=== PATIENT | male | born 1965 | race Caucasian/White ===

== ENCOUNTER 2017-01-19 19:03 | Inpatient (IN) | payer OTHER ==
[2017-01-19] MEDS ORDERED: DUONEB 0.5-3 MG/3 ml Neb IH ONE ×2 (19:40→19:48)
[2017-01-19] MEDS ORDERED: MOTRIN 600 MG PO ONE (19:40)
--- NOTE | 2017-01-19 19:40 | ERPHSYRPT ---
- History of Present Illness Time Seen by Provider: 01/19/17 19:27 Source: patient Exam Limitations: no limitations Physician History: 51 y/o male with history of MIs in the past comes to the ER with complaints of right sided chest pain, productive cough and fever for the past 4 days. Pt has been taking motrin and tylenol with no relief of fever. Pt says it feels as if he has pneumonia. Pt describes the pain as sharp, constant, 6/10, worse with inspiration and pt has not taken any pain meds. Pt arrives with a fever of 101.7. Pt denies any palpitations, dizziness, substernal chest pain or leg edema. 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 Associated Symptoms: cough Allergies/Adverse Reactions: No Known Drug Allergies Allergy (Unverified 01/19/17 19:46) Home Medications: No Reportable Medications [No Reported Medications] 01/19/17 [History] - Review of Systems Constitutional: Fever, Chills, Weakness Eyes: No Symptoms Ears, Nose, & Throat: No Symptoms Respiratory: Cough, Dyspnea, Dyspnea on Exertion (CASANOVA), Wheezing Cardiac: No Chest Pain, No Edema, No Syncope Abdominal/Gastrointestinal: No Abdominal Pain, No Nausea, No Vomiting, No Diarrhea Genitourinary Symptoms: No Dysuria Musculoskeletal: No Back Pain, No Neck Pain Skin: No Rash Neurological: No Dizziness, No Focal Weakness, No Sensory Changes Psychological: No Symptoms Endocrine: No Symptoms All Other Systems: Reviewed and Negative - Nursing Vital Signs Nursing Vital Signs: Initial Vital Signs Temperature 101.7 F 01/19/17 19:34 Pulse Rate 98 H 01/19/17 19:34 Respiratory Rate 24 01/19/17 19:34 Blood Pressure 133/97 01/19/17 19:34 O2 Sat by Pulse Oximetry 95 01/19/17 19:34 Pain Scale Pain Intensity 7 - Physical Exam General Appearance: no apparent distress, alert Eye Exam: PERRL/EOMI ENT Exam: normal ENT inspection, No pharyngeal erythema, No tonsillar exudate Neck Exam: normal inspection, non-tender, supple, full range of motion, No meningismus Respiratory Exam: normal breath sounds, lungs clear, no respiratory distress Cardiovascular/Chest Exam: normal heart sounds, regular rate/rhythm, No murmur, No edema Gastrointestinal/Abdominal Exam: soft, non tender, no distention Extremity Exam: non-tender, normal range of motion, normal inspection, normal capillary refill Neurologic Exam: alert, oriented x 3, cooperative, lace mender II-XII nml as tested, normal mood/affect, sensation nml, No motor deficits Skin Exam: normal color, warm, dry, No rash - Course Nursing assessment & vital signs reviewed: Yes EKG Interpreted by Me: RATE (hr 94), NORMAL AXIS, NORMAL INTERVALS, NORMAL QRS, NORMAL ST-T Ordered Tests: Active Orders 24 hr Category Date Time Status EKG-ER Only STAT Care 01/19/17 19:32 Active IV Insertion STAT Care 01/19/17 19:32 Active CHEST 2 VIEWS (PA AND LAT) Stat Exams 01/19/17 19:33 Taken CHEST WITH CONTRAST [CT] Stat Exams 01/19/17 20:44 Taken BLOOD CULTURE Stat Lab 01/19/17 19:50 Received BNP [NT PRO BNP] Stat Lab 01/19/17 19:45 Completed CBC W DIFF Stat Lab 01/19/17 19:45 Completed CMP Stat Lab 01/19/17 19:45 Completed CULTURE,URINE Stat Lab 01/19/17 21:14 Received D-DIMER QUANTITATION Stat Lab 01/19/17 19:45 Completed Lactic Acid Stat Lab 01/19/17 19:50 Completed Lactic Acid Stat Lab 01/19/17 22:45 Results Manual Differential NC Stat Lab 01/19/17 19:45 Completed TROPONIN Q3H Lab 01/19/17 19:45 Completed TROPONIN Q3H Lab 01/19/17 22:45 Received UA W/ MICROSCOPIC Stat Lab 01/19/17 21:14 Completed Respiratory Nebulizer STAT RT 01/19/17 19:40 Active Medication Summary Discontinued Medications Generic Name Dose Route Start Last Admin Trade Name Freq PRN Reason Stop Dose Admin Albuterol/Ipratropium 3 ml 01/19/17 19:40 01/19/17 20:05 Duoneb 0.5-3 Mg/3 Ml Neb IH 01/19/17 19:41 3 ml STAT ONE Administration Albuterol/Ipratropium Confirm 01/19/17 19:48 Duoneb 0.5-3 Mg/3 Ml Neb Administered 01/19/17 19:49 Dose 3 ml IH .STK-MED ONE Sodium Chloride 1,000 mls @ 999 mls/hr 01/19/17 20:19 01/19/17 20:42 Sodium Chloride 0.9% 1000 Ml IV 01/19/17 21:19 999 mls/hr .Q1H1M STA Administration Sodium Chloride Confirm 01/19/17 20:36 Sodium Chloride 0.9% 1000 Ml Administered 01/19/17 20:37 Dose 1,000 mls @ ud .ROUTE .STK-MED ONE Sodium Chloride Confirm 01/19/17 20:43 Sodium Chloride 0.9% 1000 Ml Administered 01/19/17 20:44 Dose 1,000 mls @ ud .ROUTE .STK-MED ONE Levofloxacin/Dextrose 750 mg in 150 mls @ 100 mls/hr 01/19/17 20:46 01/19/17 21:01 Levofloxacin 750mg/150ml D5w IV 01/19/17 22:15 100 mls/hr STAT ONE Administration Levofloxacin/Dextrose Confirm 01/19/17 20:55 Levofloxacin 750mg/150ml D5w Administered 01/19/17 20:56 Dose 750 mg in 150 mls @ ud IV .STK-MED ONE Ibuprofen 600 mg 01/19/17 19:40 01/19/17 19:56 Motrin 600 Mg PO 01/19/17 19:41 600 mg STAT ONE Administration Ibuprofen Confirm 01/19/17 19:55 Motrin 600 Mg Administered 01/19/17 19:56 Dose 600 mg .ROUTE .STK-MED ONE Morphine Sulfate 4 mg 01/19/17 22:27 01/19/17 22:33 Morphine Sulfate 4 Mg Inj IV 01/19/17 22:28 4 mg STAT ONE Administration Morphine Sulfate Confirm 01/19/17 22:29 Morphine Sulfate 4 Mg Inj Administered 01/19/17 22:30 Dose 4 mg .ROUTE .STK-MED ONE Lab/Rad Data: Laboratory Result Diagrams 01/19/17 19:45 01/19/17 19:45 Laboratory Results 01/19/17 01/19/17 01/19/17 Range/Units 22:45 21:14 20:35 WBC (4.0-10.5) K/mm3 RBC (4.1-5.6) M/mm3 Hgb (12.5-18.0) gm/dl Hct (42-50) % MCV (78-100) fl MCH (26-32) pg MCHC (32-36) g/dl RDW (11.5-14.0) % Plt Count (150-450) K/mm3 MPV (6-9.5) fl Segmented Neutrophils (36.-66.) % Band Neutrophils (0.0-2.0) % Lymphocytes (Manual) (24-44) % Monocytes (Manual) (0.0-12.0) % Differential Comment Platelet Estimate (NORMAL) Anisocytosis D-Dimer (0-500) ng/mL Sodium (136-145) mEq/L Potassium (3.5-5.1) mEq/L Chloride (98-107) mEq/L Carbon Dioxide (21-32) mEq/L Anion Gap (5-15) MEQ/L BUN (9-20) mg/dL Creatinine (0.55-1.30) mg/dl Estimated GFR ML/MIN Glucose (70-110) MG/DL Lactic Acid 2.0 (0.4-2.0) Calcium (8.5-10.1) mg/dL Total Bilirubin (0.2-1.0) mg/dL AST (15-37) U/L ALT (12-78) U/L Alkaline Phosphatase (46-116) U/L Troponin I (0.000-0.056) ng/ml NT-Pro-B Natriuret Pep (0-125) pg/ml Serum Total Protein (6.4-8.2) gm/dL Albumin (3.4-5.0) g/dL Ur Collection Type VOID Urine Color YELLOW (YELLOW) Urine Appearance CLEAR (CLEAR) Urine pH 6.0 (5-6) Ur Specific Harrison 1.010 (1.005-1.025) Urine Protein TRACE (Negative) Urine Ketones NEGATIVE (NEGATIVE) Urine Blood 50 (0-5) Junito/ul Urine Nitrite NEGATIVE (NEGATIVE) Urine Bilirubin NEGATIVE (NEGATIVE) Urine Urobilinogen NORMAL (0-1) mg/dL Ur Leukocyte Esterase NEGATIVE (NEGATIVE) Urine Microscopic RBC 0-2 (0-2) /HPF Urine Microscopic WBC 0-2 (0-5) /HPF Ur Epithelial Cells RARE (FEW) /HPF Urine Bacteria FEW (NEGATIVE) /HPF Urine Culture Reflexed YES (NO) Urine Glucose 1000 (NEGATIVE) mg/dL Influenza Type A Ag NEGATIVE (NEGATIVE) Influenza Type B Ag NEGATIVE (NEGATIVE) RSV (PCR) NEGATIVE (Negative) Specimen Received 01/19/170 01/19/17 01/19/17 01/19/17 Range/Units 19:50 19:45 19:45 WBC (4.0-10.5) K/mm3 RBC (4.1-5.6) M/mm3 Hgb (12.5-18.0) gm/dl Hct (42-50) % MCV (78-100) fl MCH (26-32) pg MCHC (32-36) g/dl RDW (11.5-14.0) % Plt Count (150-450) K/mm3 MPV (6-9.5) fl Segmented Neutrophils (36.-66.) % Band Neutrophils (0.0-2.0) % Lymphocytes (Manual) (24-44) % Monocytes (Manual) (0.0-12.0) % Differential Comment Platelet Estimate (NORMAL) Anisocytosis D-Dimer 1178 H* (0-500) ng/mL Sodium (136-145) mEq/L Potassium (3.5-5.1) mEq/L Chloride (98-107) mEq/L Carbon Dioxide (21-32) mEq/L Anion Gap (5-15) MEQ/L BUN (9-20) mg/dL Creatinine (0.55-1.30) mg/dl Estimated GFR ML/MIN Glucose (70-110) MG/DL Lactic Acid 2.3 H (0.4-2.0) Calcium (8.5-10.1) mg/dL Total Bilirubin (0.2-1.0) mg/dL AST (15-37) U/L ALT (12-78) U/L Alkaline Phosphatase (46-116) U/L Troponin I (0.000-0.056) ng/ml NT-Pro-B Natriuret Pep 586 H (0-125) pg/ml Serum Total Protein (6.4-8.2) gm/dL Albumin (3.4-5.0) g/dL Ur Collection Type Urine Color (YELLOW) Urine Appearance (CLEAR) Urine pH (5-6) Ur Specific Harrison (1.005-1.025) Urine Protein (Negative) Urine Ketones (NEGATIVE) Urine Blood (0-5) Junito/ul Urine Nitrite (NEGATIVE) Urine Bilirubin (NEGATIVE) Urine Urobilinogen (0-1) mg/dL Ur Leukocyte Esterase (NEGATIVE) Urine Microscopic RBC (0-2) /HPF Urine Microscopic WBC (0-5) /HPF Ur Epithelial Cells (FEW) /HPF Urine Bacteria (NEGATIVE) /HPF Urine Culture Reflexed (NO) Urine Glucose (NEGATIVE) mg/dL Influenza Type A Ag (NEGATIVE) Influenza Type B Ag (NEGATIVE) RSV (PCR) (Negative) Specimen Received 01/19/17 01/19/17 01/19/17 Range/Units 19:45 19:45 19:45 WBC 14.1 H (4.0-10.5) K/mm3 RBC 4.50 (4.1-5.6) M/mm3 Hgb 14.6 (12.5-18.0) gm/dl Hct 41.6 L (42-50) % MCV 92.4 (78-100) fl MCH 32.4 H (26-32) pg MCHC 35.1 (32-36) g/dl RDW 13.2 (11.5-14.0) % Plt Count 160 (150-450) K/mm3 MPV 11.0 H (6-9.5) fl Segmented Neutrophils 71 H (36.-66.) % Band Neutrophils 7 H (0.0-2.0) % Lymphocytes (Manual) 11 L (24-44) % Monocytes (Manual) 11 (0.0-12.0) % Differential Comment ABNORMAL Platelet Estimate NORMAL (NORMAL) Anisocytosis 1+ D-Dimer (0-500) ng/mL Sodium 125 L (136-145) mEq/L Potassium 3.4 L (3.5-5.1) mEq/L Chloride 92 L (98-107) mEq/L Carbon Dioxide 22.1 (21-32) mEq/L Anion Gap 14.7 (5-15) MEQ/L BUN 8 L (9-20) mg/dL Creatinine 1.02 (0.55-1.30) mg/dl Estimated GFR > 60 ML/MIN Glucose 325 H (70-110) MG/DL Lactic Acid (0.4-2.0) Calcium 8.8 (8.5-10.1) mg/dL Total Bilirubin 0.70 (0.2-1.0) mg/dL AST 31 (15-37) U/L ALT 57 (12-78) U/L Alkaline Phosphatase 154 H (46-116) U/L Troponin I < 0.017 (0.000-0.056) ng/ml NT-Pro-B Natriuret Pep (0-125) pg/ml Serum Total Protein 7.6 (6.4-8.2) gm/dL Albumin 2.6 L (3.4-5.0) g/dL Ur Collection Type Urine Color (YELLOW) Urine Appearance (CLEAR) Urine pH (5-6) Ur Specific Harrison (1.005-1.025) Urine Protein (Negative) Urine Ketones (NEGATIVE) Urine Blood (0-5) Junito/ul Urine Nitrite (NEGATIVE) Urine Bilirubin (NEGATIVE) Urine Urobilinogen (0-1) mg/dL Ur Leukocyte Esterase (NEGATIVE) Urine Microscopic RBC (0-2) /HPF Urine Microscopic WBC (0-5) /HPF Ur Epithelial Cells (FEW) /HPF Urine Bacteria (NEGATIVE) /HPF Urine Culture Reflexed (NO) Urine Glucose (NEGATIVE) mg/dL Influenza Type A Ag (NEGATIVE) Influenza Type B Ag (NEGATIVE) RSV (PCR) (Negative) Specimen Received - Progress Progress: improved Progress Note: 01/19/17 22:52 D-dimer was over 1000 and the patient requires a CTA chest. The CXR and CTA chest shows a right upper lobe and right perihilar consolidation. Pt has a leukocytosis with a left shift. Pt was given a dose of levaquin. Pt also has a slight elevation of lactic acid and was given a liter of fluids. 01/19/17 23:02 Pt has been admitted to Dr Kurtz for community acquired pneumonia. - Departure Time of Disposition: 23:03 Departure Disposition: In-patient Admission Clinical Impression: Pneumonia Qualifiers: Pneumonia type: due to unspecified organism Laterality: right Lung location: upper lobe of lung Qualified Code(s): J18.1 - Lobar pneumonia, unspecified organism Condition: Stable Critical Care Time: Yes Critical Care Time(excluding separately billable procedures): 75-104 minutes Referrals: DOCTOR,NO FAMILY [Primary Care Provider] -
[2017-01-19 19:55] LABS: Lactic Acid 2.3 (0.4-2.0)
[2017-01-19] MEDS ORDERED: MOTRIN 600 MG ONE (19:55)
[2017-01-19 20:00] LABS: Mean Cell Volume 92.4 fl (78-100); Mean Corpuscular Hemoglobin 32.4 pg (26-32); Platelet Count 160 K/mm3 (150-450); Red Cell Distribution Width 13.2 % (11.5-14.0); White Blood Count 14.1 K/mm3 (4.0-10.5)
[2017-01-19] MEDS ORDERED: Sodium Chloride 0.9% 1000 ML 1,000 ML IV STA (20:19)
[2017-01-19 20:21] LABS: ALBUMIN 2.6 g/dL (3.4-5.0); ALKALINE PHOSPHATASE 154 U/L (46-116); ANION GAP 14.7 MEQ/L (5-15); BLOOD UREA NITROGEN 8 mg/dL (9-20); CHLORIDE 92 mEq/L (98-107); Carbon Dioxide 22.1 mEq/L (21-32); Glucose 325 MG/DL (70-110); Potassium 3.4 mEq/L (3.5-5.1); SGOT/AST 31 U/L (15-37); SGPT/ALT 57 U/L (12-78); SODIUM 125 mEq/L (136-145); Total Protein 7.6 gm/dL (6.4-8.2)
[2017-01-19] MEDS ORDERED: Sodium Chloride 0.9% 1000 ML 1,000 ML ONE (20:36)
[2017-01-19] MEDS ORDERED: Sodium Chloride 0.9% 1000 ML 0 ML ONE (20:43)
[2017-01-19] MEDS ORDERED: LEVOFLOXACIN 750MG/150ML D5W 750 MG/150 ML BAG IV ONE ×2 (20:46→20:55)
[2017-01-19 21:00] LABS: BAND 7 % (0.0-2.0); Total Cells Counted 100
[2017-01-19 21:01] LABS: ANISOCYTOSIS 1+; Platelet Estimate NORMAL (NORMAL)
[2017-01-19 21:27] LABS: Collection Type VOID; Glucose 1000 mg/dL (NEGATIVE); Leukocyte Esterase NEGATIVE (NEGATIVE)
[2017-01-19 21:28] LABS: Bilirubin NEGATIVE (NEGATIVE); Blood 50 Ery/ul (0-5); COMPLETE URINE MICROSCOPIC? YES; WBC 0-2 /HPF (0-5)
[2017-01-19 21:29] LABS: Bacteria FEW /HPF (NEGATIVE); Epithelial Cells RARE /HPF (FEW)
[2017-01-19 21:30] LABS: ADD URINE CULTURE? YES (NO)
[2017-01-19] MEDS ORDERED: MORPHINE SULFATE 4 MG INJ IV ONE (22:27)
[2017-01-19] MEDS ORDERED: MORPHINE SULFATE 4 MG INJ ONE (22:29)
[2017-01-19] MEDS ORDERED: Phenergan 25 MG INJ IV PRN (23:07)
[2017-01-20] MEDS: MORPHINE SULFATE 4 MG INJ IV PRN ×5 (02:36→20:10)
[2017-01-20 05:44] LABS: Mean Cell Volume 94.7 fl (78-100); Mean Platelet Volume 10.6 fl (6-9.5); Platelet Count 123 K/mm3 (150-450); Red Blood Count 3.97 M/mm3 (4.1-5.6); Red Cell Distribution Width 13.1 % (11.5-14.0); White Blood Count 12.7 K/mm3 (4.0-10.5)
[2017-01-20 06:13] LABS: BLOOD UREA NITROGEN 9 mg/dL (9-20); CHLORIDE 93 mEq/L (98-107); Glucose 351 MG/DL (70-110); Mean Corpuscular Hemoglobin 31.9 pg (26-32); Potassium 3.6 mEq/L (3.5-5.1); SODIUM 126 mEq/L (136-145)
[2017-01-20 06:16] LABS: BAND 3 % (0.0-2.0); Nucleated Red Blood Cell 1 %; Total Cells Counted 100
[2017-01-20 06:18] LABS: ANISOCYTOSIS 1+; Dohle Bodies 1+; Poikilocytosis 1+; Toxic Granulation 1+
[2017-01-20 06:19] LABS: Platelet Estimate NORMAL (NORMAL)
--- NOTE | 2017-01-20 08:27 | PCM.HP ---
History of Present Illness - Chief Complaint Chief Complaint: pneumonia History of Present Illness: is a 51 year old male with no local physician who reported to the ER with a 6-7 day history of cough, fever and sputum production. He reports he has had some bloody sputum. He is a 40+ pack-year history smoker, his is battling lung cancer. He has no known history of hyponatremia. - Review of Systems Constitutional: Fever Respiratory: Cough, Short Of Breath Cardiac: Chest Pain Abdominal/Gastrointestinal: No Abdominal Pain, No Nausea, No Vomiting, No Diarrhea Skin: No Rash All Other Systems: Reviewed and Negative Medications & Allergies Home Medications: Home Medication List No Reportable Medications [No Reported Medications] 01/19/17 [History Confirmed 01/19/17] Allergies/Adverse Reactions: Allergies Allergy/AdvReac Type Severity Reaction Status Date / Time No Known Drug Allergies Allergy Verified 01/20/17 01:46 - Past Medical History Past Medical History: Yes Neurological History: No Pertinent History ENT History: No Pertinent History Cardiac History: Myocardial Infarction ([place]) Respiratory History: CHF, COPD, Pneumonia Endocrine Medical History: Diabetes Type II Musculoskelatal History: No Pertinent History GI Medical History: Other History: No Pertinent History Pyscho-Social History: Depression Male Reproductive Disorders: No Pertinent History Comment: 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 on antibiotics - Past Surgical History Past Surgical History: Yes Neuro Surgical History: No Pertinent History Cardiac History: Angioplasty Respiratory Surgery: No Pertinent History GI Surgical History: No Pertinent History Genitourinary Surgical Hx: No Pertinent History Musculskeletal Surgical Hx: No Pertinent History Male Surgical History: No Pertinent History - Social History Smoking Status: Current every day smoker How long have you smoked: 40years Alcohol: Weekly Drug Use: marijuana - Physical Exam Vital Signs: Vital Signs - 24 hr Temp Pulse Resp BP Pulse Ox 01/20/17 07:28 98.2 F 81 20 117/72 96 01/20/17 04:00 98.8 F 85 20 108/69 96 01/20/17 01:39 96 H 20 95 01/20/17 00:22 98.2 F 80 22 108/70 95 01/19/17 23:22 99.4 F 83 20 114/75 96 01/19/17 21:05 94 H 26 H 123/76 95 01/19/17 20:43 98 H 22 129/77 93 L 10/25/17 19:40 97 H 24 94 L 01/19/17 19:34 101.7 F 98 H 24 133/97 95 General Appearance: no apparent distress, alert Neurologic Exam: alert, oriented x 3, cooperative, normal mood/affect, nml cerebellar function, nml station & gait, sensation nml, No motor deficits Respiratory Exam: prolonged expirations, rhonchi Cardiovascular Exam: regular rate/rhythm, normal heart sounds, normal peripheral pulses Gastrointestinal/Abdomen Exam: soft, normal bowel sounds, No tenderness, No mass Extremity Exam: normal inspection, normal range of motion, pelvis stable Skin Exam: normal color, warm, dry, No rash Results - Labs Lab/Micro Results: Lab Results-Last 24 Hours 01/20/17 01/20/17 Range/Units 05:28 05:28 WBC 12.7 H (4.0-10.5) K/mm3 RBC 3.97 L (4.1-5.6) M/mm3 Hgb 12.7 (12.5-18.0) gm/dl Hct 37.6 L (42-50) % MCV 94.7 (78-100) fl MCH 31.9 (26-32) pg MCHC 33.8 (32-36) g/dl RDW 13.1 (11.5-14.0) % Plt Count 123 L (150-450) K/mm3 MPV 10.6 H (6-9.5) fl Segmented Neutrophils 86 H (36.-66.) % Band Neutrophils 3 H (0.0-2.0) % Lymphocytes (Manual) 8 L (24-44) % Monocytes (Manual) 3 (0.0-12.0) % Nucleated RBCs 1 % Differential Comment ABNORMAL Toxic Granulation 1+ Dohle Bodies 1+ Platelet Estimate NORMAL (NORMAL) Poikilocytosis 1+ Anisocytosis 1+ Sodium 126 L (136-145) mEq/L Potassium 3.6 (3.5-5.1) mEq/L Chloride 93 L (98-107) mEq/L Carbon Dioxide 22.0 (21-32) mEq/L Anion Gap 15.0 (5-15) MEQ/L BUN 9 (9-20) mg/dL Creatinine 1.08 (0.55-1.30) mg/dl Estimated GFR > 60 ML/MIN Glucose 351 H (70-110) MG/DL Calcium 8.2 L (8.5-10.1) mg/dL - Other Procedures and Tests Respiratory Therapy 01/20/17 00:49 Smoking Cessation Education ONCE Assessment/Plan (1) Pneumonia Current Visit: Yes Status: Acute Qualifiers: Pneumonia type: due to unspecified organism Laterality: right Lung location: upper lobe of lung Qualified Code(s): J18.1 - Lobar pneumonia, unspecified organism Assessment & Plan: continue levaquin, fluids and nebs. concern with CT not able to exclude underlying mass. will definitely need followed to resolution in light of heavy tobacco use and with concurrent hyponatremia. I discussed with patient need for followup today. Code(s): J18.9 - PNEUMONIA, UNSPECIFIED ORGANISM (2) Hyponatremia Current Visit: Yes Status: Acute Assessment & Plan: will monitor Code(s): E87.1 - HYPO-OSMOLALITY AND HYPONATREMIA
[2017-01-20] MEDS: Sodium Chloride 0.9% W/ 20 mEq KCl/LITER 1,000 ML IV SCH (09:03)
[2017-01-20] MEDS ORDERED: FLUCELVAX QUAD 2017-2018 SYR IM ONE (10:00)
[2017-01-20] MEDS: DUONEB 0.5-3 MG/3 ml Neb IH PRN ×2 (10:58→19:17)
[2017-01-20] MEDS: NovoLOG Insulin SQ PRN (11:25)
[2017-01-20] MEDS: LEVOFLOXACIN 750MG/150ML D5W 750 MG/150 ML BAG IV SCH (23:19)
[2017-01-21] MEDS: MORPHINE SULFATE 4 MG INJ IV PRN ×6 (00:34→22:57)
[2017-01-21] MEDS: Sodium Chloride 0.9% W/ 20 mEq KCl/LITER 1,000 ML IV SCH ×2 (02:02→12:44)
[2017-01-21 05:25] LABS: Mean Cell Volume 95.8 fl (78-100); Mean Platelet Volume 10.6 fl (6-9.5); Platelet Count 162 K/mm3 (150-450); Red Blood Count 3.79 M/mm3 (4.1-5.6); Red Cell Distribution Width 13.2 % (11.5-14.0)
[2017-01-21 05:28] LABS: Mean Corpuscular Hemoglobin 32.1 pg (26-32)
[2017-01-21 05:35] LABS: ALBUMIN 1.9 g/dL (3.4-5.0); ALKALINE PHOSPHATASE 122 U/L (46-116); ANION GAP 9.6 MEQ/L (5-15); BLOOD UREA NITROGEN 13 mg/dL (9-20); CHLORIDE 99 mEq/L (98-107); Carbon Dioxide 27.8 mEq/L (21-32); Glucose 171 MG/DL (70-110); Potassium 3.8 mEq/L (3.5-5.1); SGOT/AST 34 U/L (15-37); SGPT/ALT 39 U/L (12-78); SODIUM 133 mEq/L (136-145); Total Protein 6.1 gm/dL (6.4-8.2)
[2017-01-21 07:35] LABS: BAND 3 % (0.0-2.0); Eosinophil 3 % (0.00-3.0); Total Cells Counted 100
[2017-01-21 07:36] LABS: Platelet Estimate NORMAL (NORMAL)
[2017-01-21 07:37] LABS: Basophilic Stippling 1+; Toxic Granulation 2+
[2017-01-21] MEDS: DUONEB 0.5-3 MG/3 ml Neb IH PRN (07:50)
--- NOTE | 2017-01-21 08:05 | PCM.NOTE ---
Date and Time: 01/21/17 0804 Subjective Assessment: patient still has pink sputum production, no fever or oxygen required Objective Exam General Appearance: no apparent distress, alert Respiratory Exam: rhonchi Cardiovascular Exam: regular rate/rhythm, normal heart sounds Gastrointestinal/Abdomen Exam: soft, No tenderness, No mass Extremity Exam: normal inspection, normal range of motion OBJECTIVE DATA Vital Signs: Vital Signs - 24 hr Temp Pulse Resp BP Pulse Ox 01/21/17 07:52 69 18 96 01/21/17 07:29 98.7 F 67 18 113/75 93 L 01/21/17 04:00 97.6 F 64 26 H 123/78 91 L 01/21/17 00:00 98.9 F 78 26 H 113/73 92 L 01/20/17 20:00 98.8 F 82 16 114/69 92 L 01/20/17 19:20 84 20 94 L 01/20/17 16:00 20 01/20/17 15:56 100.6 F 78 20 117/74 94 L 01/20/17 15:22 93 L 01/20/17 12:00 20 01/20/17 11:39 100.4 F 84 20 114/73 92 L 01/20/17 11:12 84 20 92 L Pain Assessment - Last Documented Pain Intensity 0 Pain Scale Used 0-10 Pain Scale Intake and Output: Intake & Output 01/18/17 01/19/17 01/20/17 01/21/17 11:59 11:59 11:59 11:59 Intake Total 1800 2832 Output Total 1475 2700 Balance 325 132 Weight 61.944 kg Lab Results: Accuchecks Date 01/21/17 Date 01/21/17 Time 07:37 Time 22:00 Accucheck Value: 187 Accucheck Value: 216 Lab Results-Last 24 Hours 01/20/17 01/21/17 01/21/17 Range/Units 05:00 05:13 05:13 WBC 7.0 (4.0-10.5) K/mm3 RBC 3.79 L (4.1-5.6) M/mm3 Hgb 12.2 L (12.5-18.0) gm/dl Hct 36.3 L (42-50) % MCV 95.8 (78-100) fl MCH 32.1 H (26-32) pg MCHC 33.6 (32-36) g/dl RDW 13.2 (11.5-14.0) % Plt Count 162 (150-450) K/mm3 MPV 10.6 H (6-9.5) fl Segmented Neutrophils 66 (36.-66.) % Band Neutrophils 3 H (0.0-2.0) % Lymphocytes (Manual) 16 L (24-44) % Monocytes (Manual) 12 (0.0-12.0) % Eosinophils (Manual) 3 (0.00-3.0) % Differential Comment ABNORMAL Toxic Granulation 2+ Platelet Estimate NORMAL (NORMAL) Basophilic Stippling 1+ Sodium 133 L (136-145) mEq/L Potassium 3.8 (3.5-5.1) mEq/L Chloride 99 (98-107) mEq/L Carbon Dioxide 27.8 (21-32) mEq/L Anion Gap 9.6 (5-15) MEQ/L BUN 13 (9-20) mg/dL Creatinine 0.90 (0.55-1.30) mg/dl Estimated GFR > 60 ML/MIN Glucose 171 H (70-110) MG/DL Hemoglobin A1c 6.9 H (4.5-6.2) Calcium 8.1 L (8.5-10.1) mg/dL Total Bilirubin 0.40 (0.2-1.0) mg/dL AST 34 (15-37) U/L ALT 39 (12-78) U/L Alkaline Phosphatase 122 H (46-116) U/L Serum Total Protein 6.1 L (6.4-8.2) gm/dL Albumin 1.9 L (3.4-5.0) g/dL Assessment/Plan (1) Pneumonia Current Visit: Yes Status: Acute Qualifiers: Pneumonia type: due to unspecified organism Laterality: right Lung location: upper lobe of lung Qualified Code(s): J18.1 - Lobar pneumonia, unspecified organism Assessment & Plan: continue levaquin, nebs at this time Code(s): J18.9 - PNEUMONIA, UNSPECIFIED ORGANISM (2) Hyponatremia Current Visit: Yes Status: Acute Code(s): E87.1 - HYPO-OSMOLALITY AND HYPONATREMIA
--- NOTE | 2017-01-21 08:55 | XRAY ---
Exam: AP upright and lateral chest films sitting on a stool from 01/19/2017. Comparison: Two-view chest from 11/14/2006. Indication: Shortness of breath, fever, cough, weakness, congestion 1 week, smoker 40 years. Findings: Extensive new infiltrate is seen within the right upper lung field, predominantly posteriorly. This extends to the right suprahilar projection. This is suggestive of pneumonia and represents an unfavorable change. There is also some right paratracheal thickening suggesting abnormal lymphadenopathy or mass. Consider further evaluation with a CT of the chest with IV contrast. The transverse heart size is normal. There is moderate tortuosity of the proximal descending thoracic aorta. No vascular congestion or pleural fluid is seen. No pneumothorax is seen. The remainder of the lungs appears clear. There appears to be moderate anterior wedging of a lower mid thoracic vertebral body at approximately T9. This is not seen on the prior exam from 11/14/2006. Mild dorsal kyphosis is seen at T8-T9. Correlate with history. Impression: 1. Extensive airspace infiltrate is seen overlying the right hilum and right upper lung field, predominantly posteriorly. This is suggestive of pneumonia. 2. There is also new abnormal widening of the right paratracheal stripe suggesting abnormal lymphadenopathy and/or mass. Consider further evaluation with a CT of the chest. 3. No other active lung disease is seen. 4. New approximately 50% anterior wedge fracture deformity of approximately the T9 vertebral body as compared to 11/14/2006. However, this fracture deformity is probably old. Resulting kyphotic deformity is seen at T8-T9. Correlate clinically.
[2017-01-21] MEDS: NovoLOG Insulin SQ PRN (11:09)
[2017-01-21] MEDS: Tussionex Pennkinetic Susp PO PRN (11:44)
--- NOTE | 2017-01-21 13:44 | XRAY ---
Exam: CT of the chest with IV contrast from 01/19/2017. CTDI: 17.57 Comparison: Two-view chest from 01/19/2017. Indication: Elevated d-dimer of 1178, rule out PE, 51-year-old male with shortness of breath, fever, cough, weakness, congestion 1 week. Technique: Post-IV contrast axial images were obtained through the chest using 80 cc of Isovue [address] PE protocol. Reconstructed coronal and sagittal images were created and reviewed. Findings: The pulmonary vessels enhance well. I see no filling defects to suggest clot/pulmonary emboli. The thoracic aorta appears of normal diameter. No thoracic aortic dissection is seen. The transverse heart size is normal. Minimal vascular calcification is seen within the proximal left anterior descending coronary artery on axial image #93 of series #201. The thyroid gland appears grossly unremarkable. There appear to be some mildly enlarged, multifocal right paratracheal, right hilar, and subcarinal lymph nodes which likely represent reactive lymphadenopathy. One lymph node within the distal right paratracheal projection measures a maximum of 1.4 cm in short axis on axial image #82. There is extensive right upper lobe and right suprahilar infiltrate. I do not see a central obstructing right perihilar mass. The visualized bronchi appear open. This is most suggestive of extensive right upper lobe and right perihilar pneumonia. There is a calcified granuloma at the lateral right upper lobe. The right lower lung field is remarkable for minimal pleural fluid/reaction within the right posterior lung sulcus. The left lung appears appear. The left hilum appears unremarkable. No adrenal mass is seen within the upper abdomen. The gallbladder is mostly contracted. No other gross abnormality is seen within the visualized upper abdomen. On the sagittal images, I note multifocal degenerative disc disease from T7T8 through T11-T12. Moderate chronic appearing anterior wedge fracture deformity of T9 with at least 50% loss of the anterior vertebral body height and resulting dorsal kyphosis are seen. There is also slight chronic-appearing compression of the anterior aspect of T7 and slight generalized compression of T10, both likely chronic. No other evidence of acute fracture or aggressive bone lesion is seen. Impression: 1. I see no evidence of pulmonary embolism. Furthermore, no thoracic aortic aneurysm or thoracic aortic dissection is seen. 2. Extensive right upper lobe and right perihilar infiltrate, likely due to pneumonia. I believe there is reactive lymphadenopathy within the distal right paratracheal projection, right hilum, and subcarinal region. There is also a minimal amount of posterior right basilar pleural fluid/reaction. These findings should be followed until complete resolution to exclude the possibility of underlying malignancy, although no definite central right perihilar mass or obstruction of the central branching bronchi is seen at this time. 3. No other active cardiopulmonary disease is seen. 4. Skeletal findings as discussed above.
[2017-01-21] MEDS: LEVOFLOXACIN 750MG/150ML D5W 750 MG/150 ML BAG IV SCH (22:57)
[2017-01-22] MEDS: Tussionex Pennkinetic Susp PO PRN (00:11)
[2017-01-22] MEDS: MORPHINE SULFATE 4 MG INJ IV PRN (04:44)
[2017-01-22 05:44] LABS: Mean Cell Volume 94.4 fl (78-100); Mean Platelet Volume 10.8 fl (6-9.5); Platelet Count 203 K/mm3 (150-450); Red Blood Count 4.12 M/mm3 (4.1-5.6); Red Cell Distribution Width 12.9 % (11.5-14.0); White Blood Count 6.8 K/mm3 (4.0-10.5)
[2017-01-22 06:10] LABS: ANION GAP 14.9 MEQ/L (5-15); BLOOD UREA NITROGEN 13 mg/dL (9-20); CHLORIDE 99 mEq/L (98-107); Carbon Dioxide 23.1 mEq/L (21-32); Glucose 161 MG/DL (70-110); Potassium 4.3 mEq/L (3.5-5.1); SODIUM 133 mEq/L (136-145)
[2017-01-22 07:15] VITALS: BP 127/70; PULSE 86; O2SAT 97
--- NOTE | 2017-01-22 08:13 | PCM.DS ---
Discharge Summary Date of Admission: 01/20/17 00:02 Admitting Physician: KALEB NAVARRO Primary Care Provider: KALEB NAVARRO Allergies Allergies No Known Drug Allergies Allergy (Verified 01/20/17 01:46) Hospital Summary - Hospital Course Hospital Course: patient was admitted with pneumonia, he is a service patient with no local doctor. has progressed well, treated with levaquin, nebs and is afebrile, has normal wbc count and sats are good on room air. - Vitals & Intake/Output Vital Signs: Vital Signs Temperature 97.8 F 01/22/17 07:14 Pulse Rate 86 01/22/17 07:14 Respiratory Rate 20 01/22/17 07:14 Blood Pressure 127/70 01/22/17 07:14 O2 Sat by Pulse Oximetry 97 01/22/17 07:14 Intake & Output: Intake & Output 01/19/17 01/20/17 01/21/17 01/22/17 11:59 11:59 11:59 11:59 Intake Total 1800 3312 2442 Output Total 1475 2700 1640 Balance 325 612 802 Weight 61.944 kg - Lab Result Diagrams: 01/22/17 05:15 01/22/17 05:15 Lab Results-Last 24 Hrs: Accuchecks Date 01/22/17 Date 01/21/17 Date 01/21/17 Date 01/21/17 Time 08:07 Time 22:00 Time 16:30 Time 11:11 Accucheck Value: 146 Accucheck Value: 186 Accucheck Value: 153 Accucheck Value: 313 Lab Results-Last 24 Hours 01/22/17 01/22/17 Range/Units 05:15 05:15 WBC 6.8 (4.0-10.5) K/mm3 RBC 4.12 (4.1-5.6) M/mm3 Hgb 13.2 (12.5-18.0) gm/dl Hct 38.9 L (42-50) % MCV 94.4 (78-100) fl MCH 32.0 (26-32) pg MCHC 33.9 (32-36) g/dl RDW 12.9 (11.5-14.0) % Plt Count 203 (150-450) K/mm3 MPV 10.8 H (6-9.5) fl Sodium 133 L (136-145) mEq/L Potassium 4.3 (3.5-5.1) mEq/L Chloride 99 (98-107) mEq/L Carbon Dioxide 23.1 (21-32) mEq/L Anion Gap 14.9 (5-15) MEQ/L BUN 13 (9-20) mg/dL Creatinine 0.86 (0.55-1.30) mg/dl Estimated GFR > 60 ML/MIN Glucose 161 H (70-110) MG/DL Calcium 8.5 (8.5-10.1) mg/dL Micro Results-Entire Visit: Accuchecks Date 01/22/17 Date 01/21/17 Date 01/21/17 Date 01/21/17 Time 08:07 Time 22:00 Time 16:30 Time 11:11 Accucheck Value: 146 Accucheck Value: 186 Accucheck Value: 153 Accucheck Value: 313 - Procedures and Test Procedures and Tests throughout Hospitalization: Therapy Orders & Screens 01/20/17 00:49 RT Screen per Nursing Assess ONCE Comment: Protocol Order Physician Instructions: Greater than 3 points order RT Admission Screen Reason For Exam: Triggered on Admission Diagnosis: pneumonia Diagnosis: pneumonia Pneumonia: Yes Home O2: No Asthma: No CHF: Yes Home CPAP/BIPAP: No Home Nebs/MDI: No Total Points: 6 Smoking Cessation Education ONCE Comment: Diagnosis: pneumonia Smoking Status: Current every day smoker How long have you smoked: 40years Have you smoked in the past 12 months: Yes Approximately how many cigarettes per day: 1 pk/day Do you dip or chew tobacco: No 01/20/17 11:12 Respiratory Nebulizer UD Comment: GEOVANNI Q4PRN Diagnosis: pneumonia Discharge Exam General Appearance: no apparent distress, alert Respiratory Exam: normal breath sounds, lungs clear, No respiratory distress Cardiovascular Exam: regular rate/rhythm, normal heart sounds Gastrointestinal/Abdomen Exam: soft, No tenderness, No mass Extremity Exam: normal inspection, normal range of motion Final Diagnosis/Problem List - Final Discharge Diagnosis/Problem (1) Pneumonia Current Visit: Yes Status: Acute (2) Hyponatremia Current Visit: Yes Status: Acute (3) Diabetes mellitus type 2 in nonobese Current Visit: Yes Status: Acute Assessment & Plan: continue metformin, a1c 6.9% - Discharge Disposition: Home, Self-Care Condition: Stable Prescriptions: New Metformin HCl 500 mg [Glucophage 500 MG] 500 mg PO BIDWM #60 tablet Levofloxacin [Levaquin] 750 mg PO DAILY #3 tablet Hydrocod Psx/Chlor-Watson [Tussionex Pennkinetic Susp] 5 ml PO Q12H PRN PRN #120 ml PRN Reason: Cough Albuterol Sulfate [Ventolin Hfa] 2 puffs IH Q4-6HPRN PRN #1 inh PRN Reason: Cough Follow up with: KALEB NAVARRO MD [Primary Care Provider] - 1 Week
[2017-01-22 09:13] LABS: ATYPICAL LYMPHS 1 %; BAND 2 % (0.0-2.0); Eosinophil 1 % (0.00-3.0); Total Cells Counted 100
[2017-01-22 09:14] LABS: Platelet Estimate NORMAL (NORMAL); Toxic Granulation 2+
== END 2017-01-22 09:30 | disposition home or self-care (01) | DRG 194 ==
LOC: ED 19:03 → MED SURG 01-20 00:02
PROVIDERS: ADMIT Family Medicine; ATTEND Family Medicine
DX: J18.9 Pneumonia, unspecified organism (principal); E87.1 Hypo-osmolality and hyponatremia; E11.9 Type 2 diabetes mellitus without complications; Z79.01 Long term (current) use of anticoagulants; I25.2 Old myocardial infarction; F32.9 Major depressive disorder, single episode, unspecified; Z98.61 Coronary angioplasty status; Z72.0 Tobacco use; F12.90 Cannabis use, unspecified, uncomplicated; Z79.899 Other long term (current) drug therapy
CPT/HCPCS: 36000; 36415; 71020; 71260; 80048; 80053; 81000; 82962; 83036; 83605; 83880; 84484; 85025; 85379; 87040; 87070; 87086; 87631; 93005; 93041; 94640; 94760; 96360; 96365; 96374; 99285; G0008; J1956; J2270; 90682; A9270-GY

== ENCOUNTER 2017-03-07 15:31 | Emergency (ER) | payer OTHER ==
[2017-03-07] MEDS ORDERED: BENADRYL 50 MG/ML IV ONE (15:47)
[2017-03-07] MEDS ORDERED: Hydromorphone 1 mg/ml Ampule IV ONE (15:47)
[2017-03-07] MEDS ORDERED: BENADRYL 50 MG/ML ONE (15:51)
[2017-03-07] MEDS ORDERED: Hydromorphone 1 mg/ml Ampule ONE (15:52)
--- NOTE | 2017-03-07 15:52 | ERPHSYRPT ---
- History of Present Illness Time Seen by Provider: 03/07/17 15:38 Source: patient Patient Subjective Stated Complaint: PT states "I broke my left hip about 5 years ago and didnt to anything about it and I fell yesterday and hurt it again. The pain is just awful." Triage Nursing Assessment: Pt alert and oriented X 3, skin pwd. Pt ambulates with a limp, able to speak in clear full setences. CSM X 4 Physician History: CC: left hip pain Hx: 51 y/o patient of Dr Navarro has repeated left hip injuries. Fell on RV a few days ago. Pain in the left hip since, not better, worse with movement, moderately severe, sharp in nature. He his out of his BP and DM medications. No neck or back injury. No LOC. Hx hep C. Hip Pain Location: hip (L) Severity of Pain-Max: moderate Severity of Pain-Current: moderate Allergies/Adverse Reactions: No Known Drug Allergies Allergy (Verified 01/20/17 01:46) Home Medications: Lisinopril 20 mg [Zestril 20 MG] 20 mg PO BID 03/07/17 [History] Hx Tetanus, Diphtheria Vaccination/Date Given: Yes Hx Influenza Vaccination/Date Given: Yes Immunizations Up to Date: Yes - Review of Systems Constitutional: No Fever, No Chills Eyes: No Symptoms Ears, Nose, & Throat: No Symptoms Respiratory: No Dyspnea Cardiac: No Chest Pain Abdominal/Gastrointestinal: No Abdominal Pain Genitourinary Symptoms: No Dysuria, No Hematuria Musculoskeletal: Fall, Joint Pain (left hip), No Back Pain, No Neck Pain Skin: No Rash Neurological: No Focal Weakness, No Parasthesia All Other Systems: Reviewed and Negative - Past Medical History Pertinent Past Medical History: Yes Neurological History: No Pertinent History ENT History: No Pertinent History Cardiac History: Myocardial Infarction ([place]) Respiratory History: CHF, COPD, Pneumonia Endocrine Medical History: Diabetes Type II Musculoskeletal History: No Pertinent History GI Medical History: Other History: No Pertinent History Psycho-Social History: Depression Male Reproductive Disorders: No Pertinent History Other Medical History: gangrene - Past Surgical History Past Surgical History: Yes Neuro Surgical History: No Pertinent History Cardiac: Angioplasty Respiratory: No Pertinent History Gastrointestinal: No Pertinent History Genitourinary: No Pertinent History Musculoskeletal: No Pertinent History Male Surgical History: No Pertinent History - Social History Smoking Status: Current every day smoker How long have you smoked: 40 years Exposure to second hand smoke: Yes Drug Use: marijuana Patient Lives Alone: No - Nursing Vital Signs Nursing Vital Signs: Initial Vital Signs Temperature 97.7 F 03/07/17 15:35 Pulse Rate 76 03/07/17 15:35 Respiratory Rate 18 03/07/17 15:35 Blood Pressure 179/118 03/07/17 15:35 O2 Sat by Pulse Oximetry 100 03/07/17 15:35 Pain Scale Pain Intensity [Left Hip] 7 Pain Intensity 7 - Physical Exam General Appearance: alert Eye Exam: PERRL/EOMI Ears, Nose, Throat Exam: normal ENT inspection, moist mucous membranes Neck Exam: normal inspection, non-tender, supple, No midline tenderness Respiratory Exam: normal breath sounds, lungs clear Cardiovascular Exam: regular rate/rhythm Gastrointestinal Exam: soft, No tenderness, No distention Male Genetalia Exam: normal genitalia Back Exam: normal inspection, No vertebral tenderness Extremity Exam: normal inspection, tenderness (left hip with some decreased ROM due to pain) Neurologic Exam: alert, oriented x 3, cooperative, 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 nml as tested, sensation nml, No motor deficits Skin Exam: warm, dry, No rash SpO2 Interpretation: normal SpO2: 100 Oxygen Delivery: Room Air - Course Nursing assessment & vital signs reviewed: Yes Ordered Tests: Active Orders 24 hr Category Date Time Status IV Insertion STAT Care 03/07/17 15:47 Inactive HIP UNI (2V) INCL PEL IF DONE Stat Exams 03/07/17 15:47 Completed PELVIS WITHOUT CONTRAST [CT] Routine Exams 03/07/17 Completed CBC W DIFF Stat Lab 03/07/17 15:47 Stop Req CMP Stat Lab 03/07/17 15:47 Stop Req Medication Summary Discontinued Medications Generic Name Dose Route Start Last Admin Trade Name Freq PRN Reason Stop Dose Admin Hydrocodone Bitart/Acetaminophen 1 tab 03/07/17 16:41 [place] 5/325 Mg PO 03/07/17 16:42 STAT ONE Diphenhydramine HCl 25 mg 03/07/17 15:47 Benadryl 50 Mg/Ml IV 03/07/17 15:48 STAT ONE Diphenhydramine HCl Confirm 03/07/17 15:51 Benadryl 50 Mg/Ml Administered 03/07/17 15:52 Dose 50 mg .ROUTE .STK-MED ONE Hydromorphone HCl 1 mg 03/07/17 15:47 Hydromorphone 1 Mg/Ml Ampule IV 03/07/17 15:48 STAT ONE Hydromorphone HCl Confirm 03/07/17 15:52 Hydromorphone 1 Mg/Ml Ampule Administered 03/07/17 15:53 Dose 1 mg .ROUTE .STK-MED ONE Lisinopril 20 mg 03/07/17 16:42 Zestril 20 Mg PO 03/07/17 16:43 STAT ONE - Progress Progress Note: 03/07/17 16:43 Pelvis/hip with CT show absorption of the left femoral head. He denies any prior surgery and he has no scars. He is out of home meds. He has appt this week with Dr Navarro. This appears to be chronic left hip problem with recent fall. Will release to follow up with Dr Navarro. He reports recent labs so these were canceled. Counseled pt/family regarding: diagnosis, need for follow-up, rad results - Departure Time of Disposition: 16:45 Departure Disposition: Home Clinical Impression: Degenerative joint disease of left hip, Hypertension Condition: Stable Critical Care Time: No Referrals: KALEB NAVARRO MD [Primary Care Provider] - Instructions: High Blood Pressure, Osteoarthritis Additional Instructions: Rx lisinopril Rx metformin Rx norco- no driving See Dr Navarro this week for recheck and to get your blood pressure rechecked. Prescriptions: Hydrocodone Bit/Acetaminophen [[place] 5-325 Tablet] 1 each PO Q6H PRN PRN #10 tablet MDD 4 PRN Reason: Pain Lisinopril 20 mg [Zestril 20 MG] 20 mg PO BID #14 tablet Metformin HCl 500 mg [Glucophage 500 MG] 500 mg PO BIDWM #14 tablet
--- NOTE | 2017-03-07 16:29 | XRAY ---
Indication: Chronic pain 4 years. Comparison: October 30, 2010. Single AP pelvis and 2 views of the left hip demonstrates interval resection of the left femur head/neck with small heterotopic ossification. Remaining femur slightly more superior than normal. Mild degenerative changes of the right hip and lower lumbar spine. Faint vascular calcifications. No other bony, articular, or soft tissue abnormalities.
--- NOTE | 2017-03-07 16:35 | XRAY ---
Indication: Chronic pain. Multiple contiguous axial images obtained through the pelvis with special attention to the osseous structures. Sagittal and coronal reformatted images obtained. Comparison: None There is been remote resection of the left femur head/neck with tiny heterotopic ossifications in the remnant hip joint. Remaining left femur is more superior than normal. Mild degenerative changes of the right hip and visualized lower lumbar spine. No acute fracture, suspicious bony lesions, or osseous destructive process. Visualized noncontrasted soft tissues unremarkable other than mild scattered aortoiliac calcifications. Impression: Left hip remote postsurgical changes as detailed. Lower lumbar and right hip degenerative changes. Remaining CT pelvis is negative. CTDI 18.10
[2017-03-07] MEDS ORDERED: NORCO 5/325 MG PO ONE (16:41)
[2017-03-07] MEDS ORDERED: Zestril 20 MG PO ONE (16:42)
[2017-03-07 16:52] VITALS: O2SAT 98
[2017-03-07] MEDS ORDERED: NORCO 5/325 MG ONE (16:56)
[2017-03-07 17:12] VITALS: BP 186/117; PULSE 72
== END 2017-03-07 17:11 | disposition home or self-care (01) ==
LOC: ED 15:31
DX: M16.12 Unilateral primary osteoarthritis, left hip (principal); I10 Essential (primary) hypertension; I25.2 Old myocardial infarction; J44.9 Chronic obstructive pulmonary disease, unspecified; E11.9 Type 2 diabetes mellitus without complications
CPT/HCPCS: 72192; 73502; 99283; J1170; J1200; A9270-GY

== ENCOUNTER 2017-09-02 04:13 | Emergency (ER) | payer OTHER ==
--- NOTE | 2017-09-02 04:54 | ERPHSYRPT ---
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 Triage Nursing Assessment: pt a&o x3; skin p, w, & m; appears tense and labored upon arrival; transported to er per ems. Physician History: Patient is a 52-year-old male brought in by ambulance for shortness of breath that began after he smoked some "weed". He states he has COPD and after smoking the weed he started to feel short of breath. He was given a DuoNeb treatment in the ambulance and is now feeling better. He denies chest pain. He also states his eyesight is different. He says he has poor eyesight but this is different. He denies headache. His past medical history significant for COPD, CHF, and hypertension. Timing/Duration: today Activities at Onset: none Severity of Dyspnea-Max: moderate Severity of Dyspnea-Current: mild Possible Cause: occasional episodes, smoke exposure Modifying Factors: Improves With: albuterol nebulizer Associated Symptoms: wheezing Allergies/Adverse Reactions: No Known Drug Allergies Allergy (Verified 09/02/17 04:32) Home Medications: Citalopram Hydrobromide [Celexa] 09/02/17 [History] Insulin Glargine [Lantus Insulin] 09/02/17 [History] Insulin Lispro [Humalog] 09/02/17 [History] Metoprolol Tartrate 09/02/17 [History] Hx Tetanus, Diphtheria Vaccination/Date Given: No Hx Influenza Vaccination/Date Given: Yes Hx Pneumococcal Vaccination/Date Given: Yes Immunizations Up to Date: Yes - Review of Systems Constitutional: No Fever, No Chills Eyes: No Symptoms Ears, Nose, & Throat: No Symptoms Respiratory: Dyspnea, Wheezing Cardiac: No Chest Pain, No Edema, No Syncope Abdominal/Gastrointestinal: No Abdominal Pain, No Nausea, No Vomiting, No Diarrhea Genitourinary Symptoms: No Dysuria Musculoskeletal: No Back Pain, No Neck Pain Skin: No Rash Neurological: No Dizziness, No Focal Weakness, No Sensory Changes Psychological: No Symptoms Endocrine: No Symptoms Hematologic/Lymphatic: No Symptoms Immunological/Allergic: No Symptoms All Other Systems: Reviewed and Negative - Past Medical History Pertinent Past Medical History: Yes Neurological History: No Pertinent History ENT History: No Pertinent History Cardiac History: Myocardial Infarction ([place]) Respiratory History: CHF, COPD, Pneumonia Endocrine Medical History: Diabetes Type II Musculoskeletal History: No Pertinent History GI Medical History: Other History: No Pertinent History Psycho-Social History: Depression Male Reproductive Disorders: No Pertinent History Other Medical History: gangrene - Past Surgical History Past Surgical History: Yes Neuro Surgical History: No Pertinent History Cardiac: Angioplasty Respiratory: No Pertinent History Gastrointestinal: No Pertinent History Genitourinary: No Pertinent History Musculoskeletal: No Pertinent History Male Surgical History: No Pertinent History - Social History Smoking Status: Current every day smoker How long have you smoked: 42 years Exposure to second hand smoke: Yes Drug Use: marijuana Patient Lives Alone: No - Nursing Vital Signs Nursing Vital Signs: Initial Vital Signs Temperature 99.3 F 09/02/17 04:19 Pulse Rate 126 H 09/02/17 04:19 Respiratory Rate 24 09/02/17 04:19 Blood Pressure 206/120 09/02/17 04:19 O2 Sat by Pulse Oximetry 100 09/02/17 04:19 Pain Scale Pain Intensity 0 - Physical Exam General Appearance: mild distress, anxiety Eye Exam: PERRL/EOMI Ears, Nose, Throat Exam: hearing grossly normal Neck Exam: normal inspection, supple Respiratory Exam: normal breath sounds Cardiovascular/Chest Exam: normal heart sounds, tachycardia Abdominal/Gastrointestinal Exam: soft, No tenderness, No distention, No mass Rectal Exam: not done Extremity Exam: non-tender, normal range of motion, normal inspection, no calf tenderness, no pedal edema Neurologic Exam: alert, oriented x 3, cooperative, 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 nml as tested, sensation nml, No motor deficits Skin Exam: normal color, warm, No dry SpO2 Interpretation: normal SpO2: 100 Oxygen Delivery: Aerosol Mask - Course EKG Interpreted by Me: RATE, Sinus Tach, NORMAL AXIS, NORMAL INTERVALS, NORMAL QRS, Other (No change compared to EKG on .) - Radiology Exams Chest X-ray Interpretation: Interpreted by me, Negative, Other (interval clearing of RUL pneumonia from 01/19/17.) Ordered Tests: Active Orders 24 hr Category Date Time Status Bridge Builder STAT Care 09/02/17 04:58 Active EKG-ER Only STAT Care 09/02/17 04:57 Active IV Insertion STAT Care 09/02/17 04:57 Active Pulse Oximetry (ED) STAT Care 09/02/17 04:57 Active CHEST 2 VIEWS (PA AND LAT) Stat Exams 09/02/17 04:58 Ordered CBC W DIFF Stat Lab 09/02/17 04:57 Completed CMP Stat Lab 09/02/17 05:15 Completed NT PRO BNP Stat Lab 09/02/17 05:15 Completed TROPONIN Q3H Lab 09/02/17 05:15 Completed TROPONIN Q3H Lab 09/02/17 08:00 Ordered TROPONIN Q3H Lab 09/02/17 11:00 Ordered TROPONIN Q3H Lab 09/02/17 14:00 Ordered TROPONIN Q3H Lab 09/02/17 17:00 Ordered Respiratory Nebulizer STAT RT 09/02/17 04:59 Completed Medication Summary Discontinued Medications Generic Name Dose Route Start Last Admin Trade Name Freq PRN Reason Stop Dose Admin Albuterol Sulfate 2.5 mg 09/02/17 04:57 09/02/17 05:06 Proventil 2.5 Mg/3 Ml Neb IH 09/02/17 04:58 2.5 mg STAT ONE Administration Albuterol Sulfate Confirm 09/02/17 05:05 Proventil 2.5 Mg/3 Ml Neb Administered 09/02/17 05:06 Dose 2.5 mg IH .STK-MED ONE Methylprednisolone Sodium Succinate 125 mg 09/02/17 04:57 09/02/17 05:07 Solu-Medrol 125 Mg IV 09/02/17 04:58 125 mg STAT ONE Administration Methylprednisolone Sodium Succinate Confirm 09/02/17 05:07 Solu-Medrol 125 Mg Administered 09/02/17 05:08 Dose 125 mg .ROUTE .STK-MED ONE Potassium Chloride 20 meq 09/02/17 05:59 Klor Con 10 Meq PO 09/02/17 06:00 STAT ONE Lab/Rad Data: Laboratory Result Diagrams 09/02/17 04:57 09/02/17 05:15 Laboratory Results 09/02/17 09/02/17 09/02/17 Range/Units 05:15 05:15 04:57 WBC 12.3 H (4.0-10.5) K/mm3 RBC 5.17 (4.1-5.6) M/mm3 Hgb 16.7 (12.5-18.0) gm/dl Hct 47.8 (42-50) % MCV 92.5 (78-100) fl MCH 32.3 H (26-32) pg MCHC 34.9 (32-36) g/dl RDW 13.4 (11.5-14.0) % Plt Count 140 L (150-450) K/mm3 MPV 10.6 H (6-9.5) fl Gran % 77.8 H (36.0-66.0) % Eos # (Auto) 0.02 (0-0.5) Absolute Lymphs (auto) 1.67 (1.0-4.6) Absolute Monos (auto) 1.00 (0.0-1.3) Lymphocytes % 13.6 L (24.0-44.0) % Monocytes % 8.2 (0.0-12.0) % Eosinophils % 0.2 (0.00-5.0) % Basophils % 0.2 (0.0-0.4) % Absolute Granulocytes 9.53 H (1.4-6.9) Basophils # 0.03 (0-0.4) Sodium 140 (137-145) mmol/L Potassium 3.2 L (3.5-5.1) mmol/L Chloride 103 (98-107) mmol/L Carbon Dioxide 23 (22-30) mmol/L Anion Gap 16.7 H (5-15) MEQ/L BUN 17 (9-20) mg/dL Creatinine 0.69 (0.66-1.25) mg/dL Estimated GFR > 60.0 ML/MIN Glucose 244 H (74-106) mg/dL Calcium 10.0 (8.4-10.2) mg/dL Total Bilirubin 2.50 H (0.2-1.3) mg/dL AST 113 H (17-59) U/L ALT 191 H (0-50) U/L Alkaline Phosphatase 186 H (38-126) U/L Troponin I 0.012 (0.000-0.034) ng/mL NT-Pro-B Natriuret Pep 713 (0-900) pg/mL Serum Total Protein 8.1 (6.3-8.2) g/dL Albumin 4.4 (3.5-5.0) g/dL - Progress Progress: improved Air Movement: good Blood Culture(s) Obtained: No Antibiotics given: No Counseled pt/family regarding: lab results, diagnosis, need for follow-up, rad results - Departure Time of Disposition: 06:03 Departure Disposition: Home Clinical Impression: Hypokalemia, Dyspnea, unspecified Condition: Stable Critical Care Time: No Referrals: KALEB NAVARRO MD [Primary Care Provider] - Additional Instructions: You had a brief episode of shortness of breath. He also have low serum potassium. You were given a DuoNeb treatment and albuterol neb treatment. You were also given Solu-Medrol 125 mg IV in the ER. You were given potassium 20 mEq orally. Follow-up tomorrow with your primary medical doctor.
[2017-09-02] MEDS ORDERED: PROVENTIL 2.5 MG/3 ML NEB IH ONE ×2 (04:57→05:05)
[2017-09-02] MEDS ORDERED: solu-MEDROL 125 MG IV ONE (04:57)
[2017-09-02] MEDS ORDERED: solu-MEDROL 125 MG ONE (05:07)
[2017-09-02 05:21] LABS: BASOPHIL % 0.2 % (0.0-0.4); Basophil (Absolute #) 0.03 (0-0.4); Eosinophil % 0.2 % (0.00-5.0); Eosinophil (Absolute #) 0.02 (0-0.5); Granulocyte Absolute (ANC) 9.53 (1.4-6.9); Granulocytes % 77.8 % (36.0-66.0); Hematocrit 47.8 % (42-50); Hemoglobin 16.7 gm/dl (12.5-18.0); Lymphocyte (Absolute #) 1.67 (1.0-4.6); Lymphocytes % 13.6 % (24.0-44.0); Mean Cell Volume 92.5 fl (78-100); Mean Corpuscular Hemoglobin 32.3 pg (26-32); Mean Corpuscular Hgb Concent. 34.9 g/dl (32-36); Mean Platelet Volume 10.6 fl (6-9.5); Monocytes % 8.2 % (0.0-12.0); Platelet Count 140 K/mm3 (150-450); Red Blood Count 5.17 M/mm3 (4.1-5.6); Red Cell Distribution Width 13.4 % (11.5-14.0); White Blood Count 12.3 K/mm3 (4.0-10.5)
[2017-09-02 05:36] LABS: ALBUMIN 4.4 g/dL (3.5-5.0); ALKALINE PHOSPHATASE 186 U/L (38-126); ANION GAP 16.7 MEQ/L (5-15); BLOOD UREA NITROGEN 17 mg/dL (9-20); CHLORIDE 103 mmol/L (98-107); Carbon Dioxide 23 mmol/L (22-30); Creatinine 1 0.69 mg/dL (0.66-1.25); Glucose 244 mg/dL (74-106); Potassium 3.2 mmol/L (3.5-5.1); SGOT/AST 113 U/L (17-59); SGPT/ALT 191 U/L (0-50); SODIUM 140 mmol/L (137-145); Total Protein 8.1 g/dL (6.3-8.2)
[2017-09-02 05:45] LABS: NT PRO BNP 713 pg/mL (0-900)
[2017-09-02] MEDS ORDERED: Klor Con 10 MEQ PO ONE ×3 (05:59→06:09)
[2017-09-02 06:13] VITALS: BP 223/119; PULSE 113; O2SAT 98
--- NOTE | 2017-09-02 08:37 | XRAY ---
Indication: Short of breath, fever, weakness, cough, congestion. Comparison: January 19, 2017. PA/lateral chest again hyperinflated. No focal infiltrate, consolidation, or large effusion. Heart is not enlarged. Descending aorta remains slightly tortuous. Bony thorax intact again with mild osteopenia and remote-appearing mid thoracic compression deformities. Impression: Nonacute chest with chronic features.
== END 2017-09-02 06:20 | disposition home or self-care (01) ==
LOC: ED 04:13
DX: E87.6 Hypokalemia (principal); R06.00 Dyspnea, unspecified; E11.9 Type 2 diabetes mellitus without complications; Z79.4 Long term (current) use of insulin; Z79.899 Other long term (current) drug therapy
CPT/HCPCS: 36000; 36415; 71046; 80053; 83880; 84484; 85025; 93005; 93041; 94640; 96374; 99284; J7609; J2930; A9270-GY

== ENCOUNTER 2019-02-03 14:49 | Observation (INO) | payer MEDICAID, OTHER ==
[2019-02-03] MEDS ORDERED: Sodium Chloride 0.9% 1000 ML 1,000 ML IV STA (15:14)
[2019-02-03] MEDS ORDERED: Sodium Chloride 0.9% 1000 ML 1,000 ML IV SCH (15:15)
[2019-02-03] MEDS ORDERED: Sodium Chloride 0.9% 1000 ML 1,000 ML ONE ×2 (15:26→16:31)
[2019-02-03 15:37] LABS: Absolute Neutrophil Ct (ANC) 3.49 (1.4-6.9); BASOPHIL % 0.5 % (0.0-0.4); Basophil (Absolute #) 0.03 (0-0.4); Eosinophil % 1.2 % (0.00-5.0); Eosinophil (Absolute #) 0.07 (0-0.5); Hematocrit 44.7 % (42-50); Hemoglobin 15.2 gm/dl (12.5-18.0); Lymphocyte (Absolute #) 1.76 (1.0-4.6); Lymphocytes % 29.8 % (24.0-44.0); Mean Cell Volume 95.1 fl (78-100); Mean Corpuscular Hemoglobin 32.3 pg (26-32); Mean Platelet Volume 10.5 fl (6-9.5); Monocyte (Absolute #) 0.56 (0.0-1.3); Monocytes % 9.5 % (0.0-12.0); Platelet Count 198 K/mm3 (150-450); Red Cell Distribution Width 12.8 % (11.5-14.0); White Blood Count 5.9 K/mm3 (4.0-10.5)
--- NOTE | 2019-02-03 15:37 | ERPHSYRPT ---
- History of Present Illness Time Seen by Provider: 02/03/19 15:35 Source: patient Exam Limitations: no limitations Patient Subjective Stated Complaint: has been having thoughts of suicide for the past two days due to having pain in his hip and lots of medical issues and his recently. states he was going to try to figure out a way to get to one of his sons guns. states he has tried to commit suicide in the past. Triage Nursing Assessment: ambulated to room per self. skin w/d, color normal, resp nonlabored. has dry cough. Physician History: has been having thoughts of suicide for the past two days due to having pain in his hip and lots of medical issues and his recently. states he was going to try to figure out a way to get to one of his sons guns. states he has tried to commit suicide in the past. Feeling very down and depressed. Timing/Duration: day(s) Severity of Symptoms-Max: moderate Severity of Symptoms-Current: severe Context related to: recent Suicidal thoughts: gesture, specific plan Associated Symptoms: depressed, frustrated Previous symptoms: same symptoms as today Allergies/Adverse Reactions: No Known Drug Allergies Allergy (Verified 02/03/19 15:05) Home Medications: Citalopram Hydrobromide [Celexa] 40 mg PO DAILY 09/02/17 [History] Insulin Glargine [Lantus Insulin] 1 unit SQ UD 09/02/17 [History] Insulin Lispro [Humalog] 1 unit SQ UD 09/02/17 [History] Metoprolol Tartrate 50 mg PO DAILY 09/02/17 [History] Gabapentin 300 mg PO BID 02/03/19 [History] Hx Tetanus, Diphtheria Vaccination/Date Given: No Hx Influenza Vaccination/Date Given: No Hx Pneumococcal Vaccination/Date Given: Yes - Past Medical History Pertinent Past Medical History: Yes Neurological History: No Pertinent History ENT History: No Pertinent History Cardiac History: Myocardial Infarction ([place]) Respiratory History: CHF, COPD, Pneumonia Endocrine Medical History: Diabetes Type II Musculoskeletal History: No Pertinent History GI Medical History: Other History: No Pertinent History Psycho-Social History: Depression Male Reproductive Disorders: No Pertinent History Other Medical History: gangrene - Past Surgical History Past Surgical History: Yes Neuro Surgical History: No Pertinent History Cardiac: Angioplasty Respiratory: No Pertinent History Gastrointestinal: No Pertinent History Genitourinary: No Pertinent History Musculoskeletal: No Pertinent History Male Surgical History: No Pertinent History - Social History Smoking Status: Current every day smoker How long have you smoked: 40 Exposure to second hand smoke: Yes Drug Use: marijuana Patient Lives Alone: No - Review of Systems Constitutional: No Fever, No Chills Eyes: No Symptoms Ears, Nose, & Throat: No Symptoms Respiratory: No Cough, No Dyspnea Cardiac: No Chest Pain, No Edema, No Syncope Abdominal/Gastrointestinal: No Abdominal Pain, No Nausea, No Vomiting, No Diarrhea Genitourinary Symptoms: No Dysuria Musculoskeletal: No Back Pain, No Neck Pain Skin: No Rash Neurological: No Dizziness, No Focal Weakness, No Sensory Changes Psychological: Depression, Suicidal Ideations, Emotional Lability Endocrine: No Symptoms All Other Systems: Reviewed and Negative - Nursing Vital Signs Nursing Vital Signs: Initial Vital Signs Temperature 97.5 F 02/03/19 14:57 Pulse Rate 80 02/03/19 14:57 Respiratory Rate 18 02/03/19 14:57 Blood Pressure 192/119 02/03/19 14:57 O2 Sat by Pulse Oximetry 98 02/03/19 14:57 Pain Scale Pain Intensity 7 - Physical Exam General Appearance: no apparent distress Eyes, Ears, Nose, Throat Exam: normal ENT inspection, moist mucous membranes Neck Exam: normal inspection, non-tender, supple Respiratory Exam: normal breath sounds, lungs clear, No respiratory distress Cardiovascular Exam: regular rate/rhythm, No edema Gastrointestinal/Abdominal Exam: soft, No tenderness, No distention Extremities Exam: normal inspection, normal range of motion, No evidence of injury, No edema Current Suicidality: denies suicide plan Neurological 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, 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 as tested, oriented x 3 Appearance: appropriate appearance Behavior/Eye Contact/Speech: alert & cooperative Thoughts/Hallucinations: no apparent hallucination Skin Exam: normal color, warm, dry, No rash SpO2: 98 - Course Nursing assessment & vital signs reviewed: Yes Ordered Tests: Active Orders 24 hr Category Date Time Status EKG-ER Only STAT Care 02/03/19 15:10 Active Tele-Health Consult ROUTINE Cons 02/03/19 15:10 Active 1800 Calorie ADA Diet 02/04/19 Breakfast Active CHEST 1 VIEW (PORTABLE) Stat Exams 02/03/19 15:12 Taken ACETAMINOPHEN Stat Lab 02/03/19 15:10 Completed CBC W DIFF Stat Lab 02/03/19 15:10 Completed CMP Stat Lab 02/03/19 15:10 Completed ETHYL ALCOHOL Stat Lab 02/03/19 15:10 Completed UA W/RFX UR CULTURE Stat Lab 02/03/19 15:14 Completed Urine Triage Profile Stat Lab 02/03/19 15:14 Completed Medication Summary Generic Name Dose Route Start Last Admin Trade Name Freq PRN Reason Stop Dose Admin Sodium Chloride 1,000 mls @ 100 mls/hr 02/03/19 15:15 02/03/19 16:32 Sodium Chloride 0.9% 1000 Ml IV 03/05/19 15:14 100 mls/hr .Q10H ELVI Administration Discontinued Medications Generic Name Dose Route Start Last Admin Trade Name Freq PRN Reason Stop Dose Admin Guaifenesin/Codeine Phosphate 10 ml 02/03/19 16:16 02/03/19 16:27 Robitussin Ac Syrup Unit Dose Cup PO 02/03/19 16:17 10 ml QIDP STA Administration Guaifenesin/Codeine Phosphate Confirm 02/03/19 16:26 Robitussin Ac Syrup Unit Dose Cup Administered 02/03/19 16:27 Dose 10 ml .ROUTE .STK-MED ONE Sodium Chloride 1,000 mls @ 999 mls/hr 02/03/19 15:14 02/03/19 16:34 Sodium Chloride 0.9% 1000 Ml IV 02/03/19 16:14 Infused .Q1H1M STA Infusion Insulin Human Regular 20 unit 02/03/19 16:19 02/03/19 16:27 Novolin R IV 02/03/19 16:20 20 unit STAT ONE Administration Insulin Human Regular Confirm 02/03/19 16:25 Novolin R Administered 02/03/19 16:26 Dose 20 unit .ROUTE .STK-MED ONE Labetalol HCl 20 mg 02/03/19 16:40 02/03/19 17:13 Trandate 20 Mg/5 Ml Syringe IV 02/03/19 16:41 20 mg STAT ONE Administration Lab/Rad Data: Laboratory Result Diagrams 02/03/19 15:10 02/03/19 15:10 Laboratory Results 02/03/19 02/03/19 02/03/19 Range/Units 15:14 15:14 15:10 WBC (4.0-10.5) K/mm3 RBC (4.1-5.6) M/mm3 Hgb (12.5-18.0) gm/dl Hct (42-50) % MCV (78-100) fl MCH (26-32) pg MCHC (32-36) g/dl RDW (11.5-14.0) % Plt Count (150-450) K/mm3 MPV (6-9.5) fl Gran % (36.0-66.0) % Eos # (Auto) (0-0.5) Absolute Lymphs (auto) (1.0-4.6) Absolute Monos (auto) (0.0-1.3) Lymphocytes % (24.0-44.0) % Monocytes % (0.0-12.0) % Eosinophils % (0.00-5.0) % Basophils % (0.0-0.4) % Absolute Granulocytes (1.4-6.9) Basophils # (0-0.4) Sodium 135 L (137-145) mmol/L Potassium 3.9 (3.5-5.1) mmol/L Chloride 96 L (98-107) mmol/L Carbon Dioxide 29 (22-30) mmol/L Anion Gap 14.3 (5-15) MEQ/L BUN 9 (9-20) mg/dL Creatinine 0.94 (0.66-1.25) mg/dL Estimated GFR > 60.0 ML/MIN Glucose 527 H* (74-106) mg/dL Calcium 9.2 (8.4-10.2) mg/dL Total Bilirubin 0.60 (0.2-1.3) mg/dL AST 46 (17-59) U/L ALT 42 (0-50) U/L Alkaline Phosphatase 115 (38-126) U/L Serum Total Protein 7.1 (6.3-8.2) g/dL Albumin 3.6 (3.5-5.0) g/dL Urine Color YELLOW (YELLOW) Urine Appearance SLIGHTLY CLOUDY (CLEAR) Urine pH 7.0 (5-6) Ur Specific [place] 1.023 (1.005-1.025) Urine Protein NEGATIVE (Negative) Urine Ketones NEGATIVE (NEGATIVE) Urine Blood NEGATIVE (0-5) Junito/ul Urine Nitrite NEGATIVE (NEGATIVE) Urine Bilirubin NEGATIVE (NEGATIVE) Urine Urobilinogen NEGATIVE (0-1) mg/dL Ur Leukocyte Esterase NEGATIVE (NEGATIVE) Urine WBC (Auto) 0-2 (0-5) /HPF Urine RBC (Auto) 0-2 (0-2) /HPF U Hyaline Cast (Auto) 3-5 (0-2) /LPF U Epithel Cells (Auto) NONE (FEW) /HPF Urine Bacteria (Auto) NONE (NEGATIVE) /HPF Urine Mucus (Auto) SLIGHT (NEGATIVE) /HPF Urine Culture Reflexed NO (NO) Urine Glucose >=500 (NEGATIVE) mg/dL Urine Opiates Level NEGATIVE (NEGATIVE) Ur Methadone NEGATIVE (NEGATIVE) Acetaminophen < 10 L (10-30) ug/ml Urine Barbiturates NEGATIVE (NEGATIVE) Ur Phencyclidine (PCP) NEGATIVE (NEGATIVE) Urine Amphetamine NEGATIVE (NEGATIVE) U Benzodiazepine Level NEGATIVE (NEGATIVE) Urine Cocaine NEGATIVE (NEGATIVE) Urine Marijuana (THC) POSITIVE (NEGATIVE) Ethyl Alcohol < 10 (0-10) mg/dL 02/03/19 Range/Units 15:10 WBC 5.9 (4.0-10.5) K/mm3 RBC 4.70 (4.1-5.6) M/mm3 Hgb 15.2 (12.5-18.0) gm/dl Hct 44.7 (42-50) % MCV 95.1 (78-100) fl MCH 32.3 H (26-32) pg MCHC 34.0 (32-36) g/dl RDW 12.8 (11.5-14.0) % Plt Count 198 (150-450) K/mm3 MPV 10.5 H (6-9.5) fl Gran % 59.0 (36.0-66.0) % Eos # (Auto) 0.07 (0-0.5) Absolute Lymphs (auto) 1.76 (1.0-4.6) Absolute Monos (auto) 0.56 (0.0-1.3) Lymphocytes % 29.8 (24.0-44.0) % Monocytes % 9.5 (0.0-12.0) % Eosinophils % 1.2 (0.00-5.0) % Basophils % 0.5 (0.0-0.4) % Absolute Granulocytes 3.49 (1.4-6.9) Basophils # 0.03 (0-0.4) Sodium (137-145) mmol/L Potassium (3.5-5.1) mmol/L Chloride (98-107) mmol/L Carbon Dioxide (22-30) mmol/L Anion Gap (5-15) MEQ/L BUN (9-20) mg/dL Creatinine (0.66-1.25) mg/dL Estimated GFR ML/MIN Glucose (74-106) mg/dL Calcium (8.4-10.2) mg/dL Total Bilirubin (0.2-1.3) mg/dL AST (17-59) U/L ALT (0-50) U/L Alkaline Phosphatase (38-126) U/L Serum Total Protein (6.3-8.2) g/dL Albumin (3.5-5.0) g/dL Urine Color (YELLOW) Urine Appearance (CLEAR) Urine pH (5-6) Ur Specific [place] (1.005-1.025) Urine Protein (Negative) Urine Ketones (NEGATIVE) Urine Blood (0-5) Junito/ul Urine Nitrite (NEGATIVE) Urine Bilirubin (NEGATIVE) Urine Urobilinogen (0-1) mg/dL Ur Leukocyte Esterase (NEGATIVE) Urine WBC (Auto) (0-5) /HPF Urine RBC (Auto) (0-2) /HPF U Hyaline Cast (Auto) (0-2) /LPF U Epithel Cells (Auto) (FEW) /HPF Urine Bacteria (Auto) (NEGATIVE) /HPF Urine Mucus (Auto) (NEGATIVE) /HPF Urine Culture Reflexed (NO) Urine Glucose (NEGATIVE) mg/dL Urine Opiates Level (NEGATIVE) Ur Methadone (NEGATIVE) Acetaminophen (10-30) ug/ml Urine Barbiturates (NEGATIVE) Ur Phencyclidine (PCP) (NEGATIVE) Urine Amphetamine (NEGATIVE) U Benzodiazepine Level (NEGATIVE) Urine Cocaine (NEGATIVE) Urine Marijuana (THC) (NEGATIVE) Ethyl Alcohol (0-10) mg/dL - Progress Progress: improved Discussed with : Marcela Will see patient in: hospital (observation) Counseled pt/family regarding: diagnosis, need for follow-up - Departure Departure Disposition: Observation Clinical Impression: Diabetes mellitus type 2 in nonobese Suicidal behavior Qualifiers: Attempted self-injury: without attempted self-injury Qualified Code(s): R46.89 - Other symptoms and signs involving appearance and behavior Hypertension Qualifiers: Hypertension type: essential hypertension Qualified Code(s): I10 - Essential ( primary) hypertension Condition: Fair Critical Care Time: Yes Critical Care Time(excluding separately billable procedures): Critical 30-74 mins Referrals: KALEB NAVARRO MD [Primary Care Provider] -
[2019-02-03 15:45] LABS: Appearance SLIGHTLY CLOUDY (CLEAR); Bilirubin NEGATIVE (NEGATIVE); Blood NEGATIVE Ery/ul (0-5); Glucose >=500 mg/dL (NEGATIVE); Ketones NEGATIVE (NEGATIVE); Leukocyte Esterase NEGATIVE (NEGATIVE); Mucus SLIGHT /HPF (NEGATIVE); Nitrite NEGATIVE (NEGATIVE); Protein,Urine Dip NEGATIVE (Negative); RBC 0-2 /HPF (0-2); Specific Gravity 1.023 (1.005-1.025); Urobilinogen NEGATIVE mg/dL (0-1); WBC 0-2 /HPF (0-5)
[2019-02-03 15:47] LABS: ALBUMIN 3.6 g/dL (3.5-5.0); ALKALINE PHOSPHATASE 115 U/L (38-126); ANION GAP 14.3 MEQ/L (5-15); BLOOD UREA NITROGEN 9 mg/dL (9-20); CHLORIDE 96 mmol/L (98-107); Calcium 9.2 mg/dL (8.4-10.2); Carbon Dioxide 29 mmol/L (22-30); Creatinine 1 0.94 mg/dL (0.66-1.25); Potassium 3.9 mmol/L (3.5-5.1); SGOT/AST 46 U/L (17-59); SGPT/ALT 42 U/L (0-50); SODIUM 135 mmol/L (137-145); Total Protein 7.1 g/dL (6.3-8.2)
[2019-02-03 15:53] LABS: ACETAMINOPHEN < 10 ug/ml (10-30); ETHYL ALCOHOL < 10 mg/dL (0-10); Glucose 527 mg/dL (74-106)
[2019-02-03 15:56] LABS: Amphetamine,Urine NEGATIVE (NEGATIVE); Barbiturate,Urine NEGATIVE (NEGATIVE); Benzodiazepine,Urine NEGATIVE (NEGATIVE); Cocaine,Urine NEGATIVE (NEGATIVE); Methadone,Urine NEGATIVE (NEGATIVE); Opiate,Urine NEGATIVE (NEGATIVE); PCP,Urine NEGATIVE (NEGATIVE); THC,Urine POSITIVE (NEGATIVE)
[2019-02-03] MEDS ORDERED: Robitussin AC Syrup Unit Dose Cup PO STA (16:16)
[2019-02-03] MEDS ORDERED: NovoLIN R IV ONE (16:19)
[2019-02-03] MEDS ORDERED: NovoLIN R ONE (16:25)
[2019-02-03] MEDS ORDERED: Robitussin AC Syrup Unit Dose Cup ONE (16:26)
[2019-02-03] MEDS ORDERED: TRANDATE 20 MG/5 ML SYRINGE IV ONE (16:40)
[2019-02-03] MEDS ORDERED: Zestril 20 MG PO ONE (17:46)
[2019-02-03] MEDS ORDERED: NovoLOG Insulin SQ PRN (17:46)
[2019-02-03] MEDS ORDERED: Ativan 2 MG/1 ML VIAL IV ONE (19:09)
--- NOTE | 2019-02-03 19:51 | XRAY ---
Indication: Chest pain. Comparison: September 02, 2017. Portable apical lordotic chest remains clear again with a few tiny calcified granulomas. Heart is not enlarged again with tortuous descending aorta. Bony thorax intact. Impression: Stable nonacute chest with chronic features.
[2019-02-03] MEDS: Sodium Chloride 0.9% W/ 20 mEq KCl/LITER 1,000 ML IV SCH (20:12)
[2019-02-03] MEDS: Zestril 20 MG PO SCH (21:30)
[2019-02-03] MEDS ORDERED: Lopressor 50 MG PO SCH (22:00)
[2019-02-04 04:42] LABS: Absolute Neutrophil Ct (ANC) 2.97 (1.4-6.9); BASOPHIL % 0.3 % (0.0-0.4); Basophil (Absolute #) 0.02 (0-0.4); Eosinophil % 1.5 % (0.00-5.0); Hematocrit 39.2 % (42-50); Hemoglobin 13.2 gm/dl (12.5-18.0); Lymphocyte (Absolute #) 2.76 (1.0-4.6); Lymphocytes % 42.7 % (24.0-44.0); Mean Cell Volume 95.4 fl (78-100); Mean Corpuscular Hemoglobin 32.1 pg (26-32); Mean Corpuscular Hgb Concent. 33.7 g/dl (32-36); Mean Platelet Volume 11.1 fl (6-9.5); Monocyte (Absolute #) 0.62 (0.0-1.3); Monocytes % 9.6 % (0.0-12.0); Neutrophil % 45.9 % (36.0-66.0); Platelet Count 182 K/mm3 (150-450); Red Blood Count 4.11 M/mm3 (4.1-5.6); Red Cell Distribution Width 12.7 % (11.5-14.0); White Blood Count 6.5 K/mm3 (4.0-10.5)
[2019-02-04 04:51] LABS: ANION GAP 8.5 MEQ/L (5-15); BLOOD UREA NITROGEN 10 mg/dL (9-20); CHLORIDE 104 mmol/L (98-107); Calcium 8.3 mg/dL (8.4-10.2); Carbon Dioxide 27 mmol/L (22-30); Creatinine 1 0.73 mg/dL (0.66-1.25); Glucose 272 mg/dL (74-106); Potassium 3.6 mmol/L (3.5-5.1); SODIUM 136 mmol/L (137-145)
[2019-02-04] MEDS: Sodium Chloride 0.9% W/ 20 mEq KCl/LITER 1,000 ML IV SCH (06:02)
--- NOTE | 2019-02-04 09:40 | PCM.HP ---
History of Present Illness - Chief Complaint Chief Complaint: DM, SI Date: 02/04/19 History of Present Illness: is a 53 year old male, presented to ER last night with suicidal thoughts and depression related to chronic hip pain and loss of his , he has a prior history of suicidal thoughts and reported attempt in the past. - Review of Systems Constitutional: No Fever, No Chills Eyes: No Symptoms Ears, Nose, & Throat: No Symptoms Respiratory: No Cough, No Short Of Breath Cardiac: No Chest Pain, No Edema, No Syncope Abdominal/Gastrointestinal: No Abdominal Pain, No Nausea, No Vomiting, No Diarrhea Genitourinary Symptoms: No Dysuria Musculoskeletal: Arthralgias, Joint Pain Skin: No Rash Neurological: No Dizziness, No Focal Weakness, No Sensory Changes Psychological: Depression, Suicidal Ideations Endocrine: No Symptoms Medications & Allergies Home Medications: Home Medication List Albuterol Sulfate [Ventolin Hfa] 2 puffs IH Q4-6HPRN PRN #1 inh 01/22/17 [Rx Confirmed 02/03/19] Citalopram Hydrobromide [Celexa] 40 mg PO DAILY 09/02/17 [History Confirmed 12/14] Insulin Glargine [Lantus Insulin] 18 unit SQ DAILY 09/02/17 [History Confirmed 02/03/19] Insulin Lispro [Humalog] 1 unit SQ UD 09/02/17 [History Confirmed 02/03/19] Metoprolol Tartrate 50 mg PO DAILY 09/02/17 [History Confirmed 02/03/19] Gabapentin 300 mg PO TID 02/03/19 [History Confirmed 02/03/19] Allergies/Adverse Reactions: Allergies Allergy/AdvReac Type Severity Reaction Status Date / Time No Known Drug Allergies Allergy Verified 02/03/19 15:05 - Past Medical History Past Medical History: Yes Neurological History: No Pertinent History ENT History: No Pertinent History Cardiac History: Myocardial Infarction ([place]) Respiratory History: CHF, COPD, Pneumonia Endocrine Medical History: Diabetes Type II Musculoskelatal History: No Pertinent History GI Medical History: Other History: No Pertinent History Pyscho-Social History: Depression Male Reproductive Disorders: No Pertinent History Comment: gangrene - Past Surgical History Past Surgical History: Yes Neuro Surgical History: No Pertinent History Cardiac History: Angioplasty Respiratory Surgery: No Pertinent History GI Surgical History: No Pertinent History Genitourinary Surgical Hx: No Pertinent History Musculskeletal Surgical Hx: No Pertinent History Male Surgical History: No Pertinent History - Social History Smoking Status: Current every day smoker How long have you smoked: 40 yrs Exposure to second hand smoke: Yes Alcohol: Daily Drug Use: marijuana - Physical Exam Vital Signs: Vital Signs - 24 hr Temp Pulse Resp BP Pulse Ox 02/04/19 06:53 97.8 F 79 16 117/56 94 L 02/04/19 04:14 98.0 F 57 L 20 120/76 95 02/04/19 04:00 55 L 02/04/19 00:01 68 02/03/19 23:28 98.2 F 68 21 117/62 97 02/03/19 19:37 98.7 F 72 20 130/83 96 02/03/19 18:13 71 16 109/76 98 02/03/19 17:50 71 16 115/67 98 02/03/19 17:45 98 02/03/19 17:40 70 16 106/68 99 02/03/19 16:50 99 H 18 162/109 98 02/03/19 16:36 80 18 177/104 100 02/03/19 15:40 84 16 166/113 100 02/03/19 14:57 97.5 F 80 18 192/119 98 General Appearance: no apparent distress, alert Neurologic Exam: alert, oriented x 3, cooperative, normal mood/affect, sensation nml, No motor deficits Ears, Nose, Throat Exam: normal ENT inspection, TMs normal, pharynx normal, moist mucous membranes Neck Exam: normal inspection, non-tender, supple, full range of motion Respiratory Exam: normal breath sounds, lungs clear, No respiratory distress Cardiovascular Exam: regular rate/rhythm, normal heart sounds, normal peripheral pulses Gastrointestinal/Abdomen Exam: soft, normal bowel sounds, No tenderness, No mass Extremity Exam: normal inspection, normal range of motion, pelvis stable Skin Exam: normal color, warm, dry, No rash Results - Labs Lab/Micro Results: Accuchecks Accucheck Value: 177 Accucheck Value: 188 Accucheck Value: 127 Accucheck Value: 157 Accucheck Value: 470 Lab Results-Last 24 Hours 02/03/19 02/03/19 02/03/19 Range/Units 15:10 15:10 15:14 WBC 5.9 (4.0-10.5) K/mm3 RBC 4.70 (4.1-5.6) M/mm3 Hgb 15.2 (12.5-18.0) gm/dl Hct 44.7 (42-50) % MCV 95.1 (78-100) fl MCH 32.3 H (26-32) pg MCHC 34.0 (32-36) g/dl RDW 12.8 (11.5-14.0) % Plt Count 198 (150-450) K/mm3 MPV 10.5 H (6-9.5) fl Gran % 59.0 (36.0-66.0) % Eos # (Auto) 0.07 (0-0.5) Absolute Lymphs (auto) 1.76 (1.0-4.6) Absolute Monos (auto) 0.56 (0.0-1.3) Lymphocytes % 29.8 (24.0-44.0) % Monocytes % 9.5 (0.0-12.0) % Eosinophils % 1.2 (0.00-5.0) % Basophils % 0.5 (0.0-0.4) % Absolute Granulocytes 3.49 (1.4-6.9) Basophils # 0.03 (0-0.4) Sodium 135 L (137-145) mmol/L Potassium 3.9 (3.5-5.1) mmol/L Chloride 96 L (98-107) mmol/L Carbon Dioxide 29 (22-30) mmol/L Anion Gap 14.3 (5-15) MEQ/L BUN 9 (9-20) mg/dL Creatinine 0.94 (0.66-1.25) mg/dL Estimated GFR > 60.0 ML/MIN Glucose 527 H* (74-106) mg/dL Calcium 9.2 (8.4-10.2) mg/dL Total Bilirubin 0.60 (0.2-1.3) mg/dL AST 46 (17-59) U/L ALT 42 (0-50) U/L Alkaline Phosphatase 115 (38-126) U/L Serum Total Protein 7.1 (6.3-8.2) g/dL Albumin 3.6 (3.5-5.0) g/dL Urine Color YELLOW (YELLOW) Urine Appearance SLIGHTLY CLOUDY (CLEAR) Urine pH 7.0 (5-6) Ur Specific [place] 1.023 (1.005-1.025) Urine Protein NEGATIVE (Negative) Urine Ketones NEGATIVE (NEGATIVE) Urine Blood NEGATIVE (0-5) Junito/ul Urine Nitrite NEGATIVE (NEGATIVE) Urine Bilirubin NEGATIVE (NEGATIVE) Urine Urobilinogen NEGATIVE (0-1) mg/dL Ur Leukocyte Esterase NEGATIVE (NEGATIVE) Urine WBC (Auto) 0-2 (0-5) /HPF Urine RBC (Auto) 0-2 (0-2) /HPF U Hyaline Cast (Auto) 3-5 (0-2) /LPF U Epithel Cells (Auto) NONE (FEW) /HPF Urine Bacteria (Auto) NONE (NEGATIVE) /HPF Urine Mucus (Auto) SLIGHT (NEGATIVE) /HPF Urine Culture Reflexed NO (NO) Urine Glucose >=500 (NEGATIVE) mg/dL Urine Opiates Level (NEGATIVE) Ur Methadone (NEGATIVE) Acetaminophen < 10 L (10-30) ug/ml Urine Barbiturates (NEGATIVE) Ur Phencyclidine (PCP) (NEGATIVE) Urine Amphetamine (NEGATIVE) U Benzodiazepine Level (NEGATIVE) Urine Cocaine (NEGATIVE) Urine Marijuana (THC) (NEGATIVE) Ethyl Alcohol < 10 (0-10) mg/dL 02/03/19 02/04/19 02/04/19 Range/Units 15:14 04:41 04:41 WBC 6.5 (4.0-10.5) K/mm3 RBC 4.11 (4.1-5.6) M/mm3 Hgb 13.2 (12.5-18.0) gm/dl Hct 39.2 L (42-50) % MCV 95.4 (78-100) fl MCH 32.1 H (26-32) pg MCHC 33.7 (32-36) g/dl RDW 12.7 (11.5-14.0) % Plt Count 182 (150-450) K/mm3 MPV 11.1 H (6-9.5) fl Gran % 45.9 (36.0-66.0) % Eos # (Auto) 0.10 (0-0.5) Absolute Lymphs (auto) 2.76 (1.0-4.6) Absolute Monos (auto) 0.62 (0.0-1.3) Lymphocytes % 42.7 (24.0-44.0) % Monocytes % 9.6 (0.0-12.0) % Eosinophils % 1.5 (0.00-5.0) % Basophils % 0.3 (0.0-0.4) % Absolute Granulocytes 2.97 (1.4-6.9) Basophils # 0.02 (0-0.4) Sodium 136 L (137-145) mmol/L Potassium 3.6 (3.5-5.1) mmol/L Chloride 104 (98-107) mmol/L Carbon Dioxide 27 (22-30) mmol/L Anion Gap 8.5 (5-15) MEQ/L BUN 10 (9-20) mg/dL Creatinine 0.73 (0.66-1.25) mg/dL Estimated GFR > 60.0 ML/MIN Glucose 272 H (74-106) mg/dL Calcium 8.3 L (8.4-10.2) mg/dL Total Bilirubin (0.2-1.3) mg/dL AST (17-59) U/L ALT (0-50) U/L Alkaline Phosphatase (38-126) U/L Serum Total Protein (6.3-8.2) g/dL Albumin (3.5-5.0) g/dL Urine Color (YELLOW) Urine Appearance (CLEAR) Urine pH (5-6) Ur Specific [place] (1.005-1.025) Urine Protein (Negative) Urine Ketones (NEGATIVE) Urine Blood (0-5) Junito/ul Urine Nitrite (NEGATIVE) Urine Bilirubin (NEGATIVE) Urine Urobilinogen (0-1) mg/dL Ur Leukocyte Esterase (NEGATIVE) Urine WBC (Auto) (0-5) /HPF Urine RBC (Auto) (0-2) /HPF U Hyaline Cast (Auto) (0-2) /LPF U Epithel Cells (Auto) (FEW) /HPF Urine Bacteria (Auto) (NEGATIVE) /HPF Urine Mucus (Auto) (NEGATIVE) /HPF Urine Culture Reflexed (NO) Urine Glucose (NEGATIVE) mg/dL Urine Opiates Level NEGATIVE (NEGATIVE) Ur Methadone NEGATIVE (NEGATIVE) Acetaminophen (10-30) ug/ml Urine Barbiturates NEGATIVE (NEGATIVE) Ur Phencyclidine (PCP) NEGATIVE (NEGATIVE) Urine Amphetamine NEGATIVE (NEGATIVE) U Benzodiazepine Level NEGATIVE (NEGATIVE) Urine Cocaine NEGATIVE (NEGATIVE) Urine Marijuana (THC) POSITIVE (NEGATIVE) Ethyl Alcohol (0-10) mg/dL Accuchecks Accucheck Value: 177 Accucheck Value: 188 Accucheck Value: 127 Accucheck Value: 157 Accucheck Value: 470 - Radiology Impressions Radiology Exams & Impressions: Radiology Procedures Category Date Time Status CHEST 1 VIEW (PORTABLE) Stat Exams 02/03/19 15:12 Completed - Other Procedures and Tests Respiratory Therapy 02/03/19 17:46 Oxygen Nasal Cannula 2 lpm Assessment/Plan (1) Depression Current Visit: Yes Status: Acute Qualifiers: Depression Type: major depressive disorder Major depression recurrence: recurrent Active/Remission status: currently active Major depression episode severity: moderate Qualified Code(s): F33.1 - Major depressive disorder, recurrent, moderate Assessment & Plan: consult tele-psychiatric medicine Code(s): F32.9 - MAJOR DEPRESSIVE DISORDER, SINGLE EPISODE, UNSPECIFIED (2) Diabetes mellitus type 2 in nonobese Current Visit: Yes Status: Acute Assessment & Plan: moniter diet and blood sugar Code(s): E11.9 - TYPE 2 DIABETES MELLITUS WITHOUT COMPLICATIONS (3) Hypertension Current Visit: Yes Status: Acute Qualifiers: Hypertension type: essential hypertension Qualified Code(s): I10 - Essential (primary) hypertension Assessment & Plan: moniter and treat as needed Code(s): I10 - ESSENTIAL (PRIMARY) HYPERTENSION (4) Suicidal behavior Current Visit: Yes Status: Acute Qualifiers: Attempted self-injury: without attempted self-injury Qualified Code(s): R46.89 - Other symptoms and signs involving appearance and behavior Assessment & Plan: tele-psych consult Code(s): R46.89 - OTHER SYMPTOMS AND SIGNS INVOLVING APPEARANCE AND BEHAVIOR
[2019-02-04] MEDS: Zestril 20 MG PO SCH (09:58)
[2019-02-04] MEDS ORDERED: Ventolin Hfa MDI IH PRN (10:27)
[2019-02-04] MEDS ORDERED: PROVENTIL COMMON CANISTER IH PRN (10:32)
[2019-02-04] MEDS ORDERED: Lantus Insulin SQ SCH (11:00)
[2019-02-04] MEDS ORDERED: ceLEXa 20 MG PO SCH (11:00)
[2019-02-04] MEDS: NEURONTIN 300 MG PO SCH ×2 (11:54→15:10)
[2019-02-04 16:29] VITALS: BP 126/79; O2SAT 97
[2019-02-04 16:56] VITALS: PULSE 65
== END 2019-02-04 16:30 | disposition short-term general hospital (02) ==
LOC: ED 14:49 → UNDOADMOB 19:22 → ICU 19:22 → UNDODISOB 02-04 16:30
PROVIDERS: ADMIT Family Medicine; ATTEND Family Medicine
DX: F32.9 Major depressive disorder, single episode, unspecified (principal); R45.851 Suicidal ideations; E11.9 Type 2 diabetes mellitus without complications; I10 Essential (primary) hypertension; J44.9 Chronic obstructive pulmonary disease, unspecified; Z79.4 Long term (current) use of insulin; Z79.899 Other long term (current) drug therapy
CPT/HCPCS: 36000; 36415; 71045; 80048; 80053; 80307; 81001; 82962; 85025; 90791; 93005; 93268; 96360; 96374; 96375; 99285; 99291; G0378; G0481; Q3014; J2060; A9270-GY; G0480

== ENCOUNTER 2019-05-14 16:38 | Emergency (ER) | payer MEDICAID ==
[2019-05-14 16:50] VITALS: O2SAT 98
--- NOTE | 2019-05-14 16:51 | ERPHSYRPT ---
- History of Present Illness Time Seen by Provider: 05/14/19 16:50 Historian: patient Exam Limitations: no limitations Patient Subjective Stated Complaint: Pt states "I have been fighting a upper respiratory infection and now I have something wrong with my inner ears, everything spins, and this morning I woke up with chest pain." Triage Nursing Assessment: Pt presented alert and oriented X 3, skin pwd pt ambulates with a slow gait, able to speak in clear full sentenecs pt tachypneic. No audible adventitous breath sounds heard. Physician History: This is a 54-year-old gentleman with a history of hypertension on lisinopril and metoprolol as well as an insulin-dependent diabetic who presents with left anterior chest pain. Patient states he has no cardiac stents and no history of coronary artery bypass grafts. However, he does have a history of 2 heart attacks in the past. Patient has been off all his medication for a few days. He does not have a primary care physician. Patient states that his left anterior chest pain, which is described as sharp and nonradiating, occurred this morning and woke him up out of his sleep. It has been present all day but is not worsening. Patient recently was treated for an upper respiratory infection and wonders if this is the persistence of the infection but was unsure so he came to the emergency room. Patient did not take any aspirin or nitroglycerin today. Timing/Duration: today Activities at Onset: none Quality: sharpness Location: other (Left anterior chest) Chest Pain Radiation: no radiation Severity of Pain-Max: mild Severity of Pain-Current: mild Modifying Factors: Improves With: nothing Associated Symptoms: denies symptoms Prior Chest Pain/Cardiac Workup: heart attack Nitro Today/Relief: no nitro taken today Aspirin Treatment Today: no aspirin today Allergies/Adverse Reactions: No Known Drug Allergies Allergy (Verified 05/14/19 17:32) Home Medications: Citalopram Hydrobromide [Celexa] 40 mg PO DAILY 09/02/17 [History] Insulin Glargine [Lantus Insulin] 18 unit SQ DAILY 09/02/17 [History] Insulin Lispro [Humalog] 1 unit SQ UD 09/02/17 [History] Metoprolol Tartrate 50 mg PO DAILY 09/02/17 [History] Gabapentin 300 mg PO TID 02/03/19 [History] Metformin HCl 500 mg [Glucophage 500 MG] 500 mg PO BIDWM 05/14/19 [History ] lisinopriL [Lisinopril] 20 mg PO DAILY 05/14/19 [History] Hx Tetanus, Diphtheria Vaccination/Date Given: Yes Hx Influenza Vaccination/Date Given: Yes Hx Pneumococcal Vaccination/Date Given: No Immunizations Up to Date: Yes - Review of Systems Constitutional: No Symptoms Eyes: No Symptoms Ears, Nose, & Throat: No Symptoms Respiratory: No Symptoms Cardiac: Chest Pain Abdominal/Gastrointestinal: No Symptoms Genitourinary Symptoms: No Symptoms Musculoskeletal: No Symptoms Skin: No Symptoms Neurological: No Symptoms Psychological: No Symptoms Endocrine: No Symptoms Hematologic/Lymphatic: No Symptoms Immunological/Allergic: No Symptoms All Other Systems: Reviewed and Negative - Past Medical History Pertinent Past Medical History: Yes Neurological History: No Pertinent History ENT History: No Pertinent History Cardiac History: Myocardial Infarction ([place]) Respiratory History: CHF, COPD, Pneumonia Endocrine Medical History: Diabetes Type II Musculoskeletal History: No Pertinent History GI Medical History: Other History: No Pertinent History Psycho-Social History: Depression Male Reproductive Disorders: No Pertinent History Other Medical History: gangrene - Past Surgical History Past Surgical History: Yes Neuro Surgical History: No Pertinent History Cardiac: Angioplasty Respiratory: No Pertinent History Gastrointestinal: No Pertinent History Genitourinary: No Pertinent History Musculoskeletal: No Pertinent History Male Surgical History: No Pertinent History - Social History Smoking Status: Current every day smoker How long have you smoked: years Exposure to second hand smoke: Yes Drug Use: marijuana Patient Lives Alone: No - Nursing Vital Signs Nursing Vital Signs: Initial Vital Signs Temperature 97.6 F 05/14/19 16:39 Pulse Rate 91 H 05/14/19 16:39 Respiratory Rate 24 05/14/19 16:39 Blood Pressure 184/120 05/14/19 16:39 O2 Sat by Pulse Oximetry 98 05/14/19 16:39 Pain Scale Pain Intensity 6 - Physical Exam General Appearance: no apparent distress, alert, anxiety Eye Exam: PERRL/EOMI, eyes nml inspection Ears, Nose, Throat Exam: normal ENT inspection, moist mucous membranes Neck Exam: normal inspection, non-tender, supple, full range of motion Respiratory Exam: normal breath sounds, chest tenderness, lungs clear, airway intact, No respiratory distress Cardiovascular Exam: regular rate/rhythm, normal heart sounds, normal peripheral pulses Gastrointestinal/Abdomen Exam: soft, normal bowel sounds, No tenderness Rectal Exam: not done Back Exam: normal inspection, normal range of motion, No CVA tenderness, No vertebral tenderness Extremity Exam: normal inspection, normal range of motion, pelvis stable Neurologic Exam: alert, oriented x 3, cooperative, 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 as tested, normal mood/affect, nml cerebellar function, nml station & gait Skin Exam: normal color, warm, dry Lymphatic Exam: No adenopathy SpO2 Interpretation: normal SpO2: 98 O2 Delivery: Room Air - Course Nursing assessment & vital signs reviewed: Yes EKG Interpreted by Me: RATE (91), Sinus Rhythm, NORMAL AXIS, NORMAL INTERVALS, NORMAL QRS, Other (no change from comparison EKG dated February 03, 2019) Ordered Tests: Active Orders 24 hr Category Date Time Status EKG-ER Only STAT Care 05/14/19 17:07 Active IV Insertion STAT Care 05/14/19 17:07 Active CHEST 1 VIEW (PORTABLE) Stat Exams 05/14/19 17:08 Taken CBC W DIFF Stat Lab 05/14/19 16:45 Completed CMP Stat Lab 05/14/19 16:45 Completed D-DIMER QUANTITATIVE Stat Lab 05/14/19 16:45 Completed NT PRO BNP Stat Lab 05/14/19 16:45 Completed PROTIME WITH INR Stat Lab 05/14/19 16:45 Completed TROPONIN Q3H Lab 05/14/19 16:45 Completed TROPONIN Q3H Lab 05/14/19 20:02 Received TROPONIN Q3H Lab 05/14/19 23:15 Ordered TROPONIN Q3H Lab 05/15/19 02:15 Ordered TROPONIN Q3H Lab 05/15/19 05:15 Ordered Medication Summary Discontinued Medications Generic Name Dose Route Start Last Admin Trade Name Freq PRN Reason Stop Dose Admin Aspirin 324 mg 05/14/19 17:07 05/14/19 17:19 Baby Aspirin 81 Mg Chew PO 05/14/19 17:08 324 mg STAT ONE Administration Aspirin Confirm 05/14/19 17:17 Baby Aspirin 81 Mg Chew Administered 05/14/19 17:18 Dose 324 mg .ROUTE .STK-MED ONE Enalaprilat 0.625 mg 05/14/19 17:32 05/14/19 17:40 Vasotec I.V. 2.5 Mg IV 05/14/19 17:33 0.625 mg STAT ONE Administration Enalaprilat Confirm 05/14/19 17:39 Vasotec I.V. 2.5 Mg Administered 05/14/19 17:40 Dose 2.5 mg IV .STK-MED ONE Insulin Human Regular 15 unit 05/14/19 17:55 05/14/19 18:04 Humulin R IV 05/14/19 17:56 15 unit STAT STA Administration Insulin Human Regular Confirm 05/14/19 18:00 Humulin R Administered 05/14/19 18:01 Dose 15 unit .ROUTE .STK-MED ONE Morphine Sulfate 2 mg 05/14/19 17:07 05/14/19 17:25 Morphine Sulfate 2 Mg Inj IV 05/14/19 17:08 2 mg STAT ONE Administration Morphine Sulfate Confirm 05/14/19 17:24 Morphine Sulfate 2 Mg Inj Administered 05/14/19 17:25 Dose 2 mg .ROUTE .STK-MED ONE Nitroglycerin 0.4 mg 05/14/19 17:07 05/14/19 17:19 Nitrostat 0.4 Mg (Ed) SL 05/14/19 17:08 0.4 mg STAT ONE Administration Nitroglycerin Confirm 05/14/19 17:17 Nitrostat 0.4 Mg (Ed) Administered 05/14/19 17:18 Dose 0.4 mg SL .STK-MED ONE Lab/Rad Data: Laboratory Result Diagrams 05/14/19 16:45 05/14/19 16:45 Laboratory Results 05/14/19 05/14/19 05/14/19 Range/Units 16:45 16:45 16:45 WBC (4.0-10.5) K/mm3 RBC (4.1-5.6) M/mm3 Hgb (12.5-18.0) gm/dl Hct (42-50) % MCV (78-100) fl MCH (26-32) pg MCHC (32-36) g/dl RDW (11.5-14.0) % Plt Count (150-450) K/mm3 MPV (7.5-11.0) fl Gran % (36.0-66.0) % Eos # (Auto) (0-0.5) Absolute Lymphs (auto) (1.0-4.6) Absolute Monos (auto) (0.0-1.3) Lymphocytes % (24.0-44.0) % Monocytes % (0.0-12.0) % Eosinophils % (0.00-5.0) % Basophils % (0.0-0.4) % Absolute Granulocytes (1.4-6.9) Basophils # (0-0.4) PT 10.7 (8.83-12.87) SECONDS INR 0.95 (0.8-3.0) D-Dimer 414 (215-500) ng/mL Sodium 132 L (137-145) mmol/L Potassium 3.8 (3.5-5.1) mmol/L Chloride 99 (98-107) mmol/L Carbon Dioxide 23 (22-30) mmol/L Anion Gap 14.0 (5-15) MEQ/L BUN 14 (9-20) mg/dL Creatinine 0.79 (0.66-1.25) mg/dL Estimated GFR > 60.0 ML/MIN Glucose 475 H (74-106) mg/dL Calcium 9.0 (8.4-10.2) mg/dL Total Bilirubin 0.80 (0.2-1.3) mg/dL AST 51 (17-59) U/L ALT 61 H (0-50) U/L Alkaline Phosphatase 346 H (38-126) U/L Troponin I < 0.012 (0.000-0.034) ng/mL NT-Pro-B Natriuret Pep 125 (0-900) pg/mL Serum Total Protein 7.7 (6.3-8.2) g/dL Albumin 4.1 (3.5-5.0) g/dL 05/14/19 Range/Units 16:45 WBC 7.4 (4.0-10.5) K/mm3 RBC 4.79 (4.1-5.6) M/mm3 Hgb 15.3 (12.5-18.0) gm/dl Hct 42.4 (42-50) % MCV 88.5 (78-100) fl MCH 31.9 (26-32) pg MCHC 36.1 H (32-36) g/dl RDW 12.0 (11.5-14.0) % Plt Count 190 (150-450) K/mm3 MPV 12.2 H (7.5-11.0) fl Gran % 56.7 (36.0-66.0) % Eos # (Auto) 0.09 (0-0.5) Absolute Lymphs (auto) 2.45 (1.0-4.6) Absolute Monos (auto) 0.63 (0.0-1.3) Lymphocytes % 33.1 (24.0-44.0) % Monocytes % 8.5 (0.0-12.0) % Eosinophils % 1.2 (0.00-5.0) % Basophils % 0.5 (0.0-0.4) % Absolute Granulocytes 4.19 (1.4-6.9) Basophils # 0.04 (0-0.4) PT (8.83-12.87) SECONDS INR (0.8-3.0) D-Dimer (215-500) ng/mL Sodium (137-145) mmol/L Potassium (3.5-5.1) mmol/L Chloride (98-107) mmol/L Carbon Dioxide (22-30) mmol/L Anion Gap (5-15) MEQ/L BUN (9-20) mg/dL Creatinine (0.66-1.25) mg/dL Estimated GFR ML/MIN Glucose (74-106) mg/dL Calcium (8.4-10.2) mg/dL Total Bilirubin (0.2-1.3) mg/dL AST (17-59) U/L ALT (0-50) U/L Alkaline Phosphatase (38-126) U/L Troponin I (0.000-0.034) ng/mL NT-Pro-B Natriuret Pep (0-900) pg/mL Serum Total Protein (6.3-8.2) g/dL Albumin (3.5-5.0) g/dL - Progress Progress: improved, re-examined Air Movement: good Progress Note: 05/14/19 18:40 Chest x-ray shows no acute process. This is unchanged from chest x-ray dated September 02, 2017 05/14/19 20:43 pt does not want admission or transfer. he is feeling better. Blood Culture(s) Obtained: No Antibiotics given: No Counseled pt/family regarding: lab results, diagnosis, need for follow-up, rad results - Departure Departure Disposition: Home Clinical Impression: Hypertension, Hyperglycemia, Chest pain, Dizziness Condition: Stable Critical Care Time: Yes Critical Care Time(excluding separately billable procedures): Critical 30-74 mins Referrals: DOCTOR,NO FAMILY [Primary Care Provider] - Additional Instructions: Take your medication as prescribed. Monitor and treat your elevated blood sugar if present. Follow-up with your primary care doctor tomorrow for further management of your medical conditions and for refill of your medications. Prescriptions: Lisinopril 20 mg [Zestril 20 MG] 20 mg PO DAILY #10 tablet Meclizine HCl 25 mg [Antivert 25 mg] 25 mg PO Q8H PRN #10 tablet PRN Reason: Dizziness Metoprolol Tartrate 50 mg [Lopressor 50 MG] 50 mg PO DAILY #10 tablet
[2019-05-14] MEDS ORDERED: BABY ASPIRIN 81 MG CHEW PO ONE (17:07)
[2019-05-14] MEDS ORDERED: Nitrostat 0.4 MG (ED) SL ONE ×2 (17:07→17:17)
[2019-05-14] MEDS ORDERED: MORPHINE SULFATE 2 MG INJ IV ONE (17:07)
[2019-05-14] MEDS ORDERED: BABY ASPIRIN 81 MG CHEW ONE (17:17)
[2019-05-14 17:23] LABS: Absolute Neutrophil Ct (ANC) 4.19 (1.4-6.9); BASOPHIL % 0.5 % (0.0-0.4); Basophil (Absolute #) 0.04 (0-0.4); Eosinophil % 1.2 % (0.00-5.0); Eosinophil (Absolute #) 0.09 (0-0.5); Hematocrit 42.4 % (42-50); Hemoglobin 15.3 gm/dl (12.5-18.0); Lymphocyte (Absolute #) 2.45 (1.0-4.6); Lymphocytes % 33.1 % (24.0-44.0); Mean Cell Volume 88.5 fl (78-100); Mean Corpuscular Hemoglobin 31.9 pg (26-32); Mean Corpuscular Hgb Concent. 36.1 g/dl (32-36); Mean Platelet Volume 12.2 fl (7.5-11.0); Monocyte (Absolute #) 0.63 (0.0-1.3); Monocytes % 8.5 % (0.0-12.0); Neutrophil % 56.7 % (36.0-66.0); Platelet Count 190 K/mm3 (150-450); Red Blood Count 4.79 M/mm3 (4.1-5.6); White Blood Count 7.4 K/mm3 (4.0-10.5)
[2019-05-14] MEDS ORDERED: MORPHINE SULFATE 2 MG INJ ONE (17:24)
[2019-05-14] MEDS ORDERED: VASOTEC I.V. 2.5 MG IV ONE ×4 (17:32→20:49)
[2019-05-14 17:45] LABS: ALBUMIN 4.1 g/dL (3.5-5.0); ALKALINE PHOSPHATASE 346 U/L (38-126); BLOOD UREA NITROGEN 14 mg/dL (9-20); CHLORIDE 99 mmol/L (98-107); Carbon Dioxide 23 mmol/L (22-30); Creatinine 1 0.79 mg/dL (0.66-1.25); Glucose 475 mg/dL (74-106); INR 0.95 (0.8-3.0); NT PRO BNP 125 pg/mL (0-900); PROTIME 10.7 SECONDS (8.83-12.87); Potassium 3.8 mmol/L (3.5-5.1); SGOT/AST 51 U/L (17-59); SGPT/ALT 61 U/L (0-50); SODIUM 132 mmol/L (137-145); Total Protein 7.7 g/dL (6.3-8.2)
[2019-05-14] MEDS ORDERED: HUMULIN R IV STA (17:55)
[2019-05-14] MEDS ORDERED: HUMULIN R ONE (18:00)
[2019-05-14] MEDS ORDERED: ANTIVERT 25 MG PO ONE (20:44)
[2019-05-14] MEDS ORDERED: ANTIVERT 25 MG ONE (20:49)
[2019-05-14 21:37] VITALS: BP 155/112; PULSE 95
--- NOTE | 2019-05-15 08:43 | XRAY ---
Indication: Chest pain. Comparison: February 03, 2019. Portable chest now demonstrates mild right infrahilar infiltrate versus atelectasis. Remaining lungs are clear again with a few tiny calcified granulomas. Heart is not enlarged again with tortuous descending aorta. Bony thorax intact. Impression: New right infrahilar infiltrate/atelectasis. Correlate clinically. Comment: Right lung finding not reported by the interpreting ER clinician. Telephone report given to Dr. Neal in the ER at 0840 hrs. on May 05, at 2019.
== END 2019-05-14 21:48 | disposition home or self-care (01) ==
LOC: ED 16:38
DX: I10 Essential (primary) hypertension (principal); R73.9 Hyperglycemia, unspecified; R07.89 Other chest pain; R42 Dizziness and giddiness; Z79.899 Other long term (current) drug therapy; Z79.4 Long term (current) use of insulin; Z79.84 Long term (current) use of oral hypoglycemic drugs; I25.2 Old myocardial infarction; I50.9 Heart failure, unspecified; J44.9 Chronic obstructive pulmonary disease, unspecified
CPT/HCPCS: 36000; 36415; 71045; 80053; 82962; 83880; 84484; 85025; 85379; 85610; 93005; 96374; 96375; 96376; 99284; 99291; J1815; J2270; A9270-GY

== ENCOUNTER 2019-05-15 15:53 | Emergency (ER) | payer MEDICAID ==
--- NOTE | 2019-05-15 16:30 | ERPHSYRPT ---
- History of Present Illness Time Seen by Provider: 05/15/19 16:20 Source: patient Exam Limitations: no limitations Physician History: The patient is a 54 y/o male with a past medical history of cigarette smoking, T2DM, HTN, and recent diagnosis of R perihilar PNA presents with a chief complaint of cough, CP, nausea and vomiting and inability to keep his PO abx down. Of note, the patient was evaluated over the past 24 hrs in this ED for cough/ symptoms and was diagnosed with a URI. He was represcribed his anti-HTN meds ect. He was also prescribed meclizine. He endorsed having a dry cough for nearly a week and feeling dizzy. He endorsed having a sharp CP that located over his entire chest that was pleuritic, non-radiating, and constant. Denies diarrhea, abdominal pain, focal weakness or numbness. Of note, the patient reportedly is homeless, but is staying with a family member for now. Allergies/Adverse Reactions: No Known Drug Allergies Allergy (Verified 05/15/19 16:19) Home Medications: Citalopram Hydrobromide [Celexa] 40 mg PO DAILY 09/02/17 [History] Insulin Glargine [Lantus Insulin] 18 unit SQ DAILY 09/02/17 [History] Insulin Lispro [Humalog] 1 unit SQ UD 09/02/17 [History] Metoprolol Tartrate 50 mg PO DAILY 09/02/17 [History] Gabapentin 300 mg PO TID 02/03/19 [History] Hx Tetanus, Diphtheria Vaccination/Date Given: Yes Hx Influenza Vaccination/Date Given: Yes Hx Pneumococcal Vaccination/Date Given: No - Review of Systems Constitutional: Fever, Chills Eyes: No Symptoms Ears, Nose, & Throat: Nose Congestion, Nose Discharge, Throat Pain Respiratory: Cough, Dyspnea, No Wheezing Cardiac: Chest Pain, No Edema, No Palpitations, No Syncope, No Orthopnea Abdominal/Gastrointestinal: Nausea, Vomiting, No Abdominal Pain Genitourinary Symptoms: No Symptoms Musculoskeletal: No Symptoms Skin: No Symptoms Neurological: Dizziness, No Headache Psychological: No Symptoms Endocrine: No Symptoms All Other Systems: Reviewed and Negative - Past Medical History Pertinent Past Medical History: Yes Neurological History: No Pertinent History ENT History: No Pertinent History Cardiac History: Myocardial Infarction ([place]) Respiratory History: CHF, COPD, Pneumonia Endocrine Medical History: Diabetes Type II Musculoskeletal History: No Pertinent History GI Medical History: Other History: No Pertinent History Psycho-Social History: Depression Male Reproductive Disorders: No Pertinent History Other Medical History: gangrene - Past Surgical History Past Surgical History: Yes Neuro Surgical History: No Pertinent History Cardiac: Angioplasty Respiratory: No Pertinent History Gastrointestinal: No Pertinent History Genitourinary: No Pertinent History Musculoskeletal: No Pertinent History Male Surgical History: No Pertinent History - Social History Smoking Status: Current every day smoker How long have you smoked: years Exposure to second hand smoke: Yes Drug Use: marijuana Patient Lives Alone: No - Nursing Vital Signs Nursing Vital Signs: Initial Vital Signs Temperature 98.7 F 05/15/19 16:24 Pulse Rate 89 05/15/19 16:24 Respiratory Rate 18 05/15/19 16:24 Blood Pressure 154/124 05/15/19 16:24 O2 Sat by Pulse Oximetry 99 05/15/19 16:24 Pain Scale Pain Intensity 7 - Physical Exam General Appearance: no apparent distress Eye Exam: PERRL/EOMI, other (No nystagmus), No scleral icterus, No EOM palsy/ anisocoria Neck Exam: normal inspection, non-tender, supple, No meningismus, No mass, No JVD Respiratory Exam: normal breath sounds, lungs clear, airway intact, No chest tenderness, No respiratory distress, No accessory muscle use, No crackles/rales , No wheezing, No stridor Cardiovascular Exam: regular rate/rhythm, normal heart sounds, normal peripheral pulses, capillary refill <2 sec, No murmur, No friction rub, No gallop, No tachycardia Gastrointestinal/Abdomen Exam: soft, No tenderness, No distention, No mass Rectal Exam: deferred Extremity Exam: normal inspection, No swelling, No tenderness Neurologic Exam: alert, oriented x 3, cooperative Skin Exam: normal color, warm, dry, No rash, No petechiae, No jaundice SpO2 Interpretation: normal O2 Delivery: Room Air - Course Nursing assessment & vital signs reviewed: Yes EKG Interpreted by Me: Sinus Rhythm, NORMAL AXIS, NORMAL INTERVALS, Other (No evidence of acute myocardial ischemia or injury. ) - Radiology Exams Chest X-ray Interpretation: Reviewed by me, Negative Ordered Tests: Active Orders 24 hr Category Date Time Status EKG-ER Only STAT Care 05/15/19 16:30 Active CHEST 2 VIEWS (PA AND LAT) Stat Exams 05/15/19 16:30 Completed BMP Stat Lab 05/15/19 16:41 Completed CBC W DIFF Stat Lab 05/15/19 16:41 Completed TROPONIN Q3H Lab 05/15/19 16:41 Completed Respiratory Therapy Assessment DAILY RT 05/15/19 17:13 Active Medication Summary Discontinued Medications Generic Name Dose Route Start Last Admin Trade Name Freq PRN Reason Stop Dose Admin Acetaminophen 975 mg 05/15/19 16:47 05/15/19 16:51 Tylenol 325 Mg PO 05/15/19 16:48 975 mg STAT STA Administration Acetaminophen Confirm 05/15/19 16:50 Tylenol 325 Mg Administered 05/15/19 16:51 Dose 975 mg .ROUTE .STK-MED ONE Albuterol Sulfate 8 gm 05/15/19 16:46 05/15/19 17:13 Ventolin Hfa Mdi IH 05/15/19 16:47 8 gm STAT ONE Administration Amoxicillin/Clavulanate Potassium 875 mg 05/15/19 16:45 05/15/19 16:52 Augmentin 875-125 Tablet PO 05/15/19 16:46 875 mg STAT ONE Administration Amoxicillin/Clavulanate Potassium Confirm 05/15/19 16:48 Augmentin 875-125 Tablet Administered 05/15/19 16:49 Dose 875 mg .ROUTE .STK-MED ONE Azithromycin 500 mg 05/15/19 16:45 05/15/19 16:52 Zithromax 250 Mg Tablet PO 05/15/19 16:46 500 mg STAT ONE Administration Azithromycin Confirm 05/15/19 16:48 Zithromax 250 Mg Tablet Administered 05/15/19 16:49 Dose 500 mg .ROUTE .STK-MED ONE Lab/Rad Data: Laboratory Result Diagrams 05/15/19 16:41 05/15/19 16:41 Laboratory Results 05/15/19 05/15/19 05/15/19 Range/Units 16:41 16:41 16:41 WBC 7.1 (4.0-10.5) K/mm3 RBC 4.73 (4.1-5.6) M/mm3 Hgb 15.1 (12.5-18.0) gm/dl Hct 42.8 (42-50) % MCV 90.5 (78-100) fl MCH 31.9 (26-32) pg MCHC 35.3 (32-36) g/dl RDW 12.3 (11.5-14.0) % Plt Count 178 (150-450) K/mm3 MPV 11.6 H (7.5-11.0) fl Gran % 63.6 (36.0-66.0) % Eos # (Auto) 0.11 (0-0.5) Absolute Lymphs (auto) 1.86 (1.0-4.6) Absolute Monos (auto) 0.57 (0.0-1.3) Lymphocytes % 26.3 (24.0-44.0) % Monocytes % 8.1 (0.0-12.0) % Eosinophils % 1.6 (0.00-5.0) % Basophils % 0.4 (0.0-0.4) % Absolute Granulocytes 4.49 (1.4-6.9) Basophils # 0.03 (0-0.4) Sodium 129 L (137-145) mmol/L Potassium 4.5 (3.5-5.1) mmol/L Chloride 97 L (98-107) mmol/L Carbon Dioxide 22 (22-30) mmol/L Anion Gap 13.9 (5-15) MEQ/L BUN 19 (9-20) mg/dL Creatinine 0.90 (0.66-1.25) mg/dL Estimated GFR > 60.0 ML/MIN Glucose 649 H* (74-106) mg/dL Calcium 8.8 (8.4-10.2) mg/dL Troponin I < 0.012 (0.000-0.034) ng/mL - Progress Progress: improved, re-examined Progress Note: 05/16/19 09:57 nontoxic in appearance. Afebrile, well-hydrated, and with no increased workup of breathing or noted hypoxia. EKG, labs, and CXR reviewed. No evidence of PNA on this CXR, but 24-hr ago CXR with right perihilar PNA. Last ED workup reviewed and it appears troponin and d-dimer were wnl during that visit. Low gestalt for PE at this time. Low suspicion for ACS at this time as well given no evidence of acute myocardial ischemia or injury and two troponins roughly 12 hours apart with ongoing CP that were wnl. The neurology technologist called the patient's pharmacy and discovered he had NOT filled any of his medications that were prescribed. I confronted the patient with this knowledge and he admitted to lying and did not fill his meds. He was given a dose of PO abx in the ED, MDI albuterol, and APAP for relieve. His hyperglycemia is due to medication non-compliance. There is no metabolic gap acidosis to support DKA diagnosis and his hyponatremia corrects for his hyperglycemia and consistent with pseudohyponatremia. Low suspicion for HHS. Patient has had glucose readings in the 400-500's with past workups and ED visits. The patient was instructed to fill and take his medications as prescribed. Good Rx card given. 05/16/19 10:15 05/16/19 10:18 Counseled pt/family regarding: lab results, diagnosis, need for follow-up, rad results, smoking cessation - Departure Departure Disposition: Home Clinical Impression: Community acquired pneumonia, Tobacco abuse, Dizziness, Hypertension, Hyperglycemia, Acute mastoiditis of left side with labyrinthitis, Chest pain Condition: Stable Critical Care Time: No Referrals: DOCTOR,NO FAMILY [Primary Care Provider] - Instructions: Labyrinthitis, Quitting Smoking for Older Adults, Pneumonia, Adult ([place]) Additional Instructions: These go to your pharmacy and fill your medication and take them as prescribed. You were prescribed Augmentin in addition to azithromycin as well as your blood pressure medication and diabetes medicine during your last ED visit.
[2019-05-15 16:43] LABS: Absolute Neutrophil Ct (ANC) 4.49 (1.4-6.9); BASOPHIL % 0.4 % (0.0-0.4); Basophil (Absolute #) 0.03 (0-0.4); Eosinophil % 1.6 % (0.00-5.0); Eosinophil (Absolute #) 0.11 (0-0.5); Hematocrit 42.8 % (42-50); Hemoglobin 15.1 gm/dl (12.5-18.0); Lymphocyte (Absolute #) 1.86 (1.0-4.6); Lymphocytes % 26.3 % (24.0-44.0); Mean Cell Volume 90.5 fl (78-100); Mean Corpuscular Hemoglobin 31.9 pg (26-32); Mean Corpuscular Hgb Concent. 35.3 g/dl (32-36); Mean Platelet Volume 11.6 fl (7.5-11.0); Monocyte (Absolute #) 0.57 (0.0-1.3); Monocytes % 8.1 % (0.0-12.0); Neutrophil % 63.6 % (36.0-66.0); Platelet Count 178 K/mm3 (150-450); Red Blood Count 4.73 M/mm3 (4.1-5.6); Red Cell Distribution Width 12.3 % (11.5-14.0); White Blood Count 7.1 K/mm3 (4.0-10.5)
[2019-05-15] MEDS ORDERED: Zithromax 250 MG TABLET PO ONE (16:45)
[2019-05-15] MEDS ORDERED: Augmentin 875-125 Tablet PO ONE (16:45)
[2019-05-15] MEDS ORDERED: Ventolin Hfa MDI IH ONE (16:46)
[2019-05-15] MEDS ORDERED: TYLENOL 325 MG PO STA (16:47)
[2019-05-15] MEDS ORDERED: Augmentin 875-125 Tablet ONE (16:48)
[2019-05-15] MEDS ORDERED: Zithromax 250 MG TABLET ONE (16:48)
[2019-05-15] MEDS ORDERED: TYLENOL 325 MG ONE (16:50)
--- NOTE | 2019-05-15 16:59 | XRAY ---
Indication: Dyspnea and cough. Comparison: One day earlier. PA/lateral chest better inflated and is now clear. There remains a few incidental tiny calcified granulomas. Heart and mediastinal structures stable and within normal limits. Impression: Nonacute chest with chronic features.
[2019-05-15 17:15] LABS: ANION GAP 13.9 MEQ/L (5-15); BLOOD UREA NITROGEN 19 mg/dL (9-20); CHLORIDE 97 mmol/L (98-107); Calcium 8.8 mg/dL (8.4-10.2); Carbon Dioxide 22 mmol/L (22-30); Potassium 4.5 mmol/L (3.5-5.1); SODIUM 129 mmol/L (137-145)
[2019-05-15 17:23] LABS: Glucose 649 mg/dL (74-106)
[2019-05-15 17:58] VITALS: BP 170/128; PULSE 97; O2SAT 94
== END 2019-05-15 18:02 | disposition home or self-care (01) ==
LOC: ED 15:53
DX: J18.9 Pneumonia, unspecified organism (principal); Z72.0 Tobacco use; R42 Dizziness and giddiness; I10 Essential (primary) hypertension; R73.9 Hyperglycemia, unspecified; H70.892 Other mastoiditis and related conditions, left ear; H83.02 Labyrinthitis, left ear; R07.89 Other chest pain; Z79.899 Other long term (current) drug therapy; Z79.4 Long term (current) use of insulin; R05 Cough; I50.9 Heart failure, unspecified; I25.2 Old myocardial infarction; J44.9 Chronic obstructive pulmonary disease, unspecified
CPT/HCPCS: 36415; 71046; 80048; 84484; 85025; 93005; 99284; A9270-GY

== ENCOUNTER 2019-08-28 18:44 | Inpatient (IN) | payer MEDICAID, OTHER ==
[2019-08-28] MEDS ORDERED: Sodium Chloride 0.9% 1000 ML 1,000 ML IV STA ×2 (18:51→21:31)
[2019-08-28] MEDS ORDERED: Sodium Chloride 0.9% 1000 ML 1,000 ML ONE ×3 (19:00→21:32)
[2019-08-28 19:17] LABS: Lactic Acid 2.9 (0.4-2.0); VBG BASE EXCESS 1.1 (-2.0-2.0); VBG HCO3- 23.4 meq/L (22-28); VBG HEMOGLOBIN 15.7; VBG pH 7.5 (7.32-7.42)
[2019-08-28 19:18] LABS: VBG CARBOXYHEMOGLOBIN 8.7 % T HGB (0.0-6.9)
[2019-08-28 19:40] LABS: Absolute Neutrophil Ct (ANC) 3.38 (1.4-6.9); BASOPHIL % 0.4 % (0.0-0.4); Basophil (Absolute #) 0.02 (0-0.4); Eosinophil % 0.4 % (0.00-5.0); Eosinophil (Absolute #) 0.02 (0-0.5); Hematocrit 42.6 % (42-50); Hemoglobin 15.4 gm/dl (12.5-18.0); Lymphocyte (Absolute #) 1.64 (1.0-4.6); Lymphocytes % 29.3 % (24.0-44.0); Mean Cell Volume 90.1 fl (78-100); Mean Corpuscular Hemoglobin 32.6 pg (26-32); Mean Corpuscular Hgb Concent. 36.2 g/dl (32-36); Mean Platelet Volume 13.3 fl (7.5-11.0); Monocyte (Absolute #) 0.54 (0.0-1.3); Monocytes % 9.6 % (0.0-12.0); Neutrophil % 60.3 % (36.0-66.0); Platelet Count 164 K/mm3 (150-450); Red Blood Count 4.73 M/mm3 (4.1-5.6); Red Cell Distribution Width 11.9 % (11.5-14.0); White Blood Count 5.6 K/mm3 (4.0-10.5)
[2019-08-28 19:47] LABS: Appearance CLEAR (CLEAR); Bacteria NONE SEEN /HPF (NEGATIVE); Bilirubin NEGATIVE (NEGATIVE); Blood MODERATE Ery/ul (0-5); Glucose >=500 mg/dL (NEGATIVE); Ketones TRACE (NEGATIVE); Leukocyte Esterase NEGATIVE (NEGATIVE); Nitrite NEGATIVE (NEGATIVE); Protein,Urine Dip NEGATIVE (Negative); Specific Gravity 1.026 (1.005-1.025); Urobilinogen NEGATIVE mg/dL (0-1)
[2019-08-28 19:53] LABS: ALBUMIN 3.4 g/dL (3.5-5.0); ALKALINE PHOSPHATASE 462 U/L (38-126); ANION GAP 14.5 MEQ/L (5-15); BLOOD UREA NITROGEN 21 mg/dL (9-20); CHLORIDE 86 mmol/L (98-107); Calcium 8.3 mg/dL (8.4-10.2); Carbon Dioxide 23 mmol/L (22-30); Creatinine 1 0.68 mg/dL (0.66-1.25); Potassium 3.8 mmol/L (3.5-5.1); SGOT/AST 43 U/L (17-59); SGPT/ALT 38 U/L (0-50); Total Protein 6.6 g/dL (6.3-8.2)
--- NOTE | 2019-08-28 19:53 | ERPHSYRPT ---
- History of Present Illness Time Seen by Provider: 08/28/19 18:55 Source: patient Exam Limitations: no limitations Patient Subjective Stated Complaint: Hyperglycemia Triage Nursing Assessment: Patient brought into ED via EMS and transferred to bed with assist of 3. Patient alert to name only with intermittent confusion. Patient called EMS for not feeling well. Patient's blood sugar per EMS read high. Patient also hypertensive per EMS. Patient's blood sugar upon arrival read HI. Patient denies pain or discomfort. Patient states he is an insulin dependent diabetic and has been without any of his insulin or medication for a long time. Lungs clear a/p janice. Physician History: Patient is a 54-year-old male presents to our ED with complaints of not feeling well. Patient states he feels somewhat confused. He states he has not taken any of his diabetic her blood pressure medication in some time. Patient unable to give specifics. Patient denies pain. No chest pain or shortness of breath. No nausea vomiting or diaphoresis. Patient appears to be somewhat confused/ possible encephalopathy. Information is limited due to mental status. Patient denies trauma. No fever. No neck pain. No photophobia. Patient has no meningeal signs. Patient voices no other complaints at this time. Timing/Duration: today Severity: moderate Modifying Factors: Improves With: other Associated Symptoms: other (none) Allergies/Adverse Reactions: No Known Drug Allergies Allergy (Verified 08/28/19 18:57) Hx Tetanus, Diphtheria Vaccination/Date Given: Yes Hx Influenza Vaccination/Date Given: No Hx Pneumococcal Vaccination/Date Given: No Immunizations Up to Date: Yes Travel Risk - International Travel Have you traveled outside of the country in past 3 weeks: No Have you or anyone close to you been diagnosed with or: No Do your reside in a community with a known COVID-19 case?: Yes If Yes where:: [facility] - Coronavirus Screening Has patient experienced Coronavirus symptoms: No - Review of Systems Constitutional: No Symptoms, No Fever, No Chills Eyes: No Symptoms Ears, Nose, & Throat: No Symptoms Respiratory: No Symptoms, No Cough, No Dyspnea Cardiac: No Symptoms, No Chest Pain, No Edema, No Syncope Abdominal/Gastrointestinal: No Symptoms, No Abdominal Pain, No Nausea, No Vomiting, No Diarrhea Genitourinary Symptoms: No Symptoms, No Dysuria Musculoskeletal: No Symptoms, No Back Pain, No Neck Pain Skin: No Symptoms, No Rash Neurological: No Symptoms, No Dizziness, No Focal Weakness, No Sensory Changes Psychological: No Symptoms Endocrine: No Symptoms, Excessive Sweating Immunological/Allergic: No Symptoms All Other Systems: Reviewed and Negative - Past Medical History Pertinent Past Medical History: Yes Neurological History: No Pertinent History ENT History: No Pertinent History Cardiac History: Myocardial Infarction ([place]) Respiratory History: CHF, COPD, Pneumonia Endocrine Medical History: Diabetes Type II Musculoskeletal History: No Pertinent History GI Medical History: Other History: No Pertinent History Psycho-Social History: Depression Male Reproductive Disorders: No Pertinent History Other Medical History: gangrene - Past Surgical History Past Surgical History: Yes Neuro Surgical History: No Pertinent History Cardiac: Angioplasty Respiratory: No Pertinent History Gastrointestinal: No Pertinent History Genitourinary: No Pertinent History Musculoskeletal: No Pertinent History Male Surgical History: No Pertinent History - Social History Smoking Status: Current every day smoker How long have you smoked: years Exposure to second hand smoke: Yes Drug Use: marijuana Patient Lives Alone: No - Nursing Vital Signs Nursing Vital Signs: Initial Vital Signs Temperature 98.2 F 08/28/19 18:47 Pulse Rate 93 H 08/28/19 18:47 Respiratory Rate 18 08/28/19 18:47 Blood Pressure 178/120 08/28/19 18:47 O2 Sat by Pulse Oximetry 99 08/28/19 18:47 Pain Scale Pain Intensity 8 - Physical Exam General Appearance: no apparent distress, alert Eye Exam: PERRL/EOMI, eyes nml inspection Ears, Nose, Throat Exam: normal ENT inspection, TMs normal, pharynx normal, moist mucous membranes Neck Exam: normal inspection, non-tender, supple, full range of motion Respiratory Exam: normal breath sounds, lungs clear, No respiratory distress Cardiovascular Exam: regular rate/rhythm, normal heart sounds, normal peripheral pulses Gastrointestinal/Abdomen Exam: soft, normal bowel sounds, No tenderness, No mass Back Exam: normal inspection, normal range of motion, No CVA tenderness, No vertebral tenderness Extremity Exam: normal inspection, normal range of motion, pelvis stable Neurologic Exam: alert (She is alert and oriented to person and place.), cooperative, normal mood/affect, nml cerebellar function, nml station & gait, sensation nml, No motor deficits Skin Exam: normal color, warm, dry, No rash Lymphatic Exam: No adenopathy SpO2 Interpretation: normal SpO2: 100 O2 Delivery: Room Air - Course Nursing assessment & vital signs reviewed: Yes EKG Interpreted by Me: RATE, Sinus Rhythm, NORMAL AXIS, NORMAL INTERVALS - Radiology Exams Chest X-ray Interpretation: Teleradiologist Report (Stable nonacute chest x-ray compared to 05/15/2019. Again noted with a few calcified granulomas and tortuous descending aorta.) - CT Exams Head CT Interpretation: Tele-radiologist Report (Nonacute senile brain.) Ordered Tests: Active Orders 24 hr Category Date Time Status Director Data STAT Care 08/28/19 18:53 Active EKG-ER Only STAT Care 08/28/19 18:51 Active Moffett [Catheter-Star Moffett] STAT Care 08/28/19 19:15 Active IV Insertion STAT Care 08/28/19 18:51 Active IV Insertion-2nd Peripheral STAT Care 08/28/19 19:15 Active Order K Level 2 hours post-inf 2 HRS POST K-INFUSED Care 08/28/19 22:46 Active Pulse Oximetry (ED) STAT Care 08/28/19 18:51 Active Telemetry q4h Care 08/28/19 22:46 Active CHEST 1 VIEW (PORTABLE) Stat Exams 08/28/19 19:36 Taken HEAD WITHOUT CONTRAST [CT] Stat Exams 08/28/19 18:55 Taken BLOOD CULTURE Stat Lab 08/28/19 19:25 Received CBC W DIFF Stat Lab 08/28/19 19:05 Completed CMP Stat Lab 08/28/19 19:05 Completed CMP Stat Lab 08/28/19 22:07 Completed CULTURE,URINE Stat Lab 08/28/19 19:39 Received Lactic Acid Stat Lab 08/28/19 19:09 Completed Lactic Acid Stat Lab 08/28/19 21:18 Completed MAGNESIUM Stat Lab 08/28/19 19:05 Completed TROPONIN Q3H Lab 08/28/19 19:05 Completed TROPONIN Q3H Lab 08/28/19 22:00 Completed TROPONIN Q3H Lab 08/29/19 01:00 Ordered TROPONIN Q3H Lab 08/29/19 04:00 Ordered TROPONIN Q3H Lab 08/29/19 07:00 Ordered UA W/RFX UR CULTURE Stat Lab 08/28/19 19:39 Completed VENOUS BLOOD GAS Stat Lab 08/28/19 19:09 Completed Transfer Order Routine Transfer 08/28/19 Ordered Medication Summary Generic Name Dose Route Start Last Admin Trade Name Freq PRN Reason Stop Dose Admin Nicardipine HCl 25 mg/ Sodium 250 mls @ 25 mls/hr 08/28/19 20:07 08/28/19 21: 56 Chloride IV 09/27/19 20:06 3.5 mg/hr .Q10H PRN 35 mls/hr TITRATE FOR BLOOD PRESSURE Infusion Protocol 2.5 MG/HR Potassium Chloride 20 meq in 100 mls @ 50 mls/hr 08/28/19 23:00 Potassium Chloride 20 Meq In Water 100ml IV 08/29/19 02:59 Q2H ELVI Discontinued Medications Generic Name Dose Route Start Last Admin Trade Name Mitzi PRN Reason Stop Dose Admin Sodium Chloride 1,000 mls @ 999 mls/hr 08/28/19 18:51 08/28/19 19:57 Sodium Chloride 0.9% 1000 Ml IV 08/28/19 19:51 Infused .Q1H1M STA Infusion Sodium Chloride Confirm 08/28/19 19:00 Sodium Chloride 0.9% 1000 Ml Administered 08/28/19 19:01 Dose 1,000 mls @ ud .ROUTE .STK-MED ONE Sodium Chloride Confirm 08/28/19 19:03 Sodium Chloride 0.9% 1000 Ml Administered 08/28/19 19:04 Dose 1,000 mls @ ud .ROUTE .STK-MED ONE Sodium Chloride Confirm 08/28/19 20:12 Sodium Chloride 0.9% 250 Ml Administered 08/28/19 20:13 Dose 250 mls @ ud IV .STK-MED ONE Sodium Chloride 1,000 mls @ 999 mls/hr 08/28/19 21:31 08/28/19 21:32 Sodium Chloride 0.9% 1000 Ml IV 08/28/19 22:31 999 mls/hr .Q1H1M STA Administration Sodium Chloride Confirm 08/28/19 21:32 Sodium Chloride 0.9% 1000 Ml Administered 08/28/19 21:33 Dose 1,000 mls @ ud .ROUTE .STK-MED ONE Nicardipine HCl Confirm 08/28/19 20:12 Cardene 25 Mg/10 Ml Administered 08/28/19 20:13 Dose 25 mg IV .STK-MED ONE Lab/Rad Data: Laboratory Result Diagrams 08/28/19 19:05 08/28/19 22:07 Laboratory Results 06/05/1708/28/19 08/28/19 Range/Units 22:07 22:00 21:18 WBC (4.0-10.5) K/mm3 RBC (4.1-5.6) M/mm3 Hgb (12.5-18.0) gm/dl Hct (42-50) % MCV (78-100) fl MCH (26-32) pg MCHC (32-36) g/dl RDW (11.5-14.0) % Plt Count (150-450) K/mm3 MPV (7.5-11.0) fl Gran % (36.0-66.0) % Eos # (Auto) (0-0.5) Absolute Lymphs (auto) (1.0-4.6) Absolute Monos (auto) (0.0-1.3) Lymphocytes % (24.0-44.0) % Monocytes % (0.0-12.0) % Eosinophils % (0.00-5.0) % Basophils % (0.0-0.4) % Absolute Granulocytes (1.4-6.9) Basophils # (0-0.4) pO2/FiO2 Ratio % VBG pH (7.32-7.42) VBG pCO2 at Pat Temp (42-55) mm/Hg VBG pO2 at Pat Temp (25-40) mm/Hg VBG HCO3 (22-28) meq/L VBG O2 Sat (Brandon) (95-100) VBG Base Excess (-2.0-2.0) VBG Hemoglobin VBG Carboxyhemoglobin (0.0-6.9) % T HGB POC Potassium (3.5-5.1) Sodium 132 L D (137-145) mmol/L Potassium 3.1 L (3.5-5.1) mmol/L Chloride 99 D (98-107) mmol/L Carbon Dioxide 22 (22-30) mmol/L Anion Gap 13.7 (5-15) MEQ/L BUN 15 (9-20) mg/dL Creatinine 0.55 L (0.66-1.25) mg/dL Estimated GFR > 60.0 ML/MIN Glucose 446 H (74-106) mg/dL Lactic Acid 1.5 (0.4-2.0) Calcium 8.0 L (8.4-10.2) mg/dL Magnesium (1.6-2.3) mg/dL Total Bilirubin 1.00 (0.2-1.3) mg/dL AST 43 (17-59) U/L ALT 42 (0-50) U/L Alkaline Phosphatase 412 H (38-126) U/L Troponin I 0.017 (0.000-0.034) ng/mL Serum Total Protein 7.4 (6.3-8.2) g/dL Albumin 3.8 (3.5-5.0) g/dL Urine Color (YELLOW) Urine Appearance (CLEAR) Urine pH (5-6) Ur Specific [place] (1.005-1.025) Urine Protein (Negative) Urine Ketones (NEGATIVE) Urine Blood (0-5) Junito/ul Urine Nitrite (NEGATIVE) Urine Bilirubin (NEGATIVE) Urine Urobilinogen (0-1) mg/dL Ur Leukocyte Esterase (NEGATIVE) Urine WBC (Auto) (0-5) /HPF Urine RBC (Auto) (0-2) /HPF U Epithel Cells (Auto) (FEW) /HPF Urine Bacteria (Auto) (NEGATIVE) /HPF Urine Culture Reflexed (NO) Urine Glucose (NEGATIVE) mg/dL Influenza Type A Ag (NEGATIVE) Influenza Type B Ag (NEGATIVE) RSV (PCR) (Negative) 08/28/19 08/28/19 08/28/19 Range/Units 20:07 19:39 19:09 WBC (4.0-10.5) K/mm3 RBC (4.1-5.6) M/mm3 Hgb (12.5-18.0) gm/dl Hct (42-50) % MCV (78-100) fl MCH (26-32) pg MCHC (32-36) g/dl RDW (11.5-14.0) % Plt Count (150-450) K/mm3 MPV (7.5-11.0) fl Gran % (36.0-66.0) % Eos # (Auto) (0-0.5) Absolute Lymphs (auto) (1.0-4.6) Absolute Monos (auto) (0.0-1.3) Lymphocytes % (24.0-44.0) % Monocytes % (0.0-12.0) % Eosinophils % (0.00-5.0) % Basophils % (0.0-0.4) % Absolute Granulocytes (1.4-6.9) Basophils # (0-0.4) pO2/FiO2 Ratio 21.0 % VBG pH 7.50 H (7.32-7.42) VBG pCO2 at Pat Temp 30 L (42-55) mm/Hg VBG pO2 at Pat Temp 53 H (25-40) mm/Hg VBG HCO3 23.4 (22-28) meq/L VBG O2 Sat (Brandon) 91.0 L (95-100) VBG Base Excess 1.1 (-2.0-2.0) VBG Hemoglobin 15.7 VBG Carboxyhemoglobin 8.7 H* (0.0-6.9) % T HGB POC Potassium 4.0 (3.5-5.1) Sodium (137-145) mmol/L Potassium (3.5-5.1) mmol/L Chloride (98-107) mmol/L Carbon Dioxide (22-30) mmol/L Anion Gap (5-15) MEQ/L BUN (9-20) mg/dL Creatinine (0.66-1.25) mg/dL Estimated GFR ML/MIN Glucose (74-106) mg/dL Lactic Acid 2.9 H (0.4-2.0) Calcium (8.4-10.2) mg/dL Magnesium (1.6-2.3) mg/dL Total Bilirubin (0.2-1.3) mg/dL AST (17-59) U/L ALT (0-50) U/L Alkaline Phosphatase (38-126) U/L Troponin I (0.000-0.034) ng/mL Serum Total Protein (6.3-8.2) g/dL Albumin (3.5-5.0) g/dL Urine Color STRAW (YELLOW) Urine Appearance CLEAR (CLEAR) Urine pH 7.0 (5-6) Ur Specific [place] 1.026 (1.005-1.025) Urine Protein NEGATIVE (Negative) Urine Ketones TRACE (NEGATIVE) Urine Blood MODERATE (0-5) Junito/ul Urine Nitrite NEGATIVE (NEGATIVE) Urine Bilirubin NEGATIVE (NEGATIVE) Urine Urobilinogen NEGATIVE (0-1) mg/dL Ur Leukocyte Esterase NEGATIVE (NEGATIVE) Urine WBC (Auto) 3-5 (0-5) /HPF Urine RBC (Auto) 3-5 (0-2) /HPF U Epithel Cells (Auto) NONE (FEW) /HPF Urine Bacteria (Auto) NONE SEEN (NEGATIVE) /HPF Urine Culture Reflexed ORDERED SEPARATELY (NO) Urine Glucose >=500 (NEGATIVE) mg/dL Influenza Type A Ag NEGATIVE (NEGATIVE) Influenza Type B Ag NEGATIVE (NEGATIVE) RSV (PCR) NEGATIVE (Negative) 08/28/19 08/28/19 08/28/19 Range/Units 19:05 19:05 19:05 WBC (4.0-10.5) K/mm3 RBC (4.1-5.6) M/mm3 Hgb (12.5-18.0) gm/dl Hct (42-50) % MCV (78-100) fl MCH (26-32) pg MCHC (32-36) g/dl RDW (11.5-14.0) % Plt Count (150-450) K/mm3 MPV (7.5-11.0) fl Gran % (36.0-66.0) % Eos # (Auto) (0-0.5) Absolute Lymphs (auto) (1.0-4.6) Absolute Monos (auto) (0.0-1.3) Lymphocytes % (24.0-44.0) % Monocytes % (0.0-12.0) % Eosinophils % (0.00-5.0) % Basophils % (0.0-0.4) % Absolute Granulocytes (1.4-6.9) Basophils # (0-0.4) pO2/FiO2 Ratio % VBG pH (7.32-7.42) VBG pCO2 at Pat Temp (42-55) mm/Hg VBG pO2 at Pat Temp (25-40) mm/Hg VBG HCO3 (22-28) meq/L VBG O2 Sat (Brandon) (95-100) VBG Base Excess (-2.0-2.0) VBG Hemoglobin VBG Carboxyhemoglobin (0.0-6.9) % T HGB POC Potassium (3.5-5.1) Sodium 120 L* (137-145) mmol/L Potassium 3.8 (3.5-5.1) mmol/L Chloride 86 L (98-107) mmol/L Carbon Dioxide 23 (22-30) mmol/L Anion Gap 14.5 (5-15) MEQ/L BUN 21 H (9-20) mg/dL Creatinine 0.68 (0.66-1.25) mg/dL Estimated GFR > 60.0 ML/MIN Glucose 985 H* (74-106) mg/dL Lactic Acid (0.4-2.0) Calcium 8.3 L (8.4-10.2) mg/dL Magnesium 2.4 H (1.6-2.3) mg/dL Total Bilirubin 0.70 (0.2-1.3) mg/dL AST 43 (17-59) U/L ALT 38 (0-50) U/L Alkaline Phosphatase 462 H (38-126) U/L Troponin I 0.015 (0.000-0.034) ng/mL Serum Total Protein 6.6 (6.3-8.2) g/dL Albumin 3.4 L (3.5-5.0) g/dL Urine Color (YELLOW) Urine Appearance (CLEAR) Urine pH (5-6) Ur Specific [place] (1.005-1.025) Urine Protein (Negative) Urine Ketones (NEGATIVE) Urine Blood (0-5) Junito/ul Urine Nitrite (NEGATIVE) Urine Bilirubin (NEGATIVE) Urine Urobilinogen (0-1) mg/dL Ur Leukocyte Esterase (NEGATIVE) Urine WBC (Auto) (0-5) /HPF Urine RBC (Auto) (0-2) /HPF U Epithel Cells (Auto) (FEW) /HPF Urine Bacteria (Auto) (NEGATIVE) /HPF Urine Culture Reflexed (NO) Urine Glucose (NEGATIVE) mg/dL Influenza Type A Ag (NEGATIVE) Influenza Type B Ag (NEGATIVE) RSV (PCR) (Negative) 08/28/19 Range/Units 19:05 WBC 5.6 (4.0-10.5) K/mm3 RBC 4.73 (4.1-5.6) M/mm3 Hgb 15.4 (12.5-18.0) gm/dl Hct 42.6 (42-50) % MCV 90.1 (78-100) fl MCH 32.6 H (26-32) pg MCHC 36.2 H (32-36) g/dl RDW 11.9 (11.5-14.0) % Plt Count 164 (150-450) K/mm3 MPV 13.3 H (7.5-11.0) fl Gran % 60.3 (36.0-66.0) % Eos # (Auto) 0.02 (0-0.5) Absolute Lymphs (auto) 1.64 (1.0-4.6) Absolute Monos (auto) 0.54 (0.0-1.3) Lymphocytes % 29.3 (24.0-44.0) % Monocytes % 9.6 (0.0-12.0) % Eosinophils % 0.4 (0.00-5.0) % Basophils % 0.4 (0.0-0.4) % Absolute Granulocytes 3.38 (1.4-6.9) Basophils # 0.02 (0-0.4) pO2/FiO2 Ratio % VBG pH (7.32-7.42) VBG pCO2 at Pat Temp (42-55) mm/Hg VBG pO2 at Pat Temp (25-40) mm/Hg VBG HCO3 (22-28) meq/L VBG O2 Sat (Brandon) (95-100) VBG Base Excess (-2.0-2.0) VBG Hemoglobin VBG Carboxyhemoglobin (0.0-6.9) % T HGB POC Potassium (3.5-5.1) Sodium (137-145) mmol/L Potassium (3.5-5.1) mmol/L Chloride (98-107) mmol/L Carbon Dioxide (22-30) mmol/L Anion Gap (5-15) MEQ/L BUN (9-20) mg/dL Creatinine (0.66-1.25) mg/dL Estimated GFR ML/MIN Glucose (74-106) mg/dL Lactic Acid (0.4-2.0) Calcium (8.4-10.2) mg/dL Magnesium (1.6-2.3) mg/dL Total Bilirubin (0.2-1.3) mg/dL AST (17-59) U/L ALT (0-50) U/L Alkaline Phosphatase (38-126) U/L Troponin I (0.000-0.034) ng/mL Serum Total Protein (6.3-8.2) g/dL Albumin (3.5-5.0) g/dL Urine Color (YELLOW) Urine Appearance (CLEAR) Urine pH (5-6) Ur Specific [place] (1.005-1.025) Urine Protein (Negative) Urine Ketones (NEGATIVE) Urine Blood (0-5) Junito/ul Urine Nitrite (NEGATIVE) Urine Bilirubin (NEGATIVE) Urine Urobilinogen (0-1) mg/dL Ur Leukocyte Esterase (NEGATIVE) Urine WBC (Auto) (0-5) /HPF Urine RBC (Auto) (0-2) /HPF U Epithel Cells (Auto) (FEW) /HPF Urine Bacteria (Auto) (NEGATIVE) /HPF Urine Culture Reflexed (NO) Urine Glucose (NEGATIVE) mg/dL Influenza Type A Ag (NEGATIVE) Influenza Type B Ag (NEGATIVE) RSV (PCR) (Negative) - Progress Progress: improved Progress Note: 08/28/19 23:12 Patient reassessed. Sensorium much improved. Patient received 2 L IV fluids. Glucose down to 446 from 900. Potassium 3.1. This precludes initiation of insulin. Potassium IV piggyback ordered. Lactic acid improved to within normal limits. We will follow the HHS/DKA protocol. Case discussed with Dr. Dunn. Patient will be admitted to the ICU for further evaluation and treatment. Patient currently on nicardipine drip for hypertensive urgency. Patient initially complains of headache headache now resolved. Blood pressure well controlled. Plan of care discussed with patient. He agrees admission to [facility] for further evaluation and treatment. 08/28/19 23:19 Discussed with DrManny: Tamica Will see patient in: hospital (full admit) Counseled pt/family regarding: lab results, diagnosis, need for follow-up, rad results - Departure Departure Disposition: In-patient Admission Clinical Impression: Hypertensive encephalopathy, Hyperglycemia, Noncompliance with medication regimen, DKA (diabetic ketoacidoses), Hypokalemia Condition: Stable Critical Care Time: Yes Critical Care Time(excluding separately billable procedures): Critical 105-134 mins Referrals: DOCTOR,NO FAMILY [Primary Care Provider] -
[2019-08-28 20:03] LABS: Glucose 985 mg/dL (74-106)
[2019-08-28 20:04] LABS: SODIUM 120 mmol/L (137-145)
[2019-08-28 20:06] LABS: INFLUENZA A NEGATIVE (NEGATIVE); INFLUENZA B NEGATIVE (NEGATIVE); RESPIRATORY SYNCTIAL VIRUS NEGATIVE (Negative)
[2019-08-28] MEDS ORDERED: CARDENE 25 MG/10 ML*** 25 MG in Sodium Chloride 0.9% 250 ML 240 ML IV PRN (20:07)
[2019-08-28] MEDS ORDERED: CARDENE 25 MG/10 ML IV ONE (20:12)
[2019-08-28] MEDS ORDERED: Sodium Chloride 0.9% 250 ML 250 ML IV ONE (20:12)
[2019-08-28 22:36] LABS: ALBUMIN 3.8 g/dL (3.5-5.0); ALKALINE PHOSPHATASE 412 U/L (38-126); ANION GAP 13.7 MEQ/L (5-15); BLOOD UREA NITROGEN 15 mg/dL (9-20); CHLORIDE 99 mmol/L (98-107); Carbon Dioxide 22 mmol/L (22-30); Creatinine 1 0.55 mg/dL (0.66-1.25); Glucose 446 mg/dL (74-106); Potassium 3.1 mmol/L (3.5-5.1); SGOT/AST 43 U/L (17-59); SGPT/ALT 42 U/L (0-50); Total Protein 7.4 g/dL (6.3-8.2)
[2019-08-28 22:37] LABS: SODIUM 132 mmol/L (137-145)
[2019-08-28] MEDS ORDERED: POTASSIUM CHLORIDE 20 mEq IN WATER 100ML 100 ML IV ONE (23:11)
[2019-08-28] MEDS: POTASSIUM CHLORIDE 20 mEq IN WATER 100ML 20 MEQ/100 ML BAG IV SCH (23:11)
[2019-08-29] MEDS ORDERED: POTASSIUM CHLORIDE 20 mEq IN WATER 100ML 100 ML IV ONE (01:55)
[2019-08-29] MEDS: POTASSIUM CHLORIDE 20 mEq IN WATER 100ML 20 MEQ/100 ML BAG IV SCH (01:56)
[2019-08-29] MEDS ORDERED: Sodium Chloride 0.9% 250 ML 250 ML IV ONE (04:31)
[2019-08-29] MEDS: Zestril 20 MG PO SCH (07:02)
[2019-08-29 07:34] LABS: ALBUMIN 3.8 g/dL (3.5-5.0); ALKALINE PHOSPHATASE 223 U/L (38-126); ANION GAP 12.9 MEQ/L (5-15); BLOOD UREA NITROGEN 11 mg/dL (9-20); CHLORIDE 100 mmol/L (98-107); Calcium 8.3 mg/dL (8.4-10.2); Carbon Dioxide 22 mmol/L (22-30); Creatinine 1 0.62 mg/dL (0.66-1.25); Glucose 305 mg/dL (74-106); Potassium 3.3 mmol/L (3.5-5.1); SGOT/AST 43 U/L (17-59); SGPT/ALT 41 U/L (0-50); SODIUM 132 mmol/L (137-145); Total Protein 7.5 g/dL (6.3-8.2)
[2019-08-29 07:57] LABS: Absolute Neutrophil Ct (ANC) 5.83 (1.4-6.9); BASOPHIL % 0.3 % (0.0-0.4); Basophil (Absolute #) 0.03 (0-0.4); Eosinophil % 0.8 % (0.00-5.0); Eosinophil (Absolute #) 0.08 (0-0.5); Hematocrit 44.5 % (42-50); Hemoglobin 16.5 gm/dl (12.5-18.0); Lymphocytes % 31.8 % (24.0-44.0); Mean Cell Volume 87.6 fl (78-100); Mean Corpuscular Hemoglobin 32.5 pg (26-32); Mean Corpuscular Hgb Concent. 37.1 g/dl (32-36); Mean Platelet Volume 12.5 fl (7.5-11.0); Monocytes % 7.2 % (0.0-12.0); Neutrophil % 59.9 % (36.0-66.0); Platelet Count 192 K/mm3 (150-450); Red Blood Count 5.08 M/mm3 (4.1-5.6); Red Cell Distribution Width 11.7 % (11.5-14.0); White Blood Count 9.7 K/mm3 (4.0-10.5)
[2019-08-29] MEDS: Sodium Chloride 0.9% 1000 ML 1,000 ML IV SCH ×2 (08:00→17:14)
[2019-08-29 08:35] LABS: Slide Review 1 YES
[2019-08-29] MEDS: HUMALOG SQ SCH ×3 (08:37→17:10)
[2019-08-29] MEDS: Toprol Xl 50 MG PO SCH (08:37)
[2019-08-29] MEDS: PROTONIX 40 MG IV IV SCH (08:37)
--- NOTE | 2019-08-29 08:42 | XRAY ---
Indication: Acute mental status change. Multiple contiguous axial images obtained through the head without contrast. Comparison: None Age-appropriate global atrophy and minimal periventricular degenerative micro-ischemia bilaterally. No acute intracranial hemorrhage, abnormal extra-axial fluid collection, or mass effect. Fourth ventricle is midline without hydrocephalus. Bony calvarium intact. Visualized paranasal sinuses and mastoid air cells are clear. Impression: Nonacute senile brain.
--- NOTE | 2019-08-29 08:50 | XRAY ---
Indication: Cough. Comparison: May 15, 2019. Portable apical lordotic chest again demonstrates normal heart and lungs with incidental tiny calcified granulomas and tortuous descending aorta. Bony thorax intact. No new/acute findings.
--- NOTE | 2019-08-29 08:55 | HP ---
HISTORY OF PRESENT ILLNESS: This is a 54 year-old patient without a local physician or any physician at all who presented to the emergency department. He reports he got very weak and that is what brought him to the emergency department. The emergency room doctor reported his blood sugar was 900 and then down to 400 after 2 liters of normal saline. The patient reports he usually takes insulin but he has been out of his medication for a very long time. He said he uses [facility] in [place] but he does not know the names of any of his medications. The nurse's report there is no report of any medications on the pharmacy record. The patient repeatedly said his abdomen hurts because he is very hungry. He said his breakfast is ordered but he is hungry now. REVIEW OF SYSTEMS: He denies any cough, no rhinorrhea, no fever. He said he did not have any nausea or vomiting until now. No diarrhea. He said he has a rash on his left upper leg. Otherwise review of systems unobtainable as the patient just keeps repeating that he is hungry. MEDICATIONS: The patient does not know his medications. ALLERGIES: NKDA. PAST MEDICAL HISTORY: Hypertension. Diabetes mellitus type 2 uncontrolled. The patient reports the history of two heart attacks. 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 PAST SURGICAL HISTORY: None. SOCIAL HISTORY: He reports his niece, Kathryn Gomez, lives with him. He reports he smokes one pack per day. He said he quit alcohol a few months ago. He uses marijuana and he last used meth last week he said. FAMILY HISTORY: His mother and father are both from heart problems. PHYSICAL EXAMINATION: VITAL SIGNS: Temperature current 99.1F, temperature max 99.9F, heart rate 106, respiratory rate 28, blood pressure 130/90. Oxygen saturation 100% on room air. GENERAL: The patient is lying in bed in mild distress stating that he is hungry. CVS: His heart has a regular rate and rhythm. No murmurs, gallops or rubs are appreciated. CHEST: Clear to auscultation bilaterally. ABDOMEN: Mildly tender in the epigastric area. Soft, normal bowel sounds. EXTREMITIES: No clubbing, cyanosis or edema. SKIN: I do note a rash on his left upper thigh. ASSESSMENT AND PLAN: 1) DIABETES MELLITUS TYPE 2 UNCONTROLLED WITH HYPEROSMOLAR HYPERGLYCEMIA: The protocol for hyperosmolar hyperglycemia was ordered but not started yet as the emergency room doctor instructed the nurse's to replace his potassium before he was started on any insulin. They report his last blood sugar was 307 at 0700 hours and they are going to start Lantus and use low-dose sliding scale coverage at this time. Will check his hemoglobin A1C. I ordered fluids of normal saline at 100 ml/hour. He has a basic metabolic panel ordered that they plan to draw at 0800 hours. 2) HYPOKALEMIA: This is being replaced through IV potassium. 3) HYPERTENSIVE URGENCY: He was on a nicardipine drip overnight. I started him on lisinopril 20 mg and just ordered metoprolol XL 50 mg. The nicardipine drip was turned off this morning. 4) ILLICIT DRUG USE: Will check a urine tox. Will have to watch him for signs of withdrawal. 5) TOBACCO ABUSE: He would like to have a nicotine patch while he is here. 6) HISTORY OF NONCOMPLIANCE AND POOR SOCIAL SITUATION: Will ask for discharge planning consult.
[2019-08-29] MEDS: Nicoderm CQ 21 MG TOP SCH (09:09)
[2019-08-29] MEDS: HUMALOG SQ PRN ×3 (09:49→17:11)
[2019-08-29] MEDS ORDERED: Zestril 20 MG PO SCH (10:00)
[2019-08-29] MEDS ORDERED: Lantus Insulin SQ SCH ×2 (10:00)
[2019-08-29 10:34] LABS: ANION GAP 12.4 MEQ/L (5-15); BLOOD UREA NITROGEN 12 mg/dL (9-20); CHLORIDE 97 mmol/L (98-107); Calcium 8.3 mg/dL (8.4-10.2); Carbon Dioxide 22 mmol/L (22-30); Creatinine 1 0.73 mg/dL (0.66-1.25); Glucose 394 mg/dL (74-106); Potassium 3.2 mmol/L (3.5-5.1); SODIUM 128 mmol/L (137-145)
[2019-08-29 10:48] LABS: Amphetamine,Urine NEGATIVE (NEGATIVE); Barbiturate,Urine NEGATIVE (NEGATIVE); Benzodiazepine,Urine NEGATIVE (NEGATIVE); Cocaine,Urine NEGATIVE (NEGATIVE); Methadone,Urine NEGATIVE (NEGATIVE); Opiate,Urine NEGATIVE (NEGATIVE); PCP,Urine NEGATIVE (NEGATIVE); THC,Urine NEGATIVE (NEGATIVE)
[2019-08-29] MEDS ORDERED: Klor Con 10 MEQ PO ONE (11:03)
[2019-08-29] MEDS ORDERED: K-LYTE 25 MEQ PO ONE (12:15)
[2019-08-29] MEDS: ENOXAPARIN SODIUM SQ SCH (12:46)
[2019-08-29] MEDS: TYLENOL 325 MG PO PRN ×2 (12:47→22:12)
[2019-08-29] MEDS: POTASSIUM CHLORIDE 20 mEq IN WATER 100ML 100 ML IV SCH ×2 (12:47→15:09)
[2019-08-29] MEDS: MORPHINE SULFATE 2 MG INJ IV PRN ×3 (13:27→23:23)
[2019-08-29 14:28] LABS: ANION GAP 12.1 MEQ/L (5-15); BLOOD UREA NITROGEN 13 mg/dL (9-20); CHLORIDE 101 mmol/L (98-107); Calcium 8.6 mg/dL (8.4-10.2); Carbon Dioxide 22 mmol/L (22-30); Creatinine 1 0.79 mg/dL (0.66-1.25); Glucose 237 mg/dL (74-106); SODIUM 130 mmol/L (137-145)
[2019-08-29 19:40] LABS: ANION GAP 11.6 MEQ/L (5-15); BLOOD UREA NITROGEN 16 mg/dL (9-20); CHLORIDE 102 mmol/L (98-107); Calcium 8.3 mg/dL (8.4-10.2); Carbon Dioxide 21 mmol/L (22-30); Creatinine 1 0.91 mg/dL (0.66-1.25); Glucose 167 mg/dL (74-106); Potassium 4.2 mmol/L (3.5-5.1); SODIUM 130 mmol/L (137-145)
[2019-08-30] MEDS: Sodium Chloride 0.9% 1000 ML 1,000 ML IV SCH ×3 (03:59→16:33)
[2019-08-30] MEDS: MORPHINE SULFATE 2 MG INJ IV PRN (05:46)
[2019-08-30] MEDS: HUMALOG SQ PRN ×4 (07:33→22:27)
[2019-08-30] MEDS: HUMALOG SQ SCH ×3 (07:34→16:27)
[2019-08-30] MEDS: Nicoderm CQ 21 MG TOP SCH (07:37)
[2019-08-30] MEDS ORDERED: Lantus Insulin SQ SCH (07:48)
[2019-08-30] MEDS: Zestril 20 MG PO SCH (09:39)
[2019-08-30] MEDS: ENOXAPARIN SODIUM SQ SCH (09:39)
[2019-08-30] MEDS: PROTONIX 40 MG IV IV SCH (09:39)
[2019-08-30] MEDS: Toprol Xl 50 MG PO SCH (09:39)
[2019-08-30 10:15] LABS: BLOOD UREA NITROGEN 12 mg/dL (9-20); CHLORIDE 103 mmol/L (98-107); Calcium 8.1 mg/dL (8.4-10.2); Carbon Dioxide 21 mmol/L (22-30); Creatinine 1 0.69 mg/dL (0.66-1.25); Glucose 229 mg/dL (74-106); Potassium 3.4 mmol/L (3.5-5.1); SODIUM 131 mmol/L (137-145)
[2019-08-30] MEDS: NORCO 5/325 MG PO PRN ×3 (11:14→22:26)
[2019-08-30] MEDS ORDERED: Klor Con 10 MEQ PO ONE (13:06)
[2019-08-30] MEDS ORDERED: Tums EX 750 MG PO SCH (16:15)
--- NOTE | 2019-08-30 16:23 | PCM.NOTE ---
Date and Time: 08/30/19 1619 Subjective Assessment: Patient reports he is feeling better. He complains of some chronic left hip pain. - Review of Systems Constitutional: No Symptoms Respiratory: No Symptoms Cardiac: No Symptoms Abdominal/Gastrointestinal: No Symptoms Musculoskeletal: Other (left hip pain) Objective Exam General Appearance: no apparent distress Skin Exam: normal color, warm, dry Cardiovascular Exam: regular rate/rhythm, normal heart sounds, No murmur, No friction rub, No gallop Gastrointestinal/Abdomen Exam: soft, normal bowel sounds, No tenderness, No distention, No mass Extremity Exam: other (no c/c/e) OBJECTIVE DATA Vital Signs: Vital Signs - 24 hr Temp Pulse Resp BP Pulse Ox 08/30/19 12:00 66 18 08/30/19 11:54 98.6 F 66 18 131/85 98 08/30/19 07:56 98.6 F 65 20 164/104 99 08/30/19 07:45 65 16 08/30/19 06:36 98 08/30/19 04:00 70 18 08/30/19 03:48 98.8 F 67 22 141/97 94 L 08/30/19 00:01 70 08/30/19 00:00 99.1 F 67 20 126/84 96 08/29/19 20:46 100 08/29/19 20:00 99.0 F 68 17 115/75 98 Pain Assessment - Last Documented Pain Intensity 9 Pain Scale Used 0-10 Pain Scale Intake and Output: Intake & Output 08/28/19 08/29/19 08/30/19 08/31/19 06:59 06:59 06:59 06:59 Intake Total 1116 5181 1220 Output Total 6973 7020 300 Balance -3259 -632 920 Weight 54.9 kg 54.9 kg Lab Results: Accuchecks Date 08/30/19 Date 08/30/19 Date 08/29/19 Time 11:33 Time 07:41 Time 16:30 Accucheck Value: 384 Accucheck Value: 290 Accucheck Value: 180 Accucheck Value: 205 Lab Results-Last 24 Hours 08/29/19 08/30/19 Range/Units 18:20 08:28 Sodium 130 L 131 L (137-145) mmol/L Potassium 4.2 3.4 L (3.5-5.1) mmol/L Chloride 102 103 (98-107) mmol/L Carbon Dioxide 21 L 21 L (22-30) mmol/L Anion Gap 11.6 11.0 (5-15) MEQ/L BUN 16 12 (9-20) mg/dL Creatinine 0.91 0.69 (0.66-1.25) mg/dL Estimated GFR > 60.0 > 60.0 ML/MIN Glucose 167 H 229 H (74-106) mg/dL Calcium 8.3 L 8.1 L (8.4-10.2) mg/dL Radiology Exams: Radiology Procedures Category Date Time Status CHEST 1 VIEW (PORTABLE) Stat Exams 08/28/19 19:36 Completed HEAD WITHOUT CONTRAST [CT] Stat Exams 08/28/19 18:55 Completed Assessment/Plan (1) Diabetes type 2, uncontrolled Current Visit: Yes Status: Acute Assessment & Plan: Started on lantus and short acting insulin; better controlled on these. Will need close follow up with PCP. Code(s): E11.65 - TYPE 2 DIABETES MELLITUS WITH HYPERGLYCEMIA (2) Hypertension Current Visit: No Status: Chronic Assessment & Plan: Better controlled with lisinopril and metoprolol. Code(s): I10 - ESSENTIAL (PRIMARY) HYPERTENSION (3) Degenerative joint disease of left hip Current Visit: No Status: Chronic Assessment & Plan: Will try NSAIDS. Also changed from morphine to norco. Discussed with patient that I cannot send him home on controlled medications. Code(s): M16.12 - UNILATERAL PRIMARY OSTEOARTHRITIS, LEFT HIP (4) Hypokalemia Current Visit: Yes Status: Acute Assessment & Plan: Patient given another 40 Meq of potassium by mouth today. Will recheck in AM. Code(s): E87.6 - HYPOKALEMIA (5) Illicit drug use Current Visit: Yes Status: Acute Code(s): F19.90 - OTHER PSYCHOACTIVE SUBSTANCE USE, UNSPECIFIED, UNCOMPLICATED
[2019-08-30] MEDS ORDERED: ZOCOR 20MG PO SCH (22:00)
[2019-08-31 04:52] VITALS: PULSE 64
[2019-08-31] MEDS ORDERED: Lantus Insulin SQ SCH (05:30)
[2019-08-31] MEDS ORDERED: Zestril 20 MG PO SCH (05:31)
[2019-08-31] MEDS: NORCO 5/325 MG PO PRN (06:04)
[2019-08-31 06:20] LABS: ANION GAP 10.1 MEQ/L (5-15); BLOOD UREA NITROGEN 11 mg/dL (9-20); CHLORIDE 101 mmol/L (98-107); Calcium 8.3 mg/dL (8.4-10.2); Carbon Dioxide 25 mmol/L (22-30); Creatinine 1 0.81 mg/dL (0.66-1.25); Glucose 206 mg/dL (74-106); Potassium 3.6 mmol/L (3.5-5.1); SODIUM 132 mmol/L (137-145)
[2019-08-31] MEDS: HUMALOG SQ SCH ×2 (08:23→12:32)
[2019-08-31] MEDS: Nicoderm CQ 21 MG TOP SCH (08:23)
--- NOTE | 2019-08-31 08:24 | PCM.DCORD ---
- Discharge Discharge Date: 08/31/19 Disposition: Home, Self-Care Condition: Good Prescriptions: New Blood-Glucose Meter [Accu-Chek Brenda Plus] 1 each QID #1 each Lancets [Accu-Chek Softclix] 1 each QID #200 each Lancing Device/Lancets [Accu-Check Softclix Lancet Kit] 1 each QID #1 kit Insulin Lispro [Humalog Kwikpen U-100] 10 unit SQ TID #3 insuln.pen Insulin Glargine,Hum.rec.anlog [Lantus Solostar] 30 unit SQ DAILY #3 pens lisinopriL [Lisinopril] 40 mg PO DAILY #30 tablet Pen Needle, Diabetic [Pen Needle] 1 each QID #200 dis.needle Blood Sugar Diagnostic [Test Strips] 1 each AC #200 strip Metoprolol Succinate 50 mg [Toprol Xl 50 MG] 50 mg PO DAILY #30 tablet.sa Continue Atorvastatin Calcium 40 mg PO DAILY #30 tablet Discontinued Albuterol Sulfate Mdi [Proair Hfa MDI] 1 puff IH Q4-6HPRN PRN PRN Reason: Shortness Of Breath Albuterol Common Canister [Ventolin Common Canister] 1 puff IH Q4H PRN PRN Reason: Shortness Of Breath lisinopriL [Lisinopril] 20 mg PO DAILY Metformin HCl 500 mg [Glucophage 500 MG] 500 mg PO BIDWM Fluoxetine HCl 20 mg [Prozac 20 MG] 40 mg PO DAILY Insulin NPH/Reg 70/30 [Novolin 70/30] 1 unit SQ UD Gabapentin 300 mg PO TID Prazosin HCl 2 mg PO DAILY OLANZapine [Olanzapine] 15 mg PO DAILY Losartan Potassium 50 mg PO DAILY Sitagliptin Phosphate [Januvia] 100 mg PO DAILY Aspirin EC 81 mg [Ecotrin 81 mg] 81 mg PO DAILY Metoprolol Tartrate 50 mg [Lopressor 50 MG] 50 mg PO DAILY Follow up with: KENDRA GRACE [ACTIVE STAFF] - 1 Week
[2019-08-31] MEDS: Sodium Chloride 0.9% 1000 ML 1,000 ML IV SCH (09:07)
[2019-08-31] MEDS: Toprol Xl 50 MG PO SCH (09:26)
[2019-08-31] MEDS: PROTONIX 40 MG IV IV SCH (09:29)
[2019-08-31] MEDS: ENOXAPARIN SODIUM SQ SCH (09:29)
--- NOTE | 2019-08-31 11:13 | DS ---
DISCHARGE DIAGNOSES: 1) DIABETES MELLITUS TYPE 2 UNCONTROLLED. 2) HYPERTENSION. 3) DEGENERATIVE JOINT DISEASE OF HIS LEFT HIP. 4) HYPERKALEMIA. DISCHARGE PHYSICAL EXAMINATION: VITALS: Temperature current 98.4F, temperature max 99.3F, heart rate 64, respiratory rate 18, blood pressure 130/90. Oxygen saturation 98% on room air. GENERAL: The patient is lying in bed a pleasant man in no acute distress. CVS: He has a regular rate and rhythm. No murmurs, gallops or rubs are appreciated. CHEST: Clear to auscultation bilaterally. No crackles or wheezes. ABDOMEN: Soft, nontender, nondistended with normal bowel sounds. EXTREMITIES: No clubbing, cyanosis or edema. SKIN: Warm, dry and intact. HOSPITAL COURSE: 1) DIABETES MELLITUS TYPE 2 UNCONTROLLED: He has been noncompliant and does not have a primary care doctor. His hemoglobin A1C was checked and was greater than 14. Initially the ER doctor reported that he had a blood sugar of 985. He was started on Lantus after IV fluids as well as short-acting insulin currently taking Lantus 30 units daily and Humalog 10 units t.i.d. with meals. This may need to be further adjusted as an outpatient. I told the patient that I could follow up with him next week for continued management. I have sent prescriptions for diabetic supplies so he could have a lancing device as well as Accu-Chek meter and I sent prescription for insulin pen for him to use. 2) HYPERTENSION: He was not sure initially when he was admitted what his medicines were and has not taken them for a week if not months. I have started him on Lisinopril and titrated up to 40 mg daily as well as metoprolol succinate 50 mg daily, will plan to discharge him home on those. He was found to have hypokalemia during his hospitalization and this was replaced and normal at the time of discharge. 3) DEGENERATIVE JOINT DISEASE OF HIS LEFT HIP: He usually takes ibuprofen at home for this he reports. 4) ILLICIT DRUG USE: He reported a history of using illicit drugs on admission. DISCHARGE MEDICATIONS: Please see the discharge order. FOLLOW UP: To see myself in one week. DISPOSITION: The patient was discharged home in fair condition.
[2019-08-31 14:27] VITALS: BP 142/79; O2SAT 97
== END 2019-08-31 15:34 | disposition home or self-care (01) | DRG 639 ==
LOC: ED 18:44 → ICU 23:45
PROVIDERS: ADMIT Internal Medicine; ATTEND Internal Medicine
DX: E11.00 Type 2 diabetes mellitus with hyperosmolarity without nonketotic hyperglycemic-hyperosmolar coma (NKHHC) (principal); I10 Essential (primary) hypertension; E87.6 Hypokalemia; I16.0 Hypertensive urgency; M16.12 Unilateral primary osteoarthritis, left hip; F19.90 Other psychoactive substance use, unspecified, uncomplicated; Z72.0 Tobacco use; I25.2 Old myocardial infarction; Z91.19 Patient's noncompliance with other medical treatment and regimen
CPT/HCPCS: 36000; 36415; 51702; 70450; 71045; 80048; 80053; 80307; 81001; 82805; 82947; 82962; 83036; 83605; 83735; 83930; 84443; 84484; 85025; 87040; 87086; 87631; 93005; 93041; 94760; 96360; 96361; 96365; 96366; 96367; 99285; 99291; 99292; J1650; J1817; J2270; J3480; A9270-GY

== ENCOUNTER 2019-09-13 16:38 | Inpatient (IN) | payer OTHER ==
[2019-09-13] MEDS ORDERED: Sodium Chloride 0.9% 1000 ML 1,000 ML IV STA (16:47)
[2019-09-13] MEDS ORDERED: Sodium Chloride 0.9% 1000 ML 1,000 ML ONE (16:52)
--- NOTE | 2019-09-13 16:55 | ERPHSYRPT ---
- History of Present Illness Time Seen by Provider: 09/13/19 16:48 Historian: patient Exam Limitations: no limitations Physician History: Patient is a 54-year-old male with a history of drug use, diabetes, noncompliant with his medication regimen presents to our ED for evaluation of generalized weakness and abdominal pain. Symptoms started over the past 2 days. Symptoms have been progressive. Daughter at bedside states that patient is homeless. However patient has been staying with a family member. They state patient has been lying in bed. He has not been eating much. Patient complains of generalized abdominal pain. Pain is constant. No specific worsening or improving factors. No associated trauma. No nausea vomiting or diarrhea. Patient voices no other complaints at this time. Timing/Duration: day(s) (2) Activities at Onset: none Quality: aching Abdominal Pain Onset Location: generalized abdomen Pain Radiation: no radiation Severity of Pain-Max: moderate Severity of Pain-Current: mild Modifying Factors: Improves With: nothing Associated Symptoms: weakness, No diarrhea, No fever/chills, No nausea, No rash, No shortness of breath Previous symptoms: no prior history Allergies/Adverse Reactions: No Known Drug Allergies Allergy (Verified 09/13/19 16:52) Hx Tetanus, Diphtheria Vaccination/Date Given: Yes Hx Influenza Vaccination/Date Given: No Hx Pneumococcal Vaccination/Date Given: No - Review of Systems Constitutional: No Symptoms, No Fever, No Chills Eyes: No Symptoms Ears, Nose, & Throat: No Symptoms Respiratory: No Symptoms, No Cough, No Dyspnea Cardiac: No Symptoms, No Chest Pain, No Edema, No Syncope Abdominal/Gastrointestinal: No Symptoms, No Abdominal Pain, No Nausea, No Vomiting, No Diarrhea Genitourinary Symptoms: No Symptoms, No Dysuria Musculoskeletal: No Symptoms, No Back Pain, No Neck Pain Skin: No Symptoms, No Rash Neurological: No Dizziness, No Focal Weakness, No Sensory Changes Psychological: No Symptoms Endocrine: No Symptoms Hematologic/Lymphatic: No Symptoms Immunological/Allergic: No Symptoms All Other Systems: Reviewed and Negative - Past Medical History Pertinent Past Medical History: Yes Neurological History: No Pertinent History ENT History: No Pertinent History Cardiac History: Myocardial Infarction (PR) Respiratory History: CHF, COPD, Pneumonia Endocrine Medical History: Diabetes Type II Musculoskeletal History: No Pertinent History GI Medical History: Other History: No Pertinent History Psycho-Social History: Depression Male Reproductive Disorders: No Pertinent History Other Medical History: gangrene - Past Surgical History Past Surgical History: Yes Neuro Surgical History: No Pertinent History Cardiac: Angioplasty Respiratory: No Pertinent History Gastrointestinal: No Pertinent History Genitourinary: No Pertinent History Musculoskeletal: No Pertinent History Male Surgical History: No Pertinent History - Social History Smoking Status: Current every day smoker How long have you smoked: years Exposure to second hand smoke: Yes Drug Use: marijuana Patient Lives Alone: No - Nursing Vital Signs Nursing Vital Signs: Initial Vital Signs Temperature 98.0 F 09/13/19 16:42 Pulse Rate 105 H 09/13/19 16:42 Respiratory Rate 18 09/13/19 16:42 Blood Pressure 116/80 09/13/19 16:42 O2 Sat by Pulse Oximetry 9 L 09/13/19 16:42 Pain Scale Pain Intensity 7 - Physical Exam General Appearance: no apparent distress, alert Eye Exam: PERRL/EOMI, eyes nml inspection Ears, Nose, Throat Exam: normal ENT inspection, pharynx normal, moist mucous membranes Neck Exam: normal inspection, non-tender, supple, full range of motion Respiratory Exam: normal breath sounds, lungs clear, No respiratory distress Cardiovascular Exam: regular rate/rhythm, normal heart sounds Gastrointestinal/Abdomen Exam: soft, tenderness, other (Generalized abdominal pain primarily periumbilical. Overlying soft tissue intact. No signs of trauma.), No mass Back Exam: normal inspection, normal range of motion, No CVA tenderness, No vertebral tenderness Extremity Exam: normal inspection, normal range of motion, pelvis stable Neurologic Exam: alert, oriented x 3, cooperative, normal mood/affect, nml cerebellar function, sensation nml, No motor deficits, No sensory deficit, No disoriented, No confusion, No uncooperative, No intoxicated appearance, No depressed mood/affect Skin Exam: normal color, warm, dry Lymphatic Exam: No adenopathy SpO2 Interpretation: normal SpO2: 98 O2 Delivery: Room Air - Course Nursing assessment & vital signs reviewed: Yes EKG Interpreted by Me: RATE (103), Sinus Tach, NORMAL AXIS, NORMAL INTERVALS - Radiology Exams Chest X-ray Interpretation: Interpreted by me (Fusions, no pneumothorax, no infiltrate or consolidation. Normal bony thorax. Normal cardiac silhouette.) Ordered Tests: Medication Summary Generic Name Dose Route Start Last Admin Trade Name Freq PRN Reason Stop Dose Admin Hydrocodone Bitart/Acetaminophen 1 tab 06/18/20 23:12 09/18/19 21:57 [place] 10/325 Mg Tablet PO 09/21/19 12:00 1 tab Q4H PRN PRN Administration PAIN Albuterol Sulfate 2.5 mg 09/17/19 04:02 Proventil 2.5 Mg/3 Ml Neb IH 10/17/19 04:00 Q4H PRN PRN SHORTNESS OF BREATH Diazepam 5 mg 09/16/19 23:13 09/19/19 00:11 Valium 5 Mg PO 10/16/19 23:14 5 mg TID PRN PRN Administration DIZZINESS Docusate Sodium 100 mg 09/15/19 18:17 09/18/19 15:37 Colace 100 Mg PO 10/15/19 18:16 100 mg BIDPRN PRN Administration CONSTIPATION Enoxaparin Sodium 40 mg 09/15/19 10:00 09/18/19 09:39 Enoxaparin Sodium SQ 10/15/19 09:59 40 mg DAILY ELVI Administration Meropenem 1 g/ Sodium Chloride 100 mls @ 200 mls/hr 09/14/19 10:00 09/18/19 17:09 IV 10/14/19 09:59 200 mls/hr Q8H ELVI Administration Vancomycin HCl 1 gm in 200 mls @ 133.333 mls/hr 09/16/19 22:00 09/18/19 21:57 Vancomycin 1 Gram/200 Ml Bag IV 10/16/19 21:59 133.333 mls/hr Q12HT ELVI Administration Insulin Glargine 30 unit 09/16/19 08:00 09/18/19 07:43 Lantus Insulin SQ 10/16/19 07:59 30 unit AMINSULIN ELVI Administration Insulin Human Lispro 0 unit 09/14/19 03:59 09/18/19 07:43 Humalog SQ 10/14/19 03:58 4 unit UD PRN Administration HYPERGLYCEMIA Insulin Human Lispro 10 unit 09/14/19 17:00 09/18/19 17:09 Humalog SQ 10/14/19 16:59 10 unit TIDWM ELVI Administration Lisinopril 40 mg 09/14/19 13:00 09/18/19 09:38 Zestril 20 Mg PO 10/14/19 12:59 40 mg DAILY ELVI Administration Meclizine HCl 25 mg 09/16/19 23:13 09/18/19 09:38 Antivert 25 Mg PO 10/16/19 23:14 25 mg TID PRN PRN Administration DIZZINESS Metoprolol Succinate 50 mg 09/14/19 13:00 09/18/19 09:39 Toprol Xl 50 Mg PO 10/14/19 12:59 50 mg DAILY ELVI Administration Nicotine 21 mg 09/17/19 12:45 09/18/19 12:02 Nicoderm Cq 21 Mg TOP 10/17/19 12:44 21 mg Q24H ELVI Administration Potassium Chloride 10 meq 09/15/19 22:00 09/18/19 21:57 Klor Con 10 Meq PO 10/15/19 21:59 10 meq BID ELVI Administration Simvastatin 40 mg 09/14/19 13:00 09/18/19 09:38 Zocor 20mg PO 10/14/19 12:59 40 mg DAILY ELVI Administration Sodium Chloride 10 ml 09/17/19 16:56 Sodium Chloride 0.9% 10 Ml Flush Syringe IV 10/17/19 16:55 PRN PRN IV PORT FLUSH Discontinued Medications Generic Name Dose Route Start Last Admin Trade Name Freq PRN Reason Stop Dose Admin Albuterol Sulfate 2.5 mg 09/15/19 19:00 09/17/19 03:40 Proventil 2.5 Mg/3 Ml Neb IH 10/15/19 18:59 Not Given Q4HRT ELVI Device 1 09/16/19 10:30 09/17/19 08:05 Trough Drug Levels IJ 09/16/19 10:31 1 1XONLY ONE Administration Device 1 09/18/19 09:30 09/18/19 10:47 Trough Drug Levels IJ 09/18/19 09:31 1 1XONLY ONE Administration Sodium Chloride 1,000 mls @ 999 mls/hr 09/13/19 16:47 09/13/19 18:03 Sodium Chloride 0.9% 1000 Ml IV 09/13/19 17:47 Infused .Q1H1M STA Infusion Sodium Chloride Confirm 09/13/19 16:52 Sodium Chloride 0.9% 1000 Ml Administered 09/13/19 16:53 Dose 1,000 mls @ ud .ROUTE .STK-MED ONE Ceftriaxone Sodium/Dextrose 1 g in 50 mls @ 100 mls/hr 09/13/19 20:10 09/13/19 20:54 Rocephin 1 Gm-D5w 50 Ml Bag IV 09/13/19 20:39 100 mls/hr STAT STA 100 mls/hr Administration Ceftriaxone Sodium/Dextrose Confirm 09/13/19 20:27 Rocephin 1 Gm-D5w 50 Ml Bag Administered 09/13/19 20:28 Dose 1 g in 50 mls @ ud IV .STK-MED ONE Sodium Chloride 1,000 mls @ 100 mls/hr 09/13/19 21:52 09/17/19 18:44 Sodium Chloride 0.9% 1000 Ml IV 10/13/19 21:51 Not Given .Q10H ELVI Ceftriaxone Sodium/Dextrose 1 g in 50 mls @ 100 mls/hr 09/14/19 22:00 Rocephin 1 Gm-D5w 50 Ml Bag IV 10/14/19 21:59 QPM ELVI Vancomycin HCl 500 mg/ Sodium 100 mls @ 100 mls/hr 09/14/19 11:00 09/16/19 11:50 Chloride IV 10/14/19 10:59 100 mls/hr Q12H ELVI Administration Insulin Glargine 10 unit 09/14/19 10:30 09/15/19 09:02 Lantus Insulin SQ 10/14/19 10:29 10 unit AMINSULIN ELVI Administration Insulin Human Regular 6 unit 09/13/19 20:12 09/13/19 20:54 Novolin R SQ 09/13/19 20:13 6 unit STAT ONE Administration Insulin Human Regular Confirm 09/13/19 20:34 Humulin R Administered 09/13/19 20:35 Dose 6 unit .ROUTE .STK-MED ONE Ketorolac Tromethamine 30 mg 09/13/19 23:13 09/18/19 11:39 Toradol 30 Mg Injection IV 09/18/19 23:12 30 mg Q6H PRN PRN Administration PAIN Lidocaine HCl 200 mg 09/13/19 20:06 09/13/19 20:11 Xylocaine 2% Uro-Jet TOP 09/13/19 20:07 200 mg STAT ONE Administration Lidocaine HCl Confirm 09/13/19 20:05 Xylocaine 2% Uro-Jet Administered 09/13/19 20:06 Dose 200 mg .ROUTE .STK-MED ONE Morphine Sulfate 2 mg 09/13/19 17:09 09/13/19 17:19 Morphine Sulfate 2 Mg Inj IV 09/13/19 17:10 2 mg STAT ONE Administration Morphine Sulfate Confirm 09/13/19 17:17 Morphine Sulfate 2 Mg Inj Administered 09/13/19 17:18 Dose 2 mg .ROUTE .STK-MED ONE Non-Formulary Medication 1 each 09/14/19 09:48 Pharmacy Dosing Required: Vancomycin IV 09/14/19 09:49 STAT STA Lab/Rad Data: Laboratory Result Diagrams 09/14/19 05:00 09/14/19 05:05 Laboratory Results 09/14/19 09/14/19 09/14/19 Range/Units 05:05 05:05 05:00 WBC 12.3 H (4.0-10.5) K/mm3 RBC 4.52 (4.1-5.6) M/mm3 Hgb 14.7 (12.5-18.0) gm/dl Hct 43.2 (42-50) % MCV 95.6 (78-100) fl MCH 32.5 H (26-32) pg MCHC 34.0 (32-36) g/dl RDW 12.6 (11.5-14.0) % Plt Count 188 (150-450) K/mm3 MPV 11.3 H (7.5-11.0) fl Gran % 73.9 H (36.0-66.0) % Eos # (Auto) 0.05 (0-0.5) Absolute Lymphs (auto) 2.21 (1.0-4.6) Absolute Monos (auto) 0.92 (0.0-1.3) Lymphocytes % 18.0 L (24.0-44.0) % Monocytes % 7.5 (0.0-12.0) % Eosinophils % 0.4 (0.00-5.0) % Basophils % 0.2 (0.0-0.4) % Absolute Granulocytes 9.05 H (1.4-6.9) Basophils # 0.03 (0-0.4) pO2/FiO2 Ratio % VBG pH (7.32-7.42) VBG pCO2 at Pat Temp (42-55) mm/Hg VBG pO2 at Pat Temp (25-40) mm/Hg VBG HCO3 (22-28) meq/L VBG O2 Sat (Brandon) (95-100) VBG Base Excess (-2.0-2.0) VBG Hemoglobin VBG Carboxyhemoglobin (0.0-6.9) % T HGB POC Potassium (3.5-5.1) Sodium 134 L (137-145) mmol/L Potassium 3.5 (3.5-5.1) mmol/L Chloride 99 (98-107) mmol/L Carbon Dioxide 25 (22-30) mmol/L Anion Gap 13.9 (5-15) MEQ/L BUN 24 H (9-20) mg/dL Creatinine 1.16 (0.66-1.25) mg/dL Estimated GFR > 60.0 ML/MIN Glucose 384 H (74-106) mg/dL Calcium 8.4 (8.4-10.2) mg/dL Total Bilirubin 0.60 (0.2-1.3) mg/dL AST 22 (17-59) U/L ALT 20 (0-50) U/L Alkaline Phosphatase 155 H (38-126) U/L Troponin I < 0.012 < 0.012 (0.000-0.034) ng/mL Serum Total Protein 6.8 (6.3-8.2) g/dL Albumin 3.3 L (3.5-5.0) g/dL Lipase (23-300) U/L Urine Color (YELLOW) Urine Appearance (CLEAR) Urine pH (5-6) Ur Specific Welches (1.005-1.025) Urine Protein (Negative) Urine Ketones (NEGATIVE) Urine Blood (0-5) Junito/ul Urine Nitrite (NEGATIVE) Urine Bilirubin (NEGATIVE) Urine Urobilinogen (0-1) mg/dL Ur Leukocyte Esterase (NEGATIVE) Urine WBC (Auto) (0-5) /HPF Urine RBC (Auto) (0-2) /HPF U Epithel Cells (Auto) (FEW) /HPF Urine Bacteria (Auto) (NEGATIVE) /HPF Urine Culture Reflexed (NO) Urine Glucose (NEGATIVE) mg/dL Urine Opiates Level (NEGATIVE) Ur Methadone (NEGATIVE) Urine Barbiturates (NEGATIVE) Ur Phencyclidine (PCP) (NEGATIVE) Urine Amphetamine (NEGATIVE) U Benzodiazepine Level (NEGATIVE) Urine Cocaine (NEGATIVE) Urine Marijuana (THC) (NEGATIVE) HIV-1 Specimen Source 09/14/19 09/13/19 09/13/19 Range/Units 02:47 23:10 21:04 WBC (4.0-10.5) K/mm3 RBC (4.1-5.6) M/mm3 Hgb (12.5-18.0) gm/dl Hct (42-50) % MCV (78-100) fl MCH (26-32) pg MCHC (32-36) g/dl RDW (11.5-14.0) % Plt Count (150-450) K/mm3 MPV (7.5-11.0) fl Gran % (36.0-66.0) % Eos # (Auto) (0-0.5) Absolute Lymphs (auto) (1.0-4.6) Absolute Monos (auto) (0.0-1.3) Lymphocytes % (24.0-44.0) % Monocytes % (0.0-12.0) % Eosinophils % (0.00-5.0) % Basophils % (0.0-0.4) % Absolute Granulocytes (1.4-6.9) Basophils # (0-0.4) pO2/FiO2 Ratio % VBG pH (7.32-7.42) VBG pCO2 at Pat Temp (42-55) mm/Hg VBG pO2 at Pat Temp (25-40) mm/Hg VBG HCO3 (22-28) meq/L VBG O2 Sat (Brandon) (95-100) VBG Base Excess (-2.0-2.0) VBG Hemoglobin VBG Carboxyhemoglobin (0.0-6.9) % T HGB POC Potassium (3.5-5.1) Sodium (137-145) mmol/L Potassium (3.5-5.1) mmol/L Chloride (98-107) mmol/L Carbon Dioxide (22-30) mmol/L Anion Gap (5-15) MEQ/L BUN (9-20) mg/dL Creatinine (0.66-1.25) mg/dL Estimated GFR ML/MIN Glucose (74-106) mg/dL Calcium (8.4-10.2) mg/dL Total Bilirubin (0.2-1.3) mg/dL AST (17-59) U/L ALT (0-50) U/L Alkaline Phosphatase (38-126) U/L Troponin I < 0.012 < 0.012 (0.000-0.034) ng/mL Serum Total Protein (6.3-8.2) g/dL Albumin (3.5-5.0) g/dL Lipase (23-300) U/L Urine Color (YELLOW) Urine Appearance (CLEAR) Urine pH (5-6) Ur Specific Welches (1.005-1.025) Urine Protein (Negative) Urine Ketones (NEGATIVE) Urine Blood (0-5) Junito/ul Urine Nitrite (NEGATIVE) Urine Bilirubin (NEGATIVE) Urine Urobilinogen (0-1) mg/dL Ur Leukocyte Esterase (NEGATIVE) Urine WBC (Auto) (0-5) /HPF Urine RBC (Auto) (0-2) /HPF U Epithel Cells (Auto) (FEW) /HPF Urine Bacteria (Auto) (NEGATIVE) /HPF Urine Culture Reflexed (NO) Urine Glucose (NEGATIVE) mg/dL Urine Opiates Level (NEGATIVE) Ur Methadone (NEGATIVE) Urine Barbiturates (NEGATIVE) Ur Phencyclidine (PCP) (NEGATIVE) Urine Amphetamine (NEGATIVE) U Benzodiazepine Level (NEGATIVE) Urine Cocaine (NEGATIVE) Urine Marijuana (THC) (NEGATIVE) HIV-1 Specimen Source Cancelled 09/13/19 09/13/19 09/13/19 Range/Units 20:45 20:21 20:20 WBC (4.0-10.5) K/mm3 RBC (4.1-5.6) M/mm3 Hgb (12.5-18.0) gm/dl Hct (42-50) % MCV (78-100) fl MCH (26-32) pg MCHC (32-36) g/dl RDW (11.5-14.0) % Plt Count (150-450) K/mm3 MPV (7.5-11.0) fl Gran % (36.0-66.0) % Eos # (Auto) (0-0.5) Absolute Lymphs (auto) (1.0-4.6) Absolute Monos (auto) (0.0-1.3) Lymphocytes % (24.0-44.0) % Monocytes % (0.0-12.0) % Eosinophils % (0.00-5.0) % Basophils % (0.0-0.4) % Absolute Granulocytes (1.4-6.9) Basophils # (0-0.4) pO2/FiO2 Ratio 21.0 % VBG pH 7.42 (7.32-7.42) VBG pCO2 at Pat Temp 38 L (42-55) mm/Hg VBG pO2 at Pat Temp 46 H (25-40) mm/Hg VBG HCO3 24.6 (22-28) meq/L VBG O2 Sat (Brandon) 80.6 L (95-100) VBG Base Excess 0.3 (-2.0-2.0) VBG Hemoglobin 17.1 VBG Carboxyhemoglobin 5.6 (0.0-6.9) % T HGB POC Potassium 5.1 (3.5-5.1) Sodium 137 (137-145) mmol/L Potassium 3.9 (3.5-5.1) mmol/L Chloride 100 (98-107) mmol/L Carbon Dioxide 23 (22-30) mmol/L Anion Gap 17.5 H (5-15) MEQ/L BUN 20 (9-20) mg/dL Creatinine 1.23 (0.66-1.25) mg/dL Estimated GFR > 60.0 ML/MIN Glucose 343 H (74-106) mg/dL Calcium 8.8 (8.4-10.2) mg/dL Total Bilirubin 1.20 (0.2-1.3) mg/dL AST 22 (17-59) U/L ALT 24 (0-50) U/L Alkaline Phosphatase 155 H (38-126) U/L Troponin I < 0.012 (0.000-0.034) ng/mL Serum Total Protein 7.4 (6.3-8.2) g/dL Albumin 3.7 (3.5-5.0) g/dL Lipase (23-300) U/L Urine Color (YELLOW) Urine Appearance (CLEAR) Urine pH (5-6) Ur Specific Welches (1.005-1.025) Urine Protein (Negative) Urine Ketones (NEGATIVE) Urine Blood (0-5) Junito/ul Urine Nitrite (NEGATIVE) Urine Bilirubin (NEGATIVE) Urine Urobilinogen (0-1) mg/dL Ur Leukocyte Esterase (NEGATIVE) Urine WBC (Auto) (0-5) /HPF Urine RBC (Auto) (0-2) /HPF U Epithel Cells (Auto) (FEW) /HPF Urine Bacteria (Auto) (NEGATIVE) /HPF Urine Culture Reflexed (NO) Urine Glucose (NEGATIVE) mg/dL Urine Opiates Level (NEGATIVE) Ur Methadone (NEGATIVE) Urine Barbiturates (NEGATIVE) Ur Phencyclidine (PCP) (NEGATIVE) Urine Amphetamine (NEGATIVE) U Benzodiazepine Level (NEGATIVE) Urine Cocaine (NEGATIVE) Urine Marijuana (THC) (NEGATIVE) HIV-1 Specimen Source 09/13/19 09/13/19 09/13/19 Range/Units 17:43 17:07 17:00 WBC (4.0-10.5) K/mm3 RBC (4.1-5.6) M/mm3 Hgb (12.5-18.0) gm/dl Hct (42-50) % MCV (78-100) fl MCH (26-32) pg MCHC (32-36) g/dl RDW (11.5-14.0) % Plt Count (150-450) K/mm3 MPV (7.5-11.0) fl Gran % (36.0-66.0) % Eos # (Auto) (0-0.5) Absolute Lymphs (auto) (1.0-4.6) Absolute Monos (auto) (0.0-1.3) Lymphocytes % (24.0-44.0) % Monocytes % (0.0-12.0) % Eosinophils % (0.00-5.0) % Basophils % (0.0-0.4) % Absolute Granulocytes (1.4-6.9) Basophils # (0-0.4) pO2/FiO2 Ratio % VBG pH (7.32-7.42) VBG pCO2 at Pat Temp (42-55) mm/Hg VBG pO2 at Pat Temp (25-40) mm/Hg VBG HCO3 (22-28) meq/L VBG O2 Sat (Brandon) (95-100) VBG Base Excess (-2.0-2.0) VBG Hemoglobin VBG Carboxyhemoglobin (0.0-6.9) % T HGB POC Potassium (3.5-5.1) Sodium (137-145) mmol/L Potassium (3.5-5.1) mmol/L Chloride (98-107) mmol/L Carbon Dioxide (22-30) mmol/L Anion Gap (5-15) MEQ/L BUN (9-20) mg/dL Creatinine (0.66-1.25) mg/dL Estimated GFR ML/MIN Glucose (74-106) mg/dL Calcium (8.4-10.2) mg/dL Total Bilirubin (0.2-1.3) mg/dL AST (17-59) U/L ALT (0-50) U/L Alkaline Phosphatase (38-126) U/L Troponin I < 0.012 (0.000-0.034) ng/mL Serum Total Protein (6.3-8.2) g/dL Albumin (3.5-5.0) g/dL Lipase (23-300) U/L Urine Color YELLOW (YELLOW) Urine Appearance SLIGHTLY CLOUDY (CLEAR) Urine pH 6.0 (5-6) Ur Specific Welches 1.020 (1.005-1.025) Urine Protein 30 (Negative) Urine Ketones NEGATIVE (NEGATIVE) Urine Blood MODERATE (0-5) Junito/ul Urine Nitrite NEGATIVE (NEGATIVE) Urine Bilirubin NEGATIVE (NEGATIVE) Urine Urobilinogen NEGATIVE (0-1) mg/dL Ur Leukocyte Esterase SMALL (NEGATIVE) Urine WBC (Auto) 51-100 (0-5) /HPF Urine RBC (Auto) 3-5 (0-2) /HPF U Epithel Cells (Auto) RARE (FEW) /HPF Urine Bacteria (Auto) FEW (NEGATIVE) /HPF Urine Culture Reflexed YES (NO) Urine Glucose >=500 (NEGATIVE) mg/dL Urine Opiates Level NEGATIVE (NEGATIVE) Ur Methadone NEGATIVE (NEGATIVE) Urine Barbiturates NEGATIVE (NEGATIVE) Ur Phencyclidine (PCP) NEGATIVE (NEGATIVE) Urine Amphetamine POSITIVE (NEGATIVE) U Benzodiazepine Level NEGATIVE (NEGATIVE) Urine Cocaine NEGATIVE (NEGATIVE) Urine Marijuana (THC) POSITIVE (NEGATIVE) HIV-1 Specimen Source 09/13/19 09/13/19 Range/Units 16:47 16:47 WBC 14.5 H (4.0-10.5) K/mm3 RBC 5.26 (4.1-5.6) M/mm3 Hgb 17.1 (12.5-18.0) gm/dl Hct 49.0 (42-50) % MCV 93.2 (78-100) fl MCH 32.5 H (26-32) pg MCHC 34.9 (32-36) g/dl RDW 12.7 (11.5-14.0) % Plt Count 250 (150-450) K/mm3 MPV 11.9 H (7.5-11.0) fl Gran % 76.0 H (36.0-66.0) % Eos # (Auto) 0.02 (0-0.5) Absolute Lymphs (auto) 2.12 (1.0-4.6) Absolute Monos (auto) 1.31 H (0.0-1.3) Lymphocytes % 14.7 L (24.0-44.0) % Monocytes % 9.1 (0.0-12.0) % Eosinophils % 0.1 (0.00-5.0) % Basophils % 0.1 (0.0-0.4) % Absolute Granulocytes 10.98 H (1.4-6.9) Basophils # 0.02 (0-0.4) pO2/FiO2 Ratio % VBG pH (7.32-7.42) VBG pCO2 at Pat Temp (42-55) mm/Hg VBG pO2 at Pat Temp (25-40) mm/Hg VBG HCO3 (22-28) meq/L VBG O2 Sat (Brandon) (95-100) VBG Base Excess (-2.0-2.0) VBG Hemoglobin VBG Carboxyhemoglobin (0.0-6.9) % T HGB POC Potassium (3.5-5.1) Sodium 132 L (137-145) mmol/L Potassium 3.9 (3.5-5.1) mmol/L Chloride 95 L (98-107) mmol/L Carbon Dioxide 23 (22-30) mmol/L Anion Gap 18.1 H (5-15) MEQ/L BUN 20 (9-20) mg/dL Creatinine 1.50 H (0.66-1.25) mg/dL Estimated GFR 51.5 ML/MIN Glucose 483 H (74-106) mg/dL Calcium 9.4 (8.4-10.2) mg/dL Total Bilirubin 1.50 H (0.2-1.3) mg/dL AST 23 (17-59) U/L ALT 25 (0-50) U/L Alkaline Phosphatase 177 H (38-126) U/L Troponin I (0.000-0.034) ng/mL Serum Total Protein 7.4 (6.3-8.2) g/dL Albumin 3.7 (3.5-5.0) g/dL Lipase 44 (23-300) U/L Urine Color (YELLOW) Urine Appearance (CLEAR) Urine pH (5-6) Ur Specific Welches (1.005-1.025) Urine Protein (Negative) Urine Ketones (NEGATIVE) Urine Blood (0-5) Junito/ul Urine Nitrite (NEGATIVE) Urine Bilirubin (NEGATIVE) Urine Urobilinogen (0-1) mg/dL Ur Leukocyte Esterase (NEGATIVE) Urine WBC (Auto) (0-5) /HPF Urine RBC (Auto) (0-2) /HPF U Epithel Cells (Auto) (FEW) /HPF Urine Bacteria (Auto) (NEGATIVE) /HPF Urine Culture Reflexed (NO) Urine Glucose (NEGATIVE) mg/dL Urine Opiates Level (NEGATIVE) Ur Methadone (NEGATIVE) Urine Barbiturates (NEGATIVE) Ur Phencyclidine (PCP) (NEGATIVE) Urine Amphetamine (NEGATIVE) U Benzodiazepine Level (NEGATIVE) Urine Cocaine (NEGATIVE) Urine Marijuana (THC) (NEGATIVE) HIV-1 Specimen Source - Progress Progress: improved Progress Note: 09/19/19 00:29 Patient reassessed. Pain improved. Work-up reveals acute renal injury. Case discussed Dr. Fong accepts admission to observation. Plan of care discussed with patient. He agrees to admission to [facility] for further evaluation and treatment. Discussed with : Lang Will see patient in: hospital (observation) Counseled pt/family regarding: lab results, diagnosis, need for follow-up, rad results - Departure Departure Disposition: Home, Extended Care Facility Clinical Impression: Hyperglycemia, Abdominal pain, UTI (urinary tract infection), Amphetamine use disorder, moderate, Marijuana use, Acute renal injury, Constipation, Nephrolithiasis Condition: Stable Critical Care Time: No
[2019-09-13] MEDS ORDERED: MORPHINE SULFATE 2 MG INJ IV ONE (17:09)
[2019-09-13] MEDS ORDERED: MORPHINE SULFATE 2 MG INJ ONE (17:17)
[2019-09-13 17:49] LABS: Absolute Neutrophil Ct (ANC) 10.98 (1.4-6.9); BASOPHIL % 0.1 % (0.0-0.4); Basophil (Absolute #) 0.02 (0-0.4); Eosinophil % 0.1 % (0.00-5.0); Eosinophil (Absolute #) 0.02 (0-0.5); Hemoglobin 17.1 gm/dl (12.5-18.0); Lymphocyte (Absolute #) 2.12 (1.0-4.6); Lymphocytes % 14.7 % (24.0-44.0); Mean Cell Volume 93.2 fl (78-100); Mean Corpuscular Hemoglobin 32.5 pg (26-32); Mean Corpuscular Hgb Concent. 34.9 g/dl (32-36); Mean Platelet Volume 11.9 fl (7.5-11.0); Monocyte (Absolute #) 1.31 (0.0-1.3); Monocytes % 9.1 % (0.0-12.0); Platelet Count 250 K/mm3 (150-450); Red Blood Count 5.26 M/mm3 (4.1-5.6); Red Cell Distribution Width 12.7 % (11.5-14.0); White Blood Count 14.5 K/mm3 (4.0-10.5)
[2019-09-13 17:57] LABS: Appearance SLIGHTLY CLOUDY (CLEAR); Bacteria FEW /HPF (NEGATIVE); Bilirubin NEGATIVE (NEGATIVE); Blood MODERATE Ery/ul (0-5); Glucose >=500 mg/dL (NEGATIVE); Ketones NEGATIVE (NEGATIVE); Leukocyte Esterase SMALL (NEGATIVE); Nitrite NEGATIVE (NEGATIVE); Protein,Urine Dip 30 (Negative); Urobilinogen NEGATIVE mg/dL (0-1); WBC 51-100 /HPF (0-5)
[2019-09-13 18:00] LABS: ALBUMIN 3.7 g/dL (3.5-5.0); ANION GAP 18.1 MEQ/L (5-15); BILIRUBIN,TOTAL 1.5 mg/dL (0.2-1.3); Calcium 9.4 mg/dL (8.4-10.2); Creatinine 1 1.5 mg/dL (0.66-1.25); Potassium 3.9 mmol/L (3.5-5.1); Total Protein 7.4 g/dL (6.3-8.2)
[2019-09-13 18:00] LABS: Epithelial Cells RARE /HPF (FEW)
[2019-09-13 18:13] LABS: Amphetamine,Urine POSITIVE (NEGATIVE); Barbiturate,Urine NEGATIVE (NEGATIVE); Benzodiazepine,Urine NEGATIVE (NEGATIVE); Cocaine,Urine NEGATIVE (NEGATIVE); Methadone,Urine NEGATIVE (NEGATIVE); Opiate,Urine NEGATIVE (NEGATIVE); PCP,Urine NEGATIVE (NEGATIVE); THC,Urine POSITIVE (NEGATIVE)
[2019-09-13] MEDS ORDERED: XYLOCAINE 2% Uro-Jet ONE (20:05)
[2019-09-13] MEDS ORDERED: XYLOCAINE 2% Uro-Jet TOP ONE (20:06)
[2019-09-13] MEDS ORDERED: ROCEPHIN 1 Gm-D5w 50 ml Bag** 1 G/50 ML IVPB IV STA (20:10)
[2019-09-13] MEDS ORDERED: NovoLIN R SQ ONE (20:12)
[2019-09-13] MEDS ORDERED: ROCEPHIN 1 Gm-D5w 50 ml Bag** 1 G/50 ML IVPB IV ONE (20:27)
[2019-09-13] MEDS ORDERED: HUMULIN R ONE (20:34)
[2019-09-13 20:41] LABS: ALBUMIN 3.7 g/dL (3.5-5.0); ALKALINE PHOSPHATASE 155 U/L (38-126); ANION GAP 17.5 MEQ/L (5-15); BLOOD UREA NITROGEN 20 mg/dL (9-20); CHLORIDE 100 mmol/L (98-107); Calcium 8.8 mg/dL (8.4-10.2); Carbon Dioxide 23 mmol/L (22-30); Creatinine 1 1.23 mg/dL (0.66-1.25); Glucose 343 mg/dL (74-106); Potassium 3.9 mmol/L (3.5-5.1); SGOT/AST 22 U/L (17-59); SGPT/ALT 24 U/L (0-50); SODIUM 137 mmol/L (137-145); Total Protein 7.4 g/dL (6.3-8.2)
[2019-09-13 20:53] LABS: VBG BASE EXCESS 0.3 (-2.0-2.0); VBG CARBOXYHEMOGLOBIN 5.6 % T HGB (0.0-6.9); VBG HCO3- 24.6 meq/L (22-28); VBG HEMOGLOBIN 17.1; VBG O2 SATURATION 80.6 (95-100); VBG POTASSIUM 5.1 (3.5-5.1); VBG pH 7.42 (7.32-7.42)
[2019-09-13] MEDS: TORAdol 30 mg Injection IV PRN (23:36)
[2019-09-13] MEDS: Sodium Chloride 0.9% 1000 ML 1,000 ML IV SCH (23:37)
[2019-09-14] MEDS: HUMALOG SQ PRN ×5 (04:07→20:31)
[2019-09-14 05:37] LABS: Absolute Neutrophil Ct (ANC) 9.05 (1.4-6.9); BASOPHIL % 0.2 % (0.0-0.4); Basophil (Absolute #) 0.03 (0-0.4); Eosinophil % 0.4 % (0.00-5.0); Eosinophil (Absolute #) 0.05 (0-0.5); Hematocrit 43.2 % (42-50); Hemoglobin 14.7 gm/dl (12.5-18.0); Lymphocyte (Absolute #) 2.21 (1.0-4.6); Mean Cell Volume 95.6 fl (78-100); Mean Corpuscular Hemoglobin 32.5 pg (26-32); Mean Platelet Volume 11.3 fl (7.5-11.0); Monocyte (Absolute #) 0.92 (0.0-1.3); Monocytes % 7.5 % (0.0-12.0); Neutrophil % 73.9 % (36.0-66.0); Platelet Count 188 K/mm3 (150-450); Red Blood Count 4.52 M/mm3 (4.1-5.6); Red Cell Distribution Width 12.6 % (11.5-14.0); White Blood Count 12.3 K/mm3 (4.0-10.5)
[2019-09-14 06:06] LABS: ALBUMIN 3.3 g/dL (3.5-5.0); ALKALINE PHOSPHATASE 155 U/L (38-126); ANION GAP 13.9 MEQ/L (5-15); BLOOD UREA NITROGEN 24 mg/dL (9-20); CHLORIDE 99 mmol/L (98-107); Calcium 8.4 mg/dL (8.4-10.2); Carbon Dioxide 25 mmol/L (22-30); Creatinine 1 1.16 mg/dL (0.66-1.25); Glucose 384 mg/dL (74-106); Potassium 3.5 mmol/L (3.5-5.1); SGOT/AST 22 U/L (17-59); SGPT/ALT 20 U/L (0-50); SODIUM 134 mmol/L (137-145); Total Protein 6.8 g/dL (6.3-8.2)
[2019-09-14 06:14] LABS: TROPONIN < 0.012 ng/mL (0.000-0.034)
[2019-09-14] MEDS: Norco 10/325 MG Tablet PO PRN ×2 (07:40→14:24)
--- NOTE | 2019-09-14 08:44 | XRAY ---
Indication: Abdomen pain and weakness. Multiple contiguous axial images obtained through the abdomen and pelvis using 80 cc Isovue 370 contrast only. Comparison: November 14, 2006. Lung bases again demonstrates mild bibasilar dependent atelectasis without focal infiltrate or effusion. Heart is not enlarged. Noncontrasted stomach and bowel loops appear nonobstructed. Appendix not seen. No free fluid/air. Urinary bladder is markedly distended concerning for outlet obstruction versus neurogenic bladder. New nonobstructing punctate right renal calculus. Kidneys also demonstrates subtle patchy cortical hypoattenuations on delayed imaging right kidney greater than left, possible pyelonephritis in the right clinical setting. Remaining liver, gallbladder, pancreas, spleen, adrenal glands, kidneys, ureters, and bladder appear unremarkable. Mild scattered aortoiliac calcifications. No AAA or pathologic retroperitoneal lymphadenopathy. Osseous structures intact with mild degenerative changes throughout the spine. There has been interval resection of the left femur head. No ventral or inguinal hernias. Impression: 1. Nonobstructing right renal micro-calculus. Also query bilateral pyelonephritis. 2. Markedly distended urinary bladder. Rule out outlet obstruction versus neurogenic bladder. Comment: Renal findings not reported on initial preliminary interpretation. I gave telephone report to Dr. Looney in the ER at 0845 on September 14, 2019.
--- NOTE | 2019-09-14 08:49 | XRAY ---
Indication: Weakness. Pneumonia. Comparison: August 28, 2019. Portable chest again demonstrates a few tiny calcified granulomas. No focal infiltrate, consolidation, or large effusion. Heart is not enlarged again with tortuous descending aorta. Bony thorax intact again with mild degenerative changes. Impression: Nonacute chest with chronic features.
[2019-09-14] MEDS ORDERED: PHARMACY DOSING REQUIRED: VANCOMYCIN IV STA (09:48)
[2019-09-14] MEDS: Merrem 1 GM 1 G in Sodium Chloride 100ML MINI-BAG PLUS 100 ML IV SCH ×2 (10:18→18:04)
[2019-09-14] MEDS: Lantus Insulin SQ SCH (10:18)
[2019-09-14] MEDS: Sodium Chloride 0.9% 1000 ML 1,000 ML IV SCH (10:24)
[2019-09-14] MEDS: VANCOCIN 500 MG VIAL*** 500 MG in Sodium Chloride 100ML MINI-BAG PLUS 100 ML IV SCH (11:04)
[2019-09-14] MEDS: Zestril 20 MG PO SCH (14:50)
[2019-09-14] MEDS: Toprol Xl 50 MG PO SCH (14:51)
[2019-09-14] MEDS: ZOCOR 20MG PO SCH (14:51)
[2019-09-14] MEDS ORDERED: INSULIN LISPRO 10 UNIT SQ SCH (15:00)
[2019-09-14] MEDS: HUMALOG SQ SCH (16:54)
--- NOTE | 2019-09-14 18:07 | PCM.HP ---
History of Present Illness - Chief Complaint Chief Complaint: ACUTE ADRY PYELONEPHRITIS History of Present Illness: is a 54 year old male pt who is homeless currently, multiple drug user with DM who came in to ER complaining of polyuria, "I just felt like I was dying," had no energy to get up, then had a syncopal episode with urinary incontinence. He was found to have UTI and started on IV rocephin. He did c/o fever and nausea, with abd and R flank pain that was "bad." WBC initially 14.5. He was found to have urinary retention. Today the over read on his Abd/pelvis CT was concerning for pyelonephritis, so his antibiotic was changed from rocephin to vancomycin and meropenem. WBC to 12.3 today. BS 384. Pt's HIV test is negative. troponins are neg x 6. UDS + for amphetamines and THC. UA with 50-100 WBC. - Review of Systems Constitutional: Fever Cardiac: Edema (chronic intermittent LE) Abdominal/Gastrointestinal: Abdominal Pain, Nausea Genitourinary Symptoms: Frequency, Incontinence, Urinary Retention Musculoskeletal: Joint Pain (L hip) Neurological: Other (syncope) Medications & Allergies Home Medications: Home Medication List Atorvastatin Calcium 40 mg PO DAILY #30 tablet 08/31/19 [Rx Confirmed 09/13/19] Blood Sugar Diagnostic [Test Strips] 1 each AC #200 strip 08/31/19 [Rx Confirmed 09/13/19] Blood-Glucose Meter [Accu-Chek Brenda Plus] 1 each QID #1 each 08/31/19 [Rx Confirmed 09/13/19] Insulin Glargine,Hum.rec.anlog [Lantus Solostar] 30 unit SQ DAILY #3 pens 08/31/19 [Rx Confirmed 09/13/19] Insulin Lispro [Humalog Kwikpen U-100] 10 unit SQ TID #3 insuln.pen 08/31/19 [Rx Confirmed 09/13/19] Lancets [Accu-Chek Softclix] 1 each QID #200 each 08/31/19 [Rx Confirmed 09/13/19] Lancing Device/Lancets [Accu-Check Softclix Lancet Kit] 1 each QID #1 kit 08/31/19 [Rx Confirmed 09/13/19] Metoprolol Succinate 50 mg [Toprol Xl 50 MG] 50 mg PO DAILY #30 tablet.sa 08/31/19 [Rx Confirmed 09/13/19] Pen Needle, Diabetic [Pen Needle] 1 each MC QID #200 dis.needle 08/31/19 [Rx Confirmed 09/13/19] lisinopriL [Lisinopril] 40 mg PO DAILY #30 tablet 08/31/19 [Rx Confirmed 09/13/19] Allergies/Adverse Reactions: Allergies Allergy/AdvReac Type Severity Reaction Status Date / Time No Known Drug Allergies Allergy Verified 09/13/19 16:52 - Past Medical History Past Medical History: Yes Neurological History: No Pertinent History ENT History: No Pertinent History Cardiac History: Myocardial Infarction (IN) Respiratory History: CHF, COPD, Pneumonia Endocrine Medical History: Diabetes Type II Musculoskelatal History: No Pertinent History GI Medical History: Other History: No Pertinent History Pyscho-Social History: Depression Male Reproductive Disorders: No Pertinent History Comment: gangrene - Past Surgical History Past Surgical History: Yes Neuro Surgical History: No Pertinent History Cardiac History: Angioplasty Respiratory Surgery: No Pertinent History GI Surgical History: No Pertinent History Genitourinary Surgical Hx: No Pertinent History Musculskeletal Surgical Hx: No Pertinent History Male Surgical History: No Pertinent History - Social History Smoking Status: Current every day smoker How long have you smoked: years Exposure to second hand smoke: Yes Alcohol: Occasionally, Weekly Drug Use: marijuana, methamphetamines - Physical Exam Vital Signs: Vital Signs - 24 hr Temp Pulse Resp BP Pulse Ox 09/14/19 14:00 99.1 F 92 H 24 145/86 95 09/14/19 10:38 100.1 F 99 H 18 126/80 95 09/14/19 07:41 98.6 F 105 H 16 148/102 96 09/14/19 03:48 98.9 F 100 H 17 118/86 97 09/14/19 00:05 98 09/14/19 00:00 100 F 113 H 19 123/85 96 09/13/19 22:27 98.3 F 105 H 19 154/82 98 09/13/19 21:16 109 H 28 H 143/104 98 09/13/19 20:10 98 09/13/19 20:00 116 H 24 138/93 98 09/13/19 18:11 109 H 18 154/108 97 General Appearance: no apparent distress, alert Neurologic Exam: oriented x 3, cooperative Eye Exam: eyes nml inspection Ears, Nose, Throat Exam: moist mucous membranes Neck Exam: normal inspection Respiratory Exam: normal breath sounds, lungs clear, No crackles/rales, No rhonchi, No wheezing Cardiovascular Exam: regular rate/rhythm, normal heart sounds, No murmur Gastrointestinal/Abdomen Exam: soft, normal bowel sounds, tenderness (RUQ), No distention, No mass, No guarding, No rebound Back Exam: CVA tenderness (on R) Extremity Exam: No pedal edema, No swelling Skin Exam: normal color, warm, dry, No rash Results - Labs Lab/Micro Results: Accuchecks Date 09/14/19 Date 09/14/19 Date 09/14/19 Time 16:55 Time 11:25 Time 07:44 Accucheck Value: 383 Accucheck Value: 441 Accucheck Value: 217 Accucheck Value: 448 Accucheck Value: 325 Lab Results-Last 24 Hours 09/13/19 09/13/19 09/13/19 Range/Units 17:00 17:43 20:20 WBC (4.0-10.5) K/mm3 RBC (4.1-5.6) M/mm3 Hgb (12.5-18.0) gm/dl Hct (42-50) % MCV (78-100) fl MCH (26-32) pg MCHC (32-36) g/dl RDW (11.5-14.0) % Plt Count (150-450) K/mm3 MPV (7.5-11.0) fl Gran % (36.0-66.0) % Eos # (Auto) (0-0.5) Absolute Lymphs (auto) (1.0-4.6) Absolute Monos (auto) (0.0-1.3) Lymphocytes % (24.0-44.0) % Monocytes % (0.0-12.0) % Eosinophils % (0.00-5.0) % Basophils % (0.0-0.4) % Absolute Granulocytes (1.4-6.9) Basophils # (0-0.4) pO2/FiO2 Ratio % VBG pH (7.32-7.42) VBG pCO2 at Pat Temp (42-55) mm/Hg VBG pO2 at Pat Temp (25-40) mm/Hg VBG HCO3 (22-28) meq/L VBG O2 Sat (Brandon) (95-100) VBG Base Excess (-2.0-2.0) VBG Hemoglobin VBG Carboxyhemoglobin (0.0-6.9) % T HGB POC Potassium (3.5-5.1) Sodium (137-145) mmol/L Potassium (3.5-5.1) mmol/L Chloride (98-107) mmol/L Carbon Dioxide (22-30) mmol/L Anion Gap (5-15) MEQ/L BUN (9-20) mg/dL Creatinine (0.66-1.25) mg/dL Estimated GFR ML/MIN Glucose (74-106) mg/dL Calcium (8.4-10.2) mg/dL Total Bilirubin (0.2-1.3) mg/dL AST (17-59) U/L ALT (0-50) U/L Alkaline Phosphatase (38-126) U/L Troponin I < 0.012 < 0.012 (0.000-0.034) ng/mL Serum Total Protein (6.3-8.2) g/dL Albumin (3.5-5.0) g/dL Urine Opiates Level NEGATIVE (NEGATIVE) Ur Methadone NEGATIVE (NEGATIVE) Urine Barbiturates NEGATIVE (NEGATIVE) Ur Phencyclidine (PCP) NEGATIVE (NEGATIVE) Urine Amphetamine POSITIVE (NEGATIVE) U Benzodiazepine Level NEGATIVE (NEGATIVE) Urine Cocaine NEGATIVE (NEGATIVE) Urine Marijuana (THC) POSITIVE (NEGATIVE) HIV-1 Specimen Source 09/13/19 09/13/19 09/13/19 Range/Units 20:21 20:45 21:04 WBC (4.0-10.5) K/mm3 RBC (4.1-5.6) M/mm3 Hgb (12.5-18.0) gm/dl Hct (42-50) % MCV (78-100) fl MCH (26-32) pg MCHC (32-36) g/dl RDW (11.5-14.0) % Plt Count (150-450) K/mm3 MPV (7.5-11.0) fl Gran % (36.0-66.0) % Eos # (Auto) (0-0.5) Absolute Lymphs (auto) (1.0-4.6) Absolute Monos (auto) (0.0-1.3) Lymphocytes % (24.0-44.0) % Monocytes % (0.0-12.0) % Eosinophils % (0.00-5.0) % Basophils % (0.0-0.4) % Absolute Granulocytes (1.4-6.9) Basophils # (0-0.4) pO2/FiO2 Ratio 21.0 % VBG pH 7.42 (7.32-7.42) VBG pCO2 at Pat Temp 38 L (42-55) mm/Hg VBG pO2 at Pat Temp 46 H (25-40) mm/Hg VBG HCO3 24.6 (22-28) meq/L VBG O2 Sat (Brandon) 80.6 L (95-100) VBG Base Excess 0.3 (-2.0-2.0) VBG Hemoglobin 17.1 VBG Carboxyhemoglobin 5.6 (0.0-6.9) % T HGB POC Potassium 5.1 (3.5-5.1) Sodium 137 (137-145) mmol/L Potassium 3.9 (3.5-5.1) mmol/L Chloride 100 (98-107) mmol/L Carbon Dioxide 23 (22-30) mmol/L Anion Gap 17.5 H (5-15) MEQ/L BUN 20 (9-20) mg/dL Creatinine 1.23 (0.66-1.25) mg/dL Estimated GFR > 60.0 ML/MIN Glucose 343 H (74-106) mg/dL Calcium 8.8 (8.4-10.2) mg/dL Total Bilirubin 1.20 (0.2-1.3) mg/dL AST 22 (17-59) U/L ALT 24 (0-50) U/L Alkaline Phosphatase 155 H (38-126) U/L Troponin I (0.000-0.034) ng/mL Serum Total Protein 7.4 (6.3-8.2) g/dL Albumin 3.7 (3.5-5.0) g/dL Urine Opiates Level (NEGATIVE) Ur Methadone (NEGATIVE) Urine Barbiturates (NEGATIVE) Ur Phencyclidine (PCP) (NEGATIVE) Urine Amphetamine (NEGATIVE) U Benzodiazepine Level (NEGATIVE) Urine Cocaine (NEGATIVE) Urine Marijuana (THC) (NEGATIVE) HIV-1 Specimen Source Cancelled 09/13/19 09/14/19 09/14/19 Range/Units 23:10 02:47 05:00 WBC 12.3 H (4.0-10.5) K/mm3 RBC 4.52 (4.1-5.6) M/mm3 Hgb 14.7 (12.5-18.0) gm/dl Hct 43.2 (42-50) % MCV 95.6 (78-100) fl MCH 32.5 H (26-32) pg MCHC 34.0 (32-36) g/dl RDW 12.6 (11.5-14.0) % Plt Count 188 (150-450) K/mm3 MPV 11.3 H (7.5-11.0) fl Gran % 73.9 H (36.0-66.0) % Eos # (Auto) 0.05 (0-0.5) Absolute Lymphs (auto) 2.21 (1.0-4.6) Absolute Monos (auto) 0.92 (0.0-1.3) Lymphocytes % 18.0 L (24.0-44.0) % Monocytes % 7.5 (0.0-12.0) % Eosinophils % 0.4 (0.00-5.0) % Basophils % 0.2 (0.0-0.4) % Absolute Granulocytes 9.05 H (1.4-6.9) Basophils # 0.03 (0-0.4) pO2/FiO2 Ratio % VBG pH (7.32-7.42) VBG pCO2 at Pat Temp (42-55) mm/Hg VBG pO2 at Pat Temp (25-40) mm/Hg VBG HCO3 (22-28) meq/L VBG O2 Sat (Brandon) (95-100) VBG Base Excess (-2.0-2.0) VBG Hemoglobin VBG Carboxyhemoglobin (0.0-6.9) % T HGB POC Potassium (3.5-5.1) Sodium (137-145) mmol/L Potassium (3.5-5.1) mmol/L Chloride (98-107) mmol/L Carbon Dioxide (22-30) mmol/L Anion Gap (5-15) MEQ/L BUN (9-20) mg/dL Creatinine (0.66-1.25) mg/dL Estimated GFR ML/MIN Glucose (74-106) mg/dL Calcium (8.4-10.2) mg/dL Total Bilirubin (0.2-1.3) mg/dL AST (17-59) U/L ALT (0-50) U/L Alkaline Phosphatase (38-126) U/L Troponin I < 0.012 < 0.012 (0.000-0.034) ng/mL Serum Total Protein (6.3-8.2) g/dL Albumin (3.5-5.0) g/dL Urine Opiates Level (NEGATIVE) Ur Methadone (NEGATIVE) Urine Barbiturates (NEGATIVE) Ur Phencyclidine (PCP) (NEGATIVE) Urine Amphetamine (NEGATIVE) U Benzodiazepine Level (NEGATIVE) Urine Cocaine (NEGATIVE) Urine Marijuana (THC) (NEGATIVE) HIV-1 Specimen Source 09/14/19 09/14/19 Range/Units 05:05 05:05 WBC (4.0-10.5) K/mm3 RBC (4.1-5.6) M/mm3 Hgb (12.5-18.0) gm/dl Hct (42-50) % MCV (78-100) fl MCH (26-32) pg MCHC (32-36) g/dl RDW (11.5-14.0) % Plt Count (150-450) K/mm3 MPV (7.5-11.0) fl Gran % (36.0-66.0) % Eos # (Auto) (0-0.5) Absolute Lymphs (auto) (1.0-4.6) Absolute Monos (auto) (0.0-1.3) Lymphocytes % (24.0-44.0) % Monocytes % (0.0-12.0) % Eosinophils % (0.00-5.0) % Basophils % (0.0-0.4) % Absolute Granulocytes (1.4-6.9) Basophils # (0-0.4) pO2/FiO2 Ratio % VBG pH (7.32-7.42) VBG pCO2 at Pat Temp (42-55) mm/Hg VBG pO2 at Pat Temp (25-40) mm/Hg VBG HCO3 (22-28) meq/L VBG O2 Sat (Brandon) (95-100) VBG Base Excess (-2.0-2.0) VBG Hemoglobin VBG Carboxyhemoglobin (0.0-6.9) % T HGB POC Potassium (3.5-5.1) Sodium 134 L (137-145) mmol/L Potassium 3.5 (3.5-5.1) mmol/L Chloride 99 (98-107) mmol/L Carbon Dioxide 25 (22-30) mmol/L Anion Gap 13.9 (5-15) MEQ/L BUN 24 H (9-20) mg/dL Creatinine 1.16 (0.66-1.25) mg/dL Estimated GFR > 60.0 ML/MIN Glucose 384 H (74-106) mg/dL Calcium 8.4 (8.4-10.2) mg/dL Total Bilirubin 0.60 (0.2-1.3) mg/dL AST 22 (17-59) U/L ALT 20 (0-50) U/L Alkaline Phosphatase 155 H (38-126) U/L Troponin I < 0.012 < 0.012 (0.000-0.034) ng/mL Serum Total Protein 6.8 (6.3-8.2) g/dL Albumin 3.3 L (3.5-5.0) g/dL Urine Opiates Level (NEGATIVE) Ur Methadone (NEGATIVE) Urine Barbiturates (NEGATIVE) Ur Phencyclidine (PCP) (NEGATIVE) Urine Amphetamine (NEGATIVE) U Benzodiazepine Level (NEGATIVE) Urine Cocaine (NEGATIVE) Urine Marijuana (THC) (NEGATIVE) HIV-1 Specimen Source Accuchecks Date 09/14/19 Date 09/14/19 Date 09/14/19 Time 16:55 Time 11:25 Time 07:44 Accucheck Value: 383 Accucheck Value: 441 Accucheck Value: 217 Accucheck Value: 448 Accucheck Value: 325 - Radiology Impressions Radiology Exams & Impressions: Radiology Procedures Category Date Time Status ABDOMEN AND PELVIS W CONTRAST [CT] Stat Exams 09/13/19 16:47 Completed CHEST 1 VIEW (PORTABLE) Stat Exams 09/13/19 16:47 Completed Assessment/Plan (1) Acute pyelonephritis Current Visit: Yes Status: Acute Assessment & Plan: On Day #1 of vancomycin and meropenem. UCx pending. Had 1 day of rocephin IV. Code(s): N10 - ACUTE PYELONEPHRITIS (2) Amphetamine use disorder, moderate Current Visit: Yes Status: Chronic Code(s): F15.20 - OTHER STIMULANT DEPENDENCE, UNCOMPLICATED (3) Marijuana use Current Visit: Yes Status: Chronic Code(s): F12.90 - CANNABIS USE, UNSPECIFIED, UNCOMPLICATED (4) Degenerative joint disease of left hip Current Visit: No Status: Chronic Qualifiers: Osteoarthritis type: post-traumatic Qualified Code(s): M16.52 - Unilateral post-traumatic osteoarthritis, left hip Code(s): M16.12 - UNILATERAL PRIMARY OSTEOARTHRITIS, LEFT HIP (5) Diabetes mellitus type 2 in nonobese Current Visit: No Status: Chronic Assessment & Plan: BS elevated - Will restart what his home dose of insulin is supposed to be but I suspect he has not been able to be compliant with insulin while he is homeless. Code(s): E11.9 - TYPE 2 DIABETES MELLITUS WITHOUT COMPLICATIONS (6) Hypertension Current Visit: No Status: Chronic Qualifiers: Hypertension type: essential hypertension Qualified Code(s): I10 - Essential (primary) hypertension Code(s): I10 - ESSENTIAL (PRIMARY) HYPERTENSION
[2019-09-14] MEDS: TORAdol 30 mg Injection IV PRN (18:17)
[2019-09-14] MEDS ORDERED: ROCEPHIN 1 Gm-D5w 50 ml Bag** 1 G/50 ML IVPB IV SCH (22:00)
[2019-09-15] MEDS: VANCOCIN 500 MG VIAL*** 500 MG in Sodium Chloride 100ML MINI-BAG PLUS 100 ML IV SCH ×3 (00:50→23:02)
[2019-09-15] MEDS: HUMALOG SQ PRN ×6 (00:54→20:09)
[2019-09-15] MEDS: Norco 10/325 MG Tablet PO PRN ×4 (01:06→20:08)
[2019-09-15] MEDS: Merrem 1 GM 1 G in Sodium Chloride 100ML MINI-BAG PLUS 100 ML IV SCH ×3 (06:52→18:50)
[2019-09-15] MEDS: TORAdol 30 mg Injection IV PRN (06:53)
[2019-09-15] MEDS: HUMALOG SQ SCH ×3 (09:02→18:09)
[2019-09-15] MEDS: Lantus Insulin SQ SCH (09:02)
[2019-09-15] MEDS ORDERED: NON-FORMULARY ITEM (Lisinopril [Lisinopril] 40 MG) PO SCH (10:00)
[2019-09-15] MEDS: ZOCOR 20MG PO SCH (10:21)
[2019-09-15] MEDS: Toprol Xl 50 MG PO SCH (10:21)
[2019-09-15] MEDS: Zestril 20 MG PO SCH (10:21)
[2019-09-15] MEDS: ENOXAPARIN SODIUM SQ SCH (10:25)
[2019-09-15] MEDS: Sodium Chloride 0.9% 1000 ML 1,000 ML IV SCH (10:28)
[2019-09-15 11:58] LABS: Absolute Neutrophil Ct (ANC) 6.05 (1.4-6.9); BASOPHIL % 0.1 % (0.0-0.4); Basophil (Absolute #) 0.01 (0-0.4); Eosinophil % 0.7 % (0.00-5.0); Eosinophil (Absolute #) 0.06 (0-0.5); Hematocrit 35.2 % (42-50); Hemoglobin 11.8 gm/dl (12.5-18.0); Lymphocyte (Absolute #) 1.55 (1.0-4.6); Lymphocytes % 18.4 % (24.0-44.0); Mean Cell Volume 96.2 fl (78-100); Mean Corpuscular Hemoglobin 32.2 pg (26-32); Mean Corpuscular Hgb Concent. 33.5 g/dl (32-36); Mean Platelet Volume 12.1 fl (7.5-11.0); Monocyte (Absolute #) 0.74 (0.0-1.3); Monocytes % 8.8 % (0.0-12.0); Platelet Count 153 K/mm3 (150-450); Red Blood Count 3.66 M/mm3 (4.1-5.6); White Blood Count 8.4 K/mm3 (4.0-10.5)
[2019-09-15 12:10] LABS: ANION GAP 11.5 MEQ/L (5-15); BLOOD UREA NITROGEN 15 mg/dL (9-20); CHLORIDE 101 mmol/L (98-107); Calcium 7.7 mg/dL (8.4-10.2); Carbon Dioxide 25 mmol/L (22-30); Creatinine 1 1.03 mg/dL (0.66-1.25); Glucose 409 mg/dL (74-106); Potassium 3.2 mmol/L (3.5-5.1); SODIUM 134 mmol/L (137-145)
--- NOTE | 2019-09-15 17:39 | PCM.NOTE ---
Date and Time: 09/15/19 1734 Subjective Assessment: Pt now having bilat abd and flank pain. Per RN has had great output clear yellow urine. Potassium 3.2 this morning. BS have been elevated. Jhonatan po. Feeling "blah" right now. Objective Exam General Appearance: no apparent distress, alert Neurologic Exam: oriented x 3, cooperative Skin Exam: normal color, warm, dry, No rash Ears, Nose, Throat Exam: moist mucous membranes Neck Exam: normal inspection Respiratory Exam: normal breath sounds, wheezing (scattered throughout), No crackles/rales, No rhonchi Cardiovascular Exam: regular rate/rhythm, normal heart sounds, No murmur Gastrointestinal/Abdomen Exam: soft, normal bowel sounds, No tenderness, No distention, No mass, No guarding, No rebound Extremity Exam: No pedal edema, No swelling OBJECTIVE DATA Vital Signs: Vital Signs - 24 hr Temp Pulse Resp BP Pulse Ox 09/15/19 12:00 98.3 F 69 18 153/93 100 09/15/19 08:00 98.9 F 70 20 184/93 98 09/15/19 04:00 97.7 F 58 L 18 134/60 98 09/15/19 00:00 98.3 F 63 17 126/80 98 09/14/19 20:30 98.8 F 69 18 107/69 98 09/14/19 19:16 99.7 F 87 18 122/82 09/14/19 18:00 100.0 F 88 18 189/111 96 Pain Assessment - Last Documented Pain Intensity 0 Pain Scale Used 0-10 Pain Scale Intake and Output: Intake & Output 09/13/19 09/14/19 09/15/19 09/16/19 11:59 11:59 11:59 11:59 Intake Total 1787 5057 720 Output Total 400 4875 1999 Balance 1387 182 -1280 Weight 56.4 kg 61.7 kg Lab Results: Accuchecks Date 09/14/19 Time 20:15 Accucheck Value: 294 Accucheck Value: 261 Accucheck Value: 244 Accucheck Value: 306 Accucheck Value: 325 Lab Results-Last 24 Hours 09/15/19 09/15/19 Range/Units 09:56 10:50 WBC 8.4 (4.0-10.5) K/mm3 RBC 3.66 L (4.1-5.6) M/mm3 Hgb 11.8 L (12.5-18.0) gm/dl Hct 35.2 L (42-50) % MCV 96.2 (78-100) fl MCH 32.2 H (26-32) pg MCHC 33.5 (32-36) g/dl RDW 12.0 (11.5-14.0) % Plt Count 153 (150-450) K/mm3 MPV 12.1 H (7.5-11.0) fl Gran % 72.0 H (36.0-66.0) % Eos # (Auto) 0.06 (0-0.5) Absolute Lymphs (auto) 1.55 (1.0-4.6) Absolute Monos (auto) 0.74 (0.0-1.3) Lymphocytes % 18.4 L (24.0-44.0) % Monocytes % 8.8 (0.0-12.0) % Eosinophils % 0.7 (0.00-5.0) % Basophils % 0.1 (0.0-0.4) % Absolute Granulocytes 6.05 (1.4-6.9) Basophils # 0.01 (0-0.4) Sodium 134 L (137-145) mmol/L Potassium 3.2 L (3.5-5.1) mmol/L Chloride 101 (98-107) mmol/L Carbon Dioxide 25 (22-30) mmol/L Anion Gap 11.5 (5-15) MEQ/L BUN 15 (9-20) mg/dL Creatinine 1.03 (0.66-1.25) mg/dL Estimated GFR > 60.0 ML/MIN Glucose 409 H (74-106) mg/dL Calcium 7.7 L (8.4-10.2) mg/dL Radiology Exams: Radiology Procedures Category Date Time Status ABDOMEN AND PELVIS W CONTRAST [CT] Stat Exams 09/13/19 16:47 Completed CHEST 1 VIEW (PORTABLE) Stat Exams 09/13/19 16:47 Completed Assessment/Plan (1) Acute pyelonephritis Current Visit: Yes Status: Acute Assessment & Plan: On day #2 of vancomycin and meropenem. His tmax 100.1. Urine culture mixed erica. Code(s): N10 - ACUTE PYELONEPHRITIS (2) Amphetamine use disorder, moderate Current Visit: Yes Status: Chronic Code(s): F15.20 - OTHER STIMULANT DEPENDENCE, UNCOMPLICATED (3) Marijuana use Current Visit: Yes Status: Chronic Code(s): F12.90 - CANNABIS USE, UNSPECIFIED, UNCOMPLICATED (4) Degenerative joint disease of left hip Current Visit: No Status: Chronic Qualifiers: Osteoarthritis type: post-traumatic Qualified Code(s): M16.52 - Unilateral post-traumatic osteoarthritis, left hip Code(s): M16.12 - UNILATERAL PRIMARY OSTEOARTHRITIS, LEFT HIP (5) Diabetes mellitus type 2 in nonobese Current Visit: No Status: Chronic Assessment & Plan: I had restarted pt's long acting insulin at 10units daily instead of 30; increas ing tomorrow to 30 units. Code(s): E11.9 - TYPE 2 DIABETES MELLITUS WITHOUT COMPLICATIONS (6) Hypertension Current Visit: No Status: Chronic Qualifiers: Hypertension type: essential hypertension Qualified Code(s): I10 - Essential (primary) hypertension Code(s): I10 - ESSENTIAL (PRIMARY) HYPERTENSION (7) Hypokalemia Current Visit: No Status: Acute Assessment & Plan: replete po; recheck with Mg in a.m Code(s): E87.6 - HYPOKALEMIA (8) Wheeze Current Visit: Yes Status: Acute Code(s): R06.2 - WHEEZING
[2019-09-15] MEDS: Colace 100 MG PO PRN (18:50)
[2019-09-15] MEDS: PROVENTIL 2.5 MG/3 ML NEB IH SCH ×2 (20:27→23:16)
[2019-09-15] MEDS: Klor Con 10 MEQ PO SCH (21:54)
[2019-09-16] MEDS: Sodium Chloride 0.9% 1000 ML 1,000 ML IV SCH ×2 (00:31→11:50)
[2019-09-16] MEDS: Norco 10/325 MG Tablet PO PRN ×2 (02:03→17:54)
[2019-09-16] MEDS: Merrem 1 GM 1 G in Sodium Chloride 100ML MINI-BAG PLUS 100 ML IV SCH ×3 (02:03→18:02)
[2019-09-16] MEDS: PROVENTIL 2.5 MG/3 ML NEB IH SCH ×7 (03:42→23:56)
[2019-09-16 06:24] LABS: Hemoglobin 12.1 gm/dl (12.5-18.0); Mean Cell Volume 95.5 fl (78-100); Mean Corpuscular Hemoglobin 32.1 pg (26-32); Mean Corpuscular Hgb Concent. 33.6 g/dl (32-36); Mean Platelet Volume 11.6 fl (7.5-11.0); Platelet Count 159 K/mm3 (150-450); Red Blood Count 3.77 M/mm3 (4.1-5.6); Red Cell Distribution Width 11.9 % (11.5-14.0); White Blood Count 7.7 K/mm3 (4.0-10.5)
[2019-09-16 06:50] LABS: ANION GAP 8.8 MEQ/L (5-15); BLOOD UREA NITROGEN 13 mg/dL (9-20); CHLORIDE 104 mmol/L (98-107); Calcium 7.8 mg/dL (8.4-10.2); Carbon Dioxide 25 mmol/L (22-30); Creatinine 1 0.88 mg/dL (0.66-1.25); Glucose 293 mg/dL (74-106); MAGNESIUM 1.8 mg/dL (1.6-2.3); Potassium 3.9 mmol/L (3.5-5.1); SODIUM 134 mmol/L (137-145)
--- NOTE | 2019-09-16 07:40 | XRAY ---
Indication: Wheezing. Comparison: September 13, 2019. PA/lateral chest again hyperinflated with new minimal right base atelectasis/infiltrate. Remaining heart and lungs unremarkable again with incidental tortuous descending aorta.
[2019-09-16] MEDS: Lantus Insulin SQ SCH (08:54)
[2019-09-16] MEDS: HUMALOG SQ PRN ×3 (08:55→17:57)
[2019-09-16] MEDS: HUMALOG SQ SCH ×3 (08:55→17:56)
[2019-09-16] MEDS: Zestril 20 MG PO SCH (09:25)
[2019-09-16] MEDS: Klor Con 10 MEQ PO SCH ×2 (09:26→21:57)
[2019-09-16] MEDS: Toprol Xl 50 MG PO SCH (09:26)
[2019-09-16] MEDS: ENOXAPARIN SODIUM SQ SCH (09:27)
[2019-09-16] MEDS: ZOCOR 20MG PO SCH (09:39)
[2019-09-16] MEDS: TORAdol 30 mg Injection IV PRN (09:40)
[2019-09-16] MEDS ORDERED: TROUGH DRUG LEVELS IJ ONE (10:30)
[2019-09-16] MEDS: VANCOCIN 500 MG VIAL*** 500 MG in Sodium Chloride 100ML MINI-BAG PLUS 100 ML IV SCH (11:50)
--- NOTE | 2019-09-16 19:41 | PCM.NOTE ---
Date and Time: 09/16/191935 Subjective Assessment: Pt seen this morning, still having some abd pain but not complaining as much as yesterday. Jhonatan po well. Tmax 99.0. - Review of Systems Constitutional: No Fever Abdominal/Gastrointestinal: Abdominal Pain Objective Exam General Appearance: no apparent distress, alert Neurologic Exam: oriented x 3, cooperative Skin Exam: normal color, warm, dry, No rash Respiratory Exam: normal breath sounds, lungs clear, wheezing (faint wheeze throughout), No crackles/rales, No rhonchi Cardiovascular Exam: regular rate/rhythm, normal heart sounds, No murmur Gastrointestinal/Abdomen Exam: soft, normal bowel sounds, tenderness (general mild ttp throughout), No distention, No mass, No guarding, No rebound Extremity Exam: normal inspection, No pedal edema, No swelling OBJECTIVE DATA Vital Signs: Vital Signs - 24 hr Temp Pulse Resp BP Pulse Ox 09/16/19 16:00 98.1 F 59 L 16 195/106 99 09/16/19 12:00 98.6 F 60 18 135/80 97 09/16/19 10:53 66 18 94 L 09/16/19 08:00 98.9 F 61 18 154/81 98 09/16/19 07:14 61 16 95 09/16/19 04:00 98.2 F 58 L 20 139/84 95 09/16/19 03:43 58 L 20 95 09/16/19 00:00 99.0 F 61 20 133/83 97 09/15/19 23:16 56 L 16 95 09/15/19 20:27 64 16 94 L 09/15/19 20:00 97.4 F 61 24 147/91 98 Pain Assessment - Last Documented Pain Intensity 7 Pain Scale Used 0-10 Pain Scale Intake and Output: Intake & Output 09/14/19 09/15/19 09/16/19 09/17/19 11:59 11:59 11:59 11:59 Intake Total 1787 5057 4823 2886 Output Total 400 4819 4200 3200 Balance 1387 182 623 -314 Weight 56.4 kg 61.7 kg 63.5 kg Lab Results: Accuchecks Date 09/16/19 Time 08:00 Accucheck Value: 232 Accucheck Value: 245 Accucheck Value: 283 Accucheck Value: 189 Accucheck Value: 186 Accucheck Value: 303 Lab Results-Last 24 Hours 09/16/19 09/16/19 09/16/19 Range/Units 05:30 06:05 10:40 WBC 7.7 (4.0-10.5) K/mm3 RBC 3.77 L (4.1-5.6) M/mm3 Hgb 12.1 L (12.5-18.0) gm/dl Hct 36.0 L (42-50) % MCV 95.5 (78-100) fl MCH 32.1 H (26-32) pg MCHC 33.6 (32-36) g/dl RDW 11.9 (11.5-14.0) % Plt Count 159 (150-450) K/mm3 MPV 11.6 H (7.5-11.0) fl Sodium 134 L (137-145) mmol/L Potassium 3.9 D (3.5-5.1) mmol/L Chloride 104 (98-107) mmol/L Carbon Dioxide 25 (22-30) mmol/L Anion Gap 8.8 (5-15) MEQ/L BUN 13 (9-20) mg/dL Creatinine 0.88 (0.66-1.25) mg/dL Estimated GFR > 60.0 ML/MIN Glucose 293 H (74-106) mg/dL Calcium 7.8 L (8.4-10.2) mg/dL Magnesium 1.8 (1.6-2.3) mg/dL Vancomycin Trough 7.60 L (10-20) ug/mL Radiology Exams: Radiology Procedures Category Date Time Status CHEST 2 VIEWS (PA AND LAT) Routine Exams 09/15/19 19:27 Completed Assessment/Plan (1) Acute pyelonephritis Current Visit: Yes Status: Acute Assessment & Plan: improving, on merrem and vancomycin day #3. Despite no definite growth on culture, clinically was pyelonephritis. Is now tolerating po well with less abd pain and afebrile; would consider transition to po antibiotics and d/c in the next few days (however would keep in mind pt's ability to be compliant is decreased due to homelessness). Code(s): N10 - ACUTE PYELONEPHRITIS (2) Amphetamine use disorder, moderate Current Visit: Yes Status: Chronic Code(s): F15.20 - OTHER STIMULANT DEPENDENCE, UNCOMPLICATED (3) Marijuana use Current Visit: Yes Status: Chronic Code(s): F12.90 - CANNABIS USE, UNSPECIFIED, UNCOMPLICATED (4) Degenerative joint disease of left hip Current Visit: No Status: Chronic Qualifiers: Osteoarthritis type: post-traumatic Qualified Code(s): M16.52 - Unilateral post-traumatic osteoarthritis, left hip Code(s): M16.12 - UNILATERAL PRIMARY OSTEOARTHRITIS, LEFT HIP (5) Diabetes mellitus type 2 in nonobese Current Visit: No Status: Chronic Code(s): E11.9 - TYPE 2 DIABETES MELLITUS WITHOUT COMPLICATIONS (6) Hypertension Current Visit: No Status: Chronic Qualifiers: Hypertension type: essential hypertension Qualified Code(s): I10 - Essential (primary) hypertension Code(s): I10 - ESSENTIAL (PRIMARY) HYPERTENSION (7) Hypokalemia Current Visit: No Status: Acute Code(s): E87.6 - HYPOKALEMIA (8) Wheeze Current Visit: Yes Status: Acute Code(s): R06.2 - WHEEZING (9) Homeless Current Visit: Yes Status: Acute Assessment & Plan: I did ask for mental health social worker consult when pt was admitted, unsure how much we can offer but pt does seem open to assistance. Code(s): Z59.0 - HOMELESSNESS
[2019-09-16] MEDS: VANCOMYCIN 1 GRAM/200 ML BAG 1 GM/200 ML PIGGYBACK IV SCH (21:57)
[2019-09-16] MEDS: ANTIVERT 25 MG PO PRN (23:20)
[2019-09-17] MEDS: Norco 10/325 MG Tablet PO PRN ×5 (00:56→21:03)
[2019-09-17] MEDS: Sodium Chloride 0.9% 1000 ML 1,000 ML IV SCH ×4 (01:01→18:44)
[2019-09-17] MEDS: Merrem 1 GM 1 G in Sodium Chloride 100ML MINI-BAG PLUS 100 ML IV SCH ×3 (02:05→17:03)
[2019-09-17] MEDS: PROVENTIL 2.5 MG/3 ML NEB IH SCH (03:40)
[2019-09-17] MEDS ORDERED: PROVENTIL 2.5 MG/3 ML NEB IH PRN (04:02)
[2019-09-17] MEDS: HUMALOG SQ PRN ×2 (04:19→21:04)
[2019-09-17 05:15] LABS: Hematocrit 33.9 % (42-50); Hemoglobin 11.1 gm/dl (12.5-18.0); Mean Cell Volume 96.3 fl (78-100); Mean Corpuscular Hemoglobin 31.5 pg (26-32); Mean Corpuscular Hgb Concent. 32.7 g/dl (32-36); Mean Platelet Volume 11.4 fl (7.5-11.0); Platelet Count 189 K/mm3 (150-450); Red Blood Count 3.52 M/mm3 (4.1-5.6); Red Cell Distribution Width 12.1 % (11.5-14.0); White Blood Count 6.4 K/mm3 (4.0-10.5)
[2019-09-17 05:46] LABS: BLOOD UREA NITROGEN 14 mg/dL (9-20); CHLORIDE 102 mmol/L (98-107); Calcium 7.9 mg/dL (8.4-10.2); Carbon Dioxide 28 mmol/L (22-30); Creatinine 1 0.89 mg/dL (0.66-1.25); Glucose 299 mg/dL (74-106); MAGNESIUM 1.7 mg/dL (1.6-2.3); Potassium 3.9 mmol/L (3.5-5.1); SODIUM 134 mmol/L (137-145)
[2019-09-17] MEDS: Lantus Insulin SQ SCH (07:25)
[2019-09-17] MEDS: HUMALOG SQ SCH ×3 (07:25→17:04)
[2019-09-17] MEDS: ENOXAPARIN SODIUM SQ SCH (09:20)
[2019-09-17] MEDS: Zestril 20 MG PO SCH (09:21)
[2019-09-17] MEDS: ZOCOR 20MG PO SCH (09:21)
[2019-09-17] MEDS: Toprol Xl 50 MG PO SCH (09:21)
[2019-09-17] MEDS: Klor Con 10 MEQ PO SCH ×2 (09:21→21:03)
[2019-09-17] MEDS: VANCOMYCIN 1 GRAM/200 ML BAG 1 GM/200 ML PIGGYBACK IV SCH ×2 (10:22→21:03)
[2019-09-17] MEDS: Valium 5 MG PO PRN ×2 (12:02→23:27)
[2019-09-17] MEDS: Nicoderm CQ 21 MG TOP SCH (13:17)
[2019-09-17] MEDS ORDERED: Sodium Chloride 0.9% 10 ML FLUSH Syringe IV PRN (16:56)
--- NOTE | 2019-09-17 16:57 | XRAY ---
Indication: Abdomen pain. Multiple contiguous axial images obtained through the abdomen and pelvis prior to and following 80 cc of Isovue 370 contrast. Enteric contrast also used. Comparison: September 13, 2019. Lung bases demonstrates new small right effusion with mild compressive atelectasis. Heart is not enlarged. Noncontrasted images demonstrates stable nonobstructing right renal micro-calculus and mild scattered aortoiliac calcifications. No new visceral calcifications/calculi. Contrasted stomach and bowel loops remain nonobstructed. Appendix again not seen. New mild diffuse scattered colonic fecal debris throughout. New Moffett balloon catheter in situ. No free fluid/air. Postcontrast images again demonstrates normal visceral enhancement and renal excretion. Remaining liver, gallbladder, pancreas, spleen, adrenal glands, kidneys, ureters, and bladder appear unremarkable. Again no AAA or pathological retroperitoneal lymphadenopathy. Impression: 1. New diffuse fecal stasis without obstruction and new Moffett balloon catheter in situ. 2. New small right lung base effusion/atelectasis without cardiomegaly. 3. Stable nonobstructing right renal micro-calculus. 4. Remaining CT abdomen/pelvis with and without contrast exam is negative.
[2019-09-18] MEDS: Merrem 1 GM 1 G in Sodium Chloride 100ML MINI-BAG PLUS 100 ML IV SCH ×3 (02:09→17:09)
[2019-09-18] MEDS: Norco 10/325 MG Tablet PO PRN ×5 (03:51→21:57)
[2019-09-18 05:29] LABS: Hemoglobin 12.5 gm/dl (12.5-18.0); Mean Cell Volume 96.7 fl (78-100); Mean Corpuscular Hemoglobin 31.8 pg (26-32); Mean Corpuscular Hgb Concent. 32.9 g/dl (32-36); Mean Platelet Volume 11.3 fl (7.5-11.0); Platelet Count 254 K/mm3 (150-450); Red Blood Count 3.93 M/mm3 (4.1-5.6)
[2019-09-18 06:07] LABS: ANION GAP 10.1 MEQ/L (5-15); BLOOD UREA NITROGEN 11 mg/dL (9-20); CHLORIDE 103 mmol/L (98-107); Calcium 8.4 mg/dL (8.4-10.2); Carbon Dioxide 26 mmol/L (22-30); Creatinine 1 0.75 mg/dL (0.66-1.25); Glucose 253 mg/dL (74-106); Potassium 4.3 mmol/L (3.5-5.1); SODIUM 135 mmol/L (137-145)
--- NOTE | 2019-09-18 06:51 | PCM.NOTE ---
Date and Time: 09/17/19 1230 Subjective Assessment: 54 yr old male seen and examined today. Patient reports that he is doing ok. He reports that he has not been taking his home medications as directed. He reports living with his niece and that she has lots of problems and it is not a good environment. He reports at times he has SI with a plan including taking more of his insulin. He did meet with telehealth this hospital stay and no current SI or HI. Patient reports that he does use meth and that he is tired and fatigued and that is why he uses it for energy. Patient reports he at times has difficulty getting his medications including his insulin and that is why his blood sugars are not well controlled. Patient smokes I ppd. He is still having some abdominal pain but it has improved since his admission. - Review of Systems Constitutional: Fatigue, No Fever, No Chills Eyes: No Symptoms Ears, Nose, & Throat: No Symptoms Respiratory: No Cough, No Short Of Breath, No Wheezing Cardiac: No Chest Pain, No Edema Abdominal/Gastrointestinal: Abdominal Pain, Nausea, No Vomiting, No Diarrhea, No Constipation Genitourinary Symptoms: Other (Patient has burger cath placed) Musculoskeletal: No Symptoms Skin: No Symptoms Neurological: No Headache Psychological: Drug Abuse, Depression, Suicidal Ideations, No Homicidal Ideations Objective Exam General Appearance: mild distress, anxiety, other (Ill appearing) Neurologic Exam: alert, oriented x 3, cooperative, depressed mood/affect Skin Exam: normal color, warm, dry, No rash Eye Exam: No scleral icterus, No pale conjunctivae Ears, Nose, Throat Exam: other (Poor dentition with many teeth missing and existing teeth with dental decay) Neck Exam: normal inspection Respiratory Exam: wheezing, No normal breath sounds, No lungs clear, No respiratory distress Cardiovascular Exam: regular rate/rhythm, normal heart sounds, No murmur, No friction rub, No gallop Gastrointestinal/Abdomen Exam: soft, normal bowel sounds, tenderness (Patient was diffusely tender with palpation), No distention, No mass, No guarding, No rebound Extremity Exam: normal inspection, No pedal edema, No swelling, No tenderness Male Genitalia Exam: other (burger cath present) OBJECTIVE DATA Vital Signs: Vital Signs - 24 hr Temp Pulse Resp BP Pulse Ox 09/18/19 04:00 98.3 F 69 18 168/94 95 09/18/19 00:00 98.3 F 60 18 164/84 95 09/17/19 20:00 98.6 F 65 16 119/71 96 09/17/19 19:56 65 16 96 09/17/19 16:00 98.6 F 60 18 162/94 99 09/17/19 12:25 98.7 F 57 L 18 168/96 96 09/17/19 12:00 98.7 F 57 L 18 168/96 96 09/17/19 07:38 98.0 F 62 16 150/86 97 09/17/19 07:23 96 Pain Assessment - Last Documented Pain Intensity 5 Pain Scale Used 0-10 Pain Scale Intake and Output: Intake & Output 09/15/19 09/16/19 09/17/19 09/18/19 11:59 11:59 11:59 11:59 Intake Total 2872 3352 8117 5618 Output Total 4864 8594 6507 1205 Balance 182 308 -824 -9308 Weight 61.7 kg 63.5 kg 65 kg Lab Results: Accuchecks Date 09/17/19 Time 07:30 Accucheck Value: 244 Lab Results-Last 24 Hours 09/18/19 09/18/19 Range/Units 05:15 05:15 WBC 6.0 (4.0-10.5) K/mm3 RBC 3.93 L (4.1-5.6) M/mm3 Hgb 12.5 (12.5-18.0) gm/dl Hct 38.0 L (42-50) % MCV 96.7 (78-100) fl MCH 31.8 (26-32) pg MCHC 32.9 (32-36) g/dl RDW 12.0 (11.5-14.0) % Plt Count 254 D (150-450) K/mm3 MPV 11.3 H (7.5-11.0) fl Sodium 135 L (137-145) mmol/L Potassium 4.3 (3.5-5.1) mmol/L Chloride 103 (98-107) mmol/L Carbon Dioxide 26 (22-30) mmol/L Anion Gap 10.1 (5-15) MEQ/L BUN 11 (9-20) mg/dL Creatinine 0.75 (0.66-1.25) mg/dL Estimated GFR > 60.0 ML/MIN Glucose 253 H (74-106) mg/dL Calcium 8.4 (8.4-10.2) mg/dL Magnesium 2.0 (1.6-2.3) mg/dL Radiology Exams: Radiology Procedures Category Date Time Status ABDOMEN AND PELVIS W&WO CONTRA [CT] Routine Exams 09/17/19 14:50 Completed Multi-Disciplinary Progress Notes: Multi-Disciplinary Progress Notes 09/17/19 17:13 Physical Therapy Note by Maren Ferro PT. REFUSED P.T. THIS DATE HE HAD JUST HAD SOME MEDICATION AND WAS FATIGUED. REPORTS HE HAS BEEN AMBULATING TO BATHROOM AND TRASNFERRING W/ ASSIST OF NSG. MAREN FERRO PT Initialized on 09/17/19 17:13 - END OF NOTE 09/17/19 11:28 Case Management Note by Mariluz Gunter PER NURSING NOTE- [facility] FEELS PATIENT WILL NEED INPATIENT PSYCH CARE WHEN MEDICALLY CLEARED. PER NOTE HE WILL NEED RE-EVALUATED WHEN MEDICALLY STABLE. WILL CONTINUE TO FOLLOW Initialized on 09/17/19 11:28 - END OF NOTE Assessment/Plan (1) Acute pyelonephritis Current Visit: Yes Status: Acute Assessment & Plan: Patient has burger cath placed. Patient's initial CT showed bladder distention of unknown eitiology. Pyelo appears to be resolving as it is not mentioned on repeat CT. Patient's WBC has trended down. He is afebrile and VSS. We will need to removed FC and eval urination. Code(s): N10 - ACUTE PYELONEPHRITIS (2) Abdominal pain Current Visit: Yes Status: Acute Assessment & Plan: Patient's repeat ct is showed increased stool burden. Will add medication tomorrow if needed for constipation. Code(s): R10.9 - UNSPECIFIED ABDOMINAL PAIN (3) Homeless Current Visit: Yes Status: Acute Assessment & Plan: Will need to work with discharge planning. Main concerns are patient's non compliance with his prescribed medications, his use of illicit drugs including meth, and his current living situation with his niece that he reports is not a good environment. Code(s): Z59.0 - HOMELESSNESS (4) Hyperglycemia Current Visit: Yes Status: Acute Assessment & Plan: Poor compliance with medications including lack of finances, ability to store medications and difficulty obtaining medications. Of note patient did mention that his SI plan at times includes overdosing on insulin Code(s): R73.9 - HYPERGLYCEMIA, UNSPECIFIED (5) Wheeze Current Visit: Yes Status: Acute Assessment & Plan: Patient has wheezing on exam today. Will get CXR. Patient is currently on antibiotics for pyelo. Will follow up on resp treatements and steroids if needed. I would like to avoid steroids if possible as patient's BS have been well into the 300s. Code(s): R06.2 - WHEEZING (6) Amphetamine use disorder, moderate Current Visit: Yes Status: Chronic Assessment & Plan: Discussed this with patient. He reports using this substance for energy. Patient has poorly controlled diabetes that could contribute to his fatigue. Discussed the serious impact on patient's overall health by using meth. Code(s): F15.20 - OTHER STIMULANT DEPENDENCE, UNCOMPLICATED
[2019-09-18] MEDS: HUMALOG SQ PRN (07:43)
[2019-09-18] MEDS: Lantus Insulin SQ SCH (07:43)
[2019-09-18] MEDS: HUMALOG SQ SCH ×3 (07:43→17:09)
[2019-09-18] MEDS ORDERED: TROUGH DRUG LEVELS IJ ONE (09:30)
[2019-09-18] MEDS: Valium 5 MG PO PRN (09:38)
[2019-09-18] MEDS: Zestril 20 MG PO SCH (09:38)
[2019-09-18] MEDS: Klor Con 10 MEQ PO SCH ×2 (09:38→21:57)
[2019-09-18] MEDS: ZOCOR 20MG PO SCH (09:38)
[2019-09-18] MEDS: ANTIVERT 25 MG PO PRN (09:38)
[2019-09-18] MEDS: Toprol Xl 50 MG PO SCH (09:39)
[2019-09-18] MEDS: ENOXAPARIN SODIUM SQ SCH (09:39)
[2019-09-18] MEDS: VANCOMYCIN 1 GRAM/200 ML BAG 1 GM/200 ML PIGGYBACK IV SCH ×2 (10:47→21:57)
[2019-09-18] MEDS: TORAdol 30 mg Injection IV PRN (11:39)
[2019-09-18] MEDS: Nicoderm CQ 21 MG TOP SCH (12:02)
[2019-09-18] MEDS: Colace 100 MG PO PRN (15:37)
[2019-09-19] MEDS: Valium 5 MG PO PRN ×3 (00:11→18:40)
[2019-09-19] MEDS: Merrem 1 GM 1 G in Sodium Chloride 100ML MINI-BAG PLUS 100 ML IV SCH ×2 (02:23→09:53)
[2019-09-19] MEDS: Norco 10/325 MG Tablet PO PRN ×4 (03:05→15:44)
[2019-09-19] MEDS: ANTIVERT 25 MG PO PRN ×2 (04:46→18:07)
[2019-09-19 04:53] LABS: Hematocrit 35.8 % (42-50); Hemoglobin 11.7 gm/dl (12.5-18.0); Mean Cell Volume 98.1 fl (78-100); Mean Corpuscular Hemoglobin 32.1 pg (26-32); Mean Corpuscular Hgb Concent. 32.7 g/dl (32-36); Mean Platelet Volume 11.2 fl (7.5-11.0); Platelet Count 220 K/mm3 (150-450); Red Blood Count 3.65 M/mm3 (4.1-5.6); Red Cell Distribution Width 12.1 % (11.5-14.0); White Blood Count 5.1 K/mm3 (4.0-10.5)
[2019-09-19 05:24] LABS: ANION GAP 10.2 MEQ/L (5-15); BLOOD UREA NITROGEN 13 mg/dL (9-20); CHLORIDE 100 mmol/L (98-107); Calcium 8.4 mg/dL (8.4-10.2); Carbon Dioxide 28 mmol/L (22-30); Creatinine 1 0.91 mg/dL (0.66-1.25); Glucose 307 mg/dL (74-106); MAGNESIUM 1.9 mg/dL (1.6-2.3); Potassium 4.6 mmol/L (3.5-5.1); SODIUM 134 mmol/L (137-145)
[2019-09-19] MEDS: HUMALOG SQ PRN (07:38)
[2019-09-19] MEDS: HUMALOG SQ SCH ×3 (07:39→16:23)
[2019-09-19] MEDS: Lantus Insulin SQ SCH (07:39)
[2019-09-19] MEDS: Toprol Xl 50 MG PO SCH (09:53)
[2019-09-19] MEDS: Zestril 20 MG PO SCH (09:54)
[2019-09-19] MEDS: ZOCOR 20MG PO SCH (09:54)
[2019-09-19] MEDS: Klor Con 10 MEQ PO SCH (09:54)
[2019-09-19] MEDS: ENOXAPARIN SODIUM SQ SCH ×2 (09:54→13:36)
[2019-09-19] MEDS: VANCOMYCIN 1 GRAM/200 ML BAG 1 GM/200 ML PIGGYBACK IV SCH (10:34)
[2019-09-19] MEDS ORDERED: Flomax 0.4 MG PO SCH (13:00)
--- NOTE | 2019-09-19 14:30 | PCM.DS ---
Discharge Summary Date of Admission: 09/14/19 09:48 Date of Discharge: 09/19/2019 Admitting Physician: LAYO DOMÍNGUEZ Consults: Consults on Case 09/14/19 09:45 Consult,Lynn [Psychiatric Consult] STAT Primary Care Provider: LAYO DOMÍNGUEZ Allergies Allergies No Known Drug Allergies Allergy (Verified 09/13/19 16:52) Hospital Summary - Hospital Course Hospital Course: Patient is a 54-year-old male with a history of drug use, diabetes, noncompliant with his medication regimen that initially presented to our ED for evaluation of generalized weakness and abdominal pain. Symptoms started over the past 2 days. Symptoms have been progressive. Daughter at bedside states that patient is homeless. However patient has been staying with a family member. They state patient has been lying in bed. He has not been eating much. Patient complains of generalized abdominal pain. Pain is constant. No specific worsening or improving factors. No associated trauma. No nausea vomiting or diarrhea. Patient was complaining of polyuria and reported "I just felt like I was dying," had no energy to get up, then had a syncopal episode with urinary incontinence. He was found to have UTI and started on IV rocephin. He did c/o fever and nausea, with abd and R flank pain that was "bad." WBC initially 14.5. He was found to have urinary retention as well. Patient was admitted to inpatient. The over read on his Abd/pelvis CT was concerning for pyelonephritis, so his antibiotic was changed from rocephin to vancomycin and meropenem. Patient started to have improvement of symptoms. Patient reports that he has had BPH in the past but has not been on flomax for a few years. He reports his living situation is not a stable one and he continues to use meth "for energy". This is the patient's second admission in the past couple of weeks. When asked patient also reported suicidal ideations at times with a plan of injecting himself with extra insulin. Patient was teary eyed and became overwhelmed and agitated at times during his hospital stay. Patient's abdominal symptoms improved. He was started on flowmax for BPH. He was tolerating PO well. His strength improved with PT. Patient reported doing well with smoking cessation but wanted a nicotine patch. He was evaluated by [facility] for inpatient Psych admission for SI thoughts. He had not been medically cleared at time of recommendation and when he was re-evaluated he was unable to go as he had a walker. Patient was accepted to [facility] to receive treatment in regards to his mental health including substance use, depression, Suicidal thoughts - Vitals & Intake/Output Vital Signs: Vital Signs Temperature 98.8 F 09/19/19 08:00 Pulse Rate 63 09/19/19 08:00 Respiratory Rate 18 09/19/19 08:00 Blood Pressure 132/79 09/19/19 08:00 O2 Sat by Pulse Oximetry 95 09/19/19 08:00 Intake & Output: Intake & Output 09/17/19 09/18/19 09/19/19 09/20/19 11:59 11:59 11:59 11:59 Intake Total 6862 6332 480 Output Total 7800 94744 1950 Balance -961 -5818 -1470 Weight 65 kg 63 kg 63.5 kg - Lab Result Diagrams: 09/19/19 04:40 09/19/19 04:40 Lab Results-Last 24 Hrs: Accuchecks Date 09/18/19 Time 16:35 Accucheck Value: 413 Accucheck Value: 164 Accucheck Value: 169 Lab Results-Last 24 Hours 09/19/19 09/19/19 Range/Units 04:40 04:40 WBC 5.1 (4.0-10.5) K/mm3 RBC 3.65 L (4.1-5.6) M/mm3 Hgb 11.7 L (12.5-18.0) gm/dl Hct 35.8 L (42-50) % MCV 98.1 (78-100) fl MCH 32.1 H (26-32) pg MCHC 32.7 (32-36) g/dl RDW 12.1 (11.5-14.0) % Plt Count 220 (150-450) K/mm3 MPV 11.2 H (7.5-11.0) fl Sodium 134 L (137-145) mmol/L Potassium 4.6 (3.5-5.1) mmol/L Chloride 100 (98-107) mmol/L Carbon Dioxide 28 (22-30) mmol/L Anion Gap 10.2 (5-15) MEQ/L BUN 13 (9-20) mg/dL Creatinine 0.91 (0.66-1.25) mg/dL Estimated GFR > 60.0 ML/MIN Glucose 307 H (74-106) mg/dL Calcium 8.4 (8.4-10.2) mg/dL Magnesium 1.9 (1.6-2.3) mg/dL Micro Results-Entire Visit: Microbiology 09/13/19 17:20 Blood Culture Gram Stain - Final Blood Not Reportable Blood Culture - Final NO GROWTH 09/13/19 17:20 Blood Culture Gram Stain - Final Blood Not Reportable Blood Culture - Final NO GROWTH 09/13/19 17:07 Urine Culture - Final Clean Catch Midstream MIXED ERICA; 3 OR MORE TYPES. NO PREDOMINANT ORGANISM. NO FURTHER WORKUP. PLEASE RESUBMIT IF CLINICALLY INDICATED. Accuchecks Date 09/18/19 Time 16:35 Accucheck Value: 413 Accucheck Value: 164 Accucheck Value: 169 - Radiology Exams Ordered Rad Exams-Entire Visit: Radiology Procedures Category Date Time Status ABDOMEN AND PELVIS W&WO CONTRA [CT] Routine Exams 09/17/19 14:50 Completed - Procedures and Test Procedures and Tests throughout Hospitalization: Therapy Orders & Screens 09/14/19 11:26 PT Eval & Treat (MD Order) ROUTINE Reason for Eval:: WEAKNESS, POSSIBLE LONGTERM ADMIT Diagnosis: weakness 09/15/19 17:54 Respiratory Therapy Assessment DAILY Comment: Diagnosis: ACUTE ADRY PYELONEPHRITIS 09/15/19 19:00 Peak Expiratory Flow Rate ONCE Comment: Reason For Exam: Diagnosis: ACUTE ADRY PYELONEPHRITIS Discharge Exam General Appearance: mild distress, anxiety Neurologic Exam: alert, oriented x 3, cooperative, depressed mood/affect Eye Exam: No scleral icterus, No pale conjunctivae Ears, Nose, Throat Exam: moist mucous membranes, other (poor dentition) Neck Exam: normal inspection Respiratory Exam: normal breath sounds, lungs clear, No chest tenderness, No respiratory distress, No diminished breath sounds, No wheezing Cardiovascular Exam: regular rate/rhythm, normal heart sounds, No murmur, No friction rub, No gallop Gastrointestinal/Abdomen Exam: soft, normal bowel sounds, tenderness (mild) Back Exam: CVA tenderness (mild) Extremity Exam: normal inspection, other (ambulates with walker), No pedal edema, No swelling Final Diagnosis/Problem List - Final Discharge Diagnosis/Problem (1) Acute pyelonephritis Current Visit: Yes Status: Acute Assessment & Plan: Improved. Patient is afebrile. He has mild abdominal pain. Urine culture showed mixed erica and no predominant organism. Patient was restarted on flomax as he has hx of BPH which could have contributed to developing pyelo. Patient has some residual discomfort but reports that he is much better. Mild CVA tenderness with palpation. Code(s): N10 - ACUTE PYELONEPHRITIS (2) Abdominal pain Current Visit: Yes Status: Acute Assessment & Plan: Multifactorial as patient had pyelo, constipation and bladder distention. Patient's pain has improved. Pyelo has mostly resolved and patient is being treated for constipation with stool softeners. He was restarted on flomax for BPH Code(s): R10.9 - UNSPECIFIED ABDOMINAL PAIN (3) Homeless Current Visit: Yes Status: Acute Assessment & Plan: Patient reports he is living with his niece but that it is not a good living environment. He reports that he has an ok relationship with his daughter but unsure if he can live with her. His lack of appropriate living situation affects his compliance with his routine medications and also contributes to his illicit drug use. Patient may require keyboard specialist placement if he does not have a better living arrangement available. Code(s): Z59.0 - HOMELESSNESS (4) Hyperglycemia Current Visit: Yes Status: Acute Assessment & Plan: Patient reports poor compliance with his DM. He does not take his medications as directed. He reports at times not having access to his routine medications. He Patient was re-educated on the importance of controlling his BS. Code(s): R73.9 - HYPERGLYCEMIA, UNSPECIFIED (5) Wheeze Current Visit: Yes Status: Acute Assessment & Plan: Improved since admission. Patient is a current everyday smoker. Has not been able to smoke while in hospital. Has done well with nicotine patch. Was given breathing txs and no wheeze appreciated on exam today. Code(s): R06.2 - WHEEZING (6) Amphetamine use disorder, moderate Current Visit: Yes Status: Chronic Assessment & Plan: Discussed with patient the harm in using illicit drugs. Patient is aware and unsure if motivated at this time to discontinue using Code(s): F15.20 - OTHER STIMULANT DEPENDENCE, UNCOMPLICATED (7) Anxiety Current Visit: Yes Status: Acute Assessment & Plan: Patient would benefit from therapy. He required Valium while in hospital due to acute anxiety and irritability Code(s): F41.9 - ANXIETY DISORDER, UNSPECIFIED (8) Suicidal thoughts Current Visit: Yes Status: Acute Assessment & Plan: Patient reports at times he has thought about giving himself too much insulin. He will be going [facility] for further tx. Code(s): R45.851 - SUICIDAL IDEATIONS (9) Noncompliance with medication regimen Current Visit: No Status: Acute Code(s): Z91.14 - PATIENT'S OTHER NONCOMPLIANCE WITH MEDICATION REGIMEN (10) Diabetes mellitus type 2 in nonobese Current Visit: No Status: Chronic Assessment & Plan: Poorly controlled. Patient is non compliant with his medications. Encouraged compliance Code(s): E11.9 - TYPE 2 DIABETES MELLITUS WITHOUT COMPLICATIONS (11) Hypertension Current Visit: No Status: Chronic Code(s): I10 - ESSENTIAL (PRIMARY) HYPERTENSION (12) Tobacco abuse Current Visit: No Status: Chronic Assessment & Plan: nicotine patch was given in hospital Patient did not express desire to stop at this time. Code(s): Z72.0 - TOBACCO USE - Discharge Discharge Date: 09/19/19 ([facility] ) Disposition: XFER OTHER Condition: Stable Prescriptions: New Docusate Sodium 100 mg [Colace 100 MG] 100 mg PO BIDPRN PRN 10 Days #20 capsule PRN Reason: Constipation Tamsulosin HCl 0.4 mg [Flomax 0.4 MG] 0.4 mg PO DAILY 30 Days #30 cap Nicotine 21 mg [Nicoderm CQ 21 MG] 21 mg TOP Q24H 21 Days #21 patch Hydrocodone/APAP 10/325 mg [Rosharon 10/325 MG Tablet] 1 tab PO Q6H PRN PRN 3 Days #12 tablet MDD 4 tablets PRN Reason: Moderate To Severe Pain Diazepam 5 mg [Valium 5 MG] 5 mg PO TID PRN PRN 3 Days #12 tablet PRN Reason: Anxiety/Agitation Continue Blood-Glucose Meter [Accu-Chek Brenda Plus] 1 each MC QID #1 each Lancets [Accu-Chek Softclix] 1 each MC QID #200 each Lancing Device/Lancets [Accu-Chek Softclix Lancet Kit] 1 each MC QID #1 kit Insulin Lispro [Humalog Kwikpen U-100] 10 unit SQ TID #3 insuln.pen Insulin Glargine,Hum.rec.anlog [Lantus Solostar] 30 unit SQ DAILY #3 pens lisinopriL [Lisinopril] 40 mg PO DAILY #30 tablet Pen Needle, Diabetic [Pen Needle] 1 each QID #200 dis.needle Blood Sugar Diagnostic [Test Strips] 1 each AC #200 strip Metoprolol Succinate 50 mg [Toprol Xl 50 MG] 50 mg PO DAILY #30 tablet.sa Atorvastatin Calcium 40 mg PO DAILY #30 tablet Follow up with: LAYO DOMÍNGUEZ [Primary Care Provider] - 1 Week Forms: Ambulance Transport Record, Transfer Record Inter-Agency
[2019-09-19] MEDS: Nicoderm CQ 21 MG TOP SCH (14:32)
[2019-09-19 16:04] VITALS: BP 149/86; PULSE 70; O2SAT 100
--- NOTE | 2019-09-19 19:25 | PCM.NOTE ---
Date and Time: 09/18/191924 OBJECTIVE DATA Vital Signs: Vital Signs - 24 hr Temp Pulse Resp BP Pulse Ox 09/19/19 16:00 98.0 F 70 22 149/86 100 09/19/19 12:00 98.0 F 67 18 122/83 97 09/19/19 08:00 98.8 F 63 18 132/79 95 09/19/19 06:46 63 20 94 L 09/19/19 04:00 98.2 F 58 L 20 142/84 99 09/19/19 00:30 98 09/18/19 23:50 98.4 F 62 18 126/77 97 09/18/19 20:00 98.0 F 71 16 130/74 93 L Pain Assessment - Last Documented Pain Intensity 7 Pain Scale Used [facility] Intake and Output: Intake & Output 09/17/19 09/18/19 09/19/19 09/20/19 11:59 11:59 11:59 11:59 Intake Total 6873 6332 480 480 Output Total 0290 63526 1950 [facility], [place] -961 -5818 -2240 480 Weight 65 kg 63 kg 63.5 kg Lab Results: Accuchecks Accucheck Value: 303 Accucheck Value: 99 Accucheck Value: 413 Accucheck Value: 164 Lab Results-Last 24 Hours 09/19/19 09/19/19 Range/Units 04:40 04:40 WBC 5.1 (4.0-10.5) K/mm3 RBC 3.65 L (4.1-5.6) M/mm3 Hgb 11.7 L (12.5-18.0) gm/dl Hct 35.8 L (42-50) % MCV 98.1 (78-100) fl MCH 32.1 H (26-32) pg MCHC 32.7 (32-36) g/dl RDW 12.1 (11.5-14.0) % Plt Count 220 (150-450) K/mm3 MPV 11.2 H (7.5-11.0) fl Sodium 134 L (137-145) mmol/L Potassium 4.6 (3.5-5.1) mmol/L Chloride 100 (98-107) mmol/L Carbon Dioxide 28 (22-30) mmol/L Anion Gap 10.2 (5-15) MEQ/L BUN 13 (9-20) mg/dL Creatinine 0.91 (0.66-1.25) mg/dL Estimated GFR > 60.0 ML/MIN Glucose 307 H (74-106) mg/dL Calcium 8.4 (8.4-10.2) mg/dL Magnesium 1.9 (1.6-2.3) mg/dL Multi-Disciplinary Progress Notes: Multi-Disciplinary Progress Notes 09/19/19 15:02 Case Management Note by Camryn Montelongo SPOKE WITH KATALINA AT [facility], THEY ARE READY FOR PT, PROVIDED PRIMARY NURSE AMY RN WITH NUMBER FOR REPORT. Initialized on 09/19/19 15:02 - END OF NOTE 09/19/19 14:35 Case Management Note by Camryn Montelongo CONSENTS SIGNED BY PT AND FAXED BACK TO [facility]. Initialized on 09/19/19 14:35 - END OF NOTE 09/19/19 14:35 (created 09/19/19 14:36) Case Management Note by Camryn Montelongo REPORTED TO DR. SAGASTUME THAT [facility] WAS ACCEPTING PT FOR TREATMENT. Initialized on 09/19/19 14:36 - END OF NOTE 09/19/19 14:25 (created 09/19/19 14:34) Case Management Note by Camryn Montelongo CALL FROM [facility], REPORTS THAT THEY HAVE A BED AVAILABLE, WILL FAX CONSENTS FOR PT TO SIGN. Initialized on 09/19/19 14:34 - END OF NOTE 09/19/19 14:00 (created 09/19/19 14:32) Case Management Note by Camryn Montelongo CALLS FROM [facility], [facility], AND [facility]. ALL REPORT UNABLE TO ACCEPT PT FOR INPT TREATMENT. Initialized on 09/19/19 14:32 - END OF NOTE 09/19/19 13:21 Case Management Note by Camryn Montelongo DR. REPORTED THAT PT STILL IS HAVING SUICIDAL THOUGHTS AND REPORTS THAT HE HAS AN ESTABLISHED PLAN. HIS PLAN TO HARM HIMSELF IS TO OVERDOSE ON HIS INSULIN. PT STILL WITH SIGNIFICANT ANXIETY. DURING HOURLY ROUNDING, PRIMARY NURSE FOUND PATIENT WITH INCREASED ANXIETY, ROCKING BACK AND FORTH SITTING ON EDGE OF BED, STATING OVER AND OVER, "I JUST DON'T FEEL RIGHT IN MY HEAD". MEDICATED WITH VALIUM PO, AND DID HAVE SOME RELIEF, BUT STILL REPORTS THAT HE DOESN'T FEEL RIGHT IN HIS HEAD. DR. SAGASTUME REPORTS THAT PT IS MEDICALLY CLEARED FOR DISCHARGE ONCE INPT PSYCH BED OBTAINED. HAS BEEN TREATED FOR ACUTE PYELONEPHRITIS, SINCE 09/13/19. Initialized on 09/19/19 13:21 - END OF NOTE 09/19/19 11:15 Physical Therapy Note by ISABELLA SANTORO V. [phone] Pt was laying supine in bed upon arrival. Pt reports that his nerves are going crazy today because he hasn't talked to his daughter. Pt agreed to go for a walk. Pt was able to don his tshirt and socks with grippers independently. Pt did not complain of any discomfort. Pt sit to stand from bed independently. Pt amb with a RW with SBA. Pt does require some verbal cues for proper walker safety technique. Pt keeps his B UE extended with the walker in front. Pt amb a longer distance today. Pt amb about 600' and reports no increased discomfort. Pt states it felt pretty good to walk more. Pt returns to his room to rest in bed. Pt reports that he feels pretty good. Pt did ask to have a nerve pill. Pt's nurse was notified. Initialized on 09/19/19 11:15 - END OF NOTE 09/19/19 08:47 Case Management Note by Mariluz Gunter PER PRIMARY RN- [facility] REFUSED PATIENT. THEY GAVE US THE NUMBER FOR [facility]- THEY HAVE NO BEDS AVAILABLE. I ALSO TRIED [facility]- NO BEDS. [facility] HAS SOME EXPECTED DISCHARGES TODAY- REFERRAL PACKET SENT. PATIENT CAN'T HAVE A WALKER THERE BUT THEY HAVE PT/OT WORK WITH THE PATIENTS AND CAN ARRANGE FOR A WALKER ON DC FROM THEIR FACILITY Initialized on 09/19/19 08:47 - END OF NOTE Assessment/Plan (1) Acute pyelonephritis Current Visit: Yes Status: Acute Code(s): N10 - ACUTE PYELONEPHRITIS (2) Abdominal pain Current Visit: Yes Status: Acute Code(s): R10.9 - UNSPECIFIED ABDOMINAL PAIN (3) Homeless Current Visit: Yes Status: Acute Code(s): Z59.0 - HOMELESSNESS (4) Hyperglycemia Current Visit: Yes Status: Acute Code(s): R73.9 - HYPERGLYCEMIA, UNSPECIFIED (5) Wheeze Current Visit: Yes Status: Acute Code(s): R06.2 - WHEEZING (6) Amphetamine use disorder, moderate Current Visit: Yes Status: Chronic Code(s): F15.20 - OTHER STIMULANT DEPENDENCE, UNCOMPLICATED (7) Anxiety Current Visit: Yes Status: Acute Code(s): F41.9 - ANXIETY DISORDER, UNSPECIFIED (8) Suicidal thoughts Current Visit: Yes Status: Acute Code(s): R45.851 - SUICIDAL IDEATIONS (9) Noncompliance with medication regimen Current Visit: No Status: Acute Code(s): Z91.14 - PATIENT'S OTHER NONCOMPLIANCE WITH MEDICATION REGIMEN (10) Diabetes mellitus type 2 in nonobese Current Visit: No Status: Chronic Code(s): E11.9 - TYPE 2 DIABETES MELLITUS WITHOUT COMPLICATIONS (11) Hypertension Current Visit: No Status: Chronic Qualifiers: Hypertension type: essential hypertension Qualified Code(s): I10 - Essential (primary) hypertension Code(s): I10 - ESSENTIAL (PRIMARY) HYPERTENSION (12) Tobacco abuse Current Visit: No Status: Chronic Code(s): Z72.0 - TOBACCO USE
== END 2019-09-19 20:00 | DRG 690 ==
LOC: ED 16:38 → MED SURG 22:12 → OBSVTOIN 09-14 09:48
PROVIDERS: ADMIT Family Medicine; ATTEND Family Medicine
DX: N10 Acute pyelonephritis (principal); F15.20 Other stimulant dependence, uncomplicated; R45.851 Suicidal ideations; R53.1 Weakness; R10.9 Unspecified abdominal pain; R33.9 Retention of urine, unspecified; Z59.0 Homelessness; E11.9 Type 2 diabetes mellitus without complications; R11.2 Nausea with vomiting, unspecified; R06.2 Wheezing; F41.9 Anxiety disorder, unspecified; Z91.14 Patient's other noncompliance with medication regimen; M16.12 Unilateral primary osteoarthritis, left hip; I10 Essential (primary) hypertension; F12.90 Cannabis use, unspecified, uncomplicated; Z72.0 Tobacco use; Z79.899 Other long term (current) drug therapy
CPT/HCPCS: 36000; 36415; 51702; 71045; 71046; 74177; 74178; 80048; 80053; 80202; 80307; 81001; 82805; 82962; 83690; 83735; 84484; 85025; 85027; 86689; 87040; 87086; 90791; 93005; 94150; 94640; 94760; 96360; 96365; 96372; 96374; 99284; G0378; J0696; J1650; J1815; J1817; J1885; J2270; J3370; J7609; Q3014; U0003; A9270-GY

== ENCOUNTER 2019-11-10 22:37 | Emergency (ER) | payer OTHER ==
[2019-11-10] MEDS ORDERED: MORPHINE SULFATE 4 MG INJ IV ONE (23:04)
[2019-11-10] MEDS ORDERED: Zofran 4 MG/2 ML VIAL IV ONE (23:04)
[2019-11-10] MEDS ORDERED: Sodium Chloride 0.9% 1000 ML 1,000 ML IV STA (23:04)
[2019-11-10 23:14] LABS: Absolute Neutrophil Ct (ANC) 4.12 (1.4-6.9); BASOPHIL % 0.5 % (0.0-0.4); Basophil (Absolute #) 0.03 (0-0.4); Eosinophil % 2.2 % (0.00-5.0); Eosinophil (Absolute #) 0.13 (0-0.5); Hematocrit 42.5 % (42-50); Hemoglobin 14.6 gm/dl (12.5-18.0); Lymphocyte (Absolute #) 0.99 (1.0-4.6); Mean Cell Volume 92.2 fl (78-100); Mean Corpuscular Hemoglobin 31.7 pg (26-32); Mean Corpuscular Hgb Concent. 34.4 g/dl (32-36); Mean Platelet Volume 12.7 fl (7.5-11.0); Monocyte (Absolute #) 0.55 (0.0-1.3); Monocytes % 9.5 % (0.0-12.0); Neutrophil % 70.8 % (36.0-66.0); Platelet Count 220 K/mm3 (150-450); Red Blood Count 4.61 M/mm3 (4.1-5.6); Red Cell Distribution Width 12.6 % (11.5-14.0); White Blood Count 5.8 K/mm3 (4.0-10.5)
[2019-11-10] MEDS ORDERED: Zofran 4 MG/2 ML VIAL ONE (23:14)
[2019-11-10] MEDS ORDERED: MORPHINE SULFATE 4 MG INJ ONE (23:14)
[2019-11-10] MEDS ORDERED: Sodium Chloride 0.9% 1000 ML 1,000 ML ONE (23:14)
[2019-11-10 23:18] LABS: ALBUMIN 3.9 g/dL (3.5-5.0); ALKALINE PHOSPHATASE 269 U/L (38-126); AMYLASE 79 U/L (30-110); ANION GAP 12.7 MEQ/L (5-15); BLOOD UREA NITROGEN 16 mg/dL (9-20); CHLORIDE 99 mmol/L (98-107); Calcium 9.2 mg/dL (8.4-10.2); Carbon Dioxide 26 mmol/L (22-30); Glucose 192 mg/dL (74-106); LIPASE 299 U/L (23-300); Potassium 3.8 mmol/L (3.5-5.1); SGOT/AST 96 U/L (17-59); SGPT/ALT 83 U/L (0-50); SODIUM 134 mmol/L (137-145); Total Protein 7.7 g/dL (6.3-8.2)
--- NOTE | 2019-11-10 23:21 | ERPHSYRPT ---
- History of Present Illness Time Seen by Provider: 11/10/19 22:55 Historian: patient Exam Limitations: no limitations Patient Subjective Stated Complaint: reports weakness and abdominal pain with associated nausea x 1 week; pt admits to IV meth use approx 3 days [employer]; pt also admits to non compliance with medications Triage Nursing Assessment: a/ox4; able to transfer from wheelchair without difficulty; skin p/w/d; resp non labored and regular; able to speak in full sentences Physician History: 54 years old male with history of diabetes mellitus, hypertension, congestive heart failure, COPD, drug abuse presented in the ER with 1 week history of generalized abdominal pain with progressive worsening associated with nausea but no vomiting. Patient is feeling weak and tired and also reports decreased oral intake. Denies any fever or chills. No chest pain palpitations or shortness of breath. Timing/Duration: week(s) (1), gradual onset, worse Activities at Onset: rest Quality: sharpness Abdominal Pain Onset Location: generalized abdomen Pain Radiation: no radiation Severity of Pain-Max: moderate Modifying Factors: Improves With: movement Associated Symptoms: nausea Previous symptoms: same symptoms as today Allergies/Adverse Reactions: No Known Drug Allergies Allergy (Verified 11/11/19 00:09) Hx Tetanus, Diphtheria Vaccination/Date Given: Yes Hx Influenza Vaccination/Date Given: No Hx Pneumococcal Vaccination/Date Given: No Immunizations Up to Date: Yes Travel Risk - International Travel Have you traveled outside of the country in past 3 weeks: No - Coronavirus Screening Are you exhibiting any of the following symptoms?: No Close contact with a COVID-19 positive Pt in past 14-21 Days: No - Review of Systems Constitutional: No Symptoms Eyes: No Symptoms Ears, Nose, & Throat: No Symptoms Respiratory: No Symptoms Cardiac: No Symptoms Abdominal/Gastrointestinal: Abdominal Pain, Nausea Genitourinary Symptoms: No Symptoms Musculoskeletal: Myalgias Skin: No Symptoms Neurological: No Symptoms Psychological: No Symptoms Endocrine: No Symptoms Hematologic/Lymphatic: No Symptoms Immunological/Allergic: No Symptoms - Past Medical History Pertinent Past Medical History: Yes Neurological History: No Pertinent History ENT History: No Pertinent History Cardiac History: Myocardial Infarction (MT) Respiratory History: CHF, COPD, Pneumonia Endocrine Medical History: Diabetes Type II Musculoskeletal History: No Pertinent History GI Medical History: Other History: No Pertinent History Psycho-Social History: Depression Male Reproductive Disorders: No Pertinent History Other Medical History: gangrene - Past Surgical History Past Surgical History: Yes Neuro Surgical History: No Pertinent History Cardiac: Angioplasty Respiratory: No Pertinent History Gastrointestinal: No Pertinent History Genitourinary: No Pertinent History Musculoskeletal: No Pertinent History Male Surgical History: No Pertinent History - Social History Smoking Status: Heavy tobacco smoker How long have you smoked: years Exposure to second hand smoke: Yes Drug Use: methamphetamines Patient Lives Alone: No - Nursing Vital Signs Nursing Vital Signs: Initial Vital Signs Temperature 98.5 F 11/10/19 22:47 Pulse Rate 92 H 11/10/19 22:47 Respiratory Rate 20 11/10/19 22:47 Blood Pressure 162/120 11/10/19 22:47 O2 Sat by Pulse Oximetry 99 11/10/19 22:47 Pain Scale Pain Intensity 6 - Physical Exam General Appearance: no apparent distress, alert Eye Exam: eyes nml inspection Ears, Nose, Throat Exam: normal ENT inspection, pharynx normal Neck Exam: normal inspection, supple, full range of motion Respiratory Exam: normal breath sounds, lungs clear Cardiovascular Exam: regular rate/rhythm, normal heart sounds Gastrointestinal/Abdomen Exam: soft, tenderness (Generalized) Back Exam: normal inspection Extremity Exam: normal inspection, normal range of motion, pelvis stable Neurologic Exam: alert, oriented x 3, cooperative Skin Exam: normal color SpO2 Interpretation: normal SpO2: 99 O2 Delivery: Room Air Ordered Tests: Medication Summary Discontinued Medications Generic Name Dose Route Start Last Admin Trade Name Freq PRN Reason Stop Dose Admin Sodium Chloride 1,000 mls @ 500 mls/hr 11/10/19 23:04 11/10/19 23:17 Sodium Chloride 0.9% 1000 Ml IV 11/11/19 01:03 500 mls/hr .Q2H STA Administration Sodium Chloride Confirm 11/10/19 23:14 Sodium Chloride 0.9% 1000 Ml Administered 11/10/19 23:15 Dose 1,000 mls @ ud .ROUTE .STK-MED ONE Morphine Sulfate 4 mg 11/10/19 23:04 11/10/19 23:17 Morphine Sulfate 4 Mg Inj IV 11/10/19 23:05 4 mg STAT ONE Administration Morphine Sulfate Confirm 11/10/19 23:14 Morphine Sulfate 4 Mg Inj Administered 11/10/19 23:15 Dose 4 mg .ROUTE .STK-MED ONE Ondansetron HCl 4 mg 11/10/19 23:04 11/10/19 23:16 Zofran 4 Mg/2 Ml Vial IV 11/10/19 23:05 4 mg STAT ONE Administration Ondansetron HCl Confirm 11/10/19 23:14 Zofran 4 Mg/2 Ml Vial Administered 11/10/19 23:15 Dose 4 mg .ROUTE .STK-MED ONE Lab/Rad Data: Laboratory Result Diagrams 11/10/19 23:00 11/10/19 23:00 Laboratory Results 11/11/19 11/10/19 11/10/19 Range/Units 00:33 23:30 23:00 WBC (4.0-10.5) K/mm3 RBC (4.1-5.6) M/mm3 Hgb (12.5-18.0) gm/dl Hct (42-50) % MCV (78-100) fl MCH (26-32) pg MCHC (32-36) g/dl RDW (11.5-14.0) % Plt Count (150-450) K/mm3 MPV (7.5-11.0) fl Gran % (36.0-66.0) % Eos # (Auto) (0-0.5) Absolute Lymphs (auto) (1.0-4.6) Absolute Monos (auto) (0.0-1.3) Lymphocytes % (24.0-44.0) % Monocytes % (0.0-12.0) % Eosinophils % (0.00-5.0) % Basophils % (0.0-0.4) % Absolute Granulocytes (1.4-6.9) Basophils # (0-0.4) Sodium 134 L (137-145) mmol/L Potassium 3.8 (3.5-5.1) mmol/L Chloride 99 (98-107) mmol/L Carbon Dioxide 26 (22-30) mmol/L Anion Gap 12.7 (5-15) MEQ/L BUN 16 (9-20) mg/dL Creatinine 1.00 (0.66-1.25) mg/dL Estimated GFR > 60.0 ML/MIN Glucose 192 H (74-106) mg/dL Lactic Acid 1.8 (0.4-2.0) Calcium 9.2 (8.4-10.2) mg/dL Total Bilirubin 0.80 (0.2-1.3) mg/dL AST 96 H (17-59) U/L ALT 83 H (0-50) U/L Alkaline Phosphatase 269 H (38-126) U/L Serum Total Protein 7.7 (6.3-8.2) g/dL Albumin 3.9 (3.5-5.0) g/dL Amylase 79 (30-110) U/L Lipase 299 (23-300) U/L Urine Color (YELLOW) Urine Appearance (CLEAR) Urine pH (5-6) Ur Specific [place] (1.005-1.025) Urine Protein (Negative) Urine Ketones (NEGATIVE) Urine Blood (0-5) [place]/ul Urine Nitrite (NEGATIVE) Urine Bilirubin (NEGATIVE) Urine Urobilinogen (0-1) mg/dL Ur Leukocyte Esterase (NEGATIVE) Urine WBC (Auto) (0-5) /HPF Urine RBC (Auto) (0-2) /HPF U Epithel Cells (Auto) (FEW) /HPF Urine Bacteria (Auto) (NEGATIVE) /HPF Urine Culture Reflexed (NO) Urine Glucose (NEGATIVE) mg/dL Urine Opiates Level POSITIVE (NEGATIVE) Ur Methadone NEGATIVE (NEGATIVE) Urine Barbiturates NEGATIVE (NEGATIVE) Ur Phencyclidine (PCP) NEGATIVE (NEGATIVE) Urine Amphetamine POSITIVE (NEGATIVE) U Benzodiazepine Level NEGATIVE (NEGATIVE) Urine Cocaine NEGATIVE (NEGATIVE) Urine Marijuana (THC) NEGATIVE (NEGATIVE) 11/10/19 11/10/19 Range/Units 23:00 00:33 WBC 5.8 (4.0-10.5) K/mm3 RBC 4.61 (4.1-5.6) M/mm3 Hgb 14.6 (12.5-18.0) gm/dl Hct 42.5 (42-50) % MCV 92.2 (78-100) fl MCH 31.7 (26-32) pg MCHC 34.4 (32-36) g/dl RDW 12.6 (11.5-14.0) % Plt Count 220 (150-450) K/mm3 MPV 12.7 H (7.5-11.0) fl Gran % 70.8 H (36.0-66.0) % Eos # (Auto) 0.13 (0-0.5) Absolute Lymphs (auto) 0.99 L (1.0-4.6) Absolute Monos (auto) 0.55 (0.0-1.3) Lymphocytes % 17.0 L (24.0-44.0) % Monocytes % 9.5 (0.0-12.0) % Eosinophils % 2.2 (0.00-5.0) % Basophils % 0.5 (0.0-0.4) % Absolute Granulocytes 4.12 (1.4-6.9) Basophils # 0.03 (0-0.4) Sodium (137-145) mmol/L Potassium (3.5-5.1) mmol/L Chloride (98-107) mmol/L Carbon Dioxide (22-30) mmol/L Anion Gap (5-15) MEQ/L BUN (9-20) mg/dL Creatinine (0.66-1.25) mg/dL Estimated GFR ML/MIN Glucose (74-106) mg/dL Lactic Acid (0.4-2.0) Calcium (8.4-10.2) mg/dL Total Bilirubin (0.2-1.3) mg/dL AST (17-59) U/L ALT (0-50) U/L Alkaline Phosphatase (38-126) U/L Serum Total Protein (6.3-8.2) g/dL Albumin (3.5-5.0) g/dL Amylase (30-110) U/L Lipase (23-300) U/L Urine Color STRAW (YELLOW) Urine Appearance CLEAR (CLEAR) Urine pH 7.0 (5-6) Ur Specific [place] 1.010 (1.005-1.025) Urine Protein NEGATIVE (Negative) Urine Ketones NEGATIVE (NEGATIVE) Urine Blood NEGATIVE (0-5) [place]/ul Urine Nitrite NEGATIVE (NEGATIVE) Urine Bilirubin NEGATIVE (NEGATIVE) Urine Urobilinogen NEGATIVE (0-1) mg/dL Ur Leukocyte Esterase NEGATIVE (NEGATIVE) Urine WBC (Auto) NONE (0-5) /HPF Urine RBC (Auto) NONE (0-2) /HPF U Epithel Cells (Auto) NONE (FEW) /HPF Urine Bacteria (Auto) NONE (NEGATIVE) /HPF Urine Culture Reflexed NO (NO) Urine Glucose >=500 (NEGATIVE) mg/dL Urine Opiates Level (NEGATIVE) Ur Methadone (NEGATIVE) Urine Barbiturates (NEGATIVE) Ur Phencyclidine (PCP) (NEGATIVE) Urine Amphetamine (NEGATIVE) U Benzodiazepine Level (NEGATIVE) Urine Cocaine (NEGATIVE) Urine Marijuana (THC) (NEGATIVE) - Progress Progress: improved, re-examined Progress Note: 11/11/19 02:02 54 years old is evaluated for generalized abdominal pain. Given fluids and pain medications, on reevaluation feeling better. Has normal white count, grossly unremarkable chemistries. No UTI. I have obtained CT with contrast with questionable punctate lesions in both kidneys concerning for infarct versus pyelonephritis which I think is a less likely based on other lab work. Does have constipation and recommended MiraLAX and stool softener use. Patient is advised not to use illicit drugs. On repeated evaluation abdominal exam is nonsurgical. Do not think needs any further work-up and is stable for discharge Counseled pt/family regarding: lab results, diagnosis, need for follow-up, rad results, smoking cessation - Departure Departure Disposition: Home Clinical Impression: Generalized abdominal pain, Substance abuse Constipation Qualifiers: Constipation type: unspecified constipation type Qualified Code(s): K59.00 - Constipation, unspecified Condition: Stable Critical Care Time: No Referrals: DOCTOR,NO FAMILY [Primary Care Provider] - VERONICA ZAVALETA [ACTIVE STAFF] - Follow Up with PCP/3 days Instructions: Constipation, Adult (DC), Acute Abdomen (Belly Pain), Adult (DC) Additional Instructions: Take Tylenol as needed for pain. Take MiraLAX and stool softener daily. Follow-up with your primary care physician for reevaluation. Return to ER for any worsening.
[2019-11-11 00:05] VITALS: PULSE 105
[2019-11-11 00:55] LABS: Amphetamine,Urine POSITIVE (NEGATIVE); Barbiturate,Urine NEGATIVE (NEGATIVE); Benzodiazepine,Urine NEGATIVE (NEGATIVE); Cocaine,Urine NEGATIVE (NEGATIVE); Methadone,Urine NEGATIVE (NEGATIVE); Opiate,Urine POSITIVE (NEGATIVE); PCP,Urine NEGATIVE (NEGATIVE); THC,Urine NEGATIVE (NEGATIVE)
[2019-11-11 00:56] LABS: Appearance CLEAR (CLEAR); Bilirubin NEGATIVE (NEGATIVE); Blood NEGATIVE Ery/ul (0-5); Glucose >=500 mg/dL (NEGATIVE); Ketones NEGATIVE (NEGATIVE); Leukocyte Esterase NEGATIVE (NEGATIVE); Nitrite NEGATIVE (NEGATIVE); Protein,Urine Dip NEGATIVE (Negative); Urobilinogen NEGATIVE mg/dL (0-1)
[2019-11-11 03:09] VITALS: BP 230/147
--- NOTE | 2019-11-11 08:45 | XRAY ---
Indication: Abdomen pain and nausea 3 days. Multiple contiguous axial images obtained through the abdomen and pelvis using 80 cc Isovue 370 contrast only. Comparison: September 17, 2019. Lung bases demonstrates minimal dependent atelectasis without infiltrate or effusion. Heart is not enlarged. Noncontrasted stomach and bowel loops appear nonobstructed. Appendix not seen. There remains mild diffuse scattered colonic fecal debris throughout. No free fluid/air. Stable nonobstructing right renal micro-calculus. Both kidneys now demonstrate minimal heterogeneous cortical enhancement/striation concerning for mild/early pyelonephritis. Urinary bladder is now moderately distended concerning for outlet obstruction versus neurogenic bladder. Remaining liver, gallbladder, pancreas, spleen, adrenal glands, kidneys, ureters, and bladder are unremarkable. There is again mild scattered aortoiliac calcifications. No AAA or pathological retroperitoneal lymphadenopathy. Osseous structures remain intact again with mild degenerative changes throughout the spine. Impression: 1. Minimal bilateral renal heterogeneous enhancement/striation. Rule out mild/early pyelonephritis. 2. Distended urinary bladder concerning for outlet obstruction versus neurogenic bladder. 3. Continued diffuse fecal stasis without obstruction and nonobstructing right renal micro-calculus. Comment: Preliminary interpretation was made by [facility]. No critical discrepancy.
[2019-11-12 11:43] VITALS: O2SAT 99
== END 2019-11-11 03:30 | disposition home or self-care (01) ==
LOC: ED 22:37
DX: K59.00 Constipation, unspecified (principal); R10.9 Unspecified abdominal pain; F19.10 Other psychoactive substance abuse, uncomplicated
CPT/HCPCS: 36000; 36415; 74177; 80053; 80307; 81001; 82150; 83605; 83690; 85025; 96360; 96361; 96374; 96375; 99284; J2270; J2405

== ENCOUNTER 2019-12-01 14:20 | Observation (INO) | payer OTHER ==
[2019-12-01] MEDS ORDERED: MORPHINE SULFATE 4 MG INJ IV ONE (14:56)
[2019-12-01] MEDS ORDERED: GI COCKTAIL 45 ML (Maalox/Lidocaine) PO ONE (14:56)
[2019-12-01] MEDS ORDERED: Zofran 4 MG/2 ML VIAL IV ONE (14:56)
[2019-12-01] MEDS ORDERED: BABY ASPIRIN 81 MG CHEW PO ONE (14:58)
--- NOTE | 2019-12-01 15:07 | ERPHSYRPT ---
- History of Present Illness Time Seen by Provider: 12/01/19 14:44 Historian: patient Exam Limitations: no limitations Patient Subjective Stated Complaint: Pt stated that his abdomen was hurting a couple of days ago and it moved to his chest, chest has now been "bothering" him for 2 days, pt states that he is extremely week, pt had been on an antibiotic a couple of weeks ago for a stomach infection per the pt Triage Nursing Assessment: Pt brought to the ER by his daughters boyfriend, hypertensive, lethargic, weak, last intake this morning, last bowel movement yesterday, medial chest pain, abdominal pain in all quadrants, still has gallbladder, rates overall pain as 8/10 Physician History: 54 years old male with a history of hypertension, hyperlipidemia, diabetes mellitus, COPD, tobacco abuse, illicit drug use, chronic abdominal pain presented in the ER with chief complaint of substernal chest pressure tightness and fullness sensation since morning. Patient report he initially had upper abdominal pain for the last couple of days which comes and goes and is not any different than usual abdominal pain and this morning started to have some pressure in the chest without any significant aggravating or relieving factor, mild to moderate intensity, not associated with any shortness of breath or palpitations. Patient also reports generalized weakness and fatigue with no energy. Has any history of CAD with stenting in the past. No recent cardiac work-up done. Timing/Duration: today Activities at Onset: rest Quality: burning, fullness, pressure Location: substernal Chest Pain Radiation: no radiation Severity of Pain-Max: moderate Severity of Pain-Current: moderate Modifying Factors: Improves With: nothing Associated Symptoms: abdominal pain, fatigue Nitro Today/Relief: no nitro taken today Aspirin Treatment Today: no aspirin today Allergies/Adverse Reactions: No Known Drug Allergies Allergy (Verified 12/01/19 14:36) Hx Tetanus, Diphtheria Vaccination/Date Given: Yes Hx Influenza Vaccination/Date Given: No Hx Pneumococcal Vaccination/Date Given: No Travel Risk - International Travel Have you traveled outside of the country in past 3 weeks: No - Coronavirus Screening Are you exhibiting any of the following symptoms?: No Close contact with a COVID-19 positive Pt in past 14-21 Days: No - Review of Systems Constitutional: Fatigue Eyes: No Symptoms Ears, Nose, & Throat: No Symptoms Respiratory: No Symptoms Cardiac: Chest Pain Abdominal/Gastrointestinal: Abdominal Pain Genitourinary Symptoms: No Symptoms Skin: No Symptoms Neurological: No Symptoms Psychological: No Symptoms Hematologic/Lymphatic: No Symptoms Immunological/Allergic: No Symptoms - Past Medical History Pertinent Past Medical History: Yes Neurological History: No Pertinent History ENT History: No Pertinent History Cardiac History: Myocardial Infarction ([place]) Respiratory History: CHF, COPD, Pneumonia Endocrine Medical History: Diabetes Type II Musculoskeletal History: No Pertinent History GI Medical History: Other History: No Pertinent History Psycho-Social History: Depression Male Reproductive Disorders: No Pertinent History Other Medical History: gangrene - Past Surgical History Past Surgical History: Yes Neuro Surgical History: No Pertinent History Cardiac: Angioplasty Respiratory: No Pertinent History Gastrointestinal: No Pertinent History Genitourinary: No Pertinent History Musculoskeletal: No Pertinent History Male Surgical History: No Pertinent History - Social History Smoking Status: Heavy tobacco smoker How long have you smoked: years Exposure to second hand smoke: Yes Drug Use: marijuana, methamphetamines Patient Lives Alone: Yes - Nursing Vital Signs Nursing Vital Signs: Initial Vital Signs Temperature 97.8 F 12/01/19 14:21 Pulse Rate 99 H 12/01/19 14:21 Respiratory Rate 24 12/01/19 14:21 Blood Pressure 152/114 12/01/19 14:21 O2 Sat by Pulse Oximetry 100 12/01/19 14:21 Pain Scale Pain Intensity 8 - Physical Exam General Appearance: no apparent distress Eye Exam: PERRL/EOMI, eyes nml inspection Ears, Nose, Throat Exam: normal ENT inspection, pharynx normal Neck Exam: normal inspection, supple, full range of motion Respiratory Exam: normal breath sounds, lungs clear Cardiovascular Exam: regular rate/rhythm, normal heart sounds Gastrointestinal/Abdomen Exam: soft, No tenderness Back Exam: normal inspection Extremity Exam: normal inspection, normal range of motion Neurologic Exam: alert, oriented x 3, cooperative, estimator and drafter II-XII nml as tested Skin Exam: normal color SpO2 Interpretation: normal SpO2: 100 O2 Delivery: Room Air - Course EKG Interpreted by Me: RATE (99), Sinus Rhythm, NORMAL AXIS, NORMAL INTERVALS, NORMAL QRS, Q-wave (Inferior), Other (KG time 3:36 PM. Rate 97, sinus rhythm, no acute ST elevations. Q waves in inferior leads. LVH. Normal axis.) Ordered Tests: Medication Summary Discontinued Medications Generic Name Dose Route Start Last Admin Trade Name Freq PRN Reason Stop Dose Admin Acetaminophen 650 mg 12/01/19 17:49 Tylenol 325 Mg PO 12/31/19 17:48 Q4H PRN PRN PAIN AND/OR FEVER Hydrocodone Bitart/Acetaminophen 1 tab 12/01/19 18:36 12/02/19 11:16 [place] 10/325 Mg Tablet PO 12/06/19 18:35 1 tab Q4H PRN PRN Administration PAIN Hydrocodone Bitart/Acetaminophen Confirm 12/02/19 07:15 [place] 10/325 Mg Tablet Administered 12/02/19 07:16 Dose 1 tab .ROUTE .STK-MED ONE Al Hydrox/Mg Hydrox/Simethicone Confirm 12/01/19 15:14 Maalox Es 30 Ml Unit Dose Administered 12/01/19 15:15 Dose 30 ml .ROUTE .STK-MED ONE Albuterol/Ipratropium 3 ml 12/01/19 19:00 12/02/19 08:30 Duoneb 0.5-3 Mg/3 Ml Neb IH 12/31/19 18:59 Not Given Q6HRT ELVI Aspirin 324 mg 12/01/19 14:58 12/01/19 15:19 Baby Aspirin 81 Mg Chew PO 12/01/19 14:59 324 mg STAT ONE Administration Aspirin Confirm 12/01/19 15:13 Baby Aspirin 81 Mg Chew Administered 12/01/19 15:14 Dose 324 mg .ROUTE .STK-MED ONE Famotidine 20 mg 12/01/19 22:00 12/02/19 08:39 Pepcid 20 Mg Vial IV 12/31/19 21:59 20 mg Q12HT ELVI Administration Hydralazine HCl 10 mg 12/01/19 18:36 12/02/19 04:23 Apresoline 20 Mg/Ml Inj IV 12/31/19 18:35 10 mg [id number] PRN Administration HYPERTENSION Potassium Chloride/Sodium Chloride 1,000 mls @ 499 mls/hr 12/01/19 16:00 12/01/19 15:57 Sodium Chloride 0.9% W/ 20 Meq Kcl/Liter IV 12/31/19 15:59 499 mls/hr .Q2H1M LEVI Administration Potassium Chloride/Sodium Chloride Confirm 12/01/19 15:56 Sodium Chloride 0.9% W/ 20 Meq Kcl/Liter Administered 12/01/19 15:57 Dose 1,000 mls @ ud IV .STK-MED ONE Sodium Chloride 1,000 mls @ 100 mls/hr 12/01/19 17:49 12/02/19 04:11 Sodium Chloride 0.9% 1000 Ml IV 12/31/19 17:48 100 mls/hr .Q10H ELVI Administration Insulin Human Lispro 0 unit 12/01/19 17:49 12/02/19 08:42 Humalog SQ 12/31/19 17:48 13 unit UD PRN Administration HYPERGLYCEMIA Insulin Human Lispro 10 unit 12/02/19 11:30 12/02/19 12:15 Humalog SQ 01/01/20 11:29 Not Given TIDAC ELVI Insulin Human Regular 8 unit 12/01/19 16:55 12/01/19 17:27 Humulin R SQ 12/01/19 16:56 8 unit STAT ONE Administration Insulin Human Regular Confirm 12/01/19 17:19 Humulin R Administered 12/01/19 17:20 Dose 8 unit .ROUTE .STK-MED ONE Labetalol HCl 20 mg 12/01/19 16:14 12/01/19 16:38 Trandate 20 Mg/5 Ml Syringe IV 12/01/19 16:15 20 mg STAT ONE Administration Labetalol HCl Confirm 12/01/19 16:35 Trandate 20 Mg/5 Ml Syringe Administered 12/01/19 16:36 Dose 20 mg IV .STK-MED ONE Lidocaine HCl Confirm 12/01/19 15:14 Xylocaine Hcl Viscous * Administered 12/01/19 15:15 Dose 15 ml .ROUTE .STK-MED ONE Magnesium Hydroxide 45 ml 12/01/19 14:56 12/01/19 15:19 Gi Cocktail 45 Ml (Maalox/Lidocaine) PO 12/01/19 14:57 45 ml STAT ONE Administration Morphine Sulfate 4 mg 12/01/19 14:56 12/01/19 15:19 Morphine Sulfate 4 Mg Inj IV 12/01/19 14:57 4 mg STAT ONE Administration Morphine Sulfate Confirm 12/01/19 15:13 Morphine Sulfate 4 Mg Inj Administered 12/01/19 15:14 Dose 4 mg .ROUTE .STK-MED ONE Morphine Sulfate 2 mg 12/01/19 17:49 Morphine Sulfate 2 Mg Inj IV 12/06/19 17:48 Q4H PRN PRN PAIN Nicotine 21 mg 12/01/19 20:00 12/01/19 18:41 Nicoderm Cq 21 Mg TOP 12/31/19 19:59 21 mg Q24H ELVI Administration Nitroglycerin 1 gm 12/01/19 16:16 12/01/19 16:38 Nitro-Bid 2% Ud Packets TOP 12/01/19 16:17 1 gm STAT ONE Administration Nitroglycerin Confirm 12/01/19 16:35 Nitro-Bid 2% Ud Packets Administered 12/01/19 16:36 Dose 1 gm .ROUTE .STK-MED ONE Ondansetron HCl 4 mg 12/01/19 14:56 12/01/19 15:19 Zofran 4 Mg/2 Ml Vial IV 12/01/19 14:57 4 mg STAT ONE Administration Ondansetron HCl Confirm 12/01/19 15:13 Zofran 4 Mg/2 Ml Vial Administered 12/01/19 15:14 Dose 4 mg .ROUTE .STK-MED ONE Ondansetron HCl 4 mg 12/01/19 17:49 Zofran 4 Mg/2 Ml Vial IV 12/31/19 17:48 Q6H PRN PRN NAUSEA/VOMITING Potassium Bicarbonate 50 meq 12/01/19 16:55 12/01/19 17:26 K-Lyte 25 Meq PO 12/01/19 16:56 50 meq STAT ONE Administration Potassium Bicarbonate Confirm 12/01/19 17:19 K-Lyte 25 Meq Administered 12/01/19 17:20 Dose 50 meq .ROUTE .STK-MED ONE Lab/Rad Data: Laboratory Result Diagrams 12/01/19 15:00 12/01/19 15:00 Laboratory Results 12/01/19 12/01/19 12/01/19 Range/Units 15:53 15:00 15:00 WBC (4.0-10.5) K/mm3 RBC (4.1-5.6) M/mm3 Hgb (12.5-18.0) gm/dl Hct (42-50) % MCV (78-100) fl MCH (26-32) pg MCHC (32-36) g/dl RDW (11.5-14.0) % Plt Count (150-450) K/mm3 MPV (7.5-11.0) fl Gran % (36.0-66.0) % Eos # (Auto) (0-0.5) Absolute Lymphs (auto) (1.0-4.6) Absolute Monos (auto) (0.0-1.3) Lymphocytes % (24.0-44.0) % Monocytes % (0.0-12.0) % Eosinophils % (0.00-5.0) % Basophils % (0.0-0.4) % Absolute Granulocytes (1.4-6.9) Basophils # (0-0.4) Sodium 132 L (137-145) mmol/L Potassium 3.6 (3.5-5.1) mmol/L Chloride 95 L (98-107) mmol/L Carbon Dioxide 23 (22-30) mmol/L Anion Gap 17.0 H (5-15) MEQ/L BUN 11 (9-20) mg/dL Creatinine 1.29 H (0.66-1.25) mg/dL Estimated GFR > 60.0 ML/MIN Glucose 434 H (74-106) mg/dL Calcium 9.4 (8.4-10.2) mg/dL Total Bilirubin 0.80 (0.2-1.3) mg/dL AST 57 (17-59) U/L ALT 62 H (0-50) U/L Alkaline Phosphatase 231 H (38-126) U/L Troponin I < 0.012 (0.000-0.034) ng/mL Serum Total Protein 8.6 H (6.3-8.2) g/dL Albumin 4.5 (3.5-5.0) g/dL Lipase 401 H (23-300) U/L Ethyl Alcohol < 10 (0-10) mg/dL 12/01/19 Range/Units 15:00 WBC 7.7 (4.0-10.5) K/mm3 RBC 5.82 H (4.1-5.6) M/mm3 Hgb 18.5 H (12.5-18.0) gm/dl Hct 52.9 H (42-50) % MCV 90.9 (78-100) fl MCH 31.8 (26-32) pg MCHC 35.0 (32-36) g/dl RDW 13.7 (11.5-14.0) % Plt Count 208 (150-450) K/mm3 MPV 12.6 H (7.5-11.0) fl Gran % 54.0 (36.0-66.0) % Eos # (Auto) 0.08 (0-0.5) Absolute Lymphs (auto) 2.74 (1.0-4.6) Absolute Monos (auto) 0.69 (0.0-1.3) Lymphocytes % 35.6 (24.0-44.0) % Monocytes % 9.0 (0.0-12.0) % Eosinophils % 1.0 (0.00-5.0) % Basophils % 0.4 (0.0-0.4) % Absolute Granulocytes 4.15 (1.4-6.9) Basophils # 0.03 (0-0.4) Sodium (137-145) mmol/L Potassium (3.5-5.1) mmol/L Chloride (98-107) mmol/L Carbon Dioxide (22-30) mmol/L Anion Gap (5-15) MEQ/L BUN (9-20) mg/dL Creatinine (0.66-1.25) mg/dL Estimated GFR ML/MIN Glucose (74-106) mg/dL Calcium (8.4-10.2) mg/dL Total Bilirubin (0.2-1.3) mg/dL AST (17-59) U/L ALT (0-50) U/L Alkaline Phosphatase (38-126) U/L Troponin I (0.000-0.034) ng/mL Serum Total Protein (6.3-8.2) g/dL Albumin (3.5-5.0) g/dL Lipase (23-300) U/L Ethyl Alcohol (0-10) mg/dL - Progress Progress: improved Air Movement: good Progress Note: 12/01/19 17:09 54 years old is evaluated for chest pain. EKG did not show acute ST elevations, initial troponins are negative. Patient blood pressure was in 200s and is given labetalol and started to improve. Chest pain is also improving on reevaluation. He is given aspirin and Nitropaste as well along with morphine. Drug screen is positive for amphetamines which could be the reason for his chest pain. Blood sugar is elevated with borderline potassium. Given potassium replacement orally and given subcu insulin. Patient is not in DKA. Acute kidney injury and will give fluids gently. Discussed with Dr. Ramos, patient is admitted for chest pain rule out and adjustment of blood pressure medications. Plan discussed with patient who understand and agrees with that. Blood Culture(s) Obtained: No Antibiotics given: No Discussed with Dr.: Antoine Will see patient in: hospital (observation) Counseled pt/family regarding: lab results, diagnosis, rad results, smoking cessation - Departure Departure Disposition: Observation Clinical Impression: Chest pain, rule out acute myocardial infarction, Uncontrolled hypertension, Hyperglycemia, ALEX (acute kidney injury) Condition: Stable Critical Care Time: Yes Critical Care Time(excluding separately billable procedures): Critical 30-74 mins
[2019-12-01] MEDS ORDERED: Zofran 4 MG/2 ML VIAL ONE (15:13)
[2019-12-01] MEDS ORDERED: BABY ASPIRIN 81 MG CHEW ONE (15:13)
[2019-12-01] MEDS ORDERED: MORPHINE SULFATE 4 MG INJ ONE (15:13)
[2019-12-01 15:14] LABS: Absolute Neutrophil Ct (ANC) 4.15 (1.4-6.9); BASOPHIL % 0.4 % (0.0-0.4); Basophil (Absolute #) 0.03 (0-0.4); Eosinophil (Absolute #) 0.08 (0-0.5); Hematocrit 52.9 % (42-50); Hemoglobin 18.5 gm/dl (12.5-18.0); Lymphocyte (Absolute #) 2.74 (1.0-4.6); Lymphocytes % 35.6 % (24.0-44.0); Mean Cell Volume 90.9 fl (78-100); Mean Corpuscular Hemoglobin 31.8 pg (26-32); Mean Platelet Volume 12.6 fl (7.5-11.0); Monocyte (Absolute #) 0.69 (0.0-1.3); Platelet Count 208 K/mm3 (150-450); Red Blood Count 5.82 M/mm3 (4.1-5.6); Red Cell Distribution Width 13.7 % (11.5-14.0); White Blood Count 7.7 K/mm3 (4.0-10.5)
[2019-12-01] MEDS ORDERED: XYLOCAINE HCl Viscous ONE (15:14)
[2019-12-01] MEDS ORDERED: MAALOX ES 30 ML UNIT DOSE ONE (15:14)
[2019-12-01 15:30] LABS: ALBUMIN 4.5 g/dL (3.5-5.0); ALKALINE PHOSPHATASE 231 U/L (38-126); BLOOD UREA NITROGEN 11 mg/dL (9-20); CHLORIDE 95 mmol/L (98-107); Calcium 9.4 mg/dL (8.4-10.2); Carbon Dioxide 23 mmol/L (22-30); Creatinine 1 1.29 mg/dL (0.66-1.25); EST GLOMERULAR FILTRATION RATE > 60.0 ML/MIN; Glucose 434 mg/dL (74-106); LIPASE 401 U/L (23-300); Potassium 3.6 mmol/L (3.5-5.1); SGOT/AST 57 U/L (17-59); SGPT/ALT 62 U/L (0-50); SODIUM 132 mmol/L (137-145); Total Protein 8.6 g/dL (6.3-8.2)
[2019-12-01] MEDS ORDERED: Sodium Chloride 0.9% W/ 20 mEq KCl/LITER 1,000 ML IV ONE (15:56)
[2019-12-01] MEDS ORDERED: Sodium Chloride 0.9% W/ 20 mEq KCl/LITER 1,000 ML IV SCH (16:00)
[2019-12-01] MEDS ORDERED: TRANDATE 20 MG/5 ML SYRINGE IV ONE ×2 (16:14→16:35)
[2019-12-01] MEDS ORDERED: NITRO-BID 2% UD PACKETS TOP ONE (16:16)
[2019-12-01] MEDS ORDERED: NITRO-BID 2% UD PACKETS ONE (16:35)
[2019-12-01] MEDS ORDERED: HUMULIN R SQ ONE (16:55)
[2019-12-01] MEDS ORDERED: K-LYTE 25 MEQ PO ONE (16:55)
[2019-12-01] MEDS ORDERED: HUMULIN R ONE (17:19)
[2019-12-01] MEDS ORDERED: K-LYTE 25 MEQ ONE (17:19)
[2019-12-01] MEDS ORDERED: TYLENOL 325 MG PO PRN (17:49)
[2019-12-01] MEDS ORDERED: MORPHINE SULFATE 2 MG INJ IV PRN (17:49)
[2019-12-01] MEDS ORDERED: Zofran 4 MG/2 ML VIAL IV PRN (17:49)
[2019-12-01] MEDS: Sodium Chloride 0.9% 1000 ML 1,000 ML IV SCH (18:02)
[2019-12-01] MEDS ORDERED: APRESOLINE 20 MG/ML INJ IV PRN (18:36)
[2019-12-01] MEDS: Norco 10/325 MG Tablet PO PRN ×2 (18:42→23:46)
[2019-12-01] MEDS: DUONEB 0.5-3 MG/3 ml Neb IH SCH (18:43)
[2019-12-01] MEDS ORDERED: Nicoderm CQ 21 MG TOP SCH (20:00)
--- NOTE | 2019-12-01 20:38 | XRAY ---
Indication: Chest pain and extreme weakness. Comparison: September 15, 2019. Portable apical lordotic chest clear. Heart is not enlarged again with tortuous descending aorta. Bony thorax intact again with mild osteopenia and degenerative changes. Impression: Nonacute chest with chronic features.
[2019-12-01] MEDS: HUMALOG SQ PRN (21:42)
[2019-12-01] MEDS: Pepcid 20 MG VIAL IV SCH (21:42)
[2019-12-01 22:23] LABS: Appearance CLEAR (CLEAR); Bilirubin NEGATIVE (NEGATIVE); Blood NEGATIVE Ery/ul (0-5); Glucose >=500 mg/dL (NEGATIVE); Ketones NEGATIVE (NEGATIVE); Leukocyte Esterase NEGATIVE (NEGATIVE); Nitrite NEGATIVE (NEGATIVE); Protein,Urine Dip NEGATIVE (Negative); Specific Gravity 1.028 (1.005-1.025); Urobilinogen NEGATIVE mg/dL (0-1)
[2019-12-01 22:25] LABS: Bacteria NONE SEEN /HPF (NEGATIVE); RBC NONE SEEN /HPF (0-2); WBC NONE SEEN /HPF (0-5)
[2019-12-01 22:37] LABS: Amphetamine,Urine POSITIVE (NEGATIVE); Barbiturate,Urine NEGATIVE (NEGATIVE); Benzodiazepine,Urine NEGATIVE (NEGATIVE); Cocaine,Urine NEGATIVE (NEGATIVE); Methadone,Urine NEGATIVE (NEGATIVE); Opiate,Urine POSITIVE (NEGATIVE); PCP,Urine NEGATIVE (NEGATIVE); THC,Urine NEGATIVE (NEGATIVE)
[2019-12-02] MEDS: DUONEB 0.5-3 MG/3 ml Neb IH SCH ×2 (00:45→08:30)
[2019-12-02 03:28] LABS: Absolute Neutrophil Ct (ANC) 4.37 (1.4-6.9); BASOPHIL % 0.5 % (0.0-0.4); Basophil (Absolute #) 0.04 (0-0.4); Eosinophil % 1.5 % (0.00-5.0); Eosinophil (Absolute #) 0.11 (0-0.5); Hematocrit 41.9 % (42-50); Lymphocyte (Absolute #) 2.15 (1.0-4.6); Lymphocytes % 29.5 % (24.0-44.0); Mean Cell Volume 92.3 fl (78-100); Mean Corpuscular Hemoglobin 31.5 pg (26-32); Mean Corpuscular Hgb Concent. 34.1 g/dl (32-36); Mean Platelet Volume 11.3 fl (7.5-11.0); Monocyte (Absolute #) 0.63 (0.0-1.3); Monocytes % 8.6 % (0.0-12.0); Neutrophil % 59.9 % (36.0-66.0); Platelet Count 166 K/mm3 (150-450); Red Blood Count 4.54 M/mm3 (4.1-5.6); Red Cell Distribution Width 13.3 % (11.5-14.0); White Blood Count 7.3 K/mm3 (4.0-10.5)
[2019-12-02 03:29] LABS: Hemoglobin 14.3 gm/dl (12.5-18.0)
[2019-12-02 03:47] LABS: ALBUMIN 3.2 g/dL (3.5-5.0); ALKALINE PHOSPHATASE 149 U/L (38-126); ANION GAP 11.9 MEQ/L (5-15); BLOOD UREA NITROGEN 12 mg/dL (9-20); CHLORIDE 101 mmol/L (98-107); Calcium 8.2 mg/dL (8.4-10.2); Carbon Dioxide 22 mmol/L (22-30); Creatinine 1 0.95 mg/dL (0.66-1.25); EST GLOMERULAR FILTRATION RATE > 60.0 ML/MIN; Glucose 298 mg/dL (74-106); Potassium 4.1 mmol/L (3.5-5.1); SGOT/AST 42 U/L (17-59); SGPT/ALT 42 U/L (0-50); SODIUM 131 mmol/L (137-145); Total Protein 6.4 g/dL (6.3-8.2)
[2019-12-02] MEDS: Sodium Chloride 0.9% 1000 ML 1,000 ML IV SCH (04:11)
[2019-12-02] MEDS: HUMALOG SQ PRN ×2 (04:22→08:42)
[2019-12-02] MEDS ORDERED: Norco 10/325 MG Tablet ONE (07:15)
[2019-12-02] MEDS: Norco 10/325 MG Tablet PO PRN ×2 (07:18→11:16)
[2019-12-02] MEDS: Pepcid 20 MG VIAL IV SCH (08:39)
[2019-12-02] MEDS ORDERED: HUMALOG SQ SCH (11:30)
[2019-12-02 11:53] VITALS: PULSE 82
--- NOTE | 2019-12-02 12:36 | PCM.SSS ---
History of Present Illness - Chief Complaint Chief Complaint: CHEST PAIN RULE OUT DE History of Present Illness: is a 54 year old male pt, previously of Dr. Dunn, with hx DM and L hip fx, HTN, who was admitted through ER with CP, hypertensive emergency, and acute kidney injury. He c/o L sided chest pain yesterday, radiating occasionally to the L shouder and arm, pressure + sharp, with some SOB (no nause) that was 6- 7/10 (more intense than usual). He was also having some generalized stomach pain so went to ER. Pt c/o feeling more fatigued than usual. Several weeks ago he says he was hospitalized for "a stomach infection" and weakness so thought this was the same thing. In the ER his BP was > 200 systolic. EKG was NSR, no ST changes, did show LVH. Pt has hx DE, last heart cath 4 yrs ago in [place]. UDS positive for amphetamines and opioids. He admits to cigarette smoking and hx drug abuse. Initial Cr was 1.29, but this morning is 0.95. After his last hospital stay, he was sent home on lisinopril and metoprolol by Dr. Dunn; however his only med on his list currently is insulin. He states the pharmacy never got the other meds. He apparently has a hard time managing his medical care, but does have someone helping with that currently. Pt is no longer having chest pain. Troponins have been neg x 5. His BP is currently 130s systolic. Will be discharged to home. I have advised him if he has a return of chest pain he MUST come to ER [facility]. He is following up with his new Dr., Dr. De La O, this week. - Review of Systems Respiratory: Short Of Breath Cardiac: Chest Pain, Edema Abdominal/Gastrointestinal: Abdominal Pain, Nausea Musculoskeletal: Joint Pain (chronic L hip) Psychological: Drug Abuse, Depression, No Suicidal Ideations All Other Systems: Reviewed and Negative Medications & Allergies Home Medications: Home Medication List Insulin Lispro [Humalog Kwikpen U-100] 10 unit SQ TID #3 insuln.pen 08/31/19 [Rx Confirmed 12/01/19] Lisinopril 10 mg [Zestril 10 MG] 10 mg PO DAILY #30 tablet 12/02/19 [Rx] Metoprolol Succinate 25 mg Xl* [Toprol-Xl 25MG Tablets] 25 mg PO DAILY #30 tab 12/02/19 [Rx] Allergies/Adverse Reactions: Allergies Allergy/AdvReac Type Severity Reaction Status Date / Time No Known Drug Allergies Allergy Verified 12/01/19 14:36 - Past Medical History Past Medical History: Yes Neurological History: No Pertinent History ENT History: No Pertinent History Cardiac History: Myocardial Infarction (DE) Respiratory History: CHF, COPD, Pneumonia Endocrine Medical History: Diabetes Type II Musculoskelatal History: No Pertinent History GI Medical History: Other History: No Pertinent History Pyscho-Social History: Depression Male Reproductive Disorders: No Pertinent History Comment: gangrene - Past Surgical History Past Surgical History: Yes Neuro Surgical History: No Pertinent History Cardiac History: Angioplasty Respiratory Surgery: No Pertinent History GI Surgical History: No Pertinent History Genitourinary Surgical Hx: No Pertinent History Musculskeletal Surgical Hx: No Pertinent History Male Surgical History: No Pertinent History - Social History Smoking Status: Current every day smoker How long have you smoked: years Exposure to second hand smoke: Yes Alcohol: Weekly Drug Use: marijuana, methamphetamines - Physical Exam Vital Signs: Vital Signs - 24 hr Temp Pulse Resp BP Pulse Ox 12/02/19 11:51 82 12/02/19 08:30 76 16 99 12/02/19 07:38 98.2 F 91 H 15 134/89 99 12/02/19 07:10 79 12/02/19 05:08 83 179/122 12/02/19 04:00 78 12/02/19 03:52 98.1 F 82 15 158/103 98 12/02/19 00:46 77 16 99 12/02/19 00:01 78 12/02/19 00:00 98.3 F 84 18 140/92 99 12/01/19 20:00 98 F 84 20 135/85 100 12/01/19 18:43 80 20 100 12/01/19 18:11 135/85 12/01/19 17:52 98 F 74 20 154/110 12/01/19 17:14 71 11 L 186/125 100 12/01/19 17:10 100 12/01/19 16:45 70 169/109 97 12/01/19 15:45 96 H 12 191/140 100 12/01/19 14:21 97.8 F 99 H 24 152/114 100 General Appearance: no apparent distress, alert Neurologic Exam: oriented x 3, cooperative Eye Exam: eyes nml inspection Ears, Nose, Throat Exam: moist mucous membranes Neck Exam: normal inspection Respiratory Exam: normal breath sounds, lungs clear, No crackles/rales, No rhonchi, No wheezing Cardiovascular Exam: regular rate/rhythm, normal heart sounds, No murmur Gastrointestinal/Abdomen Exam: soft, normal bowel sounds, No tenderness, No distention, No mass, No guarding, No rebound Back Exam: normal inspection, No rash Extremity Exam: normal inspection, No swelling, No tenderness Skin Exam: normal color, warm, dry, No rash Results - Labs Lab/Micro Results: Accuchecks Date 12/02/19 Date 12/02/19 Date 12/02/19 Date 12/02/19 Date 12/02/19 Date 12/01/19 Time 11:51 Time 08:43 Time 07:24 Time 04:08 Time 00:00 Time 20:50 Accucheck Value: 194 Accucheck Value: 429 Accucheck Value: 161 Accucheck Value: 472 Accucheck Value: 313 Lab Results-Last 24 Hours 12/01/19 12/01/19 12/01/19 Range/Units 15:00 15:00 15:00 WBC 7.7 (4.0-10.5) K/mm3 RBC 5.82 H (4.1-5.6) M/mm3 Hgb 18.5 H (12.5-18.0) gm/dl Hct 52.9 H (42-50) % MCV 90.9 (78-100) fl MCH 31.8 (26-32) pg MCHC 35.0 (32-36) g/dl RDW 13.7 (11.5-14.0) % Plt Count 208 (150-450) K/mm3 MPV 12.6 H (7.5-11.0) fl Gran % 54.0 (36.0-66.0) % Eos # (Auto) 0.08 (0-0.5) Absolute Lymphs (auto) 2.74 (1.0-4.6) Absolute Monos (auto) 0.69 (0.0-1.3) Lymphocytes % 35.6 (24.0-44.0) % Monocytes % 9.0 (0.0-12.0) % Eosinophils % 1.0 (0.00-5.0) % Basophils % 0.4 (0.0-0.4) % Absolute Granulocytes 4.15 (1.4-6.9) Basophils # 0.03 (0-0.4) Sodium 132 L (137-145) mmol/L Potassium 3.6 (3.5-5.1) mmol/L Chloride 95 L (98-107) mmol/L Carbon Dioxide 23 (22-30) mmol/L Anion Gap 17.0 H (5-15) MEQ/L BUN 11 (9-20) mg/dL Creatinine 1.29 H (0.66-1.25) mg/dL Estimated GFR > 60.0 ML/MIN Glucose 434 H (74-106) mg/dL POC Glucometer (50 to 500) mg/dL Calcium 9.4 (8.4-10.2) mg/dL Total Bilirubin 0.80 (0.2-1.3) mg/dL AST 57 (17-59) U/L ALT 62 H (0-50) U/L Alkaline Phosphatase 231 H (38-126) U/L Troponin I < 0.012 (0.000-0.034) ng/mL Serum Total Protein 8.6 H (6.3-8.2) g/dL Albumin 4.5 (3.5-5.0) g/dL Lipase 401 H (23-300) U/L Urine Color (YELLOW) Urine Appearance (CLEAR) Urine pH (5-6) Ur Specific [place] (1.005-1.025) Urine Protein (Negative) Urine Ketones (NEGATIVE) Urine Blood (0-5) Junito/ul Urine Nitrite (NEGATIVE) Urine Bilirubin (NEGATIVE) Urine Urobilinogen (0-1) mg/dL Ur Leukocyte Esterase (NEGATIVE) Urine WBC (Auto) (0-5) /HPF Urine RBC (Auto) (0-2) /HPF U Epithel Cells (Auto) (FEW) /HPF Urine Bacteria (Auto) (NEGATIVE) /HPF Urine Culture Reflexed (NO) Urine Glucose (NEGATIVE) mg/dL Urine Opiates Level (NEGATIVE) Ur Methadone (NEGATIVE) Urine Barbiturates (NEGATIVE) Ur Phencyclidine (PCP) (NEGATIVE) Urine Amphetamine (NEGATIVE) U Benzodiazepine Level (NEGATIVE) Urine Cocaine (NEGATIVE) Urine Marijuana (THC) (NEGATIVE) Ethyl Alcohol (0-10) mg/dL 12/01/19 12/01/19 12/01/19 Range/Units 15:53 18:05 20:48 WBC (4.0-10.5) K/mm3 RBC (4.1-5.6) M/mm3 Hgb (12.5-18.0) gm/dl Hct (42-50) % MCV (78-100) fl MCH (26-32) pg MCHC (32-36) g/dl RDW (11.5-14.0) % Plt Count (150-450) K/mm3 MPV (7.5-11.0) fl Gran % (36.0-66.0) % Eos # (Auto) (0-0.5) Absolute Lymphs (auto) (1.0-4.6) Absolute Monos (auto) (0.0-1.3) Lymphocytes % (24.0-44.0) % Monocytes % (0.0-12.0) % Eosinophils % (0.00-5.0) % Basophils % (0.0-0.4) % Absolute Granulocytes (1.4-6.9) Basophils # (0-0.4) Sodium (137-145) mmol/L Potassium (3.5-5.1) mmol/L Chloride (98-107) mmol/L Carbon Dioxide (22-30) mmol/L Anion Gap (5-15) MEQ/L BUN (9-20) mg/dL Creatinine (0.66-1.25) mg/dL Estimated GFR ML/MIN Glucose (74-106) mg/dL POC Glucometer 546 H* (50 to 500) mg/dL Calcium (8.4-10.2) mg/dL Total Bilirubin (0.2-1.3) mg/dL AST (17-59) U/L ALT (0-50) U/L Alkaline Phosphatase (38-126) U/L Troponin I < 0.012 (0.000-0.034) ng/mL Serum Total Protein (6.3-8.2) g/dL Albumin (3.5-5.0) g/dL Lipase (23-300) U/L Urine Color (YELLOW) Urine Appearance (CLEAR) Urine pH (5-6) Ur Specific [place] (1.005-1.025) Urine Protein (Negative) Urine Ketones (NEGATIVE) Urine Blood (0-5) Junito/ul Urine Nitrite (NEGATIVE) Urine Bilirubin (NEGATIVE) Urine Urobilinogen (0-1) mg/dL Ur Leukocyte Esterase (NEGATIVE) Urine WBC (Auto) (0-5) /HPF Urine RBC (Auto) (0-2) /HPF U Epithel Cells (Auto) (FEW) /HPF Urine Bacteria (Auto) (NEGATIVE) /HPF Urine Culture Reflexed (NO) Urine Glucose (NEGATIVE) mg/dL Urine Opiates Level (NEGATIVE) Ur Methadone (NEGATIVE) Urine Barbiturates (NEGATIVE) Ur Phencyclidine (PCP) (NEGATIVE) Urine Amphetamine (NEGATIVE) U Benzodiazepine Level (NEGATIVE) Urine Cocaine (NEGATIVE) Urine Marijuana (THC) (NEGATIVE) Ethyl Alcohol < 10 (0-10) mg/dL 12/01/19 12/01/19 12/01/19 Range/Units 20:56 21:09 21:09 WBC (4.0-10.5) K/mm3 RBC (4.1-5.6) M/mm3 Hgb (12.5-18.0) gm/dl Hct (42-50) % MCV (78-100) fl MCH (26-32) pg MCHC (32-36) g/dl RDW (11.5-14.0) % Plt Count (150-450) K/mm3 MPV (7.5-11.0) fl Gran % (36.0-66.0) % Eos # (Auto) (0-0.5) Absolute Lymphs (auto) (1.0-4.6) Absolute Monos (auto) (0.0-1.3) Lymphocytes % (24.0-44.0) % Monocytes % (0.0-12.0) % Eosinophils % (0.00-5.0) % Basophils % (0.0-0.4) % Absolute Granulocytes (1.4-6.9) Basophils # (0-0.4) Sodium (137-145) mmol/L Potassium (3.5-5.1) mmol/L Chloride (98-107) mmol/L Carbon Dioxide (22-30) mmol/L Anion Gap (5-15) MEQ/L BUN (9-20) mg/dL Creatinine (0.66-1.25) mg/dL Estimated GFR ML/MIN Glucose 472 H (74-106) mg/dL POC Glucometer 472 H (50 to 500) mg/dL Calcium (8.4-10.2) mg/dL Total Bilirubin (0.2-1.3) mg/dL AST (17-59) U/L ALT (0-50) U/L Alkaline Phosphatase (38-126) U/L Troponin I < 0.012 (0.000-0.034) ng/mL Serum Total Protein (6.3-8.2) g/dL Albumin (3.5-5.0) g/dL Lipase (23-300) U/L Urine Color (YELLOW) Urine Appearance (CLEAR) Urine pH (5-6) Ur Specific [place] (1.005-1.025) Urine Protein (Negative) Urine Ketones (NEGATIVE) Urine Blood (0-5) Junito/ul Urine Nitrite (NEGATIVE) Urine Bilirubin (NEGATIVE) Urine Urobilinogen (0-1) mg/dL Ur Leukocyte Esterase (NEGATIVE) Urine WBC (Auto) (0-5) /HPF Urine RBC (Auto) (0-2) /HPF U Epithel Cells (Auto) (FEW) /HPF Urine Bacteria (Auto) (NEGATIVE) /HPF Urine Culture Reflexed (NO) Urine Glucose (NEGATIVE) mg/dL Urine Opiates Level (NEGATIVE) Ur Methadone (NEGATIVE) Urine Barbiturates (NEGATIVE) Ur Phencyclidine (PCP) (NEGATIVE) Urine Amphetamine (NEGATIVE) U Benzodiazepine Level (NEGATIVE) Urine Cocaine (NEGATIVE) Urine Marijuana (THC) (NEGATIVE) Ethyl Alcohol (0-10) mg/dL 12/01/19 12/01/19 12/01/19 Range/Units 22:17 22:17 23:54 WBC (4.0-10.5) K/mm3 RBC (4.1-5.6) M/mm3 Hgb (12.5-18.0) gm/dl Hct (42-50) % MCV (78-100) fl MCH (26-32) pg MCHC (32-36) g/dl RDW (11.5-14.0) % Plt Count (150-450) K/mm3 MPV (7.5-11.0) fl Gran % (36.0-66.0) % Eos # (Auto) (0-0.5) Absolute Lymphs (auto) (1.0-4.6) Absolute Monos (auto) (0.0-1.3) Lymphocytes % (24.0-44.0) % Monocytes % (0.0-12.0) % Eosinophils % (0.00-5.0) % Basophils % (0.0-0.4) % Absolute Granulocytes (1.4-6.9) Basophils # (0-0.4) Sodium (137-145) mmol/L Potassium (3.5-5.1) mmol/L Chloride (98-107) mmol/L Carbon Dioxide (22-30) mmol/L Anion Gap (5-15) MEQ/L BUN (9-20) mg/dL Creatinine (0.66-1.25) mg/dL Estimated GFR ML/MIN Glucose (74-106) mg/dL POC Glucometer 161 H (50 to 500) mg/dL Calcium (8.4-10.2) mg/dL Total Bilirubin (0.2-1.3) mg/dL AST (17-59) U/L ALT (0-50) U/L Alkaline Phosphatase (38-126) U/L Troponin I (0.000-0.034) ng/mL Serum Total Protein (6.3-8.2) g/dL Albumin (3.5-5.0) g/dL Lipase (23-300) U/L Urine Color STRAW (YELLOW) Urine Appearance CLEAR (CLEAR) Urine pH 6.0 (5-6) Ur Specific [place] 1.028 (1.005-1.025) Urine Protein NEGATIVE (Negative) Urine Ketones NEGATIVE (NEGATIVE) Urine Blood NEGATIVE (0-5) [place]/ul Urine Nitrite NEGATIVE (NEGATIVE) Urine Bilirubin NEGATIVE (NEGATIVE) Urine Urobilinogen NEGATIVE (0-1) mg/dL Ur Leukocyte Esterase NEGATIVE (NEGATIVE) Urine WBC (Auto) NONE SEEN (0-5) /HPF Urine RBC (Auto) NONE SEEN (0-2) /HPF U Epithel Cells (Auto) NONE (FEW) /HPF Urine Bacteria (Auto) NONE SEEN (NEGATIVE) /HPF Urine Culture Reflexed NO (NO) Urine Glucose >=500 (NEGATIVE) mg/dL Urine Opiates Level POSITIVE (NEGATIVE) Ur Methadone NEGATIVE (NEGATIVE) Urine Barbiturates NEGATIVE (NEGATIVE) Ur Phencyclidine (PCP) NEGATIVE (NEGATIVE) Urine Amphetamine POSITIVE (NEGATIVE) U Benzodiazepine Level NEGATIVE (NEGATIVE) Urine Cocaine NEGATIVE (NEGATIVE) Urine Marijuana (THC) NEGATIVE (NEGATIVE) Ethyl Alcohol (0-10) mg/dL 12/02/19 12/02/19 12/02/19 Range/Units 00:23 01:22 03:25 WBC (4.0-10.5) K/mm3 RBC (4.1-5.6) M/mm3 Hgb (12.5-18.0) gm/dl Hct (42-50) % MCV (78-100) fl MCH (26-32) pg MCHC (32-36) g/dl RDW (11.5-14.0) % Plt Count (150-450) K/mm3 MPV (7.5-11.0) fl Gran % (36.0-66.0) % Eos # (Auto) (0-0.5) Absolute Lymphs (auto) (1.0-4.6) Absolute Monos (auto) (0.0-1.3) Lymphocytes % (24.0-44.0) % Monocytes % (0.0-12.0) % Eosinophils % (0.00-5.0) % Basophils % (0.0-0.4) % Absolute Granulocytes (1.4-6.9) Basophils # (0-0.4) Sodium (137-145) mmol/L Potassium (3.5-5.1) mmol/L Chloride (98-107) mmol/L Carbon Dioxide (22-30) mmol/L Anion Gap (5-15) MEQ/L BUN (9-20) mg/dL Creatinine (0.66-1.25) mg/dL Estimated GFR ML/MIN Glucose (74-106) mg/dL POC Glucometer 77 (50 to 500) mg/dL Calcium (8.4-10.2) mg/dL Total Bilirubin (0.2-1.3) mg/dL AST (17-59) U/L ALT (0-50) U/L Alkaline Phosphatase (38-126) U/L Troponin I < 0.012 < 0.012 (0.000-0.034) ng/mL Serum Total Protein (6.3-8.2) g/dL Albumin (3.5-5.0) g/dL Lipase (23-300) U/L Urine Color (YELLOW) Urine Appearance (CLEAR) Urine pH (5-6) Ur Specific [place] (1.005-1.025) Urine Protein (Negative) Urine Ketones (NEGATIVE) Urine Blood (0-5) Junito/ul Urine Nitrite (NEGATIVE) Urine Bilirubin (NEGATIVE) Urine Urobilinogen (0-1) mg/dL Ur Leukocyte Esterase (NEGATIVE) Urine WBC (Auto) (0-5) /HPF Urine RBC (Auto) (0-2) /HPF U Epithel Cells (Auto) (FEW) /HPF Urine Bacteria (Auto) (NEGATIVE) /HPF Urine Culture Reflexed (NO) Urine Glucose (NEGATIVE) mg/dL Urine Opiates Level (NEGATIVE) Ur Methadone (NEGATIVE) Urine Barbiturates (NEGATIVE) Ur Phencyclidine (PCP) (NEGATIVE) Urine Amphetamine (NEGATIVE) U Benzodiazepine Level (NEGATIVE) Urine Cocaine (NEGATIVE) Urine Marijuana (THC) (NEGATIVE) Ethyl Alcohol (0-10) mg/dL 12/02/19 12/02/19 12/02/19 Range/Units 03:25 03:25 04:08 WBC 7.3 (4.0-10.5) K/mm3 RBC 4.54 (4.1-5.6) M/mm3 Hgb 14.3 D (12.5-18.0) gm/dl Hct 41.9 L (42-50) % MCV 92.3 (78-100) fl MCH 31.5 (26-32) pg MCHC 34.1 (32-36) g/dl RDW 13.3 (11.5-14.0) % Plt Count 166 (150-450) K/mm3 MPV 11.3 H (7.5-11.0) fl Gran % 59.9 (36.0-66.0) % Eos # (Auto) 0.11 (0-0.5) Absolute Lymphs (auto) 2.15 (1.0-4.6) Absolute Monos (auto) 0.63 (0.0-1.3) Lymphocytes % 29.5 (24.0-44.0) % Monocytes % 8.6 (0.0-12.0) % Eosinophils % 1.5 (0.00-5.0) % Basophils % 0.5 (0.0-0.4) % Absolute Granulocytes 4.37 (1.4-6.9) Basophils # 0.04 (0-0.4) Sodium 131 L (137-145) mmol/L Potassium 4.1 (3.5-5.1) mmol/L Chloride 101 (98-107) mmol/L Carbon Dioxide 22 (22-30) mmol/L Anion Gap 11.9 (5-15) MEQ/L BUN 12 (9-20) mg/dL Creatinine 0.95 (0.66-1.25) mg/dL Estimated GFR > 60.0 ML/MIN Glucose 298 H (74-106) mg/dL POC Glucometer 293 H (50 to 500) mg/dL Calcium 8.2 L (8.4-10.2) mg/dL Total Bilirubin 0.60 (0.2-1.3) mg/dL AST 42 (17-59) U/L ALT 42 (0-50) U/L Alkaline Phosphatase 149 H (38-126) U/L Troponin I (0.000-0.034) ng/mL Serum Total Protein 6.4 (6.3-8.2) g/dL Albumin 3.2 L (3.5-5.0) g/dL Lipase (23-300) U/L Urine Color (YELLOW) Urine Appearance (CLEAR) Urine pH (5-6) Ur Specific [place] (1.005-1.025) Urine Protein (Negative) Urine Ketones (NEGATIVE) Urine Blood (0-5) Junito/ul Urine Nitrite (NEGATIVE) Urine Bilirubin (NEGATIVE) Urine Urobilinogen (0-1) mg/dL Ur Leukocyte Esterase (NEGATIVE) Urine WBC (Auto) (0-5) /HPF Urine RBC (Auto) (0-2) /HPF U Epithel Cells (Auto) (FEW) /HPF Urine Bacteria (Auto) (NEGATIVE) /HPF Urine Culture Reflexed (NO) Urine Glucose (NEGATIVE) mg/dL Urine Opiates Level (NEGATIVE) Ur Methadone (NEGATIVE) Urine Barbiturates (NEGATIVE) Ur Phencyclidine (PCP) (NEGATIVE) Urine Amphetamine (NEGATIVE) U Benzodiazepine Level (NEGATIVE) Urine Cocaine (NEGATIVE) Urine Marijuana (THC) (NEGATIVE) Ethyl Alcohol (0-10) mg/dL 12/02/19 12/02/19 12/02/19 Range/Units 08:37 11:37 11:37 WBC (4.0-10.5) K/mm3 RBC (4.1-5.6) M/mm3 Hgb (12.5-18.0) gm/dl Hct (42-50) % MCV (78-100) fl MCH (26-32) pg MCHC (32-36) g/dl RDW (11.5-14.0) % Plt Count (150-450) K/mm3 MPV (7.5-11.0) fl Gran % (36.0-66.0) % Eos # (Auto) (0-0.5) Absolute Lymphs (auto) (1.0-4.6) Absolute Monos (auto) (0.0-1.3) Lymphocytes % (24.0-44.0) % Monocytes % (0.0-12.0) % Eosinophils % (0.00-5.0) % Basophils % (0.0-0.4) % Absolute Granulocytes (1.4-6.9) Basophils # (0-0.4) Sodium (137-145) mmol/L Potassium (3.5-5.1) mmol/L Chloride (98-107) mmol/L Carbon Dioxide (22-30) mmol/L Anion Gap (5-15) MEQ/L BUN (9-20) mg/dL Creatinine (0.66-1.25) mg/dL Estimated GFR ML/MIN Glucose (74-106) mg/dL POC Glucometer 429 H 194 H 194 H (50 to 500) mg/dL Calcium (8.4-10.2) mg/dL Total Bilirubin (0.2-1.3) mg/dL AST (17-59) U/L ALT (0-50) U/L Alkaline Phosphatase (38-126) U/L Troponin I (0.000-0.034) ng/mL Serum Total Protein (6.3-8.2) g/dL Albumin (3.5-5.0) g/dL Lipase (23-300) U/L Urine Color (YELLOW) Urine Appearance (CLEAR) Urine pH (5-6) Ur Specific [place] (1.005-1.025) Urine Protein (Negative) Urine Ketones (NEGATIVE) Urine Blood (0-5) Junito/ul Urine Nitrite (NEGATIVE) Urine Bilirubin (NEGATIVE) Urine Urobilinogen (0-1) mg/dL Ur Leukocyte Esterase (NEGATIVE) Urine WBC (Auto) (0-5) /HPF Urine RBC (Auto) (0-2) /HPF U Epithel Cells (Auto) (FEW) /HPF Urine Bacteria (Auto) (NEGATIVE) /HPF Urine Culture Reflexed (NO) Urine Glucose (NEGATIVE) mg/dL Urine Opiates Level (NEGATIVE) Ur Methadone (NEGATIVE) Urine Barbiturates (NEGATIVE) Ur Phencyclidine (PCP) (NEGATIVE) Urine Amphetamine (NEGATIVE) U Benzodiazepine Level (NEGATIVE) Urine Cocaine (NEGATIVE) Urine Marijuana (THC) (NEGATIVE) Ethyl Alcohol (0-10) mg/dL Accuchecks Date 12/02/19 Date 12/02/19 Date 12/02/19 Date 12/02/19 Date 12/02/19 Date 12/01/19 Time 11:51 Time 08:43 Time 07:24 Time 04:08 Time 00:00 Time 20:50 Accucheck Value: 194 Accucheck Value: 429 Accucheck Value: 161 Accucheck Value: 472 Accucheck Value: 313 - Radiology Impressions Radiology Exams & Impressions: Radiology Procedures Category Date Time Status CHEST 1 VIEW (PORTABLE) Stat Exams 12/01/19 14:57 Completed - Other Procedures and Tests Respiratory Therapy 12/01/19 17:58 Respiratory Therapy Assessment ROUTINE 12/01/19 18:49 Peak Expiratory Flow Rate ONCE Assessment/Plan (1) Chest pain, rule out acute myocardial infarction Current Visit: Yes Status: Resolved Code(s): R07.9 - CHEST PAIN, UNSPECIFIED (2) Acute renal injury Current Visit: Yes Status: Resolved Code(s): N17.9 - ACUTE KIDNEY FAILURE, UNSPECIFIED (3) Uncontrolled hypertension Current Visit: Yes Status: Resolved Assessment & Plan: home on lisinopril 10mg and metoprolol 25mg ER daily Code(s): I10 - ESSENTIAL (PRIMARY) HYPERTENSION (4) Diabetes type 2, uncontrolled Current Visit: No Status: Acute Qualifiers: Glycemic state: with hyperglycemia Qualified Code(s): E11.65 - Type 2 diabetes mellitus with hyperglycemia Code(s): E11.65 - TYPE 2 DIABETES MELLITUS WITH HYPERGLYCEMIA (5) Generalized abdominal pain Current Visit: No Status: Chronic Code(s): R10.84 - GENERALIZED ABDOMINAL PAIN (6) Illicit drug use Current Visit: No Status: Chronic Code(s): F19.90 - OTHER PSYCHOACTIVE IRIZARRY BSTANCE USE, UNSPECIFIED, UNCOMPLICATED (7) Depression Current Visit: No Status: Chronic Qualifiers: Depression Type: major depressive disorder Major depression recurrence: recurrent Active/Remission status: currently active Major depression episode severity: moderate Qualified Code(s): F33.1 - Major depressive disorder, recurrent, moderate Assessment & Plan: no suicidal ideation Code(s): F32.9 - MAJOR DEPRESSIVE DISORDER, SINGLE EPISODE, UNSPECIFIED Hospital Summary - Hospital Course Hospital Course: Pt is 54 yo with DM and heart hx admitted with CP - DE ruled out. Hypertensive emergency resolved; being sent home on anti-hypertensives and following up with new PCP this week. - Vitals & Intake/Output Vital Signs: Vital Signs Temperature 98.2 F 12/02/19 07:38 Pulse Rate 82 12/02/19 11:51 Respiratory Rate 16 12/02/19 08:30 Blood Pressure 134/89 12/02/19 07:38 O2 Sat by Pulse Oximetry 99 12/02/19 08:30 Intake & Output: Intake & Output 11/30/19 12/01/19 12/02/19 12/03/19 11:59 11:59 11:59 11:59 Intake Total 2625 Output Total 1810 Balance 815 Weight 57.1 kg - Lab Result Diagrams: 12/02/19 03:25 12/02/19 03:25 Lab Results-Last 24 Hrs: Accuchecks Date 12/02/19 Date 12/02/19 Date 12/02/19 Date 12/02/19 Date 12/02/19 Date 12/01/19 Time 11:51 Time 08:43 Time 07:24 Time 04:08 Time 00:00 Time 20:50 Accucheck Value: 194 Accucheck Value: 429 Accucheck Value: 161 Accucheck Value: 472 Accucheck Value: 313 Lab Results-Last 24 Hours 12/01/19 12/01/19 12/01/19 Range/Units 15:00 15:00 15:00 WBC 7.7 (4.0-10.5) K/mm3 RBC 5.82 H (4.1-5.6) M/mm3 Hgb 18.5 H (12.5-18.0) gm/dl Hct 52.9 H (42-50) % MCV 90.9 (78-100) fl MCH 31.8 (26-32) pg MCHC 35.0 (32-36) g/dl RDW 13.7 (11.5-14.0) % Plt Count 208 (150-450) K/mm3 MPV 12.6 H (7.5-11.0) fl Gran % 54.0 (36.0-66.0) % Eos # (Auto) 0.08 (0-0.5) Absolute Lymphs (auto) 2.74 (1.0-4.6) Absolute Monos (auto) 0.69 (0.0-1.3) Lymphocytes % 35.6 (24.0-44.0) % Monocytes % 9.0 (0.0-12.0) % Eosinophils % 1.0 (0.00-5.0) % Basophils % 0.4 (0.0-0.4) % Absolute Granulocytes 4.15 (1.4-6.9) Basophils # 0.03 (0-0.4) Sodium 132 L (137-145) mmol/L Potassium 3.6 (3.5-5.1) mmol/L Chloride 95 L (98-107) mmol/L Carbon Dioxide 23 (22-30) mmol/L Anion Gap 17.0 H (5-15) MEQ/L BUN 11 (9-20) mg/dL Creatinine 1.29 H (0.66-1.25) mg/dL Estimated GFR > 60.0 ML/MIN Glucose 434 H (74-106) mg/dL POC Glucometer (50 to 500) mg/dL Calcium 9.4 (8.4-10.2) mg/dL Total Bilirubin 0.80 (0.2-1.3) mg/dL AST 57 (17-59) U/L ALT 62 H (0-50) U/L Alkaline Phosphatase 231 H (38-126) U/L Troponin I < 0.012 (0.000-0.034) ng/mL Serum Total Protein 8.6 H (6.3-8.2) g/dL Albumin 4.5 (3.5-5.0) g/dL Lipase 401 H (23-300) U/L Urine Color (YELLOW) Urine Appearance (CLEAR) Urine pH (5-6) Ur Specific [place] (1.005-1.025) Urine Protein (Negative) Urine Ketones (NEGATIVE) Urine Blood (0-5) [place]/ul Urine Nitrite (NEGATIVE) Urine Bilirubin (NEGATIVE) Urine Urobilinogen (0-1) mg/dL Ur Leukocyte Esterase (NEGATIVE) Urine WBC (Auto) (0-5) /HPF Urine RBC (Auto) (0-2) /HPF U Epithel Cells (Auto) (FEW) /HPF Urine Bacteria (Auto) (NEGATIVE) /HPF Urine Culture Reflexed (NO) Urine Glucose (NEGATIVE) mg/dL Urine Opiates Level (NEGATIVE) Ur Methadone (NEGATIVE) Urine Barbiturates (NEGATIVE) Ur Phencyclidine (PCP) (NEGATIVE) Urine Amphetamine (NEGATIVE) U Benzodiazepine Level (NEGATIVE) Urine Cocaine (NEGATIVE) Urine Marijuana (THC) (NEGATIVE) Ethyl Alcohol (0-10) mg/dL 12/01/19 12/01/19 12/01/19 Range/Units 15:53 18:05 20:48 WBC (4.0-10.5) K/mm3 RBC (4.1-5.6) M/mm3 Hgb (12.5-18.0) gm/dl Hct (42-50) % MCV (78-100) fl MCH (26-32) pg MCHC (32-36) g/dl RDW (11.5-14.0) % Plt Count (150-450) K/mm3 MPV (7.5-11.0) fl Gran % (36.0-66.0) % Eos # (Auto) (0-0.5) Absolute Lymphs (auto) (1.0-4.6) Absolute Monos (auto) (0.0-1.3) Lymphocytes % (24.0-44.0) % Monocytes % (0.0-12.0) % Eosinophils % (0.00-5.0) % Basophils % (0.0-0.4) % Absolute Granulocytes (1.4-6.9) Basophils # (0-0.4) Sodium (137-145) mmol/L Potassium (3.5-5.1) mmol/L Chloride (98-107) mmol/L Carbon Dioxide (22-30) mmol/L Anion Gap (5-15) MEQ/L BUN (9-20) mg/dL Creatinine (0.66-1.25) mg/dL Estimated GFR ML/MIN Glucose (74-106) mg/dL POC Glucometer 546 H* (50 to 500) mg/dL Calcium (8.4-10.2) mg/dL Total Bilirubin (0.2-1.3) mg/dL AST (17-59) U/L ALT (0-50) U/L Alkaline Phosphatase (38-126) U/L Troponin I < 0.012 (0.000-0.034) ng/mL Serum Total Protein (6.3-8.2) g/dL Albumin (3.5-5.0) g/dL Lipase (23-300) U/L Urine Color (YELLOW) Urine Appearance (CLEAR) Urine pH (5-6) Ur Specific [place] (1.005-1.025) Urine Protein (Negative) Urine Ketones (NEGATIVE) Urine Blood (0-5) [place]/ul Urine Nitrite (NEGATIVE) Urine Bilirubin (NEGATIVE) Urine Urobilinogen (0-1) mg/dL Ur Leukocyte Esterase (NEGATIVE) Urine WBC (Auto) (0-5) /HPF Urine RBC (Auto) (0-2) /HPF U Epithel Cells (Auto) (FEW) /HPF Urine Bacteria (Auto) (NEGATIVE) /HPF Urine Culture Reflexed (NO) Urine Glucose (NEGATIVE) mg/dL Urine Opiates Level (NEGATIVE) Ur Methadone (NEGATIVE) Urine Barbiturates (NEGATIVE) Ur Phencyclidine (PCP) (NEGATIVE) Urine Amphetamine (NEGATIVE) U Benzodiazepine Level (NEGATIVE) Urine Cocaine (NEGATIVE) Urine Marijuana (THC) (NEGATIVE) Ethyl Alcohol < 10 (0-10) mg/dL 12/01/19 12/01/19 12/01/19 Range/Units 20:56 21:09 21:09 WBC (4.0-10.5) K/mm3 RBC (4.1-5.6) M/mm3 Hgb (12.5-18.0) gm/dl Hct (42-50) % MCV (78-100) fl MCH (26-32) pg MCHC (32-36) g/dl RDW (11.5-14.0) % Plt Count (150-450) K/mm3 MPV (7.5-11.0) fl Gran % (36.0-66.0) % Eos # (Auto) (0-0.5) Absolute Lymphs (auto) (1.0-4.6) Absolute Monos (auto) (0.0-1.3) Lymphocytes % (24.0-44.0) % Monocytes % (0.0-12.0) % Eosinophils % (0.00-5.0) % Basophils % (0.0-0.4) % Absolute Granulocytes (1.4-6.9) Basophils # (0-0.4) Sodium (137-145) mmol/L Potassium (3.5-5.1) mmol/L Chloride (98-107) mmol/L Carbon Dioxide (22-30) mmol/L Anion Gap (5-15) MEQ/L BUN (9-20) mg/dL Creatinine (0.66-1.25) mg/dL Estimated GFR ML/MIN Glucose 472 H (74-106) mg/dL POC Glucometer 472 H (50 to 500) mg/dL Calcium (8.4-10.2) mg/dL Total Bilirubin (0.2-1.3) mg/dL AST (17-59) U/L ALT (0-50) U/L Alkaline Phosphatase (38-126) U/L Troponin I < 0.012 (0.000-0.034) ng/mL Serum Total Protein (6.3-8.2) g/dL Albumin (3.5-5.0) g/dL Lipase (23-300) U/L Urine Color (YELLOW) Urine Appearance (CLEAR) Urine pH (5-6) Ur Specific [place] (1.005-1.025) Urine Protein (Negative) Urine Ketones (NEGATIVE) Urine Blood (0-5) Junito/ul Urine Nitrite (NEGATIVE) Urine Bilirubin (NEGATIVE) Urine Urobilinogen (0-1) mg/dL Ur Leukocyte Esterase (NEGATIVE) Urine WBC (Auto) (0-5) /HPF Urine RBC (Auto) (0-2) /HPF U Epithel Cells (Auto) (FEW) /HPF Urine Bacteria (Auto) (NEGATIVE) /HPF Urine Culture Reflexed (NO) Urine Glucose (NEGATIVE) mg/dL Urine Opiates Level (NEGATIVE) Ur Methadone (NEGATIVE) Urine Barbiturates (NEGATIVE) Ur Phencyclidine (PCP) (NEGATIVE) Urine Amphetamine (NEGATIVE) U Benzodiazepine Level (NEGATIVE) Urine Cocaine (NEGATIVE) Urine Marijuana (THC) (NEGATIVE) Ethyl Alcohol (0-10) mg/dL 12/01/19 12/01/19 12/01/19 Range/Units 22:17 22:17 23:54 WBC (4.0-10.5) K/mm3 RBC (4.1-5.6) M/mm3 Hgb (12.5-18.0) gm/dl Hct (42-50) % MCV (78-100) fl MCH (26-32) pg MCHC (32-36) g/dl RDW (11.5-14.0) % Plt Count (150-450) K/mm3 MPV (7.5-11.0) fl Gran % (36.0-66.0) % Eos # (Auto) (0-0.5) Absolute Lymphs (auto) (1.0-4.6) Absolute Monos (auto) (0.0-1.3) Lymphocytes % (24.0-44.0) % Monocytes % (0.0-12.0) % Eosinophils % (0.00-5.0) % Basophils % (0.0-0.4) % Absolute Granulocytes (1.4-6.9) Basophils # (0-0.4) Sodium (137-145) mmol/L Potassium (3.5-5.1) mmol/L Chloride (98-107) mmol/L Carbon Dioxide (22-30) mmol/L Anion Gap (5-15) MEQ/L BUN (9-20) mg/dL Creatinine (0.66-1.25) mg/dL Estimated GFR ML/MIN Glucose (74-106) mg/dL POC Glucometer 161 H (50 to 500) mg/dL Calcium (8.4-10.2) mg/dL Total Bilirubin (0.2-1.3) mg/dL AST (17-59) U/L ALT (0-50) U/L Alkaline Phosphatase (38-126) U/L Troponin I (0.000-0.034) ng/mL Serum Total Protein (6.3-8.2) g/dL Albumin (3.5-5.0) g/dL Lipase (23-300) U/L Urine Color STRAW (YELLOW) Urine Appearance CLEAR (CLEAR) Urine pH 6.0 (5-6) Ur Specific [place] 1.028 (1.005-1.025) Urine Protein NEGATIVE (Negative) Urine Ketones NEGATIVE (NEGATIVE) Urine Blood NEGATIVE (0-5) Junito/ul Urine Nitrite NEGATIVE (NEGATIVE) Urine Bilirubin NEGATIVE (NEGATIVE) Urine Urobilinogen NEGATIVE (0-1) mg/dL Ur Leukocyte Esterase NEGATIVE (NEGATIVE) Urine WBC (Auto) NONE SEEN (0-5) /HPF Urine RBC (Auto) NONE SEEN (0-2) /HPF U Epithel Cells (Auto) NONE (FEW) /HPF Urine Bacteria (Auto) NONE SEEN (NEGATIVE) /HPF Urine Culture Reflexed NO (NO) Urine Glucose >=500 (NEGATIVE) mg/dL Urine Opiates Level POSITIVE (NEGATIVE) Ur Methadone NEGATIVE (NEGATIVE) Urine Barbiturates NEGATIVE (NEGATIVE) Ur Phencyclidine (PCP) NEGATIVE (NEGATIVE) Urine Amphetamine POSITIVE (NEGATIVE) U Benzodiazepine Level NEGATIVE (NEGATIVE) Urine Cocaine NEGATIVE (NEGATIVE) Urine Marijuana (THC) NEGATIVE (NEGATIVE) Ethyl Alcohol (0-10) mg/dL 12/02/19 12/02/19 12/02/19 Range/Units 00:23 01:22 03:25 WBC (4.0-10.5) K/mm3 RBC (4.1-5.6) M/mm3 Hgb (12.5-18.0) gm/dl Hct (42-50) % MCV (78-100) fl MCH (26-32) pg MCHC (32-36) g/dl RDW (11.5-14.0) % Plt Count (150-450) K/mm3 MPV (7.5-11.0) fl Gran % (36.0-66.0) % Eos # (Auto) (0-0.5) Absolute Lymphs (auto) (1.0-4.6) Absolute Monos (auto) (0.0-1.3) Lymphocytes % (24.0-44.0) % Monocytes % (0.0-12.0) % Eosinophils % (0.00-5.0) % Basophils % (0.0-0.4) % Absolute Granulocytes (1.4-6.9) Basophils # (0-0.4) Sodium (137-145) mmol/L Potassium (3.5-5.1) mmol/L Chloride (98-107) mmol/L Carbon Dioxide (22-30) mmol/L Anion Gap (5-15) MEQ/L BUN (9-20) mg/dL Creatinine (0.66-1.25) mg/dL Estimated GFR ML/MIN Glucose (74-106) mg/dL POC Glucometer 77 (50 to 500) mg/dL Calcium (8.4-10.2) mg/dL Total Bilirubin (0.2-1.3) mg/dL AST (17-59) U/L ALT (0-50) U/L Alkaline Phosphatase (38-126) U/L Troponin I < 0.012 < 0.012 (0.000-0.034) ng/mL Serum Total Protein (6.3-8.2) g/dL Albumin (3.5-5.0) g/dL Lipase (23-300) U/L Urine Color (YELLOW) Urine Appearance (CLEAR) Urine pH (5-6) Ur Specific [place] (1.005-1.025) Urine Protein (Negative) Urine Ketones (NEGATIVE) Urine Blood (0-5) Jun[place]/ul Urine Nitrite (NEGATIVE) Urine Bilirubin (NEGATIVE) Urine Urobilinogen (0-1) mg/dL Ur Leukocyte Esterase (NEGATIVE) Urine WBC (Auto) (0-5) /HPF Urine RBC (Auto) (0-2) /HPF U Epithel Cells (Auto) (FEW) /HPF Urine Bacteria (Auto) (NEGATIVE) /HPF Urine Culture Reflexed (NO) Urine Glucose (NEGATIVE) mg/dL Urine Opiates Level (NEGATIVE) Ur Methadone (NEGATIVE) Urine Barbiturates (NEGATIVE) Ur Phencyclidine (PCP) (NEGATIVE) Urine Amphetamine (NEGATIVE) U Benzodiazepine Level (NEGATIVE) Urine Cocaine (NEGATIVE) Urine Marijuana (THC) (NEGATIVE) Ethyl Alcohol (0-10) mg/dL 12/02/19 12/02/19 12/02/19 Range/Units 03:25 03:25 04:08 WBC 7.3 (4.0-10.5) K/mm3 RBC 4.54 (4.1-5.6) M/mm3 Hgb 14.3 D (12.5-18.0) gm/dl Hct 41.9 L (42-50) % MCV 92.3 (78-100) fl MCH 31.5 (26-32) pg MCHC 34.1 (32-36) g/dl RDW 13.3 (11.5-14.0) % Plt Count 166 (150-450) K/mm3 MPV 11.3 H (7.5-11.0) fl Gran % 59.9 (36.0-66.0) % Eos # (Auto) 0.11 (0-0.5) Absolute Lymphs (auto) 2.15 (1.0-4.6) Absolute Monos (auto) 0.63 (0.0-1.3) Lymphocytes % 29.5 (24.0-44.0) % Monocytes % 8.6 (0.0-12.0) % Eosinophils % 1.5 (0.00-5.0) % Basophils % 0.5 (0.0-0.4) % Absolute Granulocytes 4.37 (1.4-6.9) Basophils # 0.04 (0-0.4) Sodium 131 L (137-145) mmol/L Potassium 4.1 (3.5-5.1) mmol/L Chloride 101 (98-107) mmol/L Carbon Dioxide 22 (22-30) mmol/L Anion Gap 11.9 (5-15) MEQ/L BUN 12 (9-20) mg/dL Creatinine 0.95 (0.66-1.25) mg/dL Estimated GFR > 60.0 ML/MIN Glucose 298 H (74-106) mg/dL POC Glucometer 293 H (50 to 500) mg/dL Calcium 8.2 L (8.4-10.2) mg/dL Total Bilirubin 0.60 (0.2-1.3) mg/dL AST 42 (17-59) U/L ALT 42 (0-50) U/L Alkaline Phosphatase 149 H (38-126) U/L Troponin I (0.000-0.034) ng/mL Serum Total Protein 6.4 (6.3-8.2) g/dL Albumin 3.2 L (3.5-5.0) g/dL Lipase (23-300) U/L Urine Color (YELLOW) Urine Appearance (CLEAR) Urine pH (5-6) Ur Specific [place] (1.005-1.025) Urine Protein (Negative) Urine Ketones (NEGATIVE) Urine Blood (0-5) Junito/ul Urine Nitrite (NEGATIVE) Urine Bilirubin (NEGATIVE) Urine Urobilinogen (0-1) mg/dL Ur Leukocyte Esterase (NEGATIVE) Urine WBC (Auto) (0-5) /HPF Urine RBC (Auto) (0-2) /HPF U Epithel Cells (Auto) (FEW) /HPF Urine Bacteria (Auto) (NEGATIVE) /HPF Urine Culture Reflexed (NO) Urine Glucose (NEGATIVE) mg/dL Urine Opiates Level (NEGATIVE) Ur Methadone (NEGATIVE) Urine Barbiturates (NEGATIVE) Ur Phencyclidine (PCP) (NEGATIVE) Urine Amphetamine (NEGATIVE) U Benzodiazepine Level (NEGATIVE) Urine Cocaine (NEGATIVE) Urine Marijuana (THC) (NEGATIVE) Ethyl Alcohol (0-10) mg/dL 12/02/19 12/02/19 12/02/19 Range/Units 08:37 11:37 11:37 WBC (4.0-10.5) K/mm3 RBC (4.1-5.6) M/mm3 Hgb (12.5-18.0) gm/dl Hct (42-50) % MCV (78-100) fl MCH (26-32) pg MCHC (32-36) g/dl RDW (11.5-14.0) % Plt Count (150-450) K/mm3 MPV (7.5-11.0) fl Gran % (36.0-66.0) % Eos # (Auto) (0-0.5) Absolute Lymphs (auto) (1.0-4.6) Absolute Monos (auto) (0.0-1.3) Lymphocytes % (24.0-44.0) % Monocytes % (0.0-12.0) % Eosinophils % (0.00-5.0) % Basophils % (0.0-0.4) % Absolute Granulocytes (1.4-6.9) Basophils # (0-0.4) Sodium (137-145) mmol/L Potassium (3.5-5.1) mmol/L Chloride (98-107) mmol/L Carbon Dioxide (22-30) mmol/L Anion Gap (5-15) MEQ/L BUN (9-20) mg/dL Creatinine (0.66-1.25) mg/dL Estimated GFR ML/MIN Glucose (74-106) mg/dL POC Glucometer 429 H 194 H 194 H (50 to 500) mg/dL Calcium (8.4-10.2) mg/dL Total Bilirubin (0.2-1.3) mg/dL AST (17-59) U/L ALT (0-50) U/L Alkaline Phosphatase (38-126) U/L Troponin I (0.000-0.034) ng/mL Serum Total Protein (6.3-8.2) g/dL Albumin (3.5-5.0) g/dL Lipase (23-300) U/L Urine Color (YELLOW) Urine Appearance (CLEAR) Urine pH (5-6) Ur Specific [place] (1.005-1.025) Urine Protein (Negative) Urine Ketones (NEGATIVE) Urine Blood (0-5) Junito/ul Urine Nitrite (NEGATIVE) Urine Bilirubin (NEGATIVE) Urine Urobilinogen (0-1) mg/dL Ur Leukocyte Esterase (NEGATIVE) Urine WBC (Auto) (0-5) /HPF Urine RBC (Auto) (0-2) /HPF U Epithel Cells (Auto) (FEW) /HPF Urine Bacteria (Auto) (NEGATIVE) /HPF Urine Culture Reflexed (NO) Urine Glucose (NEGATIVE) mg/dL Urine Opiates Level (NEGATIVE) Ur Methadone (NEGATIVE) Urine Barbiturates (NEGATIVE) Ur Phencyclidine (PCP) (NEGATIVE) Urine Amphetamine (NEGATIVE) U Benzodiazepine Level (NEGATIVE) Urine Cocaine (NEGATIVE) Urine Marijuana (THC) (NEGATIVE) Ethyl Alcohol (0-10) mg/dL Micro Results-Entire Visit: Accuchecks Date 12/02/19 Date 12/02/19 Date 12/02/19 Date 12/02/19 Date 12/02/19 Date 12/01/19 Time 11:51 Time 08:43 Time 07:24 Time 04:08 Time 00:00 Time 20:50 Accucheck Value: 194 Accucheck Value: 429 Accucheck Value: 161 Accucheck Value: 472 Accucheck Value: 313 - Radiology Exams Ordered Rad Exams-Entire Visit: Radiology Procedures Category Date Time Status CHEST 1 VIEW (PORTABLE) Stat Exams 12/01/19 14:57 Completed - Procedures and Test Procedures and Tests throughout Hospitalization: Therapy Orders & Screens 12/01/19 17:58 Respiratory Therapy Assessment ROUTINE Comment: Diagnosis: CHEST PAIN RULE OUT DE 12/01/19 18:00 Smoking Cessation Education ONCE Comment: Diagnosis: CHEST PAIN RULE OUT DE Smoking Status: Current every day smoker How long have you smoked: years Have you smoked in the past 12 months: Yes Approximately how many cigarettes per day: 1 ppd Do you dip or chew tobacco: No 12/01/19 18:49 Peak Expiratory Flow Rate ONCE Comment: Reason For Exam: Diagnosis: CHEST PAIN RULE OUT DE - Discharge Disposition: Home, Self-Care Condition: Stable Prescriptions: New Metoprolol Succinate 25 mg Xl* [Toprol-Xl 25MG Tablets] 25 mg PO DAILY #30 tab Lisinopril 10 mg [Zestril 10 MG] 10 mg PO DAILY #30 tablet Continue Insulin Lispro [Humalog Kwikpen U-100] 10 unit SQ TID #3 [email or web address] Instructions: High Blood Pressure (DC) Follow up with: SAE DE LA O MD [ACTIVE STAFF] - Call for Appointment
[2019-12-02 13:21] VITALS: BP 136/78
[2019-12-02] MEDS ORDERED: INSULIN LISPRO 10 UNIT SQ SCH (15:00)
[2019-12-03 13:40] VITALS: O2SAT 100
== END 2019-12-02 13:53 | disposition home or self-care (01) ==
LOC: ED 14:20 → ICU 17:45 → INTOOBSV 17:45
PROVIDERS: ADMIT Family Medicine; ATTEND Family Medicine
DX: R07.9 Chest pain, unspecified (principal); I10 Essential (primary) hypertension; I16.1 Hypertensive emergency; E11.65 Type 2 diabetes mellitus with hyperglycemia; N17.9 Acute kidney failure, unspecified; M25.552 Pain in left hip; J44.9 Chronic obstructive pulmonary disease, unspecified; R10.84 Generalized abdominal pain; F19.90 Other psychoactive substance use, unspecified, uncomplicated; F32.9 Major depressive disorder, single episode, unspecified; I25.2 Old myocardial infarction; Z79.899 Other long term (current) drug therapy
CPT/HCPCS: 36415; 80053; 80307; 81001; 82947; 82962; 83036; 83690; 84484; 85025; 93005; 93268; 94150; 94640; 96372; 96374; 96375; 99291; G0378; 36000; 71045; 99284; J0360; J1815; J1817; J2270; J2405; A9270-GY; G0480

== ENCOUNTER 2020-06-08 14:47 | Emergency (ER) | payer OTHER ==
[2020-06-08] MEDS ORDERED: Zofran 4 MG/2 ML VIAL ONE (14:56)
[2020-06-08] MEDS ORDERED: MORPHINE SULFATE 4 MG INJ ONE ×2 (14:56→15:28)
[2020-06-08] MEDS ORDERED: Sodium Chloride 0.9% 1000 ML 1,000 ML ONE (14:59)
[2020-06-08] MEDS ORDERED: MORPHINE SULFATE 4 MG INJ IV ONE ×2 (15:04→15:42)
[2020-06-08] MEDS ORDERED: Nitrostat 0.4 MG (ED) SL ONE ×2 (15:04→15:12)
[2020-06-08] MEDS ORDERED: Zofran 4 MG/2 ML VIAL IV ONE (15:04)
[2020-06-08] MEDS ORDERED: BABY ASPIRIN 81 MG CHEW PO ONE (15:04)
[2020-06-08] MEDS ORDERED: Sodium Chloride 0.9% 1000 ML 1,000 ML IV SCH (15:15)
[2020-06-08 15:16] LABS: Absolute Neutrophil Ct (ANC) 4.26 (1.4-6.9); BASOPHIL % 0.7 % (0.0-0.4); Basophil (Absolute #) 0.05 (0-0.4); Eosinophil % 1.1 % (0.00-5.0); Eosinophil (Absolute #) 0.08 (0-0.5); Hemoglobin 16.6 gm/dl (12.5-18.0); Lymphocyte (Absolute #) 2.15 (1.0-4.6); Lymphocytes % 30.5 % (24.0-44.0); Mean Cell Volume 93.3 fl (78-100); Mean Corpuscular Hemoglobin 31.6 pg (26-32); Mean Corpuscular Hgb Concent. 33.9 g/dl (32-36); Mean Platelet Volume 11.5 fl (7.5-11.0); Monocyte (Absolute #) 0.51 (0.0-1.3); Monocytes % 7.2 % (0.0-12.0); Neutrophil % 60.5 % (36.0-66.0); Platelet Count 232 K/mm3 (150-450); Red Blood Count 5.25 M/mm3 (4.1-5.6); Red Cell Distribution Width 13.1 % (11.5-14.0); White Blood Count 7.1 K/mm3 (4.0-10.5)
[2020-06-08 15:22] LABS: INR 0.92 (0.8-3.0); PROTIME 10.4 SECONDS (8.83-12.87)
[2020-06-08 15:24] LABS: PTT 32.1 SECONDS (24.1-36.1)
[2020-06-08 15:28] LABS: ALBUMIN 4.5 g/dL (3.5-5.0); ALKALINE PHOSPHATASE 332 U/L (38-126); ANION GAP 16.5 MEQ/L (5-15); BLOOD UREA NITROGEN 14 mg/dL (9-20); CHLORIDE 91 mmol/L (98-107); CK-Creatinine Phosphokinase 64 U/L (55-170); Calcium 9.5 mg/dL (8.4-10.2); Carbon Dioxide 25 mmol/L (22-30); Creatinine 1 0.79 mg/dL (0.66-1.25); EST GLOMERULAR FILTRATION RATE > 60.0 ML/MIN; NT PRO BNP 1070 pg/mL (0-900); Potassium 4.6 mmol/L (3.5-5.1); SGOT/AST 47 U/L (17-59); SGPT/ALT 32 U/L (0-50); SODIUM 127 mmol/L (137-145); Total Protein 8.3 g/dL (6.3-8.2)
[2020-06-08 15:30] LABS: Glucose 621 mg/dL (74-106)
[2020-06-08 15:32] VITALS: O2SAT 98
[2020-06-08] MEDS ORDERED: HUMULIN R ONE (15:32)
[2020-06-08] MEDS ORDERED: Ntg 0.2MG/Ml in D5W GLASS*** 250 ML IV ONE (15:36)
[2020-06-08] MEDS ORDERED: Ntg 0.2MG/Ml in D5W GLASS*** 250 ML IV PRN (15:42)
--- NOTE | 2020-06-08 15:46 | ERPHSYRPT ---
- History of Present Illness Time Seen by Provider: 06/08/20 14:51 Historian: patient Exam Limitations: no limitations Physician History: 55 years old with history of CAD, hypertension, hyperlipidemia, diabetes mellitus, COPD, tobacco abuse presented in the ER with substernal chest pain since yesterday with radiation to the both sides, moderate to severe intensity without any significant aggravating or relieving factors and also having mild shortness of breath. Patient reports it feels like a pressure/heavy with sitting on his chest since yesterday. Denies any recent fever chills or sick contact. Timing/Duration: day(s) (1), gradual onset, worse Activities at Onset: rest Quality: fullness, pressure, sharpness Location: substernal Chest Pain Radiation: no radiation Severity of Pain-Max: severe Severity of Pain-Current: severe Modifying Factors: Improves With: nothing Associated Symptoms: shortness of breath, fatigue Prior Chest Pain/Cardiac Workup: heart attack Nitro Today/Relief: no nitro taken today Aspirin Treatment Today: unknown Allergies/Adverse Reactions: No Known Drug Allergies Allergy (Verified 12/01/19 14:36) Hx Tetanus, Diphtheria Vaccination/Date Given: Yes Hx Influenza Vaccination/Date Given: No Hx Pneumococcal Vaccination/Date Given: No - Review of Systems Constitutional: No Symptoms Eyes: No Symptoms Ears, Nose, & Throat: No Symptoms Respiratory: Dyspnea Cardiac: Chest Pain Abdominal/Gastrointestinal: No Symptoms Genitourinary Symptoms: No Symptoms Musculoskeletal: No Symptoms Skin: No Symptoms Neurological: No Symptoms Psychological: No Symptoms Endocrine: No Symptoms Hematologic/Lymphatic: No Symptoms Immunological/Allergic: No Symptoms - Past Medical History Pertinent Past Medical History: Yes Neurological History: No Pertinent History ENT History: No Pertinent History Cardiac History: Myocardial Infarction (ME) Respiratory History: CHF, COPD, Pneumonia Endocrine Medical History: Diabetes Type II Musculoskeletal History: No Pertinent History GI Medical History: Other History: No Pertinent History Psycho-Social History: Depression Male Reproductive Disorders: No Pertinent History Other Medical History: gangrene - Past Surgical History Past Surgical History: Yes Neuro Surgical History: No Pertinent History Cardiac: Angioplasty Respiratory: No Pertinent History Gastrointestinal: No Pertinent History Genitourinary: No Pertinent History Musculoskeletal: No Pertinent History Male Surgical History: No Pertinent History - Social History Smoking Status: Heavy tobacco smoker How long have you smoked: years Exposure to second hand smoke: Yes Drug Use: methamphetamines Patient Lives Alone: Yes - Nursing Vital Signs Nursing Vital Signs: Initial Vital Signs Temperature 98.4 F 06/08/20 14:55 Pulse Rate 105 H 06/08/20 14:55 Respiratory Rate 17 06/08/20 14:55 Blood Pressure 226/150 06/08/20 14:55 O2 Sat by Pulse Oximetry 98 06/08/20 14:55 Pain Scale Pain Intensity 9 - Physical Exam General Appearance: no apparent distress, alert Eye Exam: PERRL/EOMI, eyes nml inspection Ears, Nose, Throat Exam: normal ENT inspection, pharynx normal Neck Exam: normal inspection, non-tender, supple, full range of motion Respiratory Exam: normal breath sounds, wheezing Cardiovascular Exam: regular rate/rhythm, normal heart sounds Gastrointestinal/Abdomen Exam: soft, normal bowel sounds, tenderness Back Exam: normal inspection, normal range of motion Extremity Exam: normal inspection, normal range of motion, pelvis stable Neurologic Exam: alert, oriented x 3, cooperative Skin Exam: normal color SpO2 Interpretation: normal SpO2: 98 O2 Delivery: Room Air - Course EKG Interpreted by Me: RATE (105), Sinus Tach, NORMAL AXIS, NORMAL INTERVALS, ST Elev (Lead II preop, ), Non-specific ST Changes, Other (TIME 1451; [id number]. Normal axis, sinus tach, normal intervals. Nonspecific ST changes with questionable elevation in lead II) Ordered Tests: Active Orders 24 hr Category Date Time Status Parcel Post Order Clerk STAT Care 06/08/20 15:05 Active EKG-ER Only STAT Care 06/08/20 15:04 Active IV Insertion STAT Care 06/08/20 15:04 Active IV Insertion-2nd Peripheral STAT Care 06/08/20 15:11 Active Oxygen-ED Only Nasal Cannula 2 lpm Care 06/08/20 15:04 Active CHEST 1 VIEW (PORTABLE) Stat Exams 06/08/20 15:05 Taken CBC W DIFF Stat Lab 06/08/20 15:04 Completed CK-Creatinine Phosphokinase Stat Lab 06/08/20 15:04 Completed CMP Stat Lab 06/08/20 15:04 Completed NT PRO BNP Stat Lab 06/08/20 15:04 Completed PROTIME WITH INR Stat Lab 06/08/20 15:04 Completed PTT Stat Lab 06/08/20 15:04 Completed TROPONIN Q3H Lab 06/08/20 15:15 Completed TROPONIN Q3H Lab 06/08/20 18:15 Ordered TROPONIN Q3H Lab 06/08/20 21:15 Ordered Medication Summary Generic Name Dose Route Start Last Admin Trade Name Mitzi PRN Reason Stop Dose Admin Sodium Chloride 1,000 mls @ 100 mls/hr 06/08/20 15:15 Sodium Chloride 0.9% 1000 Ml IV 07/08/20 15:14 .Q10H ELVI Discontinued Medications Generic Name Dose Route Start Last Admin Trade Name Mitzi PRN Reason Stop Dose Admin Aspirin 324 mg 06/08/20 15:04 Baby Aspirin 81 Mg Chew PO 06/08/20 15:05 STAT ONE Sodium Chloride Confirm 06/08/20 14:59 Sodium Chloride 0.9% 1000 Ml Administered 06/08/20 15:00 Dose 1,000 mls @ ud .ROUTE .STK-MED ONE Nitroglycerin/Dextrose Confirm 06/08/20 15:36 Ntg 0.2mg/Ml In D5w Glass Administered 06/08/20 15:37 Dose 250 mls @ ud IV .STK-MED ONE Insulin Human Regular Confirm 06/08/20 15:32 Humulin R Administered 06/08/20 15:33 Dose 15 unit .ROUTE .STK-MED ONE Morphine Sulfate Confirm 06/08/20 14:56 Morphine Sulfate 4 Mg Inj Administered 06/08/20 14:57 Dose 4 mg .ROUTE .STK-MED ONE Morphine Sulfate 4 mg 06/08/20 15:04 Morphine Sulfate 4 Mg Inj IV 06/08/20 15:05 STAT ONE Morphine Sulfate Confirm 06/08/20 15:28 Morphine Sulfate 4 Mg Inj Administered 06/08/20 15:29 Dose 4 mg .ROUTE .STK-MED ONE Nitroglycerin 0.4 mg 06/08/20 15:04 Nitrostat 0.4 Mg (Ed) SL 06/08/20 15:05 STAT ONE Nitroglycerin 0.4 mg 06/08/20 15:12 Nitrostat 0.4 Mg (Ed) SL 06/08/20 15:13 STAT ONE Ondansetron HCl Confirm 06/08/20 14:56 Zofran 4 Mg/2 Ml Vial Administered 06/08/20 14:57 Dose 4 mg .ROUTE .STK-MED ONE Ondansetron HCl 4 mg 06/08/20 15:04 Zofran 4 Mg/2 Ml Vial IV 06/08/20 15:05 STAT ONE Lab/Rad Data: Laboratory Result Diagrams 06/08/20 15:04 06/08/20 15:04 Laboratory Results 06/08/20 06/08/20 06/08/20 Range/Units 15:15 15:04 15:04 WBC (4.0-10.5) K/mm3 RBC (4.1-5.6) M/mm3 Hgb (12.5-18.0) gm/dl Hct (42-50) % MCV (78-100) fl MCH (26-32) pg MCHC (32-36) g/dl RDW (11.5-14.0) % Plt Count (150-450) K/mm3 MPV (7.5-11.0) fl Gran % (36.0-66.0) % Eos # (Auto) (0-0.5) Absolute Lymphs (auto) (1.0-4.6) Absolute Monos (auto) (0.0-1.3) Lymphocytes % (24.0-44.0) % Monocytes % (0.0-12.0) % Eosinophils % (0.00-5.0) % Basophils % (0.0-0.4) % Absolute Granulocytes (1.4-6.9) Basophils # (0-0.4) PT 10.4 (8.83-12.87) SECONDS INR 0.92 (0.8-3.0) APTT 32.1 (24.1-36.1) SECONDS Sodium 127 L (137-145) mmol/L Potassium 4.6 (3.5-5.1) mmol/L Chloride 91 L (98-107) mmol/L Carbon Dioxide 25 (22-30) mmol/L Anion Gap 16.5 H (5-15) MEQ/L BUN 14 (9-20) mg/dL Creatinine 0.79 (0.66-1.25) mg/dL Estimated GFR > 60.0 ML/MIN Glucose 621 H* (74-106) mg/dL Calcium 9.5 (8.4-10.2) mg/dL Total Bilirubin 0.70 (0.2-1.3) mg/dL AST 47 (17-59) U/L ALT 32 (0-50) U/L Alkaline Phosphatase 332 H (38-126) U/L Creatine Kinase 64 (55-170) U/L Troponin I 0.244 H* (0.000-0.034) ng/mL NT-Pro-B Natriuret Pep 1070 H (0-900) pg/mL Serum Total Protein 8.3 H (6.3-8.2) g/dL Albumin 4.5 (3.5-5.0) g/dL 06/08/20 Range/Units 15:04 WBC 7.1 (4.0-10.5) K/mm3 RBC 5.25 (4.1-5.6) M/mm3 Hgb 16.6 (12.5-18.0) gm/dl Hct 49.0 (42-50) % MCV 93.3 (78-100) fl MCH 31.6 (26-32) pg MCHC 33.9 (32-36) g/dl RDW 13.1 (11.5-14.0) % Plt Count 232 (150-450) K/mm3 MPV 11.5 H (7.5-11.0) fl Gran % 60.5 (36.0-66.0) % Eos # (Auto) 0.08 (0-0.5) Absolute Lymphs (auto) 2.15 (1.0-4.6) Absolute Monos (auto) 0.51 (0.0-1.3) Lymphocytes % 30.5 (24.0-44.0) % Monocytes % 7.2 (0.0-12.0) % Eosinophils % 1.1 (0.00-5.0) % Basophils % 0.7 (0.0-0.4) % Absolute Granulocytes 4.26 (1.4-6.9) Basophils # 0.05 (0-0.4) PT (8.83-12.87) SECONDS INR (0.8-3.0) APTT (24.1-36.1) SECONDS Sodium (137-145) mmol/L Potassium (3.5-5.1) mmol/L Chloride (98-107) mmol/L Carbon Dioxide (22-30) mmol/L Anion Gap (5-15) MEQ/L BUN (9-20) mg/dL Creatinine (0.66-1.25) mg/dL Estimated GFR ML/MIN Glucose (74-106) mg/dL Calcium (8.4-10.2) mg/dL Total Bilirubin (0.2-1.3) mg/dL AST (17-59) U/L ALT (0-50) U/L Alkaline Phosphatase (38-126) U/L Creatine Kinase (55-170) U/L Troponin I (0.000-0.034) ng/mL NT-Pro-B Natriuret Pep (0-900) pg/mL Serum Total Protein (6.3-8.2) g/dL Albumin (3.5-5.0) g/dL - Progress Progress: improved, re-examined Air Movement: good Progress Note: 06/08/20 14:55 55 years old is evaluated for chest pain. Initial EKG showed questionable elevation in inferior lead, I have faxed EKG to [facility] and Dr. Reyes has seen EKG, do not think it is STEMI and will do work-up and if positive patient will be transferred. 06/08/20 15:52 Is given aspirin and sublingual nitro x2 along with morphine with some relief in pain but not much. I have given him another dose of morphine and his pain is still 5/10. Repeated EKG which did not show any changes from previous. Patient blood pressure was in 200s and despite using nitro it is still elevated and started on nitro drip which will help with pressure and chest pain. Initial troponin is 0.244. Patient has blood glucose of 621 and is not in DKA, given IV 15 units insulin. Discussed with Dr. Reyes again and patient is accepted for transfer. Blood Culture(s) Obtained: No Antibiotics given: No Discussed with DrManny: Other (Dr. Reyes) Will see patient in: ED Counseled pt/family regarding: lab results, diagnosis, rad results - Departure Departure Disposition: Transfer Clinical Impression: ACS (acute coronary syndrome) Condition: Good Critical Care Time: Yes Critical Care Time(excluding separately billable procedures): Critical 30-74 mins Referrals: DOCTOR,NO FAMILY [Primary Care Provider] -
[2020-06-08 15:51] VITALS: BP 208/135
[2020-06-08 16:01] VITALS: PULSE 107
--- NOTE | 2020-06-08 19:34 | XRAY ---
Indication: Chest pain. Comparison: December 01, 2019. Portable chest remains clear again with a few incidental tiny calcified granulomas. Heart is not enlarged again with tortuous descending aorta. Bony thorax intact again with mild degenerative changes. Impression: Continued nonacute chest with chronic features.
== END 2020-06-08 15:50 | disposition short-term general hospital (02) ==
LOC: ED 14:47
DX: I24.9 Acute ischemic heart disease, unspecified (principal); I25.10 Atherosclerotic heart disease of native coronary artery without angina pectoris; I10 Essential (primary) hypertension; E78.00 Pure hypercholesterolemia, unspecified; E11.9 Type 2 diabetes mellitus without complications; J44.9 Chronic obstructive pulmonary disease, unspecified; Z72.0 Tobacco use; R53.83 Other fatigue; I25.2 Old myocardial infarction; I50.9 Heart failure, unspecified
CPT/HCPCS: 36000; 36415; 71045; 80053; 82550; 83880; 84484; 85025; 85610; 85730; 93005; 93041; 96374; 96375; 96376; 99285; 99291; J1815; J2270; J2405; A9270-GY

== ENCOUNTER 2020-06-21 23:16 | Emergency (ER) | payer OTHER ==
--- NOTE | 2020-06-21 23:42 | ERPHSYRPT ---
- History of Present Illness Historian: patient Exam Limitations: no limitations Timing/Duration: today, hour(s) (6), gradual onset, worse Activities at Onset: none Quality: burning, pressure Location: substernal Chest Pain Radiation: no radiation Severity of Pain-Max: moderate Severity of Pain-Current: moderate Modifying Factors: Improves With: exertion Aspirin Treatment Today: 81 mg x 1 Allergies/Adverse Reactions: No Known Drug Allergies Allergy (Verified 06/21/20 23:30) Home Medications: Amlodipine Besylate 5 mg [Norvasc 5 mg] 1 tab PO DAILY 06/21/20 [History] Aspirin EC 81 mg [Ecotrin 81 mg] 1 tab PO DAILY 06/21/20 [History] Gabapentin 400 mg [Neurontin 400 MG] 1 cap PO BID 06/21/20 [History] Ticagrelor [Brilinta] 1 tab PO BID 06/21/20 [History] Hx Tetanus, Diphtheria Vaccination/Date Given: Yes Hx Influenza Vaccination/Date Given: No Hx Pneumococcal Vaccination/Date Given: No Travel Risk - International Travel Have you traveled outside of the country in past 3 weeks: No - Coronavirus Screening Are you exhibiting any of the following symptoms?: No Close contact with a COVID-19 positive Pt in past 14-21 Days: No - Review of Systems Constitutional: No Symptoms Eyes: No Symptoms Ears, Nose, & Throat: No Symptoms Respiratory: No Symptoms Cardiac: Chest Pain Abdominal/Gastrointestinal: No Symptoms Genitourinary Symptoms: No Symptoms Musculoskeletal: No Symptoms Skin: No Symptoms Neurological: No Symptoms Psychological: No Symptoms Endocrine: No Symptoms Hematologic/Lymphatic: No Symptoms Immunological/Allergic: No Symptoms All Other Systems: Reviewed and Negative - Past Medical History Pertinent Past Medical History: Yes Neurological History: No Pertinent History ENT History: No Pertinent History Cardiac History: Angina, Myocardial Infarction ([place]) Respiratory History: CHF, COPD, Pneumonia Endocrine Medical History: Diabetes Type II Musculoskeletal History: No Pertinent History GI Medical History: Other History: No Pertinent History Psycho-Social History: Depression Male Reproductive Disorders: No Pertinent History Other Medical History: gangrene - Past Surgical History Past Surgical History: Yes Neuro Surgical History: No Pertinent History Cardiac: Angioplasty, Cardiac Stent Respiratory: No Pertinent History Gastrointestinal: No Pertinent History Genitourinary: No Pertinent History Musculoskeletal: No Pertinent History Male Surgical History: No Pertinent History - Social History Smoking Status: Heavy tobacco smoker How long have you smoked: years Exposure to second hand smoke: Yes Drug Use: methamphetamines Patient Lives Alone: Yes - Nursing Vital Signs Nursing Vital Signs: Initial Vital Signs Pulse Rate 85 06/21/20 23:16 Respiratory Rate 18 06/21/20 23:16 Blood Pressure 178/111 06/21/20 23:16 O2 Sat by Pulse Oximetry 98 06/21/20 23:16 Pain Scale Pain Intensity 5 - Physical Exam General Appearance: mild distress Eye Exam: PERRL/EOMI Ears, Nose, Throat Exam: normal ENT inspection Neck Exam: normal inspection, non-tender Respiratory Exam: normal breath sounds, lungs clear Cardiovascular Exam: regular rate/rhythm, normal heart sounds Gastrointestinal/Abdomen Exam: soft, normal bowel sounds Back Exam: normal inspection Extremity Exam: normal inspection, normal range of motion Neurologic Exam: alert, oriented x 3, cooperative, normal mood/affect Skin Exam: normal color SpO2 Interpretation: normal SpO2: 96 O2 Delivery: Room Air - Course Nursing assessment & vital signs reviewed: Yes EKG Interpreted by Me: RATE ([id number]), Sinus Rhythm, NORMAL AXIS, NORMAL INTERVALS, NORMAL QRS, NORMAL ST-T Rhythm Strip: Rate (80), Normal Sinus Rhythm - Radiology Exams Chest X-ray Interpretation: Interpreted by me, Negative Ordered Tests: Active Orders 24 hr Category Date Time Status EKG-ER Only STAT Care 06/21/20 23:42 Active CHEST 1 VIEW (PORTABLE) Stat Exams 06/21/20 23:42 Taken CBC W DIFF Stat Lab 06/22/20 00:00 Completed CMP Stat Lab 06/21/20 23:45 Completed NT PRO BNP Stat Lab 06/21/20 23:45 Completed POCT GLUCOSE Stat Lab 06/22/20 00:05 Completed TROPONIN Q3H Lab 06/21/20 23:45 Completed TROPONIN Q3H Lab 06/22/20 02:45 Ordered TROPONIN Q3H Lab 06/22/20 05:45 Ordered TROPONIN Q3H Lab 06/22/20 08:45 Ordered TROPONIN Q3H Lab 06/22/20 11:45 Ordered Medication Summary Discontinued Medications Generic Name Dose Route Start Last Admin Trade Name Freq PRN Reason Stop Dose Admin Morphine Sulfate 4 mg 06/22/20 00:07 06/22/20 00:10 Morphine Sulfate 4 Mg Inj IV 06/22/20 00:08 4 mg STAT ONE Administration Morphine Sulfate Confirm 06/22/20 00:09 Morphine Sulfate 4 Mg Inj Administered 06/22/20 00:10 Dose 4 mg .ROUTE .STK-MED ONE Nitroglycerin 0.4 mg 06/21/20 23:46 06/21/20 23:51 Nitrostat 0.4 Mg (Ed) SL 06/21/20 23:47 0.4 mg STAT ONE Administration Ondansetron HCl 4 mg 06/22/20 00:06 06/22/20 00:10 Zofran 4 Mg/2 Ml Vial IV 06/22/20 00:07 4 mg STAT ONE Administration Ondansetron HCl Confirm 06/22/20 00:09 Zofran 4 Mg/2 Ml Vial Administered 06/22/20 00:10 Dose 4 mg .ROUTE .STK-MED ONE Lab/Rad Data: Laboratory Result Diagrams 06/22/20 00:00 06/21/20 23:45 Laboratory Results 06/22/20 06/22/20 06/21/20 Range/Units 00:05 00:00 23:45 WBC 9.2 (4.0-10.5) K/mm3 RBC 4.60 (4.1-5.6) M/mm3 Hgb 14.6 (12.5-18.0) gm/dl Hct 45.3 (42-50) % MCV 98.5 (78-100) fl MCH 31.7 (26-32) pg MCHC 32.2 (32-36) g/dl RDW 14.4 H (11.5-14.0) % Plt Count 292 (150-450) K/mm3 MPV 11.1 H (7.5-11.0) fl Gran % 51.4 (36.0-66.0) % Eos # (Auto) 0.34 (0-0.5) Absolute Lymphs (auto) 3.28 (1.0-4.6) Absolute Monos (auto) 0.78 (0.0-1.3) Lymphocytes % 35.7 (24.0-44.0) % Monocytes % 8.5 (0.0-12.0) % Eosinophils % 3.7 (0.00-5.0) % Basophils % 0.7 (0.0-0.4) % Absolute Granulocytes 4.72 (1.4-6.9) Basophils # 0.06 (0-0.4) Sodium (137-145) mmol/L Potassium (3.5-5.1) mmol/L Chloride (98-107) mmol/L Carbon Dioxide (22-30) mmol/L Anion Gap (5-15) MEQ/L BUN (9-20) mg/dL Creatinine (0.66-1.25) mg/dL Estimated GFR ML/MIN Glucose (74-106) mg/dL POC Glucometer 172 H (74 to 106) mg/dL Calcium (8.4-10.2) mg/dL Total Bilirubin (0.2-1.3) mg/dL AST (17-59) U/L ALT (0-50) U/L Alkaline Phosphatase (38-126) U/L Troponin I < 0.012 (0.000-0.034) ng/mL NT-Pro-B Natriuret Pep (0-900) pg/mL Serum Total Protein (6.3-8.2) g/dL Albumin (3.5-5.0) g/dL 06/21/20 Range/Units 23:45 WBC (4.0-10.5) K/mm3 RBC (4.1-5.6) M/mm3 Hgb (12.5-18.0) gm/dl Hct (42-50) % MCV (78-100) fl MCH (26-32) pg MCHC (32-36) g/dl RDW (11.5-14.0) % Plt Count (150-450) K/mm3 MPV (7.5-11.0) fl Gran % (36.0-66.0) % Eos # (Auto) (0-0.5) Absolute Lymphs (auto) (1.0-4.6) Absolute Monos (auto) (0.0-1.3) Lymphocytes % (24.0-44.0) % Monocytes % (0.0-12.0) % Eosinophils % (0.00-5.0) % Basophils % (0.0-0.4) % Absolute Granulocytes (1.4-6.9) Basophils # (0-0.4) Sodium 140 (137-145) mmol/L Potassium 4.2 (3.5-5.1) mmol/L Chloride 102 (98-107) mmol/L Carbon Dioxide 25 (22-30) mmol/L Anion Gap 17.4 H (5-15) MEQ/L BUN 18 (9-20) mg/dL Creatinine 1.49 H (0.66-1.25) mg/dL Estimated GFR 51.7 ML/MIN Glucose 263 H (74-106) mg/dL POC Glucometer (74 to 106) mg/dL Calcium 9.9 (8.4-10.2) mg/dL Total Bilirubin 0.60 (0.2-1.3) mg/dL AST 80 H (17-59) U/L ALT 74 H (0-50) U/L Alkaline Phosphatase 353 H (38-126) U/L Troponin I (0.000-0.034) ng/mL NT-Pro-B Natriuret Pep 145 (0-900) pg/mL Serum Total Protein 7.9 (6.3-8.2) g/dL Albumin 4.3 (3.5-5.0) g/dL - Progress Progress: improved Air Movement: good Progress Note: 06/22/20 01:27 BP and pain better with NTG and MS. He has taken ASA and brilinta today. Due to NSTEMI one week ago, transfer to [facility], Dr. Napier accepts in the ED, patient to go via ALS, stable. Blood Culture(s) Obtained: No Antibiotics given: No Counseled pt/family regarding: lab results, diagnosis, rad results - Departure Departure Disposition: Transfer Clinical Impression: Unstable angina Condition: Stable Critical Care Time: No Referrals: DOCTOR,NO FAMILY [Primary Care Provider] -
[2020-06-21] MEDS: Nitrostat 0.4 MG (ED) SL ONE (23:51)
[2020-06-22] MEDS ORDERED: MORPHINE SULFATE 4 MG INJ ONE (00:09)
[2020-06-22] MEDS ORDERED: Zofran 4 MG/2 ML VIAL ONE (00:09)
[2020-06-22] MEDS: MORPHINE SULFATE 4 MG INJ IV ONE (00:10)
[2020-06-22] MEDS: Zofran 4 MG/2 ML VIAL IV ONE (00:10)
[2020-06-22 00:33] LABS: ALBUMIN 4.3 g/dL (3.5-5.0); ANION GAP 17.4 MEQ/L (5-15); BILIRUBIN,TOTAL 0.6 mg/dL (0.2-1.3); Calcium 9.9 mg/dL (8.4-10.2); Creatinine 1 1.49 mg/dL (0.66-1.25); EST GLOMERULAR FILTRATION RATE 51.7 ML/MIN; Potassium 4.2 mmol/L (3.5-5.1); Total Protein 7.9 g/dL (6.3-8.2)
[2020-06-22 00:52] VITALS: PULSE 93
[2020-06-22 00:53] LABS: Absolute Neutrophil Ct (ANC) 4.72 (1.4-6.9); BASOPHIL % 0.7 % (0.0-0.4); Basophil (Absolute #) 0.06 (0-0.4); Eosinophil % 3.7 % (0.00-5.0); Eosinophil (Absolute #) 0.34 (0-0.5); Hematocrit 45.3 % (42-50); Hemoglobin 14.6 gm/dl (12.5-18.0); Lymphocyte (Absolute #) 3.28 (1.0-4.6); Lymphocytes % 35.7 % (24.0-44.0); Mean Cell Volume 98.5 fl (78-100); Mean Corpuscular Hemoglobin 31.7 pg (26-32); Mean Corpuscular Hgb Concent. 32.2 g/dl (32-36); Mean Platelet Volume 11.1 fl (7.5-11.0); Monocyte (Absolute #) 0.78 (0.0-1.3); Monocytes % 8.5 % (0.0-12.0); Neutrophil % 51.4 % (36.0-66.0); Platelet Count 292 K/mm3 (150-450); Red Cell Distribution Width 14.4 % (11.5-14.0); White Blood Count 9.2 K/mm3 (4.0-10.5)
[2020-06-22 01:11] VITALS: BP 138/83
[2020-06-22 01:30] VITALS: O2SAT 96
--- NOTE | 2020-06-22 07:58 | XRAY ---
Indication: Chest pain. Comparison: June 08, 2020. Portable apical lordotic chest less inflated and remains clear. Heart is not enlarged again with tortuous descending aorta. No new/acute findings.
== END 2020-06-22 02:00 | disposition short-term general hospital (02) ==
LOC: ED 23:16
DX: I20.0 Unstable angina (principal); I50.9 Heart failure, unspecified; J44.9 Chronic obstructive pulmonary disease, unspecified; E11.9 Type 2 diabetes mellitus without complications; Z79.899 Other long term (current) drug therapy
CPT/HCPCS: 36000; 36415; 71045; 80053; 82947; 83880; 84484; 85025; 93005; 96374; 96375; 99285; J2270; J2405; A9270-GY

== ENCOUNTER 2020-06-27 17:15 | Emergency (ER) | payer OTHER ==
[2020-06-27] MEDS ORDERED: Sodium Chloride 0.9% 1000 ML 1,000 ML ONE ×2 (17:20→18:31)
[2020-06-27] MEDS ORDERED: Sodium Chloride 0.9% 1000 ML 1,000 ML IV STA (17:25)
[2020-06-27 17:46] LABS: Hemoglobin 13.2 gm/dl (12.5-18.0); Mean Corpuscular Hemoglobin 32.2 pg (26-32); Mean Corpuscular Hgb Concent. 32.2 g/dl (32-36); Mean Platelet Volume 10.4 fl (7.5-11.0); Platelet Count 264 K/mm3 (150-450); Red Cell Distribution Width 13.7 % (11.5-14.0); White Blood Count 8.1 K/mm3 (4.0-10.5)
[2020-06-27 17:59] LABS: ACETAMINOPHEN < 10 ug/ml (10-30); ALBUMIN 3.8 g/dL (3.5-5.0); ALKALINE PHOSPHATASE 239 U/L (38-126); ANION GAP 18.3 MEQ/L (5-15); BLOOD UREA NITROGEN 17 mg/dL (9-20); CHLORIDE 107 mmol/L (98-107); Calcium 9.5 mg/dL (8.4-10.2); Carbon Dioxide 20 mmol/L (22-30); Creatinine 1 1.11 mg/dL (0.66-1.25); EST GLOMERULAR FILTRATION RATE > 60.0 ML/MIN; ETHYL ALCOHOL 84 mg/dL (0-10); Glucose 269 mg/dL (74-106); MAGNESIUM 2.3 mg/dL (1.6-2.3); SALICYLATE < 1.0 mg/dL (2-20); SGOT/AST 48 U/L (17-59); SGPT/ALT 53 U/L (0-50); SODIUM 141 mmol/L (137-145); Total Protein 7.1 g/dL (6.3-8.2)
[2020-06-27 18:10] LABS: NT PRO BNP 417 pg/mL (0-900); TROPONIN < 0.012 ng/mL (0.000-0.034)
[2020-06-27] MEDS ORDERED: Zosyn 3.375 GM Vial 3.375 GM in Sodium Chloride 100ML MINI-BAG PLUS 100 ML IV ONE (18:21)
--- NOTE | 2020-06-27 18:24 | ERPHSYRPT ---
- History of Present Illness Time Seen by Provider: 06/27/20 17:17 Source: patient, family Exam Limitations: clinical condition Patient Subjective Stated Complaint: pt brought to er by family that states he has been drinking all day is not taking care of himself, he had a VT 3 days ago, Triage Nursing Assessment: pt helped out of car , pt is sedated,but answers questions, smell of alcohol, open eyes to name, follows commands, resp easy, skin warm and dry, Physician History: 55 years old male with multiple medical problems including alcohol/substance abuse, coronary artery disease with recent stenting done at [facility], hypertension, hyperlipidemia, diabetes mellitus is brought in the ER by daughter with altered mental status. Daughter reports patient has been drinking all day long today, was with his friends and all of a sudden was getting unconscious and difficult to arouse while sitting in his car. Patient is sleepy but arousable to verbal commands on presentation, moving all 4 extremities, oriented to time place and person. Patient reports he has been drinking but denies any drug use. Denies any chest pain palpitations or shortness of breath. Patient is hypotensive on presentation with blood pressure systolic in 70s. Not in any apparent distress. Timing/Duration: today, sudden Severity: moderate Deficits: no difficulties Baseline/Normal Cognition: alert oriented x 3 Current Cognition: alert but confused Associated Symptoms: confusion, weakness (Generalized), No vomiting Allergies/Adverse Reactions: No Known Drug Allergies Allergy (Verified 06/21/20 23:30) Home Medications: Amlodipine Besylate 5 mg [Norvasc 5 mg] 1 tab PO DAILY 06/21/20 [History] Aspirin EC 81 mg [Ecotrin 81 mg] 1 tab PO DAILY 06/21/20 [History] Gabapentin 400 mg [Neurontin 400 MG] 1 cap PO BID 06/21/20 [History] Ticagrelor [Brilinta] 1 tab PO BID 06/21/20 [History] Hx Tetanus, Diphtheria Vaccination/Date Given: Yes Hx Influenza Vaccination/Date Given: No Hx Pneumococcal Vaccination/Date Given: No Immunizations Up to Date: Yes Travel Risk - International Travel Have you traveled outside of the country in past 3 weeks: No - Coronavirus Screening Are you exhibiting any of the following symptoms?: No Close contact with a COVID-19 positive Pt in past 14-21 Days: No - Vaccine Status Have you recieved a Covid-19 vaccination: (pt unsure) 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 - Vaccination Dates Dates if Unknown: unsure if had vaccine Comment: pt unable to recall - Review of Systems All Other Systems: Unable due to condition - Past Medical History Pertinent Past Medical History: Yes Neurological History: No Pertinent History ENT History: No Pertinent History Cardiac History: Angina, Coronary Artery Disease, Myocardial Infarction ([place]) Respiratory History: CHF, COPD, Pneumonia Endocrine Medical History: Diabetes Type II Musculoskeletal History: No Pertinent History GI Medical History: Other History: No Pertinent History Psycho-Social History: Depression Male Reproductive Disorders: No Pertinent History Other Medical History: gangrene - Past Surgical History Past Surgical History: Yes Neuro Surgical History: No Pertinent History Cardiac: Angioplasty, Cardiac Stent Respiratory: No Pertinent History Gastrointestinal: No Pertinent History Genitourinary: No Pertinent History Musculoskeletal: No Pertinent History Male Surgical History: No Pertinent History - Social History Smoking Status: Heavy tobacco smoker How long have you smoked: years Exposure to second hand smoke: Yes Drug Use: methamphetamines Patient Lives Alone: No - Nursing Vital Signs Nursing Vital Signs: Initial Vital Signs Temperature 96.8 F 06/27/20 17:23 Pulse Rate 63 06/27/20 17:23 Respiratory Rate 16 06/27/20 17:23 Blood Pressure 71/71 06/27/20 17:23 O2 Sat by Pulse Oximetry 96 06/27/20 17:23 Pain Scale Pain Intensity 0 - Marielle Coma Scale Best Eye Response (Marielle): (3) open to voice Best Verbal Response (Sumner): (5) oriented Best Motor Response (Sumner): (6) obeys commands Sumner Total: 14 - Physical Exam General Appearance: no apparent distress Eye Exam: bilateral eye: normal inspection, PERRL, EOMI Ears, Nose, Throat Exam: TMs normal, pharyngeal erythema Neck Exam: normal inspection, non-tender, supple, full range of motion Respiratory: normal breath sounds, wheezing, No chest tenderness Cardiovascular: regular rate/rhythm, normal heart sounds Gastrointestinal: soft, normal bowel sounds, No tenderness, No distention Extremity Exam: normal inspection, pelvis stable Mental Status: oriented x 3, 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 Exam: normal hearing, PERRL Motor/Sensory: no motor deficit, no sensory deficit DTR: bicep (R): 2+, bicep (L): 2+, knee (R): 2+, knee (L): 2+ Skin Exam: normal color SpO2 Interpretation: normal SpO2: 96 O2 Delivery: Room Air - Course EKG Interpreted by Me: RATE (65), Sinus Rhythm, NORMAL AXIS, NORMAL INTERVALS, Non-specific ST Changes Ordered Tests: Active Orders 24 hr Category Date Time Status Tool Operator STAT Care 06/27/20 17:26 Active EKG-ER Only STAT Care 06/27/20 17:25 Active IV Insertion STAT Care 06/27/20 17:25 Active NPO (ED) STAT Care 06/27/20 17:25 Active POCT Glucose Check STAT Care 06/27/20 17:25 Active CHEST 1 VIEW (PORTABLE) Stat Exams 06/27/20 17:25 Taken HEAD WITHOUT CONTRAST [CT] Stat Exams 06/27/20 17:27 Taken ACETAMINOPHEN Stat Lab 06/27/20 17:30 Completed BLOOD CULTURE Stat Lab 06/27/20 17:30 Received CBC W DIFF Stat Lab 06/27/20 17:30 Completed CMP Stat Lab 06/27/20 17:30 Completed CULTURE,URINE Stat Lab 06/27/20 17:25 Ordered ETHYL ALCOHOL Stat Lab 06/27/20 17:30 Completed Lactic Acid Stat Lab 06/27/20 17:25 Completed MAGNESIUM Stat Lab 06/27/20 17:30 Completed Manual Differential NC Stat Lab 06/27/20 17:30 Completed NT PRO BNP Routine Lab 06/27/20 17:30 Completed SALICYLATE Stat Lab 06/27/20 17:30 Completed TROPONIN Q3H Lab 06/27/20 17:30 Completed TROPONIN Q3H Lab 06/27/20 20:30 Ordered TROPONIN Q3H Lab 06/27/20 23:30 Ordered TROPONIN Q3H Lab 06/28/20 02:30 Ordered TROPONIN Q3H Lab 06/28/20 05:30 Ordered TSH, 3RD Generation Stat Lab 06/27/20 17:30 Received UA W/RFX UR CULTURE Stat Lab 06/27/20 17:25 Ordered Medication Summary Generic Name Dose Route Start Last Admin Trade Name Freq PRN Reason Stop Dose Admin Piperacillin Sod/Tazobactam 100 mls @ 200 mls/hr 06/27/20 18:21 06/27/20 18:36 Sod 3.375 gm/ Sodium Chloride IV 06/27/20 18:50 200 mls/hr STAT ONE Administration Sodium Chloride 1,000 mls @ 125 mls/hr 06/27/20 18:45 06/27/20 18:37 Sodium Chloride 0.9% 1000 Ml IV 07/27/20 18:44 125 mls/hr .Q8H ELVI Administration Discontinued Medications Generic Name Dose Route Start Last Admin Trade Name Mitzi PRN Reason Stop Dose Admin Sodium Chloride Confirm 06/27/20 17:20 Sodium Chloride 0.9% 1000 Ml Administered 06/27/20 17:21 Dose 1,000 mls @ ud .ROUTE .STK-MED ONE Sodium Chloride 1,000 mls @ 999 mls/hr 06/27/20 17:25 06/27/20 17:41 Sodium Chloride 0.9% 1000 Ml IV 06/27/20 18:25 999 mls/hr .Q1H1M STA Administration Sodium Chloride Confirm 06/27/20 18:31 Sodium Chloride 0.9% 1000 Ml Administered 06/27/20 18:32 Dose 1,000 mls @ ud .ROUTE .STK-MED ONE Sodium Chloride Confirm 06/27/20 18:34 Sodium Chloride 100ml Mini-Bag Plus Administered 06/27/20 18:35 Dose 100 mls @ ud IV .STK-MED ONE Piperacillin Sod/Tazobactam Sod Confirm 06/27/20 18:34 Zosyn 3.375 Gm Vial Administered 06/27/20 18:35 Dose 3.375 gm IV .STK-MED ONE Lab/Rad Data: Laboratory Result Diagrams 06/27/20 17:30 06/27/20 17:30 Laboratory Results 06/27/20 06/27/20 06/27/20 Range/Units 17:30 17:30 17:30 WBC 8.1 (4.0-10.5) K/mm3 RBC 4.10 (4.1-5.6) M/mm3 Hgb 13.2 (12.5-18.0) gm/dl Hct 41.0 L (42-50) % MCV 100.0 (78-100) fl MCH 32.2 H (26-32) pg MCHC 32.2 (32-36) g/dl RDW 13.7 (11.5-14.0) % Plt Count 264 (150-450) K/mm3 MPV 10.4 (7.5-11.0) fl Segmented Neutrophils 33 L (36.-66.) % Band Neutrophils 3 H (0.0-2.0) % Lymphocytes (Manual) 45 H (24-44) % Monocytes (Manual) 10 (0.0-12.0) % Eosinophils (Manual) 3 (0.00-3.0) % Atypical Lymphocytes 6 % Platelet Estimate NORMAL (NORMAL) RBC Morphology NORMAL Sodium 141 (137-145) mmol/L Potassium 4.0 (3.5-5.1) mmol/L Chloride 107 (98-107) mmol/L Carbon Dioxide 20 L (22-30) mmol/L Anion Gap 18.3 H (5-15) MEQ/L BUN 17 (9-20) mg/dL Creatinine 1.11 (0.66-1.25) mg/dL Estimated GFR > 60.0 ML/MIN Glucose 269 H (74-106) mg/dL Lactic Acid (0.4-2.0) Calcium 9.5 (8.4-10.2) mg/dL Magnesium 2.3 (1.6-2.3) mg/dL Total Bilirubin 0.30 (0.2-1.3) mg/dL AST 48 (17-59) U/L ALT 53 H (0-50) U/L Alkaline Phosphatase 239 H (38-126) U/L Troponin I < 0.012 (0.000-0.034) ng/mL NT-Pro-B Natriuret Pep 417 (0-900) pg/mL Serum Total Protein 7.1 (6.3-8.2) g/dL Albumin 3.8 (3.5-5.0) g/dL Salicylates < 1.0 L (2-20) mg/dL Acetaminophen < 10 L (10-30) ug/ml Ethyl Alcohol 84 H (0-10) mg/dL 06/27/20 Range/Units 17:25 WBC (4.0-10.5) K/mm3 RBC (4.1-5.6) M/mm3 Hgb (12.5-18.0) gm/dl Hct (42-50) % MCV (78-100) fl MCH (26-32) pg MCHC (32-36) g/dl RDW (11.5-14.0) % Plt Count (150-450) K/mm3 MPV (7.5-11.0) fl Segmented Neutrophils (36.-66.) % Band Neutrophils (0.0-2.0) % Lymphocytes (Manual) (24-44) % Monocytes (Manual) (0.0-12.0) % Eosinophils (Manual) (0.00-3.0) % Atypical Lymphocytes % Platelet Estimate (NORMAL) RBC Morphology Sodium (137-145) mmol/L Potassium (3.5-5.1) mmol/L Chloride (98-107) mmol/L Carbon Dioxide (22-30) mmol/L Anion Gap (5-15) MEQ/L BUN (9-20) mg/dL Creatinine (0.66-1.25) mg/dL Estimated GFR ML/MIN Glucose (74-106) mg/dL Lactic Acid 3.9 H (0.4-2.0) Calcium (8.4-10.2) mg/dL Magnesium (1.6-2.3) mg/dL Total Bilirubin (0.2-1.3) mg/dL AST (17-59) U/L ALT (0-50) U/L Alkaline Phosphatase (38-126) U/L Troponin I (0.000-0.034) ng/mL NT-Pro-B Natriuret Pep (0-900) pg/mL Serum Total Protein (6.3-8.2) g/dL Albumin (3.5-5.0) g/dL Salicylates (2-20) mg/dL Acetaminophen (10-30) ug/ml Ethyl Alcohol (0-10) mg/dL - Progress Progress: improved, re-examined Progress Note: 06/27/20 18:39 55 years old is evaluated in the ER with altered mental status. Patient was arousable to verbal commands on presentation with no obvious gross neuro deficit. His blood pressure was 70 systolic, given a fluid bolus and it improved to 120 systolic. He is perked up really good on reevaluation and does not report any chest pain, shortness of breath or any focal neuro deficit. EKG showed normal sinus rhythm with nonspecific ST changes not meeting criteria for ST elevation and has negative initial troponins. Chest x-ray reviewed by me do not see any new acute changes, official report is pending. I have obtained CT head which is unremarkable for any acute findings. Has normal white count, chemistry profile showed elevated gap but otherwise has renal function at baseline. Patient has a lactate of 3.9 which could be secondary to any infection, cultures are obtained and antibiotic Zosyn is given versus dehydr ation or alcohol related as he has been drinking and his blood alcohol is 84. His altered mental status could be secondary to alcohol use, sepsis infectious related causing hypotension/encephalopathy versus neuro cardiogenic. Urinalysis and urine drug screen is pending currently. I have discussed with Dr. Gomez, recommended transfer to [facility] where patient was recently discharged for continued T of care and possible neurology evaluation. I have discussed with Dr. Micha Nguyen MD [facility] ER, reviewed patient presentation, work-up and current management and have discussed with Dr. Lamar again who still wants him to be transferred. Plan discussed with patient and family who understand and agree with transfer. 06/27/20 18:[address] Sami, Other (Micha Nguyen MD [facility]) Will see patient in: ED Counseled pt/family regarding: lab results, diagnosis, rad results - Departure Departure Disposition: Transfer Clinical Impression: Alcohol abuse Altered mental status Qualifiers: Altered mental status type: unspecified Qualified Code(s): R41.82 - Altered mental status, unspecified Sepsis Qualifiers: Sepsis type: sepsis due to unspecified organism Sepsis acute organ dysfunction status: unspecified Qualified Code(s): A41.9 - Sepsis, unspecified organism Hypotension Qualifiers: Hypotension type: unspecified hypotension type Qualified Code(s): I95.9 - Hypotension, unspecified Condition: Good Critical Care Time: Yes Critical Care Time(excluding separately billable procedures): Critical 30-74 mins Referrals: DOCTOR,NO FAMILY [Primary Care Provider] -
[2020-06-27 18:29] LABS: ATYPICAL LYMPHS 6 %; BAND 3 % (0.0-2.0); Eosinophil 3 % (0.00-3.0); Lymphocytes 45 % (24-44); Monocyte 10 % (0.0-12.0); Neutrophils 33 % (36.-66.); Platelet Estimate NORMAL (NORMAL); Total Cells Counted 100
[2020-06-27] MEDS ORDERED: Zosyn 3.375 GM Vial IV ONE (18:34)
[2020-06-27] MEDS ORDERED: Sodium Chloride 100ML MINI-BAG PLUS 100 ML IV ONE (18:34)
[2020-06-27] MEDS ORDERED: Sodium Chloride 0.9% 1000 ML 1,000 ML IV SCH (18:45)
[2020-06-27 19:31] LABS: Appearance CLEAR (CLEAR); Bilirubin NEGATIVE (NEGATIVE); Blood NEGATIVE Ery/ul (0-5); Glucose >=500 mg/dL (NEGATIVE); Ketones NEGATIVE (NEGATIVE); Leukocyte Esterase NEGATIVE (NEGATIVE); Mucus SLIGHT /HPF (NEGATIVE); Nitrite NEGATIVE (NEGATIVE); Protein,Urine Dip NEGATIVE (Negative); RBC 0-2 /HPF (0-2); Specific Gravity 1.022 (1.005-1.025); Urobilinogen NEGATIVE mg/dL (0-1)
[2020-06-27 19:32] LABS: Bacteria NONE SEEN /HPF (NEGATIVE)
--- NOTE | 2020-06-27 20:43 | XRAY ---
Indication: Acute mental status change. Comparison: June 21, 2020. Portable apical lordotic chest remains slightly underinflated and clear. Heart is not enlarged again with tortuous descending aorta. No new/acute findings.
--- NOTE | 2020-06-27 20:45 | XRAY ---
Indication: Acute mental status change. Alcohol use. Multiple contiguous axial images obtained through the head without contrast. Comparison: August 28, 2019. There is again age-appropriate global atrophy and mild periventricular degenerative micro-ischemia bilaterally. No acute intracranial hemorrhage, abnormal extra-axial fluid collection, or mass effect. Fourth ventricle is midline without hydrocephalus. Bony calvarium intact. Visualized paranasal sinuses and mastoid air cells are clear. Impression: Continued nonacute senile brain.
[2020-06-27 21:08] VITALS: O2SAT 98
[2020-06-27 21:09] VITALS: BP 100/50; PULSE 65
== END 2020-06-27 20:50 | disposition short-term general hospital (02) ==
LOC: ED 17:15
DX: F10.10 Alcohol abuse, uncomplicated (principal); R41.82 Altered mental status, unspecified; A41.9 Sepsis, unspecified organism; I95.9 Hypotension, unspecified
CPT/HCPCS: 36000; 36415; 70450; 71045; 80053; 80307; 81001; 83605; 83735; 83880; 84443; 84484; 85025; 87040; 87086; 93005; 93041; 96360; 96361; 96365; 99285; 99291; G0480

== ENCOUNTER 2020-11-01 13:16 | Observation (INO) | payer OTHER ==
[2020-11-01] MEDS ORDERED: HUMULIN R SQ ONE (13:23)
[2020-11-01] MEDS ORDERED: MORPHINE SULFATE 4 MG INJ IV ONE (13:24)
[2020-11-01] MEDS: Sodium Chloride 0.9% 1000 ML 1,000 ML IV SCH ×2 (13:30→21:48)
[2020-11-01 13:48] LABS: Absolute Neutrophil Ct (ANC) 6.03 (1.4-6.9); BASOPHIL % 0.4 % (0.0-0.4); Basophil (Absolute #) 0.03 (0-0.4); Eosinophil % 1.2 % (0.00-5.0); Hematocrit 46.5 % (42-50); Lymphocyte (Absolute #) 1.54 (1.0-4.6); Lymphocytes % 18.8 % (24.0-44.0); Mean Cell Volume 91.5 fl (78-100); Mean Corpuscular Hemoglobin 31.5 pg (26-32); Mean Corpuscular Hgb Concent. 34.4 g/dl (32-36); Mean Platelet Volume 12.5 fl (7.5-11.0); Monocyte (Absolute #) 0.47 (0.0-1.3); Monocytes % 5.8 % (0.0-12.0); Neutrophil % 73.8 % (36.0-66.0); Platelet Count 137 K/mm3 (150-450); Red Blood Count 5.08 M/mm3 (4.1-5.6); Red Cell Distribution Width 12.4 % (11.5-14.0); White Blood Count 8.2 K/mm3 (4.0-10.5)
[2020-11-01 13:55] LABS: INR 0.95 (0.8-3.0); PROTIME 11.2 SECONDS (9.4-12.5)
[2020-11-01] MEDS ORDERED: HUMULIN R ONE (13:56)
[2020-11-01] MEDS ORDERED: MORPHINE SULFATE 4 MG INJ ONE (13:57)
[2020-11-01 14:05] LABS: ACETAMINOPHEN < 10 ug/ml (10-30); ETHYL ALCOHOL < 10 mg/dL (0-10); SALICYLATE 1.9 mg/dL (2-20)
[2020-11-01 14:08] LABS: ALKALINE PHOSPHATASE 163 U/L (38-126); AMYLASE 47 U/L (30-110); ANION GAP 15.1 MEQ/L (5-15); BLOOD UREA NITROGEN 16 mg/dL (9-20); CHLORIDE 96 mmol/L (98-107); Calcium 8.9 mg/dL (8.4-10.2); Carbon Dioxide 23 mmol/L (22-30); Creatinine 1 1.08 mg/dL (0.66-1.25); EST GLOMERULAR FILTRATION RATE > 60.0 ML/MIN; LIPASE 65 U/L (23-300); NT PRO BNP 876 pg/mL (0-900); Potassium 4.3 mmol/L (3.5-5.1); SGOT/AST 37 U/L (17-59); SGPT/ALT 38 U/L (0-50); SODIUM 129 mmol/L (137-145); Total Protein 7.2 g/dL (6.3-8.2)
[2020-11-01 14:09] LABS: Glucose 527 mg/dL (74-106)
[2020-11-01] MEDS ORDERED: Catapres 0.1 MG PO ONE (14:20)
[2020-11-01] MEDS ORDERED: Catapres 0.1 MG ONE (14:22)
[2020-11-01 14:51] LABS: Appearance CLEAR (CLEAR); Bilirubin NEGATIVE (NEGATIVE); Blood NEGATIVE Ery/ul (0-5); Glucose >=500 mg/dL (NEGATIVE); Hyaline Casts 0-2 /LPF (0-2); Ketones TRACE (NEGATIVE); Leukocyte Esterase NEGATIVE (NEGATIVE); Nitrite NEGATIVE (NEGATIVE); Protein,Urine Dip NEGATIVE (Negative); Urobilinogen 2 mg/dL (0-1)
[2020-11-01 14:53] LABS: Amphetamine,Urine POSITIVE (NEGATIVE); Barbiturate,Urine NEGATIVE (NEGATIVE); Benzodiazepine,Urine NEGATIVE (NEGATIVE); Cocaine,Urine NEGATIVE (NEGATIVE); Methadone,Urine NEGATIVE (NEGATIVE); Opiate,Urine POSITIVE (NEGATIVE); PCP,Urine NEGATIVE (NEGATIVE); THC,Urine NEGATIVE (NEGATIVE)
--- NOTE | 2020-11-01 15:34 | ERPHSYRPT ---
- History of Present Illness Time Seen by Provider: 11/01/20 13:40 Historian: patient Exam Limitations: no limitations Patient Subjective Stated Complaint: pt here for 3 days of chest pain that comes and goes, he states pain is now an 7/10, he also states he is not taking all of hes meds, he now tells nurse that that he has thought about dying,when asked if suicidal he states no but when asked if he has a plan he states yes to take insulin to Triage Nursing Assessment: pt alert, face mask in place, arrived per ambulance, from [facility], skin w/d/p. abd soft no edema Physician History: Patient is a 55-year-old white male with known coronary artery disease who presents with a complaint of chest pain on and off for 3 days not relieved by nitroglycerin the pain is like a substernal pulling in both directions is been present for 3 days but is not constant. His he does not get relief with his nitroglycerin he arrived by EMS. 2 months ago he had a stent placed at [facility] cannot remember the doctor's name. He also has a history of insulin-dependent diabetes and has not been taking his insulin he consequently has a blood sugar greater than 500 on arrival. His third problem is that he is suicidal and when asked if he had a plan his plan was to overdose on insulin. Timing/Duration: day(s) (3), intermittent, worse Activities at Onset: none Quality: fullness, throbbing Location: substernal Chest Pain Radiation: no radiation Severity of Pain-Max: severe Severity of Pain-Current: moderate Modifying Factors: Improves With: nitroglycerin (Improvement) Associated Symptoms: weakness Prior Chest Pain/Cardiac Workup: cardiac cath, recently seen/treated (Placed 2 months ago at [facility]) Nitro Today/Relief: 0.4 mg x 2 Aspirin Treatment Today: no aspirin today Allergies/Adverse Reactions: No Known Drug Allergies Allergy (Verified 11/01/20 13:32) Home Medications: Amlodipine Besylate 5 mg [Norvasc 5 mg] 1 tab PO DAILY 06/21/20 [History] Aspirin EC 81 mg [Ecotrin 81 mg] 1 tab PO DAILY 06/21/20 [History] Gabapentin 400 mg [Neurontin 400 MG] 1 cap PO BID 06/21/20 [History] Ticagrelor [Brilinta] 1 tab PO BID 06/21/20 [History] Hx Tetanus, Diphtheria Vaccination/Date Given: Yes Hx Influenza Vaccination/Date Given: No Hx Pneumococcal Vaccination/Date Given: No Immunizations Up to Date: Yes Travel Risk - International Travel Have you traveled outside of the country in past 3 weeks: No - Coronavirus Screening Are you exhibiting any of the following symptoms?: No Close contact with a COVID-19 positive Pt in past 14-21 Days: No - Vaccine Status Have you recieved a Covid-19 vaccination: No Director Independent: Unknown - Vaccination Dates Dates if Unknown: unsure if had vaccine Comment: pt unable to recall - Review of Systems Constitutional: No Fever, No Chills Eyes: No Symptoms Ears, Nose, & Throat: No Symptoms Respiratory: No Cough, No Dyspnea Cardiac: Chest Pain, No Edema, No Syncope Abdominal/Gastrointestinal: No Abdominal Pain, No Nausea, No Vomiting, No Diarrhea Genitourinary Symptoms: No Dysuria Musculoskeletal: No Back Pain, No Neck Pain Skin: No Rash Neurological: No Dizziness, No Focal Weakness, No Sensory Changes Psychological: Alcohol Abuse, Drug Abuse, Suicidal Ideations Endocrine: No Symptoms All Other Systems: Reviewed and Negative - Past Medical History Pertinent Past Medical History: Yes Neurological History: No Pertinent History ENT History: No Pertinent History Cardiac History: Angina, Coronary Artery Disease, Myocardial Infarction (ME) Respiratory History: CHF, COPD, Pneumonia Endocrine Medical History: Diabetes Type II Musculoskeletal History: No Pertinent History GI Medical History: Other History: No Pertinent History Psycho-Social History: Depression Male Reproductive Disorders: No Pertinent History Other Medical History: gangrene - Past Surgical History Past Surgical History: Yes Neuro Surgical History: No Pertinent History Cardiac: Angioplasty, Cardiac Stent Respiratory: No Pertinent History Gastrointestinal: No Pertinent History Genitourinary: No Pertinent History Musculoskeletal: No Pertinent History Male Surgical History: No Pertinent History - Social History Smoking Status: Heavy tobacco smoker How long have you smoked: years Exposure to second hand smoke: Yes Drug Use: methamphetamines Patient Lives Alone: No (friends) - Nursing Vital Signs Nursing Vital Signs: Initial Vital Signs Temperature 98.1 F 11/01/20 13:22 Pulse Rate 92 H 11/01/20 13:22 Respiratory Rate 16 11/01/20 13:22 Blood Pressure 172/100 11/01/20 13:22 O2 Sat by Pulse Oximetry 97 11/01/20 13:22 Pain Scale Pain Intensity 0 - Physical Exam General Appearance: moderate distress, alert Eye Exam: PERRL/EOMI, eyes nml inspection Ears, Nose, Throat Exam: normal ENT inspection, moist mucous membranes Neck Exam: normal inspection, non-tender, supple, full range of motion Respiratory Exam: normal breath sounds, lungs clear, No respiratory distress Cardiovascular Exam: regular rate/rhythm, normal heart sounds Gastrointestinal/Abdomen Exam: soft, No tenderness, No mass Back Exam: normal inspection, No CVA tenderness, No vertebral tenderness Extremity Exam: normal inspection, normal range of motion Neurologic Exam: alert, oriented x 3, cooperative, normal mood/affect, sensation nml, No motor deficits Skin Exam: normal color, warm, dry SpO2 Interpretation: normal SpO2: 100 O2 Delivery: Room Air - Course Nursing assessment & vital signs reviewed: Yes EKG Interpreted by Me: RATE (92), NORMAL AXIS, NORMAL INTERVALS, Non-specific ST Changes - Radiology Exams Chest X-ray Interpretation: Interpreted by me, Other (Cute findings noted) Ordered Tests: Active Orders 24 hr Category Date Time Status Utilization Management Nurse STAT Care 11/01/20 13:21 Active EKG-ER Only STAT Care 11/01/20 13:20 Active IV Insertion STAT Care 11/01/20 13:20 Active CHEST 1 VIEW (PORTABLE) Stat Exams 11/01/20 13:21 Taken ACETAMINOPHEN Stat Lab 11/01/20 13:40 Completed AMYLASE Stat Lab 11/01/20 13:40 Completed CBC W DIFF Stat Lab 11/01/20 13:40 Completed CMP Stat Lab 11/01/20 13:40 Completed D-DIMER QUANTITATIVE Stat Lab 11/01/20 13:40 Completed ETHYL ALCOHOL Stat Lab 11/01/20 13:40 Completed LIPASE Stat Lab 11/01/20 13:40 Completed Lactic Acid Stat Lab 11/01/20 13:20 Completed NT PRO BNP Stat Lab 11/01/20 13:40 Completed POCT GLUCOSE Stat Lab 11/01/20 14:31 Completed PROTIME WITH INR Stat Lab 11/01/20 13:40 Completed SALICYLATE Stat Lab 11/01/20 13:40 Completed TROPONIN Q3H Lab 11/01/20 13:40 Completed TROPONIN Q3H Lab 11/01/20 16:30 Ordered TROPONIN Q3H Lab 11/01/20 19:30 Ordered TROPONIN Q3H Lab 11/01/20 22:30 Ordered TROPONIN Q3H Lab 11/02/20 01:30 Ordered UA W/RFX UR CULTURE Stat Lab 11/01/20 14:10 Completed Urine Triage Profile Stat Lab 11/01/20 14:19 Completed Medication Summary Generic Name Dose Route Start Last Admin Trade Name Mitzi PRN Reason Stop Dose Admin Sodium Chloride 1,000 mls @ 100 mls/hr 11/01/20 13:30 11/01/20 13:30 Sodium Chloride 0.9% 1000 Ml IV 12/01/20 13:29 100 mls/hr .Q10H ELVI Administration Discontinued Medications Generic Name Dose Route Start Last Admin Trade Name Mitzi PRN Reason Stop Dose Admin Clonidine 0.1 mg 11/01/20 14:20 11/01/20 14:23 Catapres 0.1 Mg PO 11/01/20 14:21 0.1 mg STAT ONE Administration Clonidine Confirm 11/01/20 14:22 Catapres 0.1 Mg Administered 11/01/20 14:23 Dose 0.1 mg .ROUTE .STK-MED ONE Insulin Human Regular 5 unit 11/01/20 13:23 11/01/20 13:59 Humulin R SQ 11/01/20 13:24 5 unit STAT ONE Administration Insulin Human Regular Confirm 11/01/20 13:56 Humulin R Administered 11/01/20 13:57 Dose 5 unit .ROUTE .STK-MED ONE Morphine Sulfate 4 mg 11/01/20 13:24 11/01/20 14:00 Morphine Sulfate 4 Mg Inj IV 11/01/20 13:25 4 mg STAT ONE Administration Morphine Sulfate Confirm 11/01/20 13:57 Morphine Sulfate 4 Mg Inj Administered 11/01/20 13:58 Dose 4 mg .ROUTE .STK-MED ONE Lab/Rad Data: Laboratory Result Diagrams 11/01/20 13:40 11/01/20 13:40 Laboratory Results 11/01/20 11/01/20 11/01/20 Range/Units 14:31 14:19 14:10 WBC (4.0-10.5) K/mm3 RBC (4.1-5.6) M/mm3 Hgb (12.5-18.0) gm/dl Hct (42-50) % MCV (78-100) fl MCH (26-32) pg MCHC (32-36) g/dl RDW (11.5-14.0) % Plt Count (150-450) K/mm3 MPV (7.5-11.0) fl Gran % (36.0-66.0) % Eos # (Auto) (0-0.5) Absolute Lymphs (auto) (1.0-4.6) Absolute Monos (auto) (0.0-1.3) Lymphocytes % (24.0-44.0) % Monocytes % (0.0-12.0) % Eosinophils % (0.00-5.0) % Basophils % (0.0-0.4) % Absolute Granulocytes (1.4-6.9) Basophils # (0-0.4) PT (9.4-12.5) SECONDS INR (0.8-3.0) D-Dimer (215-500) ng/mL Sodium (137-145) mmol/L Potassium (3.5-5.1) mmol/L Chloride (98-107) mmol/L Carbon Dioxide (22-30) mmol/L Anion Gap (5-15) MEQ/L BUN (9-20) mg/dL Creatinine (0.66-1.25) mg/dL Estimated GFR ML/MIN Glucose (74-106) mg/dL POC Glucometer 449 H (74 to 106) mg/dL Lactic Acid (0.4-2.0) Calcium (8.4-10.2) mg/dL Total Bilirubin (0.2-1.3) mg/dL AST (17-59) U/L ALT (0-50) U/L Alkaline Phosphatase (38-126) U/L Troponin I (0.000-0.034) ng/mL NT-Pro-B Natriuret Pep (0-900) pg/mL Serum Total Protein (6.3-8.2) g/dL Albumin (3.5-5.0) g/dL Amylase (30-110) U/L Lipase (23-300) U/L Urine Color YELLOW (YELLOW) Urine Appearance CLEAR (CLEAR) Urine pH 6.0 (5-6) Ur Specific [place] 1.030 (1.005-1.025) Urine Protein NEGATIVE (Negative) Urine Ketones TRACE (NEGATIVE) Urine Blood NEGATIVE (0-5) [place]/ul Urine Nitrite NEGATIVE (NEGATIVE) Urine Bilirubin NEGATIVE (NEGATIVE) Urine Urobilinogen 2 (0-1) mg/dL Ur Leukocyte Esterase NEGATIVE (NEGATIVE) Urine WBC (Auto) NONE (0-5) /HPF Urine RBC (Auto) NONE (0-2) /HPF U Hyaline Cast (Auto) 0-2 (0-2) /LPF U Epithel Cells (Auto) NONE (FEW) /HPF Urine Bacteria (Auto) NONE (NEGATIVE) /HPF Urine Culture Reflexed NO (NO) Urine Glucose >=500 (NEGATIVE) mg/dL Salicylates (2-20) mg/dL Urine Opiates Level POSITIVE (NEGATIVE) Ur Methadone NEGATIVE (NEGATIVE) Acetaminophen (10-30) ug/ml Urine Barbiturates NEGATIVE (NEGATIVE) Ur Phencyclidine (PCP) NEGATIVE (NEGATIVE) Urine Amphetamine POSITIVE (NEGATIVE) U Benzodiazepine Level NEGATIVE (NEGATIVE) Urine Cocaine NEGATIVE (NEGATIVE) Urine Marijuana (THC) NEGATIVE (NEGATIVE) Ethyl Alcohol (0-10) mg/dL 11/01/20 11/01/20 11/01/20 Range/Units 13:40 13:40 13:40 WBC (4.0-10.5) K/mm3 RBC (4.1-5.6) M/mm3 Hgb (12.5-18.0) gm/dl Hct (42-50) % MCV (78-100) fl MCH (26-32) pg MCHC (32-36) g/dl RDW (11.5-14.0) % Plt Count (150-450) K/mm3 MPV (7.5-11.0) fl Gran % (36.0-66.0) % Eos # (Auto) (0-0.5) Absolute Lymphs (auto) (1.0-4.6) Absolute Monos (auto) (0.0-1.3) Lymphocytes % (24.0-44.0) % Monocytes % (0.0-12.0) % Eosinophils % (0.00-5.0) % Basophils % (0.0-0.4) % Absolute Granulocytes (1.4-6.9) Basophils # (0-0.4) PT 11.2 (9.4-12.5) SECONDS INR 0.95 (0.8-3.0) D-Dimer 351 (215-500) ng/mL Sodium (137-145) mmol/L Potassium (3.5-5.1) mmol/L Chloride (98-107) mmol/L Carbon Dioxide (22-30) mmol/L Anion Gap (5-15) MEQ/L BUN (9-20) mg/dL Creatinine (0.66-1.25) mg/dL Estimated GFR ML/MIN Glucose (74-106) mg/dL POC Glucometer (74 to 106) mg/dL Lactic Acid (0.4-2.0) Calcium (8.4-10.2) mg/dL Total Bilirubin (0.2-1.3) mg/dL AST (17-59) U/L ALT (0-50) U/L Alkaline Phosphatase (38-126) U/L Troponin I < 0.012 (0.000-0.034) ng/mL NT-Pro-B Natriuret Pep (0-900) pg/mL Serum Total Protein (6.3-8.2) g/dL Albumin (3.5-5.0) g/dL Amylase (30-110) U/L Lipase (23-300) U/L Urine Color (YELLOW) Urine Appearance (CLEAR) Urine pH (5-6) Ur Specific [place] (1.005-1.025) Urine Protein (Negative) Urine Ketones (NEGATIVE) Urine Blood (0-5) Junito/ul Urine Nitrite (NEGATIVE) Urine Bilirubin (NEGATIVE) Urine Urobilinogen (0-1) mg/dL Ur Leukocyte Esterase (NEGATIVE) Urine WBC (Auto) (0-5) /HPF Urine RBC (Auto) (0-2) /HPF U Hyaline Cast (Auto) (0-2) /LPF U Epithel Cells (Auto) (FEW) /HPF Urine Bacteria (Auto) (NEGATIVE) /HPF Urine Culture Reflexed (NO) Urine Glucose (NEGATIVE) mg/dL Salicylates 1.9 L (2-20) mg/dL Urine Opiates Level (NEGATIVE) Ur Methadone (NEGATIVE) Acetaminophen < 10 L (10-30) ug/ml Urine Barbiturates (NEGATIVE) Ur Phencyclidine (PCP) (NEGATIVE) Urine Amphetamine (NEGATIVE) U Benzodiazepine Level (NEGATIVE) Urine Cocaine (NEGATIVE) Urine Marijuana (THC) (NEGATIVE) Ethyl Alcohol < 10 (0-10) mg/dL 11/01/20 11/01/20 11/01/20 Range/Units 13:40 13:40 13:20 WBC 8.2 (4.0-10.5) K/mm3 RBC 5.08 (4.1-5.6) M/mm3 Hgb 16.0 (12.5-18.0) gm/dl Hct 46.5 (42-50) % MCV 91.5 (78-100) fl MCH 31.5 (26-32) pg MCHC 34.4 (32-36) g/dl RDW 12.4 (11.5-14.0) % Plt Count 137 L (150-450) K/mm3 MPV 12.5 H (7.5-11.0) fl Gran % 73.8 H (36.0-66.0) % Eos # (Auto) 0.10 (0-0.5) Absolute Lymphs (auto) 1.54 (1.0-4.6) Absolute Monos (auto) 0.47 (0.0-1.3) Lymphocytes % 18.8 L (24.0-44.0) % Monocytes % 5.8 (0.0-12.0) % Eosinophils % 1.2 (0.00-5.0) % Basophils % 0.4 (0.0-0.4) % Absolute Granulocytes 6.03 (1.4-6.9) Basophils # 0.03 (0-0.4) PT (9.4-12.5) SECONDS INR (0.8-3.0) D-Dimer (215-500) ng/mL Sodium 129 L (137-145) mmol/L Potassium 4.3 (3.5-5.1) mmol/L Chloride 96 L (98-107) mmol/L Carbon Dioxide 23 (22-30) mmol/L Anion Gap 15.1 H (5-15) MEQ/L BUN 16 (9-20) mg/dL Creatinine 1.08 (0.66-1.25) mg/dL Estimated GFR > 60.0 ML/MIN Glucose 527 H* (74-106) mg/dL POC Glucometer (74 to 106) mg/dL Lactic Acid 1.5 (0.4-2.0) Calcium 8.9 (8.4-10.2) mg/dL Total Bilirubin 0.90 (0.2-1.3) mg/dL AST 37 (17-59) U/L ALT 38 (0-50) U/L Alkaline Phosphatase 163 H (38-126) U/L Troponin I (0.000-0.034) ng/mL NT-Pro-B Natriuret Pep 876 (0-900) pg/mL Serum Total Protein 7.2 (6.3-8.2) g/dL Albumin 4.0 (3.5-5.0) g/dL Amylase 47 (30-110) U/L Lipase 65 (23-300) U/L Urine Color (YELLOW) Urine Appearance (CLEAR) Urine pH (5-6) Ur Specific [place] (1.005-1.025) Urine Protein (Negative) Urine Ketones (NEGATIVE) Urine Blood (0-5) Jun[place]/ul Urine Nitrite (NEGATIVE) Urine Bilirubin (NEGATIVE) Urine Urobilinogen (0-1) mg/dL Ur Leukocyte Esterase (NEGATIVE) Urine WBC (Auto) (0-5) /HPF Urine RBC (Auto) (0-2) /HPF U Hyaline Cast (Auto) (0-2) /LPF U Epithel Cells (Auto) (FEW) /HPF Urine Bacteria (Auto) (NEGATIVE) /HPF Urine Culture Reflexed (NO) Urine Glucose (NEGATIVE) mg/dL Salicylates (2-20) mg/dL Urine Opiates Level (NEGATIVE) Ur Methadone (NEGATIVE) Acetaminophen (10-30) ug/ml Urine Barbiturates (NEGATIVE) Ur Phencyclidine (PCP) (NEGATIVE) Urine Amphetamine (NEGATIVE) U Benzodiazepine Level (NEGATIVE) Urine Cocaine (NEGATIVE) Urine Marijuana (THC) (NEGATIVE) Ethyl Alcohol (0-10) mg/dL - Progress Progress: unchanged Air Movement: good Blood Culture(s) Obtained: No Antibiotics given: No Discussed with : Emily Will see patient in: hospital (observation) - Departure Departure Disposition: In-patient Admission Clinical Impression: Chest pain due to CAD, Diabetes mellitus out of control, Suicidal ideation, Substance abuse Condition: Fair Critical Care Time: Yes Critical Care Time(excluding separately billable procedures): Critical 30-74 mins Referrals: SAE DE LA O MD [Primary Care Provider] -
[2020-11-01] MEDS ORDERED: HUMALOG SQ PRN ×2 (15:37→21:30)
[2020-11-01] MEDS ORDERED: MAALOX ES 30 ML UNIT DOSE PO PRN (15:37)
[2020-11-01] MEDS ORDERED: Zofran 4 MG/2 ML VIAL IV PRN (15:37)
[2020-11-01] MEDS ORDERED: Senokot-S Tablet PO PRN (15:37)
[2020-11-01] MEDS ORDERED: MILK OF MAGNESIA 30 ML PO PRN (15:37)
[2020-11-01] MEDS ORDERED: TYLENOL 325 MG PO PRN (15:37)
[2020-11-01 17:24] LABS: ANION GAP 12.4 MEQ/L (5-15); BLOOD UREA NITROGEN 16 mg/dL (9-20); CHLORIDE 97 mmol/L (98-107); Calcium 8.9 mg/dL (8.4-10.2); Carbon Dioxide 26 mmol/L (22-30); Creatinine 1 1.04 mg/dL (0.66-1.25); EST GLOMERULAR FILTRATION RATE > 60.0 ML/MIN; Glucose 310 mg/dL (74-106); Potassium 3.8 mmol/L (3.5-5.1); SODIUM 132 mmol/L (137-145); TROPONIN < 0.012 ng/mL (0.000-0.034)
--- NOTE | 2020-11-01 20:18 | XRAY ---
Indication: Chest pain. Comparison: June 27, 2020. Portable chest remains clear again with a few incidental tiny calcified granulomas. Heart not enlarged. Bony thorax intact again with mild degenerative changes. No new/acute findings.
[2020-11-01] MEDS ORDERED: Zestril 10 MG PO ONE (21:00)
[2020-11-01] MEDS ORDERED: Toprol-Xl 25MG Tablets PO ONE (21:00)
[2020-11-01] MEDS ORDERED: NORVASC 5 MG PO ONE (21:00)
[2020-11-01] MEDS ORDERED: Nicoderm CQ 21 MG TOP PRN (21:00)
[2020-11-01] MEDS: Ritalin 5 MG PO SCH (21:09)
[2020-11-01] MEDS: Neurontin 400 MG PO SCH (21:09)
[2020-11-01] MEDS: MORPHINE SULFATE 2 MG INJ IV PRN (21:48)
[2020-11-01] MEDS ORDERED: ZOCOR 20MG PO SCH (22:00)
[2020-11-01] MEDS ORDERED: Novolin N SQ SCH (22:00)
[2020-11-01] MEDS ORDERED: BRILINTA PO SCH (22:00)
[2020-11-02] MEDS ORDERED: GlucaGen 1 MG IM PRN (00:10)
[2020-11-02] MEDS: D50W 50 ml Abboject IV PRN ×2 (00:10→02:09)
[2020-11-02] MEDS ORDERED: Glutose 15 GM ORAL GEL PO PRN (00:10)
[2020-11-02] MEDS ORDERED: D50W 50 ml Abboject IV ONE (00:11)
[2020-11-02 05:09] LABS: Risk Ratio 4.7
[2020-11-02] MEDS: MORPHINE SULFATE 2 MG INJ IV PRN ×2 (07:35→14:36)
[2020-11-02] MEDS: HUMALOG SQ SCH ×3 (07:37→16:57)
--- NOTE | 2020-11-02 08:08 | PCM.HP ---
History of Present Illness - Chief Complaint Chief Complaint: c/o chest pain for 2-3 days History of Present Illness: is a 55 year old male.with known coronary artery disease who presents with a complaint of chest pain on and off for 3 days not relieved by nitroglycerin the pain is like a substernal pulling in both directions is been present for 3 days but is not constant. His he does not get relief with his nitroglycerin he arrived by EMS. 2 months ago [facility] cannot remember [facility]'s name. He also has a history of insulin-dependent diabetes and has not been taking his insulin he consequently has a blood sugar greater than 500 on arrival. His third problem is that he is suicidal and when asked if he had a plan his plan was to overdose on insulin. - Review of Systems Constitutional: No Fever, No Chills Eyes: No Symptoms Ears, Nose, & Throat: No Symptoms Respiratory: No Cough, No Short Of Breath Cardiac: Chest Pain, No Edema, No Syncope Abdominal/Gastrointestinal: No Abdominal Pain, No Nausea, No Vomiting, No Diarrhea Genitourinary Symptoms: No Dysuria Musculoskeletal: No Back Pain, No Neck Pain Skin: No Rash Neurological: No Dizziness, No Focal Weakness, No Sensory Changes Psychological: Suicidal Ideations, Emotional Lability Endocrine: No Symptoms Hematologic/Lymphatic: No Symptoms Immunological/Allergic: No Symptoms Medications & Allergies Home Medications: Home Medication List Lisinopril 10 mg [Zestril 10 MG] 10 mg PO DAILY #30 tablet 12/02/19 [Rx Confirmed 11/01/20] Metoprolol Succinate 25 mg Xl* [Toprol-Xl 25MG Tablets] 25 mg PO DAILY #30 tab 12/02/19 [Rx Confirmed 11/01/20] Amlodipine Besylate 5 mg [Norvasc 5 mg] 1 tab PO DAILY 06/21/20 [History Confirmed 11/01/20] Aspirin EC 81 mg [Ecotrin 81 mg] 1 tab PO DAILY 06/21/20 [History Confirmed 11/01/20] Ticagrelor [Brilinta] 1 tab PO BID 06/21/20 [History Confirmed 11/01/20] Atorvastatin Calcium 40 mg PO DAILY 11/01/20 [History Confirmed 11/01/20] Gabapentin 400 mg [Neurontin 400 MG] 800 mg PO TID 11/01/20 [History Confirmed 11/01/20] Insulin Aspart [Novolog] 20 unit SQ AC 11/01/20 [History Confirmed 11/01/20] Insulin NPH Human Recom [Novolin N] 50 units SQ DAILY 11/01/20 [History Confirmed 11/01/20] Methylphenidate 5 mg [Ritalin 5 MG] 10 mg PO BID 11/01/20 [History Confirmed 11/01/20] Allergies/Adverse Reactions: Allergies Allergy/AdvReac Type Severity Reaction Status Date / Time No Known Drug Allergies Allergy Verified 11/01/20 13:32 - Past Medical History Past Medical History: Yes Neurological History: No Pertinent History ENT History: No Pertinent History Cardiac History: Angina, Coronary Artery Disease, Myocardial Infarction (SD) Respiratory History: CHF, COPD, Pneumonia Endocrine Medical History: Diabetes Type II Musculoskelatal History: No Pertinent History GI Medical History: Other History: No Pertinent History Pyscho-Social History: Anxiety, Depression Male Reproductive Disorders: No Pertinent History Comment: gangrene - Past Surgical History Past Surgical History: Yes Neuro Surgical History: No Pertinent History Cardiac History: Angioplasty, Cardiac Stent Respiratory Surgery: No Pertinent History GI Surgical History: No Pertinent History Genitourinary Surgical Hx: No Pertinent History Musculskeletal Surgical Hx: No Pertinent History Male Surgical History: No Pertinent History - Social History Smoking Status: Heavy tobacco smoker How long have you smoked: years Exposure to second hand smoke: Yes Alcohol: Weekly Drug Use: marijuana, methamphetamines - Physical Exam Vital Signs: Vital Signs - 24 hr Temp Pulse Pulse Resp BP BP Pulse Ox 11/02/20 07:55 98 F 67 19 133/80 95 11/02/20 05:00 60 20 104/72 98 11/02/20 03:00 97.4 F 57 L 16 98/68 98 11/01/20 23:45 98.3 F 76 24 113/77 97 11/01/20 21:11 82 20 157/102 97 11/01/20 19:55 98.3 F 82 20 159/98 96 11/01/20 17:33 97.9 F 69 18 139/84 100 11/01/20 16:18 80 18 166/123 100 11/01/20 15:36 100 11/01/20 15:23 98.1 F 84 20 178/108 100 11/01/20 14:19 89 16 181/153 98 11/01/20 13:22 98.1 F 92 H 92 H 16 172/100 97 General Appearance: no apparent distress, alert Neurologic Exam: alert, oriented x 3, cooperative, sensation nml, No motor deficits Eye Exam: PERRL/EOMI, eyes nml inspection Ears, Nose, Throat Exam: normal ENT inspection, TMs normal, pharynx normal, moist mucous membranes Neck Exam: normal inspection, non-tender, supple, full range of motion Respiratory Exam: normal breath sounds, lungs clear, No respiratory distress Cardiovascular Exam: regular rate/rhythm, normal heart sounds, normal peripheral pulses Gastrointestinal/Abdomen Exam: soft, normal bowel sounds, No tenderness, No mass Back Exam: normal inspection, normal range of motion, No CVA tenderness, No vertebral tenderness Extremity Exam: normal inspection, normal range of motion, pelvis stable Skin Exam: normal color, warm, dry, No rash Lymphatic Exam: No adenopathy Additional Findings: 11/02/20 08:04 Patient is suicidal, depressed Results - Labs Lab/Micro Results: Lab Results-Last 24 Hours 11/01/20 11/01/20 11/01/20 Range/Units 13:20 13:30 13:40 WBC 8.2 (4.0-10.5) K/mm3 RBC 5.08 (4.1-5.6) M/mm3 Hgb 16.0 (12.5-18.0) gm/dl Hct 46.5 (42-50) % MCV 91.5 (78-100) fl MCH 31.5 (26-32) pg MCHC 34.4 (32-36) g/dl RDW 12.4 (11.5-14.0) % Plt Count 137 L (150-450) K/mm3 MPV 12.5 H (7.5-11.0) fl Gran % 73.8 H (36.0-66.0) % Eos # (Auto) 0.10 (0-0.5) Absolute Lymphs (auto) 1.54 (1.0-4.6) Absolute Monos (auto) 0.47 (0.0-1.3) Lymphocytes % 18.8 L (24.0-44.0) % Monocytes % 5.8 (0.0-12.0) % Eosinophils % 1.2 (0.00-5.0) % Basophils % 0.4 (0.0-0.4) % Absolute Granulocytes 6.03 (1.4-6.9) Basophils # 0.03 (0-0.4) PT (9.4-12.5) SECONDS INR (0.8-3.0) D-Dimer (215-500) ng/mL Sodium (137-145) mmol/L Potassium (3.5-5.1) mmol/L Chloride (98-107) mmol/L Carbon Dioxide (22-30) mmol/L Anion Gap (5-15) MEQ/L BUN (9-20) mg/dL Creatinine (0.66-1.25) mg/dL Estimated GFR ML/MIN Glucose (74-106) mg/dL POC Glucometer (74 to 106) mg/dL Hemoglobin A1c 10.89 H (4.5-6.0) % Lactic Acid 1.5 (0.4-2.0) Calcium (8.4-10.2) mg/dL Total Bilirubin (0.2-1.3) mg/dL AST (17-59) U/L ALT (0-50) U/L Alkaline Phosphatase (38-126) U/L Troponin I (0.000-0.034) ng/mL NT-Pro-B Natriuret Pep (0-900) pg/mL Serum Total Protein (6.3-8.2) g/dL Albumin (3.5-5.0) g/dL Triglycerides (30-150) mg/dL Cholesterol (50-200) mg/dL LDL Cholesterol (30-100) mg/dL HDL Cholesterol (40-60) mg/dL Heart Disease Risk Ratio Amylase (30-110) U/L Lipase (23-300) U/L Urine Color (YELLOW) Urine Appearance (CLEAR) Urine pH (5-6) Ur Specific [place] (1.005-1.025) Urine Protein (Negative) Urine Ketones (NEGATIVE) Urine Blood (0-5) Junito/ul Urine Nitrite (NEGATIVE) Urine Bilirubin (NEGATIVE) Urine Urobilinogen (0-1) mg/dL Ur Leukocyte Esterase (NEGATIVE) Urine WBC (Auto) (0-5) /HPF Urine RBC (Auto) (0-2) /HPF U Hyaline Cast (Auto) (0-2) /LPF U Epithel Cells (Auto) (FEW) /HPF Urine Bacteria (Auto) (NEGATIVE) /HPF Urine Culture Reflexed (NO) Urine Glucose (NEGATIVE) mg/dL Salicylates (2-20) mg/dL Urine Opiates Level (NEGATIVE) Ur Methadone (NEGATIVE) Acetaminophen (10-30) ug/ml Urine Barbiturates (NEGATIVE) Ur Phencyclidine (PCP) (NEGATIVE) Urine Amphetamine (NEGATIVE) U Benzodiazepine Level (NEGATIVE) Urine Cocaine (NEGATIVE) Urine Marijuana (THC) (NEGATIVE) Ethyl Alcohol (0-10) mg/dL SARS-CoV-2 (PCR) (NEGATIVE) 11/01/20 11/01/20 11/01/20 Range/Units 13:40 13:40 13:40 WBC (4.0-10.5) K/mm3 RBC (4.1-5.6) M/mm3 Hgb (12.5-18.0) gm/dl Hct (42-50) % MCV (78-100) fl MCH (26-32) pg MCHC (32-36) g/dl RDW (11.5-14.0) % Plt Count (150-450) K/mm3 MPV (7.5-11.0) fl Gran % (36.0-66.0) % Eos # (Auto) (0-0.5) Absolute Lymphs (auto) (1.0-4.6) Absolute Monos (auto) (0.0-1.3) Lymphocytes % (24.0-44.0) % Monocytes % (0.0-12.0) % Eosinophils % (0.00-5.0) % Basophils % (0.0-0.4) % Absolute Granulocytes (1.4-6.9) Basophils # (0-0.4) PT 11.2 (9.4-12.5) SECONDS INR 0.95 (0.8-3.0) D-Dimer 351 (215-500) ng/mL Sodium 129 L (137-145) mmol/L Potassium 4.3 (3.5-5.1) mmol/L Chloride 96 L (98-107) mmol/L Carbon Dioxide 23 (22-30) mmol/L Anion Gap 15.1 H (5-15) MEQ/L BUN 16 (9-20) mg/dL Creatinine 1.08 (0.66-1.25) mg/dL Estimated GFR > 60.0 ML/MIN Glucose 527 H* (74-106) mg/dL POC Glucometer (74 to 106) mg/dL Hemoglobin A1c (4.5-6.0) % Lactic Acid (0.4-2.0) Calcium 8.9 (8.4-10.2) mg/dL Total Bilirubin 0.90 (0.2-1.3) mg/dL AST 37 (17-59) U/L ALT 38 (0-50) U/L Alkaline Phosphatase 163 H (38-126) U/L Troponin I < 0.012 (0.000-0.034) ng/mL NT-Pro-B Natriuret Pep 876 (0-900) pg/mL Serum Total Protein 7.2 (6.3-8.2) g/dL Albumin 4.0 (3.5-5.0) g/dL Triglycerides (30-150) mg/dL Cholesterol (50-200) mg/dL LDL Cholesterol (30-100) mg/dL HDL Cholesterol (40-60) mg/dL Heart Disease Risk Ratio Amylase 47 (30-110) U/L Lipase 65 (23-300) U/L Urine Color (YELLOW) Urine Appearance (CLEAR) Urine pH (5-6) Ur Specific [place] (1.005-1.025) Urine Protein (Negative) Urine Ketones (NEGATIVE) Urine Blood (0-5) Junito/ul Urine Nitrite (NEGATIVE) Urine Bilirubin (NEGATIVE) Urine Urobilinogen (0-1) mg/dL Ur Leukocyte Esterase (NEGATIVE) Urine WBC (Auto) (0-5) /HPF Urine RBC (Auto) (0-2) /HPF U Hyaline Cast (Auto) (0-2) /LPF U Epithel Cells (Auto) (FEW) /HPF Urine Bacteria (Auto) (NEGATIVE) /HPF Urine Culture Reflexed (NO) Urine Glucose (NEGATIVE) mg/dL Salicylates (2-20) mg/dL Urine Opiates Level (NEGATIVE) Ur Methadone (NEGATIVE) Acetaminophen (10-30) ug/ml Urine Barbiturates (NEGATIVE) Ur Phencyclidine (PCP) (NEGATIVE) Urine Amphetamine (NEGATIVE) U Benzodiazepine Level (NEGATIVE) Urine Cocaine (NEGATIVE) Urine Marijuana (THC) (NEGATIVE) Ethyl Alcohol (0-10) mg/dL SARS-CoV-2 (PCR) (NEGATIVE) 11/01/20 11/01/20 11/01/20 Range/Units 13:40 14:10 14:19 WBC (4.0-10.5) K/mm3 RBC (4.1-5.6) M/mm3 Hgb (12.5-18.0) gm/dl Hct (42-50) % MCV (78-100) fl MCH (26-32) pg MCHC (32-36) g/dl RDW (11.5-14.0) % Plt Count (150-450) K/mm3 MPV (7.5-11.0) fl Gran % (36.0-66.0) % Eos # (Auto) (0-0.5) Absolute Lymphs (auto) (1.0-4.6) Absolute Monos (auto) (0.0-1.3) Lymphocytes % (24.0-44.0) % Monocytes % (0.0-12.0) % Eosinophils % (0.00-5.0) % Basophils % (0.0-0.4) % Absolute Granulocytes (1.4-6.9) Basophils # (0-0.4) PT (9.4-12.5) SECONDS INR (0.8-3.0) D-Dimer (215-500) ng/mL Sodium (137-145) mmol/L Potassium (3.5-5.1) mmol/L Chloride (98-107) mmol/L Carbon Dioxide (22-30) mmol/L Anion Gap (5-15) MEQ/L BUN (9-20) mg/dL Creatinine (0.66-1.25) mg/dL Estimated GFR ML/MIN Glucose (74-106) mg/dL POC Glucometer (74 to 106) mg/dL Hemoglobin A1c (4.5-6.0) % Lactic Acid (0.4-2.0) Calcium (8.4-10.2) mg/dL Total Bilirubin (0.2-1.3) mg/dL AST (17-59) U/L ALT (0-50) U/L Alkaline Phosphatase (38-126) U/L Troponin I (0.000-0.034) ng/mL NT-Pro-B Natriuret Pep (0-900) pg/mL Serum Total Protein (6.3-8.2) g/dL Albumin (3.5-5.0) g/dL Triglycerides (30-150) mg/dL Cholesterol (50-200) mg/dL LDL Cholesterol (30-100) mg/dL HDL Cholesterol (40-60) mg/dL Heart Disease Risk Ratio Amylase (30-110) U/L Lipase (23-300) U/L Urine Color YELLOW (YELLOW) Urine Appearance CLEAR (CLEAR) Urine pH 6.0 (5-6) Ur Specific [place] 1.030 (1.005-1.025) Urine Protein NEGATIVE (Negative) Urine Ketones TRACE (NEGATIVE) Urine Blood NEGATIVE (0-5) Junito/ul Urine Nitrite NEGATIVE (NEGATIVE) Urine Bilirubin NEGATIVE (NEGATIVE) Urine Urobilinogen 2 (0-1) mg/dL Ur Leukocyte Esterase NEGATIVE (NEGATIVE) Urine WBC (Auto) NONE (0-5) /HPF Urine RBC (Auto) NONE (0-2) /HPF U Hyaline Cast (Auto) 0-2 (0-2) /LPF U Epithel Cells (Auto) NONE (FEW) /HPF Urine Bacteria (Auto) NONE (NEGATIVE) /HPF Urine Culture Reflexed NO (NO) Urine Glucose >=500 (NEGATIVE) mg/dL Salicylates 1.9 L (2-20) mg/dL Urine Opiates Level POSITIVE (NEGATIVE) Ur Methadone NEGATIVE (NEGATIVE) Acetaminophen < 10 L (10-30) ug/ml Urine Barbiturates NEGATIVE (NEGATIVE) Ur Phencyclidine (PCP) NEGATIVE (NEGATIVE) Urine Amphetamine POSITIVE (NEGATIVE) U Benzodiazepine Level NEGATIVE (NEGATIVE) Urine Cocaine NEGATIVE (NEGATIVE) Urine Marijuana (THC) NEGATIVE (NEGATIVE) Ethyl Alcohol < 10 (0-10) mg/dL SARS-CoV-2 (PCR) (NEGATIVE) 11/01/20 11/01/20 11/01/20 Range/Units 14:31 15:26 15:27 WBC (4.0-10.5) K/mm3 RBC (4.1-5.6) M/mm3 Hgb (12.5-18.0) gm/dl Hct (42-50) % MCV (78-100) fl MCH (26-32) pg MCHC (32-36) g/dl RDW (11.5-14.0) % Plt Count (150-450) K/mm3 MPV (7.5-11.0) fl Gran % (36.0-66.0) % Eos # (Auto) (0-0.5) Absolute Lymphs (auto) (1.0-4.6) Absolute Monos (auto) (0.0-1.3) Lymphocytes % (24.0-44.0) % Monocytes % (0.0-12.0) % Eosinophils % (0.00-5.0) % Basophils % (0.0-0.4) % Absolute Granulocytes (1.4-6.9) Basophils # (0-0.4) PT (9.4-12.5) SECONDS INR (0.8-3.0) D-Dimer (215-500) ng/mL Sodium (137-145) mmol/L Potassium (3.5-5.1) mmol/L Chloride (98-107) mmol/L Carbon Dioxide (22-30) mmol/L Anion Gap (5-15) MEQ/L BUN (9-20) mg/dL Creatinine (0.66-1.25) mg/dL Estimated GFR ML/MIN Glucose (74-106) mg/dL POC Glucometer 449 H 392 H (74 to 106) mg/dL Hemoglobin A1c (4.5-6.0) % Lactic Acid (0.4-2.0) Calcium (8.4-10.2) mg/dL Total Bilirubin (0.2-1.3) mg/dL AST (17-59) U/L ALT (0-50) U/L Alkaline Phosphatase (38-126) U/L Troponin I (0.000-0.034) ng/mL NT-Pro-B Natriuret Pep (0-900) pg/mL Serum Total Protein (6.3-8.2) g/dL Albumin (3.5-5.0) g/dL Triglycerides (30-150) mg/dL Cholesterol (50-200) mg/dL LDL Cholesterol (30-100) mg/dL HDL Cholesterol (40-60) mg/dL Heart Disease Risk Ratio Amylase (30-110) U/L Lipase (23-300) U/L Urine Color (YELLOW) Urine Appearance (CLEAR) Urine pH (5-6) Ur Specific [place] (1.005-1.025) Urine Protein (Negative) Urine Ketones (NEGATIVE) Urine Blood (0-5) Junito/ul Urine Nitrite (NEGATIVE) Urine Bilirubin (NEGATIVE) Urine Urobilinogen (0-1) mg/dL Ur Leukocyte Esterase (NEGATIVE) Urine WBC (Auto) (0-5) /HPF Urine RBC (Auto) (0-2) /HPF U Hyaline Cast (Auto) (0-2) /LPF U Epithel Cells (Auto) (FEW) /HPF Urine Bacteria (Auto) (NEGATIVE) /HPF Urine Culture Reflexed (NO) Urine Glucose (NEGATIVE) mg/dL Salicylates (2-20) mg/dL Urine Opiates Level (NEGATIVE) Ur Methadone (NEGATIVE) Acetaminophen (10-30) ug/ml Urine Barbiturates (NEGATIVE) Ur Phencyclidine (PCP) (NEGATIVE) Urine Amphetamine (NEGATIVE) U Benzodiazepine Level (NEGATIVE) Urine Cocaine (NEGATIVE) Urine Marijuana (THC) (NEGATIVE) Ethyl Alcohol (0-10) mg/dL SARS-CoV-2 (PCR) NEGATIVE (NEGATIVE) 11/01/20 11/01/20 11/01/20 Range/Units 16:59 19:33 21:20 WBC (4.0-10.5) K/mm3 RBC (4.1-5.6) M/mm3 Hgb (12.5-18.0) gm/dl Hct (42-50) % MCV (78-100) fl MCH (26-32) pg MCHC (32-36) g/dl RDW (11.5-14.0) % Plt Count (150-450) K/mm3 MPV (7.5-11.0) fl Gran % (36.0-66.0) % Eos # (Auto) (0-0.5) Absolute Lymphs (auto) (1.0-4.6) Absolute Monos (auto) (0.0-1.3) Lymphocytes % (24.0-44.0) % Monocytes % (0.0-12.0) % Eosinophils % (0.00-5.0) % Basophils % (0.0-0.4) % Absolute Granulocytes (1.4-6.9) Basophils # (0-0.4) PT (9.4-12.5) SECONDS INR (0.8-3.0) D-Dimer (215-500) ng/mL Sodium 132 L (137-145) mmol/L Potassium 3.8 (3.5-5.1) mmol/L Chloride 97 L (98-107) mmol/L Carbon Dioxide 26 (22-30) mmol/L Anion Gap 12.4 (5-15) MEQ/L BUN 16 (9-20) mg/dL Creatinine 1.04 (0.66-1.25) mg/dL Estimated GFR > 60.0 ML/MIN Glucose 310 H (74-106) mg/dL POC Glucometer 345 H (74 to 106) mg/dL Hemoglobin A1c (4.5-6.0) % Lactic Acid (0.4-2.0) Calcium 8.9 (8.4-10.2) mg/dL Total Bilirubin (0.2-1.3) mg/dL AST (17-59) U/L ALT (0-50) U/L Alkaline Phosphatase (38-126) U/L Troponin I < 0.012 < 0.012 (0.000-0.034) ng/mL NT-Pro-B Natriuret Pep (0-900) pg/mL Serum Total Protein (6.3-8.2) g/dL Albumin (3.5-5.0) g/dL Triglycerides (30-150) mg/dL Cholesterol (50-200) mg/dL LDL Cholesterol (30-100) mg/dL HDL Cholesterol (40-60) mg/dL Heart Disease Risk Ratio Amylase (30-110) U/L Lipase (23-300) U/L Urine Color (YELLOW) Urine Appearance (CLEAR) Urine pH (5-6) Ur Specific [place] (1.005-1.025) Urine Protein (Negative) Urine Ketones (NEGATIVE) Urine Blood (0-5) Junito/ul Urine Nitrite (NEGATIVE) Urine Bilirubin (NEGATIVE) Urine Urobilinogen (0-1) mg/dL Ur Leukocyte Esterase (NEGATIVE) Urine WBC (Auto) (0-5) /HPF Urine RBC (Auto) (0-2) /HPF U Hyaline Cast (Auto) (0-2) /LPF U Epithel Cells (Auto) (FEW) /HPF Urine Bacteria (Auto) (NEGATIVE) /HPF Urine Culture Reflexed (NO) Urine Glucose (NEGATIVE) mg/dL Salicylates (2-20) mg/dL Urine Opiates Level (NEGATIVE) Ur Methadone (NEGATIVE) Acetaminophen (10-30) ug/ml Urine Barbiturates (NEGATIVE) Ur Phencyclidine (PCP) (NEGATIVE) Urine Amphetamine (NEGATIVE) U Benzodiazepine Level (NEGATIVE) Urine Cocaine (NEGATIVE) Urine Marijuana (THC) (NEGATIVE) Ethyl Alcohol (0-10) mg/dL SARS-CoV-2 (PCR) (NEGATIVE) 11/02/20 11/02/20 11/02/20 Range/Units 00:06 00:40 02:06 WBC (4.0-10.5) K/mm3 RBC (4.1-5.6) M/mm3 Hgb (12.5-18.0) gm/dl Hct (42-50) % MCV (78-100) fl MCH (26-32) pg MCHC (32-36) g/dl RDW (11.5-14.0) % Plt Count (150-450) K/mm3 MPV (7.5-11.0) fl Gran % (36.0-66.0) % Eos # (Auto) (0-0.5) Absolute Lymphs (auto) (1.0-4.6) Absolute Monos (auto) (0.0-1.3) Lymphocytes % (24.0-44.0) % Monocytes % (0.0-12.0) % Eosinophils % (0.00-5.0) % Basophils % (0.0-0.4) % Absolute Granulocytes (1.4-6.9) Basophils # (0-0.4) PT (9.4-12.5) SECONDS INR (0.8-3.0) D-Dimer (215-500) ng/mL Sodium (137-145) mmol/L Potassium (3.5-5.1) mmol/L Chloride (98-107) mmol/L Carbon Dioxide (22-30) mmol/L Anion Gap (5-15) MEQ/L BUN (9-20) mg/dL Creatinine (0.66-1.25) mg/dL Estimated GFR ML/MIN Glucose (74-106) mg/dL POC Glucometer 34 L* 112 H 60 L (74 to 106) mg/dL Hemoglobin A1c (4.5-6.0) % Lactic Acid (0.4-2.0) Calcium (8.4-10.2) mg/dL Total Bilirubin (0.2-1.3) mg/dL AST (17-59) U/L ALT (0-50) U/L Alkaline Phosphatase (38-126) U/L Troponin I (0.000-0.034) ng/mL NT-Pro-B Natriuret Pep (0-900) pg/mL Serum Total Protein (6.3-8.2) g/dL Albumin (3.5-5.0) g/dL Triglycerides (30-150) mg/dL Cholesterol (50-200) mg/dL LDL Cholesterol (30-100) mg/dL HDL Cholesterol (40-60) mg/dL Heart Disease Risk Ratio Amylase (30-110) U/L Lipase (23-300) U/L Urine Color (YELLOW) Urine Appearance (CLEAR) Urine pH (5-6) Ur Specific [place] (1.005-1.025) Urine Protein (Negative) Urine Ketones (NEGATIVE) Urine Blood (0-5) Junito/ul Urine Nitrite (NEGATIVE) Urine Bilirubin (NEGATIVE) Urine Urobilinogen (0-1) mg/dL Ur Leukocyte Esterase (NEGATIVE) Urine WBC (Auto) (0-5) /HPF Urine RBC (Auto) (0-2) /HPF U Hyaline Cast (Auto) (0-2) /LPF U Epithel Cells (Auto) (FEW) /HPF Urine Bacteria (Auto) (NEGATIVE) /HPF Urine Culture Reflexed (NO) Urine Glucose (NEGATIVE) mg/dL Salicylates (2-20) mg/dL Urine Opiates Level (NEGATIVE) Ur Methadone (NEGATIVE) Acetaminophen (10-30) ug/ml Urine Barbiturates (NEGATIVE) Ur Phencyclidine (PCP) (NEGATIVE) Urine Amphetamine (NEGATIVE) U Benzodiazepine Level (NEGATIVE) Urine Cocaine (NEGATIVE) Urine Marijuana (THC) (NEGATIVE) Ethyl Alcohol (0-10) mg/dL SARS-CoV-2 (PCR) (NEGATIVE) 11/02/20 11/02/20 11/02/20 Range/Units 02:43 04:42 07:23 WBC (4.0-10.5) K/mm3 RBC (4.1-5.6) M/mm3 Hgb (12.5-18.0) gm/dl Hct (42-50) % MCV (78-100) fl MCH (26-32) pg MCHC (32-36) g/dl RDW (11.5-14.0) % Plt Count (150-450) K/mm3 MPV (7.5-11.0) fl Gran % (36.0-66.0) % Eos # (Auto) (0-0.5) Absolute Lymphs (auto) (1.0-4.6) Absolute Monos (auto) (0.0-1.3) Lymphocytes % (24.0-44.0) % Monocytes % (0.0-12.0) % Eosinophils % (0.00-5.0) % Basophils % (0.0-0.4) % Absolute Granulocytes (1.4-6.9) Basophils # (0-0.4) PT (9.4-12.5) SECONDS INR (0.8-3.0) D-Dimer (215-500) ng/mL Sodium (137-145) mmol/L Potassium (3.5-5.1) mmol/L Chloride (98-107) mmol/L Carbon Dioxide (22-30) mmol/L Anion Gap (5-15) MEQ/L BUN (9-20) mg/dL Creatinine (0.66-1.25) mg/dL Estimated GFR ML/MIN Glucose (74-106) mg/dL POC Glucometer 177 H 347 H (74 to 106) mg/dL Hemoglobin A1c (4.5-6.0) % Lactic Acid (0.4-2.0) Calcium (8.4-10.2) mg/dL Total Bilirubin (0.2-1.3) mg/dL AST (17-59) U/L ALT (0-50) U/L Alkaline Phosphatase (38-126) U/L Troponin I (0.000-0.034) ng/mL NT-Pro-B Natriuret Pep (0-900) pg/mL Serum Total Protein (6.3-8.2) g/dL Albumin (3.5-5.0) g/dL Triglycerides 77 (30-150) mg/dL Cholesterol 171 (50-200) mg/dL LDL Cholesterol 121 H (30-100) mg/dL HDL Cholesterol 36 L (40-60) mg/dL Heart Disease Risk Ratio 4.7 Amylase (30-110) U/L Lipase (23-300) U/L Urine Color (YELLOW) Urine Appearance (CLEAR) Urine pH (5-6) Ur Specific [place] (1.005-1.025) Urine Protein (Negative) Urine Ketones (NEGATIVE) Urine Blood (0-5) Junito/ul Urine Nitrite (NEGATIVE) Urine Bilirubin (NEGATIVE) Urine Urobilinogen (0-1) mg/dL Ur Leukocyte Esterase (NEGATIVE) Urine WBC (Auto) (0-5) /HPF Urine RBC (Auto) (0-2) /HPF U Hyaline Cast (Auto) (0-2) /LPF U Epithel Cells (Auto) (FEW) /HPF Urine Bacteria (Auto) (NEGATIVE) /HPF Urine Culture Reflexed (NO) Urine Glucose (NEGATIVE) mg/dL Salicylates (2-20) mg/dL Urine Opiates Level (NEGATIVE) Ur Methadone (NEGATIVE) Acetaminophen (10-30) ug/ml Urine Barbiturates (NEGATIVE) Ur Phencyclidine (PCP) (NEGATIVE) Urine Amphetamine (NEGATIVE) U Benzodiazepine Level (NEGATIVE) Urine Cocaine (NEGATIVE) Urine Marijuana (THC) (NEGATIVE) Ethyl Alcohol (0-10) mg/dL SARS-CoV-2 (PCR) (NEGATIVE) Accuchecks Date 11/02/20 Date 11/02/20 Date 11/02/20 Date 11/02/20 Date 11/01/20 Time 07:23 Time 02:10 Time 00:40 Time 00:10 Time 21:47 - Radiology Impressions Radiology Exams & Impressions: Radiology Procedures Category Date Time Status CHEST 1 VIEW (PORTABLE) Stat Exams 11/01/20 13:21 Completed - Other Procedures and Tests Respiratory Therapy 11/02/20 05:00 EKG DAILY 11/03/20 05:00 EKG ONCE 11/04/20 05:00 EKG ONCE Assessment/Plan (1) Chest pain, rule out acute myocardial infarction Current Visit: Yes Status: Resolved Assessment & Plan: Chief Complaint Diagnosis C/P R/O SD, Suicidal Ideation, DM out of control Allergies Allergy/AdvReac Type Severity Reaction Status Date / Time No Known Drug Allergies Allergy Verified 11/01/20 13:32 Vital Signs (Last 24 hours) Temp Pulse Pulse Resp BP BP Pulse Ox 11/02/20 07:55 98 F 67 19 133/80 95 11/02/20 05:00 60 20 104/72 98 11/02/20 03:00 97.4 F 57 L 16 98/68 98 11/01/20 23:45 98.3 F 76 24 113/77 97 11/01/20 21:11 82 20 157/102 97 11/01/20 19:55 98.3 F 82 20 159/98 96 11/01/20 17:33 97.9 F 69 18 139/84 100 11/01/20 16:18 80 18 166/123 100 11/01/20 15:36 100 11/01/20 15:23 98.1 F 84 20 178/108 100 11/01/20 14:19 89 16 181/153 98 11/01/20 13:22 98.1 F 92 H 92 H 16 172/100 97 Home Medications Medication Instructions Recorded Confirmed Last Taken Type Atorvastatin Calcium 40 mg PO DAILY 11/01/20 11/01/20 Unknown History Gabapentin 400 mg [Neurontin 800 mg PO TID 11/01/20 11/01/20 Unknown History 400 MG] Insulin Aspart [Novolog] 20 unit SQ AC 11/01/20 11/01/20 Unknown History Insulin NPH Human Recom [Novolin 50 units SQ DAILY 11/01/20 11/01/20 Unknown History N] Methylphenidate 5 mg [Ritalin 5 10 mg PO BID 11/01/20 11/01/20 Unknown History MG] Current Medications Generic Name Dose Route Start Last Admin Trade Name [facility] PRN Reason Stop Dose Admin Acetaminophen 650 mg 11/01/20 15:37 Tylenol 325 Mg PO 12/01/20 15:36 Q4H PRN PRN PAIN AND/OR FEVER Al Hydrox/Mg Hydrox/Simethicone 30 ml 11/01/20 15:37 Maalox Es 30 Ml Unit Dose PO 12/01/20 15:36 Q4H PRN PRN INDIGESTION Amlodipine Besylate 5 mg 11/02/20 10:00 Norvasc 5 Mg PO 12/02/20 09:59 QAM ELVI Aspirin 81 mg 11/02/20 10:00 Ecotrin 81 Mg PO 12/02/20 09:59 DAILY ELVI Dextrose 25 ml 11/02/20 00:10 11/02/20 02:09 D50w 50 Ml Abboject IV 12/02/20 00:09 50 ml UD PRN Administration HYPOGLYCEMIA Gabapentin 800 mg 11/01/20 22:00 11/01/20 21:09 Neurontin 400 Mg PO 12/01/20 21:59 800 mg TID ELVI Administration Glucagon 1 mg 11/02/20 00:10 Glucagen 1 Mg IM 12/02/20 00:09 UD PRN HYPOGLYCEMIA Glucose 15 gm 11/02/20 00:10 Glutose 15 Gm Oral Gel PO 12/02/20 00:09 UD PRN HYPOGLYCEMIA Sodium Chloride 1,000 mls @ 100 mls/hr 11/01/20 13:30 11/01/20 21:48 Sodium Chloride 0.9% 1000 Ml IV 12/01/20 13:29 100 mls/hr .Q10H ELVI Administration Insulin Human Lispro 20 unit 11/02/20 07:30 11/02/20 07:37 Humalog SQ 12/02/20 07:29 20 unit AC ELVI Administration Insulin Human Lispro 0 unit 11/01/20 21:30 11/01/20 21:47 Humalog SQ 12/01/20 21:29 12 unit UD PRN Administration HYPERGLYCEMIA Insulin Human NPH 50 unit 11/01/20 22:00 11/01/20 21:48 Novolin N SQ 12/01/20 21:59 50 unit HS ELVI Administration Lisinopril 10 mg 11/02/20 10:00 Zestril 10 Mg PO 12/02/20 09:59 DAILY ELVI Magnesium Hydroxide 30 - 60 ml 11/01/20 15:37 Milk Of Magnesia 30 Ml PO 12/01/20 15:36 QDP PRN CONSTIPATION Methylphenidate HCl 10 mg 11/01/20 22:00 11/01/20 21:09 Ritalin 5 Mg PO 11/06/20 21:59 10 mg BID ELVI Administration Metoprolol Succinate 25 mg 11/02/20 10:00 Toprol-Xl 25mg Tablets PO 12/02/20 09:59 DAILY ELVI Morphine Sulfate 2 mg 11/01/20 15:37 11/02/20 07:35 Morphine Sulfate 2 Mg Inj IV 11/06/20 15:36 2 mg .Q15MIN PRN PRN Administration CHEST PAIN Nicotine 21 mg 11/01/20 21:00 11/01/20 21:08 Nicoderm Cq 21 Mg TOP 12/01/20 20:59 21 mg Q24H PRN Administration SMOKING Ondansetron HCl 4 mg 11/01/20 15:37 Zofran 4 Mg/2 Ml Vial IV 12/01/20 15:36 Q4H PRN PRN NAUSEA/VOMITING Senna/Docusate Sodium 2 udtab 11/01/20 15:37 Senokot-S Tablet PO 12/01/20 15:36 BID PRN PRN CONSTIPATION Simvastatin 40 mg 11/01/20 22:00 11/01/20 21:09 Zocor 20mg PO 12/01/20 21:59 40 mg HS ELVI Administration Discontinued Medications Generic Name Dose Route Start Last Admin Trade Name Matthiasq PRN Reason Stop Dose Admin Amlodipine Besylate 5 mg 11/01/20 21:00 11/01/20 21:10 Norvasc 5 Mg PO 11/01/20 21:01 5 mg ONCE ONE Administration Aspirin 325 mg 11/02/20 10:00 Ecotrin 325 Mg PO 12/02/20 09:59 DAILY ELVI Clonidine 0.1 mg 11/01/20 14:20 11/01/20 14:23 Catapres 0.1 Mg PO 11/01/20 14:21 0.1 mg STAT ONE Administration Clonidine Confirm 11/01/20 14:22 Catapres 0.1 Mg Administered 11/01/20 14:23 Dose 0.1 mg .ROUTE .STK-MED ONE Dextrose Confirm 11/02/20 00:11 D50w 50 Ml Abboject Administered 11/02/20 00:12 Dose 50 ml IV .STK-MED ONE Insulin Human Lispro 0 unit 11/01/20 15:37 Humalog SQ 12/01/20 15:36 UD PRN HYPERGLYCEMIA Insulin Human Regular 5 unit 11/01/20 13:23 11/01/20 13:59 Humulin R SQ 11/01/20 13:24 5 unit STAT ONE Administration Insulin Human Regular Confirm 11/01/20 13:56 Humulin R Administered 11/01/20 13:57 Dose 5 unit .ROUTE .STK-MED ONE Lisinopril 10 mg 11/01/20 21:00 11/01/20 21:10 Zestril 10 Mg PO 11/01/20 21:01 10 mg ONCE ONE Administration Metoprolol Succinate 25 mg 11/01/20 21:00 11/01/20 21:10 Toprol-Xl 25mg Tablets PO 11/01/20 21:01 25 mg ONCE ONE Administration Morphine Sulfate 4 mg 11/01/20 13:24 11/01/20 14:00 Morphine Sulfate 4 Mg Inj IV 11/01/20 13:25 4 mg STAT ONE Administration Morphine Sulfate Confirm 11/01/20 13:57 Morphine Sulfate 4 Mg Inj Administered 11/01/20 13:58 Dose 4 mg .ROUTE .STK-MED ONE Ticagrelor 90 mg 11/01/20 22:00 Brilinta PO 12/01/20 21:59 BID ELVI Intake & Output (Last 24 hours) 10/30/20 10/31/20 11/01/20 11/02/20 11:59 11:59 11:59 11:59 Intake Total 3566 Output Total 450 Balance 3116 Weight 58.3 kg Laboratory Results (Last 24 hours) 11/02/20 11/02/20 11/02/20 07:23 04:42 02:43 WBC RBC Hgb Hct MCV MCH MCHC RDW Plt Count MPV Gran % Eos # (Auto) Absolute Lymphs (auto) Absolute Monos (auto) Lymphocytes % Monocytes % Eosinophils % Basophils % Absolute Granulocytes Basophils # PT INR D-Dimer Sodium Potassium Chloride Carbon Dioxide Anion Gap BUN Creatinine Estimated GFR Glucose POC Glucometer 347 H 177 H Hemoglobin A1c Lactic Acid Calcium Total Bilirubin AST ALT Alkaline Phosphatase Troponin I NT-Pro-B Natriuret Pep Serum Total Protein Albumin Triglycerides 77 Cholesterol 171 LDL Cholesterol 121 H HDL Cholesterol 36 L Heart Disease Risk Ratio 4.7 Amylase Lipase Urine Color Urine Appearance Urine pH Ur Specific [place] Urine Protein Urine Ketones Urine Blood Urine Nitrite Urine Bilirubin Urine Urobilinogen Ur Leukocyte Esterase Urine WBC (Auto) Urine RBC (Auto) U Hyaline Cast (Auto) U Epithel Cells (Auto) Urine Bacteria (Auto) Urine Culture Reflexed Urine Glucose Salicylates Urine Opiates Level Ur Methadone Acetaminophen Urine Barbiturates Ur Phencyclidine (PCP) Urine Amphetamine U Benzodiazepine Level Urine Cocaine Urine Marijuana (THC) Ethyl Alcohol SARS-CoV-2 (PCR) 11/02/20 11/02/20 11/02/20 02:06 00:40 00:06 WBC RBC Hgb Hct MCV MCH MCHC RDW Plt Count MPV Gran % Eos # (Auto) Absolute Lymphs (auto) Absolute Monos (auto) Lymphocytes % Monocytes % Eosinophils % Basophils % Absolute Granulocytes Basophils # PT INR D-Dimer Sodium Potassium Chloride Carbon Dioxide Anion Gap BUN Creatinine Estimated GFR Glucose POC Glucometer 60 L 112 H 34 L* Hemoglobin A1c Lactic Acid Calcium Total Bilirubin AST ALT Alkaline Phosphatase Troponin I NT-Pro-B Natriuret Pep Serum Total Protein Albumin Triglycerides Cholesterol LDL Cholesterol HDL Cholesterol Heart Disease Risk Ratio Amylase Lipase Urine Color Urine Appearance Urine pH Ur Specific [place] Urine Protein Urine Ketones Urine Blood Urine Nitrite Urine Bilirubin Urine Urobilinogen Ur Leukocyte Esterase Urine WBC (Auto) Urine RBC (Auto) U Hyaline Cast (Auto) U Epithel Cells (Auto) Urine Bacteria (Auto) Urine Culture Reflexed Urine Glucose Salicylates Urine Opiates Level Ur Methadone Acetaminophen Urine Barbiturates Ur Phencyclidine (PCP) Urine Amphetamine U Benzodiazepine Level Urine Cocaine Urine Marijuana (THC) Ethyl Alcohol SARS-CoV-2 (PCR) 11/01/20 11/01/20 11/01/20 21:20 19:33 16:59 WBC RBC Hgb Hct MCV MCH MCHC RDW Plt Count MPV Gran % Eos # (Auto) Absolute Lymphs (auto) Absolute Monos (auto) Lymphocytes % Monocytes % Eosinophils % Basophils % Absolute Granulocytes Basophils # PT INR D-Dimer Sodium 132 L Potassium 3.8 Chloride 97 L Carbon Dioxide 26 Anion Gap 12.4 BUN 16 Creatinine 1.04 Estimated GFR > 60.0 Glucose 310 H POC Glucometer 345 H Hemoglobin A1c Lactic Acid Calcium 8.9 Total Bilirubin AST ALT Alkaline Phosphatase Troponin I < 0.012 < 0.012 NT-Pro-B Natriuret Pep Serum Total Protein Albumin Triglycerides Cholesterol LDL Cholesterol HDL Cholesterol Heart Disease Risk Ratio Amylase Lipase Urine Color Urine Appearance Urine pH Ur Specific [place] Urine Protein Urine Ketones Urine Blood Urine Nitrite Urine Bilirubin Urine Urobilinogen Ur Leukocyte Esterase Urine WBC (Auto) Urine RBC (Auto) U Hyaline Cast (Auto) U Epithel Cells (Auto) Urine Bacteria (Auto) Urine Culture Reflexed Urine Glucose Salicylates Urine Opiates Level Ur Methadone Acetaminophen Urine Barbiturates Ur Phencyclidine (PCP) Urine Amphetamine U Benzodiazepine Level Urine Cocaine Urine Marijuana (THC) Ethyl Alcohol SARS-CoV-2 (PCR) 11/01/20 11/01/20 11/01/20 15:27 15:26 14:31 WBC RBC Hgb Hct MCV MCH MCHC RDW Plt Count MPV Gran % Eos # (Auto) Absolute Lymphs (auto) Absolute Monos (auto) Lymphocytes % Monocytes % Eosinophils % Basophils % Absolute Granulocytes Basophils # PT INR D-Dimer Sodium Potassium Chloride Carbon Dioxide Anion Gap BUN Creatinine Estimated GFR Glucose POC Glucometer 392 H 449 H Hemoglobin A1c Lactic Acid Calcium Total Bilirubin AST ALT Alkaline Phosphatase Troponin I NT-Pro-B Natriuret Pep Serum Total Protein Albumin Triglycerides Cholesterol LDL Cholesterol HDL Cholesterol Heart Disease Risk Ratio Amylase Lipase Urine Color Urine Appearance Urine pH Ur Specific [place] Urine Protein Urine Ketones Urine Blood Urine Nitrite Urine Bilirubin Urine Urobilinogen Ur Leukocyte Esterase Urine WBC (Auto) Urine RBC (Auto) U Hyaline Cast (Auto) U Epithel Cells (Auto) Urine Bacteria (Auto) Urine Culture Reflexed Urine Glucose Salicylates Urine Opiates Level Ur Methadone Acetaminophen Urine Barbiturates Ur Phencyclidine (PCP) Urine Amphetamine U Benzodiazepine Level Urine Cocaine Urine Marijuana (THC) Ethyl Alcohol SARS-CoV-2 (PCR) NEGATIVE 11/01/20 11/01/20 11/01/20 14:19 14:10 13:40 WBC RBC Hgb Hct MCV MCH MCHC RDW Plt Count MPV Gran % Eos # (Auto) Absolute Lymphs (auto) Absolute Monos (auto) Lymphocytes % Monocytes % Eosinophils % Basophils % Absolute Granulocytes Basophils # PT INR D-Dimer Sodium Potassium Chloride Carbon Dioxide Anion Gap BUN Creatinine Estimated GFR Glucose POC Glucometer Hemoglobin A1c Lactic Acid Calcium Total Bilirubin AST ALT Alkaline Phosphatase Troponin I NT-Pro-B Natriuret Pep Serum Total Protein Albumin Triglycerides Cholesterol LDL Cholesterol HDL Cholesterol Heart Disease Risk Ratio Amylase Lipase Urine Color YELLOW Urine Appearance CLEAR Urine pH 6.0 Ur Specific [place] 1.030 Urine Protein NEGATIVE Urine Ketones TRACE Urine Blood NEGATIVE Urine Nitrite NEGATIVE Urine Bilirubin NEGATIVE Urine Urobilinogen 2 Ur Leukocyte Esterase NEGATIVE Urine WBC (Auto) NONE Urine RBC (Auto) NONE U Hyaline Cast (Auto) 0-2 U Epithel Cells (Auto) NONE Urine Bacteria (Auto) NONE Urine Culture Reflexed NO Urine Glucose >=500 Salicylates 1.9 L Urine Opiates Level POSITIVE Ur Methadone NEGATIVE Acetaminophen < 10 L Urine Barbiturates NEGATIVE Ur Phencyclidine (PCP) NEGATIVE Urine Amphetamine POSITIVE U Benzodiazepine Level NEGATIVE Urine Cocaine NEGATIVE Urine Marijuana (THC) NEGATIVE Ethyl Alcohol < 10 SARS-CoV-2 (PCR) 11/01/20 11/01/20 11/01/20 13:40 13:40 13:40 WBC RBC Hgb Hct MCV MCH MCHC RDW Plt Count MPV Gran % Eos # (Auto) Absolute Lymphs (auto) Absolute Monos (auto) Lymphocytes % Monocytes % Eosinophils % Basophils % Absolute Granulocytes Basophils # PT 11.2 INR 0.95 D-Dimer 351 Sodium 129 L Potassium 4.3 Chloride 96 L Carbon Dioxide 23 Anion Gap 15.1 H BUN 16 Creatinine 1.08 Estimated GFR > 60.0 Glucose 527 H* POC Glucometer Hemoglobin A1c Lactic Acid Calcium 8.9 Total Bilirubin 0.90 AST 37 ALT 38 Alkaline Phosphatase 163 H Troponin I < 0.012 NT-Pro-B Natriuret Pep 876 Serum Total Protein 7.2 Albumin 4.0 Triglycerides Cholesterol LDL Cholesterol HDL Cholesterol Heart Disease Risk Ratio Amylase 47 Lipase 65 Urine Color Urine Appearance Urine pH Ur Specific [place] Urine Protein Urine Ketones Urine Blood Urine Nitrite Urine Bilirubin Urine Urobilinogen Ur Leukocyte Esterase Urine WBC (Auto) Urine RBC (Auto) U Hyaline Cast (Auto) U Epithel Cells (Auto) Urine Bacteria (Auto) Urine Culture Reflexed Urine Glucose Salicylates Urine Opiates Level Ur Methadone Acetaminophen Urine Barbiturates Ur Phencyclidine (PCP) Urine Amphetamine U Benzodiazepine Level Urine Cocaine Urine Marijuana (THC) Ethyl Alcohol SARS-CoV-2 (PCR) 11/01/20 11/01/20 11/01/20 13:40 13:30 13:20 WBC 8.2 RBC 5.08 Hgb 16.0 Hct 46.5 MCV 91.5 MCH 31.5 MCHC 34.4 RDW 12.4 Plt Count 137 L MPV 12.5 H Gran % 73.8 H Eos # (Auto) 0.10 Absolute Lymphs (auto) 1.54 Absolute Monos (auto) 0.47 Lymphocytes % 18.8 L Monocytes % 5.8 Eosinophils % 1.2 Basophils % 0.4 Absolute Granulocytes 6.03 Basophils # 0.03 PT INR D-Dimer Sodium Potassium Chloride Carbon Dioxide Anion Gap BUN Creatinine Estimated GFR Glucose POC Glucometer Hemoglobin A1c 10.89 H Lactic Acid 1.5 Calcium Total Bilirubin AST ALT Alkaline Phosphatase Troponin I NT-Pro-B Natriuret Pep Serum Total Protein Albumin Triglycerides Cholesterol LDL Cholesterol HDL Cholesterol Heart Disease Risk Ratio Amylase Lipase Urine Color Urine Appearance Urine pH Ur Specific [place] Urine Protein Urine Ketones Urine Blood Urine Nitrite Urine Bilirubin Urine Urobilinogen Ur Leukocyte Esterase Urine WBC (Auto) Urine RBC (Auto) U Hyaline Cast (Auto) U Epithel Cells (Auto) Urine Bacteria (Auto) Urine Culture Reflexed Urine Glucose Salicylates Urine Opiates Level Ur Methadone Acetaminophen Urine Barbiturates Ur Phencyclidine (PCP) Urine Amphetamine U Benzodiazepine Level Urine Cocaine Urine Marijuana (THC) Ethyl Alcohol SARS-CoV-2 (PCR) Orders (Last 24 hours) Category Date Time Status Bedrest with BRP/BSC ROUTINE Activity 11/01/20 15:37 Completed Code Status Order ROUTINE Care 11/01/20 15:37 Active IV Care Q6H Care 11/01/20 15:37 Active Observation [Place in Observation] ROUTINE Care 11/01/20 17:10 Completed POCT Glucose Check ACHS Care 11/01/20 15:37 Active Ember Soto ROUTINE Care 11/01/20 15:37 Completed Upholstery Bundler/Discharge Plan ROUTINE Cons 11/01/20 17:33 Active Consistent Carbohydrate Diet 1800 Calorie Diet 11/02/20 Breakfast Active CHEST 1 VIEW (PORTABLE) Stat Exams 11/01/20 13:21 Completed ACETAMINOPHEN Stat Lab 11/01/20 13:40 Completed AMYLASE Stat Lab 11/01/20 13:40 Completed BMP Urgent Lab 11/01/20 16:59 Completed CBC W DIFF Stat Lab 11/01/20 13:40 Completed CMP Stat Lab 11/01/20 13:40 Completed D-DIMER QUANTITATIVE Stat Lab 11/01/20 13:40 Completed ETHYL ALCOHOL Stat Lab 11/01/20 13:40 Completed HEMOGLOBIN A1C Urgent Lab 11/01/20 13:30 Completed LIPASE Stat Lab 11/01/20 13:40 Completed LIPID PROFILE AM.LAB Lab 11/02/20 04:42 Completed Lactic Acid Stat Lab 11/01/20 13:20 Completed NT PRO BNP Stat Lab 11/01/20 13:40 Completed POCT GLUCOSE Stat Lab 11/01/20 14:31 Completed POCT GLUCOSE Stat Lab 11/01/20 15:26 Completed POCT GLUCOSE Stat Lab 11/01/20 21:20 Completed POCT GLUCOSE Stat Lab 11/02/20 00:06 Completed POCT GLUCOSE Stat Lab 11/02/20 00:40 Completed POCT GLUCOSE Stat Lab 11/02/20 02:06 Completed POCT GLUCOSE Stat Lab 11/02/20 02:43 Completed POCT GLUCOSE Stat Lab 11/02/20 07:23 Completed PROTIME WITH INR Stat Lab 11/01/20 13:40 Completed SALICYLATE Stat Lab 11/01/20 13:40 Completed SARS-CoV-2 Xpert Express Routine Lab 11/01/20 15:27 Completed TROPONIN Q3H Lab 11/01/20 13:40 Completed TROPONIN Q3H Lab 11/01/20 16:59 Completed TROPONIN Q3H Lab 11/01/20 19:33 Completed UA W/RFX UR CULTURE Stat Lab 11/01/20 14:10 Completed Urine Triage Profile Stat Lab 11/01/20 14:19 Completed Acetaminophen 325 mg [Tylenol 325 mg] Med 11/01/20 15:37 Active 650 mg PO Q4H PRN PRN Amlodipine Besylate 5 mg [Norvasc 5 mg] Med 11/01/20 21:00 Discontinued 5 mg PO ONCE ONE Amlodipine Besylate 5 mg [Norvasc 5 mg] Med 11/02/20 10:00 Active 5 mg PO QAM Aspirin EC 325 mg [Ecotrin 325 MG] Med 11/02/20 10:00 Discontinued 325 mg PO DAILY Aspirin EC 81 mg [Ecotrin 81 mg] Med 11/02/20 10:00 Active 81 mg PO DAILY Clonidine HCl 0.1 mg [Catapres 0.1 MG] Med 11/01/20 14:22 Discontinued 0.1 mg .ROUTE .STK-MED ONE Clonidine HCl 0.1 mg [Catapres 0.1 MG] Med 11/01/20 14:20 Discontinued 0.1 mg PO STAT ONE Dextrose 15 gm Oral Gel [Glutose 15 GM ORAL GEL] Med 11/02/20 00:10 Active 15 gm PO UD PRN Dextrose 50%-Water Syringe [D50W 50 ml Abboject] Med 11/02/20 00:10 Active 25 ml IV UD PRN Dextrose 50%-Water Syringe [D50W 50 ml Abboject] Med 11/02/20 00:11 Discontinued 50 ml IV .STK-MED ONE Gabapentin 400 mg [Neurontin 400 MG] Med 11/01/20 22:00 Active 800 mg PO TID Glucagon 1 mg [GlucaGen 1 MG] Med 11/02/20 00:10 Active 1 mg IM UD PRN Insulin Lispro [Humalog] Med 11/02/20 07:30 Active 20 unit SQ AC Insulin Lispro [Humalog] Med 11/01/20 15:37 Discontinued See Dose Instructions SQ UD PRN Insulin Lispro [Humalog] Med 11/01/20 21:30 Active See Dose Instructions SQ UD PRN Insulin NPH Human Recom [Novolin N] Med 11/01/20 22:00 Active 50 unit SQ HS Insulin Regular, Human [Humulin R] Med 11/01/20 13:56 Discontinued 5 unit .ROUTE .STK-MED ONE Insulin Regular, Human [Humulin R] Med 11/01/20 13:23 Discontinued 5 unit SQ STAT ONE Lisinopril 10 mg [Zestril 10 MG] Med 11/02/20 10:00 Active 10 mg PO DAILY Lisinopril 10 mg [Zestril 10 MG] Med 11/01/20 21:00 Discontinued 10 mg PO ONCE ONE Mag Hydrox/Al Hydrox/Simeth [Maalox Es 30 ml Unit Med 11/01/20 15:37 Active Dose] 30 ml PO Q4H PRN PRN Magnesium Hydroxide 30 ml [Milk of Magnesia 30 ml Med 11/01/20 15:37 Active ] 30 - 60 ml PO QDP PRN Methylphenidate 5 mg [Ritalin 5 MG] Med 11/01/20 22:00 Active 10 mg PO BID Metoprolol Succinate 25 mg Xl* [Toprol-Xl 25MG Tablets* Med 11/02/20 10:00 Active ] 25 mg PO DAILY Metoprolol Succinate 25 mg Xl* [Toprol-Xl 25MG Tablets* Med 11/01/20 21:00 Discontinued ] 25 mg PO ONCE ONE Morphine Sulfate 2 mg Inj Med 11/01/20 15:37 Active 2 mg IV .Q15MIN PRN PRN Morphine Sulfate 4 mg Inj Med 11/01/20 13:57 Discontinued 4 mg .ROUTE .STK-MED ONE Morphine Sulfate 4 mg Inj Med 11/01/20 13:24 Discontinued 4 mg IV STAT ONE NaCl 0.9% 1000 ml [Sodium Chloride 0.9% 1000 ML] 1,000 Med 11/01/20 13:30 Active ml IV 100 mls/hr Nicotine 21 mg [Nicoderm CQ 21 MG] Med 11/01/20 21:00 Active 21 mg TOP Q24H PRN Ondansetron HCl 4 mg/2 ml [Zofran 4 MG/2 ML VIAL] Med 11/01/20 15:37 Active 4 mg IV Q4H PRN PRN Senna/Docusate Sodium Tab [Senokot-S Tablet] Med 11/01/20 15:37 Active 2 udtab PO BID PRN PRN Simvastatin 20Mg [Zocor 20Mg] Med 11/01/20 22:00 Active 40 mg PO HS Ticagrelor [Brilinta] Med 11/01/20 22:00 Discontinued 90 mg PO BID EKG DAILY RT 11/02/20 05:00 Active EKG ONCE RT 11/01/20 21:00 Completed EKG ONCE RT 11/03/20 05:00 Active EKG ONCE RT 11/04/20 05:00 Active EKG Q8HX2,QAMX3,PRN RT 11/02/20 05:00 Completed Patient Care Notes (Last 24 hours) 11/02/20 02:50 (created 11/02/20 03:05) Nursing Note by Aisha Alexis RECHECKED PTS BS 30MIN AFTER PT RECEIVED IV 50% DEXTROSE @ 0243 PTS BS IS 177 PTS STATES THAT HE IS FEELING BETTER PT IS GOING TO TRY AND GET SOME REST Initialized on 11/02/20 03:05 - END OF NOTE 11/02/20 02:15 (created 11/02/20 02:16) Nursing Note by Aisha Alexis THIS NURSE IN TO CHECK ON PT AND PT STATES THAT HE IS FEELING LIKE HIS BS IS LOW AGAIN THIS NURSE CHECKED PTS BS @ 0206 PTS BS 60 PT RECEIVED ANOTHER DOSE OF THE 50% IV DEXTROSE @ 0210 Initialized on 11/02/20 02:16 - END OF NOTE 11/02/20 00:45 (created 11/02/20 00:49) Nursing Note by Aisha Alexis RECHECKED PTS BS 30MIN AFTER PT RECEIVED IV 50% DEXTROSE @ 0040 PTS BS IS 112 PTS STATES THAT HE IS FEELING A LITTLE BETTER PT IS GOING TO TRY AND GET SOME REST THIS NURSE CONTINUES TO BE AT PTS BEDSIDE AT THIS TIME Initialized on 11/02/20 00:49 - END OF NOTE 11/02/20 00:24 Nursing Note by Aisha Alexis PT CALLED OUT TO NURSES STATION AND STATES HE THINKS HIS BS IS LOW PT IS ALERT TALKING PT STATES THAT HE FEELS LIKE HE IS GOING TO GO OUT PT IS TALKING THROUGH THE WHOLE PROCESS THIS NURSE CHECKED PTS BS AND PT HAS A BS OF 34 THIS NURSE PER STANDING ORDERS OF SYMPTOMATIC HYPOGLYCEMIA PT RECEIVED IV 50% DEXTROSE PT TOLERATED WELL AT THIS TIME Addendum entered by Aisha Alexis 11/02/20 01:02: BS CHECK @ 0001 IV 50% DEXTROSE GIVEN @ 0010 Initialized on 11/02/20 00:24 - END OF NOTE 11/01/20 20:38 Nursing Note by Aisha Alexis NOTIFIED DR DE LA O @ 2030 ABOUT UPDATE ON PTS TROPONIN 0.012 NEGATIVE FOR THE LAST 3 LAB RESULTS PTS BP 166/123, 139/84, 159/98 PT DOSE TAKE NORVAS 5MG DAILY,TOPROL 25MG LISINPRIL 10MG PT STATES HAS NOT TAKEN BP MEDICATIONS TODAY DR DE LA O ORDERED FOR PT TO HAVE A DOSE NOW AND WILL CONTINUE NEXT DOSES IN THE AM PT IS REQUESTING NICOTINE PATCH DR DE LA O ORDERED FOR PT TO RECEIVE 21MG NICOTINE PATCH Q24H PRN Initialized on 11/01/20 20:38 - END OF NOTE Code(s): R07.9 - CHEST PAIN, UNSPECIFIED (2) Suicidal ideation Current Visit: Yes Status: Acute Code(s): R45.851 - SUICIDAL IDEATIONS (3) Diabetes type 2, uncontrolled Current Visit: Yes Status: Acute Qualifiers: Glycemic state: with hyperglycemia Code(s): E11.65 - TYPE 2 DIABETES MELLITUS WITH HYPERGLYCEMIA (4) Depression Current Visit: Yes Status: Chronic Qualifiers: Depression Type: major depressive disorder Active/Remission status: c urrently active Psychotic features: without psychotic features Code(s): F32.9 - MAJOR DEPRESSIVE DISORDER, SINGLE EPISODE, UNSPECIFIED (5) Diabetes mellitus type 2 in nonobese Current Visit: Yes Status: Chronic Code(s): E11.9 - TYPE 2 DIABETES MELLITUS WITHOUT COMPLICATIONS
[2020-11-02] MEDS: Sodium Chloride 0.9% 1000 ML 1,000 ML IV SCH ×2 (08:17→18:45)
[2020-11-02] MEDS ORDERED: MEDICATION INTERVENTION MC SCH (08:45)
[2020-11-02] MEDS ORDERED: NORVASC 5 MG PO SCH (10:00)
[2020-11-02] MEDS ORDERED: Zestril 10 MG PO SCH (10:00)
[2020-11-02] MEDS ORDERED: Toprol-Xl 25MG Tablets PO SCH (10:00)
[2020-11-02] MEDS ORDERED: ECOTRIN 81 MG PO SCH (10:00)
[2020-11-02] MEDS ORDERED: BRILINTA PO SCH (10:00)
[2020-11-02] MEDS ORDERED: Ecotrin 325 MG PO SCH (10:00)
[2020-11-02] MEDS: Neurontin 400 MG PO SCH ×2 (10:25→16:21)
[2020-11-02] MEDS: Ritalin 5 MG PO SCH (10:25)
[2020-11-02 18:52] VITALS: BP 127/84; PULSE 64; O2SAT 99
== END 2020-11-02 22:00 ==
LOC: ED 13:16 → ICU 17:10
PROVIDERS: ADMIT General Practice; ATTEND General Practice
DX: R07.9 Chest pain, unspecified (principal); E11.65 Type 2 diabetes mellitus with hyperglycemia; F32.9 Major depressive disorder, single episode, unspecified; R45.851 Suicidal ideations; Z20.828 Contact with and (suspected) exposure to other viral communicable diseases; I25.10 Atherosclerotic heart disease of native coronary artery without angina pectoris; Z79.899 Other long term (current) drug therapy
CPT/HCPCS: 36000; 36415; 71045; 80048; 80053; 80061; 80307; 81001; 82150; 82947; 83036; 83605; 83690; 83721; 83880; 84484; 85025; 85379; 85610; 93005; 93041; 93268; 96372; 96374; 99285; 99291; G0378; U0003; 90791; J1610; J1815; J1817; J2270; Q3014; A9270-GY; G0480